=== PATIENT | female | born 1950 | race Caucasian/White ===

== ENCOUNTER 2021-02-11 10:02 | Outpatient (REF) | payer MEDICARE, SELFPAY ==
[2021-02-11 11:21] LABS: Hematocrit 38.9 % (37-47); Mean Corpuscular HGB Conc 33.4 g/dl (31.0-35.0); Mean Corpuscular Hemoglobin 29.5 pg (27.0-33.0); Mean Corpuscular Volume 88.4 fL (80-98); Mean Platelet Volume 10.1 fL (9.4-12.3); Platelet Count 298 X10*3/uL (160-400); Red Cell Distribution Width 13.2 % (11.0-16.0); White Blood Count 6.4 X10*3/uL (4.8-10.8)
[2021-02-11 11:57] LABS: Alanine Aminotransferase 20 U/L (0-31); Albumin Level 4.3 g/dL (3.5-5.0); Alkaline Phosphatase 119 U/L (39-117); Anion Gap 14 (12-20); Aspartate Amino Transferase 24 U/L (5-31); Bilirubin Total 0.6 mg/dL (0.0-1.0); Blood Urea Nitrogen 11 mg/dL (9-16); Calcium 9.4 mg/dL (8.4-10.2); Carbon Dioxide 22 mmol/L (22-29); Chloride 97 mmol/L (96-108); Cholesterol 185 mg/dL; Estimated Glomerular Filt Rate > 60; Glucose Fasting 97 mg/dL (60-99); HDL Cholesterol 81 mg/dL; LDL Cholesterol Calculated 96 mg/dl; Potassium 4.3 mmol/L (3.3-5.1); Sodium 129 mmol/L (135-145); Triglycerides 42 mg/dL
[2021-02-11 12:16] LABS: TSH reflex Free T4 0.98 uIU/mL (0.32-4.0)
== END 2021-02-11 10:03 | disposition home or self-care (01) ==
LOC: HO.HMGCLDS 10:02
PROVIDERS: PCP Internal Medicine; Visit Provider Internal Medicine
DX: Z00.00 Encounter for general adult medical examination without abnormal findings (principal)
CPT/HCPCS: 36415; 80053; 80061; 84443; 85027

== ENCOUNTER 2021-05-03 15:16 | Outpatient (REF) | payer MEDICARE, SELFPAY ==
[2021-05-03 17:14] LABS: Anion Gap 13 (12-20); Blood Urea Nitrogen 13 mg/dL (9-16); Calcium 9.5 mg/dL (8.4-10.2); Carbon Dioxide 26 mmol/L (22-29); Chloride 98 mmol/L (96-108); Estimated Glomerular Filt Rate > 60; Glucose Random 68 mg/dL (60-115); Sodium 133 mmol/L (135-145)
[2021-05-04 13:17] LABS: Alpha Fetoprotein 5.3 ng/mL
== END 2021-05-03 15:17 | disposition home or self-care (01) ==
LOC: HO.HMGCLDS 15:16
PROVIDERS: PCP Internal Medicine; Visit Provider Internal Medicine
DX: I10 Essential (primary) hypertension (principal); E87.1 Hypo-osmolality and hyponatremia
CPT/HCPCS: 36415; 80048; 82105

== ENCOUNTER 2022-08-06 12:01 | Emergency (ER) | payer MEDICARE, SELFPAY ==
--- NOTE | ~2022-08-06 | XR_ITS ---
EXAMINATION: XR CHEST CLINICAL INFORMATION: Chest pain with shortness of breath COMPARISON: None TECHNIQUE: 2 views of the chest were obtained. FINDINGS: Lungs are hyperinflated. No acute parenchymal disease, pneumothorax, or pleural effusion identified. Heart normal size. No evidence of pulmonary edema. There is some diminished vasculature peripherally with prominent hilar regions consistent with COPD. Vascular calcifications are present. Numerous calcifications are seen overlying the region of the liver and were noted on previous CT scan of February 28, 2019. XR/XR chest 2V IMPRESSION: No acute disease. COPD.
--- NOTE | 2022-08-06 12:03 | ECG_ITS ---
Test Reason : CHEST PAIN Blood Pressure : / mmHG Vent. Rate : 078 BPM Atrial Rate : 078 BPM P-R Int : 134 ms QRS Dur : 078 ms QT Int : 380 ms P-R-T Axes : 079 074 057 degrees QTc Int : 433 ms Normal sinus rhythm Right atrial enlargement Septal infarct , age undetermined ST depression inferior and herbie-lateral leads Abnormal ECG No previous ECGs available Referred By: Chiuqita Seals Electronically Signed By:LUZ GRIJALVA
--- NOTE | 2022-08-06 12:12 | ED_ITS ---
HPI - Chest Pain General Chief Complaint: Chest Pain Stated Complaint: CP Time Seen by Provider: 08/06/22 12:09 Source: patient Mode of arrival: ambulatory Limitations: no limitations History of Present Illness HPI narrative: Patient is a 71 year old female who presents to the emergency department for evaluation of chest pain. She states over the past 2 weeks she has been experiencing intermittent chest/abdominal discomfort reported as ?gas pains?. However over the past 2 days to the left lower anterior chest she has been having intermittent sharp pains with intermittent numbness to the left arm. She is unable to identify any exacerbating or alleviating factors. She has intermittent shortness of breath as well, however she does have COPD and states this is not uncommon for her. Grandchildren have been sick with a cold and she has been experiencing increased cough, sneezing, rhinorrhea as well. She denies associated fevers, chills, nausea, vomiting. Related Data Previous Rx's Medication Instructions Recorded atorvastatin 20 mg tablet 20 mg PO DAILY #90 tabs 06/29/21 losartan 25 mg tablet 25 mg PO DAILY #90 tabs 09/05/21 metoprolol tartrate 25 mg tablet 25 mg PO BID #180 tabs 10/07/21 amlodipine 10 mg tablet 10 mg PO DAILY #90 tabs 11/14/21 Allergies Allergy/AdvReac Type Severity Reaction Status Date / Time No Known Allergies Allergy Unverified 04/01/20 19:27 [No Known Allergies*] Review of Systems Review of Systems: Constitutional : No Weight loss, No Fever, No Chills ENT/Mouth :? No sore throat, No Rhinorrhea Eyes: No Eye Pain, No Swelling Cardiovascular : pos Chest Pain, pos SOB, no Dyspnea on Exertion, No Orthopnea, No Edema, No Palpitations Respiratory : Positive Cough, positive Sputum Gastrointestinal : No Nausea, No Vomiting, No Diarrhea, No abdominal Pain, No Hematochezia, No Melena Genitourinary : No Dysuria, No Urinary Frequency Musculoskeletal : No joint pain, No Myalgias, No Joint Swelling Skin : No Skin Lesions, No rash Neuro : No Weakness, No Numbness, No Dizziness, No Headache Psych : No Anxiety/Panic, No Depression Heme/Lymph: No Bruising, No Lymphadenopathy Endocrine : No Polyuria, No Polydipsia Yes all other systems are reviewed and are negative [facility] Past Medical History Attestation statement: The following information was validated with the patient. Source: old records reviewed Medical History Annual physical exam Colonoscopy refused COPD (chronic obstructive pulmonary disease) Hyperlipidemia Hyponatremia Liver cirrhosis, alcoholic Mammogram declined Nodule on liver Peripheral vascular disease Family History Family History Father Heart problem Mother Hypertension Diabetes Social History Social History Housing: House Patient Tobacco Use Status: Former Tobacco user Quit Date: couple years ago e-Cigarette/Vaping Use: Currently Using Advance Directives: Yes Advance Directives Information Provided: Yes Advance Directives on File: No Current occupational status: retired Physical Exam Vital Signs: Vital Signs: Last Vital Signs Pulse 84 08/06/22 17:34 Resp 16 08/06/22 17:34 BP 121/78 08/06/22 17:34 Pulse Ox 99 08/06/22 17:34 O2 Del Method 08/06/22 17:34 BMI result Body Mass Index 30.9 Appearance: Alert.?Oriented to person, place and time. No acute distress.?Normal affect. Eyes: Pupils equal, round and reactive to light.? ENT: Pharynx normal.?? Neck: Normal inspection.? Neck supple.??No JVD CVS: Heart sounds normal. Normal heart rate and rhythm.? Pulses normal.?? Respiratory: No respiratory distress.? Lung sounds clear to auscultation bilaterally?? Abdomen: Soft and non-tender. Normoactive bowel sounds. No pulsatile mass.?? Skin: Skin warm and dry.? Normal skin color.? Extremities: No lower extremity edema.? No calf ttp? Neuro: Moves all extremities spontaneously. Sensation intact bilaterally. CN II- XII intact. No focal neuro deficits. Ambulates with normal steady gait. Course Reevaluation(s) Reevaluation #1: CBC is unremarkable, no leukocytosis or anemia. D-dimer 187, not consistent with pulmonary embolism. CMP revealing mild hyponatremia 132 which appears consistent with baseline. Hypokalemia 2.9, patient to receive 500mL normal saline IV, potassium 10 mEq IV, potassium 40 mEq p.o, and will re-evaluate. Troponin 3.5, EKG revealing normal sinus rhythm, no ST elevation or ST depression, no prior EKGs available for review, at this time low suspicion for ACS given duration of symptoms. COVID-19 and influenza testing are negative. Chest x-ray revealing no acute cardiopulmonary process comes not appear consistent with pneumonia, pleural effusion. Time: 14:25 Reevaluation #2: At this time pain is most likely consistent with muscular strain due to cough, no change in sputum, fevers, chills, or leukocytosis to suggest COPD exacerbation. Potassium normalized. Advised outpatient follow-up with primary care provider within the next 2-3 days. Reviewed worrisome signs and symptoms that would warrant re-evaluation in the emergency department. All questions answered. Patient stable for discharge. Time: 17:41 Medications Administered Discontinued Medications Generic Name Dose Route Start Last Admin Trade Name Freq PRN Reason Stop Dose Admin Aspirin 324 mg 08/06/22 12:35 08/06/22 12:54 Aspirin 81 Mg Tab.Chew PO 08/06/22 12:36 324 mg ONCE ONE Administration Potassium Chloride 10 meq in 100 mls @ 100 mls/hr 08/06/22 14:23 08/06/22 16:39 Potassium Chloride/H20 IV 08/06/22 15:22 Infused ONCE ONE Infusion Sodium Chloride 500 mls @ 999 mls/hr 08/06/22 14:30 08/06/22 16:39 Ns IV 08/06/22 15:00 Infused .Q31M TEMITOPE Infusion Potassium Chloride 40 meq 08/06/22 14:23 08/06/22 15:25 Potassium Chloride Packet 20 Meq Packet PO 08/06/22 14:24 40 meq ONCE ONE Administration Medical Decision Making Medical Decision Making MDM Narrative: Patient is a 71-year-old female with a past medical history of COPD, hyperlipidemia, hyponatremia, alcoholic cirrhosis, liver nodule, PVD who presents emergency department for evaluation of chest and upper respiratory symptoms. Overall she is well-appearing at the time of examination, mildly anxious. She is afebrile without hypoxia or tachypnea. Mild tachycardia. Lung sounds are diminished bilaterally. Abdominal examination is benign. Will obtain CBC to evaluate for leukocytosis/ anemia, CMP and lipase to evaluate for abn ormal electrolytes /abnormal renal function/ abnormal hepatic/biliary function, D-dimer to exclude pulmonary embolism, BNP, EKG and troponin to evaluate for ischemia/ACS. Chest x-ray to evaluate for consolidation/ infiltrate/ mass/ pulmonary congestion. Patinet to receive ASA 324mg PO Differential Diagnosis Differential Diagnoses: The differential diagnosis associated with the presentation includes (ACS, pulmonary embolism, pneumonia, pleural effusion, chest wall pain, gastritis, viral upper respiratory infection, musculoskeletal pain) Lab Data MDM Lab Attestation statement: I reviewed the patient's lab results. 08/06/22 12:54 08/06/22 12:54 Labs: Lab Results 08/06/22 08/06/22 08/06/22 Range/Units 12:54 12:54 12:54 WBC 6.8 (4.8-10.8) X10*3/uL RBC 4.52 (4.20-5.50) X10*6/uL Hgb 13.3 (12.0-16.0) g/dl Hct 39.4 (37.0-47.0) % MCV 87.2 (80.0-98.0) fL MCH 29.4 (27.0-33.0) pg MCHC 33.8 (31.0-35.0) g/dl RDW 13.0 (11.0-16.0) % Plt Count 248 (160-400) X10*3/uL MPV Not Reportable Immature Gran % (Auto) 0.1 (0.0-0.4) % Neut % (Auto) 69.1 (45-73) % Lymph % (Auto) 24.6 (20-40) % Isabella % (Auto) 4.7 (2-11) % Eos % (Auto) 0.9 (0-4) % Baso % (Auto) 0.6 (0-2) % Lymph # (Auto) 1.7 (1.2-4.9) X10*3/uL Isabella # (Auto) 0.3 (0.1-1.2) X10*3/uL Eos # (Auto) 0.1 (0.0-0.4) X10*3/uL Baso # (Auto) 0.0 (0.0-0.2) X10*3/uL Abs Immat Gran (auto) 0.01 (0.00-0.03) X10*3/uL Absolute Neuts (auto) 4.7 (2.0-8.3) x10*3/uL Absolute Nucleated RBC 0.000 (0.0-0.012) X10*3/uL Nucleated RBC % (auto) 0.0 (0.0-0.2) /100WBC Smear Tech's Comments VERIFIED PT (10.0-13.1) SEC INR (0.9-1.1) D-Dimer High Sensitivty NG/ML Sodium (135-145) mmol/L Potassium (3.3-5.1) mmol/L Chloride (96-108) mmol/L Carbon Dioxide (22-29) mmol/L Anion Gap (12-20) BUN (9-16) mg/dL Creatinine (0.5-1.4) mg/dL Estim Creat Clear Calc Estimated GFR Random Glucose (60-115) mg/dL Calcium (8.4-10.2) mg/dL Total Bilirubin (0.0-1.0) mg/dL AST (5-31) U/L ALT (0-31) U/L Alkaline Phosphatase (39-117) U/L Troponin I High Sens (<3.5-17.0) ng/L B-Natriuretic Peptide (<100) pg/mL Total Protein (6.5-8.0) g/dL Albumin (3.5-5.0) g/dL Lipase (8-78) U/L Urine Color Urine Appearance Urine pH (5.0-9.0) Ur Specific [place] (1.005-1.025) Urine Protein (Neg-Trace) mg/dL Urine Glucose (UA) (Negative) mg/dL Urine Ketones (Negative) mg/dL Urine Blood (Negative) Urine Nitrite (Negative) Ur Leukocyte Esterase (Negative) Urine RBC (0-2) /HPF Urine WBC (0-5) /HPF Ur Squamous Epith Cells (0-2) /HPF Urine Bacteria (None Seen) Hyaline Casts (0-2) /LPF COVID-19 ([place]) Negative (Negative) COVID-19 Clin Com See Note Influenza Type A ([place]) Negative (Negative) Influenza Type B ([place]) Negative (Negative) Influenza A & B Note See Note 08/06/22 08/06/22 08/06/22 Range/Units 12:54 12:54 12:54 WBC (4.8-10.8) X10*3/uL RBC (4.20-5.50) X10*6/uL Hgb (12.0-16.0) g/dl Hct (37.0-47.0) % MCV (80.0-98.0) fL MCH (27.0-33.0) pg MCHC (31.0-35.0) g/dl RDW (11.0-16.0) % Plt Count (160-400) X10*3/uL MPV Immature Gran % (Auto) (0.0-0.4) % Neut % (Auto) (45-73) % Lymph % (Auto) (20-40) % Isabella % (Auto) (2-11) % Eos % (Auto) (0-4) % Baso % (Auto) (0-2) % Lymph # (Auto) (1.2-4.9) X10*3/uL Isabella # (Auto) (0.1-1.2) X10*3/uL Eos # (Auto) (0.0-0.4) X10*3/uL Baso # (Auto) (0.0-0.2) X10*3/uL Abs Immat Gran (auto) (0.00-0.03) X10*3/uL Absolute Neuts (auto) (2.0-8.3) x10*3/uL Absolute Nucleated RBC (0.0-0.012) X10*3/uL Nucleated RBC % (auto) (0.0-0.2) /100WBC Smear Tech's Comments PT 10.6 (10.0-13.1) SEC INR 0.9 (0.9-1.1) D-Dimer High Sensitivty 187 Cancelled NG/ML Sodium (135-145) mmol/L Potassium (3.3-5.1) mmol/L Chloride (96-108) mmol/L Carbon Dioxide (22-29) mmol/L Anion Gap (12-20) BUN (9-16) mg/dL Creatinine (0.5-1.4) mg/dL Estim Creat Clear Calc Estimated GFR Random Glucose (60-115) mg/dL Calcium (8.4-10.2) mg/dL Total Bilirubin (0.0-1.0) mg/dL AST (5-31) U/L ALT (0-31) U/L Alkaline Phosphatase (39-117) U/L Troponin I High Sens (<3.5-17.0) ng/L B-Natriuretic Peptide 129 H (<100) pg/mL Total Protein (6.5-8.0) g/dL Albumin (3.5-5.0) g/dL Lipase (8-78) U/L Urine Color Urine Appearance Urine pH (5.0-9.0) Ur Specific [place] (1.005-1.025) Urine Protein (Neg-Trace) mg/dL Urine Glucose (UA) (Negative) mg/dL Urine Ketones (Negative) mg/dL Urine Blood (Negative) Urine Nitrite (Negative) Ur Leukocyte Esterase (Negative) Urine RBC (0-2) /HPF Urine WBC (0-5) /HPF Ur Squamous Epith Cells (0-2) /HPF Urine Bacteria (None Seen) Hyaline Casts (0-2) /LPF COVID-19 ([place]) (Negative) COVID-19 Clin Com Influenza Type A ([place]) (Negative) Influenza Type B ([place]) (Negative) Influenza A & B Note 08/06/22 08/06/22 08/06/22 Range/Units 13:54 13:54 16:19 WBC (4.8-10.8) X10*3/uL RBC (4.20-5.50) X10*6/uL Hgb (12.0-16.0) g/dl Hct (37.0-47.0) % MCV (80.0-98.0) fL MCH (27.0-33.0) pg MCHC (31.0-35.0) g/dl RDW (11.0-16.0) % Plt Count (160-400) X10*3/uL MPV Immature Gran % (Auto) (0.0-0.4) % Neut % (Auto) (45-73) % Lymph % (Auto) (20-40) % Isabella % (Auto) (2-11) % Eos % (Auto) (0-4) % Baso % (Auto) (0-2) % Lymph # (Auto) (1.2-4.9) X10*3/uL Isabella # (Auto) (0.1-1.2) X10*3/uL Eos # (Auto) (0.0-0.4) X10*3/uL Baso # (Auto) (0.0-0.2) X10*3/uL Abs Immat Gran (auto) (0.00-0.03) X10*3/uL Absolute Neuts (auto) (2.0-8.3) x10*3/uL Absolute Nucleated RBC (0.0-0.012) X10*3/uL Nucleated RBC % (auto) (0.0-0.2) /100WBC Smear Tech's Comments PT (10.0-13.1) SEC INR (0.9-1.1) D-Dimer High Sensitivty NG/ML Sodium 132 L (135-145) mmol/L Potassium 2.9 L D (3.3-5.1) mmol/L Chloride 96 (96-108) mmol/L Carbon Dioxide 27 (22-29) mmol/L Anion Gap 12 (12-20) BUN 10 (9-16) mg/dL Creatinine 0.85 (0.5-1.4) mg/dL Estim Creat Clear Calc 59.7 Estimated GFR > 60 Random Glucose 99 (60-115) mg/dL Calcium 9.6 (8.4-10.2) mg/dL Total Bilirubin 0.8 (0.0-1.0) mg/dL AST 19 (5-31) U/L ALT 19 (0-31) U/L Alkaline Phosphatase 72 (39-117) U/L Troponin I High Sens 3.5 (<3.5-17.0) ng/L B-Natriuretic Peptide (<100) pg/mL Total Protein 6.8 (6.5-8.0) g/dL Albumin 4.3 (3.5-5.0) g/dL Lipase 30 (8-78) U/L Urine Color Yellow Urine Appearance Clear Urine pH 6.0 (5.0-9.0) Ur Specific [place] <= 1.005 (1.005-1.025) Urine Protein Negative (Neg-Trace) mg/dL Urine Glucose (UA) Negative (Negative) mg/dL Urine Ketones Negative (Negative) mg/dL Urine Blood Negative (Negative) Urine Nitrite Negative (Negative) Ur Leukocyte Esterase Trace H (Negative) Urine RBC 0-2 (0-2) /HPF Urine WBC 0-5 (0-5) /HPF Ur Squamous Epith Cells 0-2 (0-2) /HPF Urine Bacteria None Seen (None Seen) Hyaline Casts 0-2 (0-2) /LPF COVID-19 ([place]) (Negative) COVID-19 Clin Com Influenza Type A ([place]) (Negative) Influenza Type B ([place]) (Negative) Influenza A & B Note 08/06/22 08/06/22 Range/Units 16:49 16:49 WBC (4.8-10.8) X10*3/uL RBC (4.20-5.50) X10*6/uL Hgb (12.0-16.0) g/dl Hct (37.0-47.0) % MCV (80.0-98.0) fL MCH (27.0-33.0) pg MCHC (31.0-35.0) g/dl RDW (11.0-16.0) % Plt Count (160-400) X10*3/uL MPV Immature Gran % (Auto) (0.0-0.4) % Neut % (Auto) (45-73) % Lymph % (Auto) (20-40) % Isabella % (Auto) (2-11) % Eos % (Auto) (0-4) % Baso % (Auto) (0-2) % Lymph # (Auto) (1.2-4.9) X10*3/uL [place] # (Auto) (0.1-1.2) X10*3/uL Eos # (Auto) (0.0-0.4) X10*3/uL Baso # (Auto) (0.0-0.2) X10*3/uL Abs Immat Gran (auto) (0.00-0.03) X10*3/uL Absolute Neuts (auto) (2.0-8.3) x10*3/uL Absolute Nucleated RBC (0.0-0.012) X10*3/uL Nucleated RBC % (auto) (0.0-0.2) /100WBC Smear Tech's Comments PT (10.0-13.1) SEC INR (0.9-1.1) D-Dimer High Sensitivty NG/ML Sodium (135-145) mmol/L Potassium 4.6 D (3.3-5.1) mmol/L Chloride (96-108) mmol/L Carbon Dioxide (22-29) mmol/L Anion Gap (12-20) BUN (9-16) mg/dL Creatinine (0.5-1.4) mg/dL Estim Creat Clear Calc Estimated GFR Random Glucose (60-115) mg/dL Calcium (8.4-10.2) mg/dL Total Bilirubin (0.0-1.0) mg/dL AST (5-31) U/L ALT (0-31) U/L Alkaline Phosphatase (39-117) U/L Troponin I High Sens 5.3 D (<3.5-17.0) ng/L B-Natriuretic Peptide (<100) pg/mL Total Protein (6.5-8.0) g/dL Albumin (3.5-5.0) g/dL Lipase (8-78) U/L Urine Color Urine Appearance Urine pH (5.0-9.0) Ur Specific [place] (1.005-1.025) Urine Protein (Neg-Trace) mg/dL Urine Glucose (UA) (Negative) mg/dL Urine Ketones (Negative) mg/dL Urine Blood (Negative) Urine Nitrite (Negative) Ur Leukocyte Esterase (Negative) Urine RBC (0-2) /HPF Urine WBC (0-5) /HPF Ur Squamous Epith Cells (0-2) /HPF Urine Bacteria (None Seen) Hyaline Casts (0-2) /LPF COVID-19 ([place]) (Negative) COVID-19 Clin Com Influenza Type A ([place]) (Negative) Influenza Type B ([place]) (Negative) Influenza A & B Note Independent Interpretation I performed an independent interpretation of an: EKG and Plain X-Ray (I Have personally interpreted patient's chest x-ray and agree with radiologist impression.) Interpretation: EKG Rate: 78 Rhythm:? Normal sinus rhythm [place]:? Normal Normal P waves.? Normal KIRA.?? Normal QRS complex.?? ST T wave :??No ST elevation, no ST depression qTC: 433 prior studies:? No prior EKG available for review The study has been interpreted contemporaneously by me. Radiology Impression Discussion of test interpretation with radiology: I have reviewed the radiologist's reading. Radiologist Impression: XR/XR chest 2V IMPRESSION: No acute disease. ? COPD. Prescription Management I considered prescription management with: Antibiotic (Considered antibiotic for COPD exacerbation, however based on history and physical examination does not appear consistent at this time. Antibiotics deferred.) Discharge Plan Discharge Clinical Impression: Atypical chest pain, Acute hypokalemia Patient Disposition: Home, Self-Care Instructions: Chest Pain (ED), Noncardiac Chest Pain (ED) Additional Instructions: As discussed, your potassium level was low today, we gave you replacement through the IV as well as orally and this normalized. Your EKG today was reassuring, your blood work was overall normal. Your x-ray does not show evidence of pneumonia. Please contact your primary care provider to arrange for a follow-up visit within the next 3 days. Return back to emergency department with any new or worsening symptoms or concerns. Prescriptions: No Action atorvastatin 20 mg tablet 20 mg PO DAILY Qty: 90 3RF losartan 25 mg tablet 25 mg PO DAILY Qty: 90 3RF metoprolol tartrate 25 mg tablet 25 mg PO BID Qty: 180 3RF amlodipine 10 mg tablet 10 mg PO DAILY Qty: 90 3RF Referrals: Shirin Phan MD [Primary Care Provider] -
[2022-08-06 12:17] VITALS: BP 122/87; PULSE 100; RESP 18; O2SAT 97; BMI 30.9
[2022-08-06] MEDS: Aspirin 81 MG TAB.CHEW 324 MG PO (12:54)
[2022-08-06 13:03] LABS: Basophils Percent Auto 0.6 % (0-2); Eosinophils Absolute Auto 0.1 X10*3/uL (0.0-0.4); Eosinophils Percent Auto 0.9 % (0-4); Hematocrit 39.4 % (37.0-47.0); Hemoglobin 13.3 g/dl (12.0-16.0); Imm Gran Abs Auto 0.01 X10*3/uL (0.00-0.03); Imm Gran Pct Auto 0.1 % (0.0-0.4); Lymphocytes Absolute Auto 1.7 X10*3/uL (1.2-4.9); Lymphocytes Percent Auto 24.6 % (20-40); MANUAL DIFF FLAG SCAN; Mean Corpuscular HGB Conc 33.8 g/dl (31.0-35.0); Mean Corpuscular Hemoglobin 29.4 pg (27.0-33.0); Mean Corpuscular Volume 87.2 fL (80.0-98.0); Monocytes Absolute Auto 0.3 X10*3/uL (0.1-1.2); Monocytes Percent Auto 4.7 % (2-11); Neutrophils Absolute Auto 4.7 x10*3/uL (2.0-8.3); Neutrophils Percent Auto 69.1 % (45-73); PLT CLUMP 1; Red Blood Count 4.52 X10*6/uL (4.20-5.50); SCAN SMEAR FLAG 1
[2022-08-06 13:14] LABS: INTERNATIONAL NORM RATIO 0.9 (0.9-1.1); Prothrombin Time 10.6 SEC (10.0-13.1)
[2022-08-06 13:16] LABS: COVID-19 Test Negative (Negative); D Dimer High Sensitivity 187 NG/ML; IDNOW Serial# 16C4AD1C
[2022-08-06 13:17] LABS: IDNOW Serial# BCCEAD1C; Influenza A Negative (Negative); Influenza B2 Negative (Negative)
[2022-08-06 13:22] LABS: Platelet Count 248 X10*3/uL (160-400); White Blood Count 6.8 X10*3/uL (4.8-10.8)
[2022-08-06 13:23] LABS: SLIDE REVIEW VERIFIED
[2022-08-06 13:27] LABS: B Type Natriuretic Peptide 129 pg/mL (<100)
[2022-08-06 14:13] LABS: Alanine Aminotransferase 19 U/L (0-31); Albumin Level 4.3 g/dL (3.5-5.0); Alkaline Phosphatase 72 U/L (39-117); Anion Gap 12 (12-20); Aspartate Amino Transferase 19 U/L (5-31); Bilirubin Total 0.8 mg/dL (0.0-1.0); Blood Urea Nitrogen 10 mg/dL (9-16); Calcium 9.6 mg/dL (8.4-10.2); Carbon Dioxide 27 mmol/L (22-29); Chloride 96 mmol/L (96-108); Creatinine Clr Calc Pharmacy 59.7; Estimated Glomerular Filt Rate > 60; Glucose Random 99 mg/dL (60-115); Lipase 30 U/L (8-78); Potassium 2.9 mmol/L (3.3-5.1); Sodium 132 mmol/L (135-145); Total Protein 6.8 g/dL (6.5-8.0)
[2022-08-06 14:20] LABS: Troponin-I High Sensitivity 3.5 ng/L (<3.5-17.0)
[2022-08-06 14:27] VITALS: BP 123/62; PULSE 73; RESP 16; O2SAT 96
[2022-08-06] MEDS: 0.9 % Sodium Chloride 500 ML 999 ML IV (15:21)
[2022-08-06] MEDS: Potassium Chloride/H20 10 MEQ/100 ML PIGGYBACK 100 MEQ IV (15:25)
[2022-08-06] MEDS: Potassium Chloride Packet 20 MEQ PACKET 40 MEQ PO (15:25)
[2022-08-06 15:30] VITALS: BP 142/103; PULSE 89; RESP 16; O2SAT 97
[2022-08-06 16:28] LABS: Appearance Urine Clear; Color Urine Yellow; Glucose Urine UA Negative (Negative); Leukocyte Esterase Urine Trace (Negative); Nitrite Urine Negative (Negative); Specific Gravity - Urine <= 1.005 (1.005-1.025); UMIC TRIGGER UACC YES; Urine Blood Negative (Negative); Urine Ketones Negative (Negative); Urine Protein Negative (Neg-Trace)
[2022-08-06 16:33] LABS: Bacteria Urine None Seen (None Seen); Hyaline Casts Urine 0-2 /LPF (0-2); RBC Urine 0-2 /HPF (0-2); Squamous Epithelial Cell Urine 0-2 /HPF (0-2); WBC Urine 0-5 /HPF (0-5)
[2022-08-06 17:03] LABS: Potassium 4.6 mmol/L (3.3-5.1)
[2022-08-06 17:15] LABS: Troponin-I High Sensitivity 5.3 ng/L (<3.5-17.0)
[2022-08-06 17:34] VITALS: BP 121/78; PULSE 84; RESP 16; O2SAT 99
== END 2022-08-06 17:58 | disposition home or self-care (01) ==
PROVIDERS: Nurse Practitioner Family; Emergency Provider Emergency Medicine; PCP Internal Medicine
DX: R07.89 Other chest pain (principal); E87.6 Hypokalemia; R06.02 Shortness of breath; Z20.822 Contact with and (suspected) exposure to COVID-19; Z20.828 Contact with and (suspected) exposure to other viral communicable diseases; Z79.899 Other long term (current) drug therapy; Z87.891 Personal history of nicotine dependence
CPT/HCPCS: 36415; 71046; 80053; 81001; 83690; 83880; 84132; 84484; 85025; 85379; 85610; 87502; 87635; 93005; 99284

== ENCOUNTER 2022-09-23 12:19 | Inpatient (IN) | payer MEDICARE, SELFPAY ==
[2022-09-23] VITALS (7 sets, daily range): BP systolic 96–131; BP diastolic 56–72; PULSE 77–109; RESP 16–20; TEMP 36.3–36.8; O2SAT 94–97; BMI 16.7
--- NOTE | ~2022-09-23 | XR_ITS ---
EXAMINATION: XR CHEST CLINICAL INFORMATION: Shortness of breath COMPARISON: 08/06/2022 TECHNIQUE: 2 views of the chest were obtained. FINDINGS: Again seen are hyperinflated lungs compatible with COPD. Otherwise, no significant abnormality is noted involving the heart, lungs, mediastinum, bony thorax or soft tissues. Again seen are innumerable calcific densities throughout the liver as noted on the prior CT XR/XR chest 2V IMPRESSION: COPD. No acute intrathoracic disease.
--- NOTE | 2022-09-23 12:26 | ED.GENADULT ---
HPI - General Adult General Chief complaint: Upper Respiratory Symptoms <FILOMENA Sesay - Last Filed: 09/23/22 12:27> Stated complaint: Diff breathing <FILOMENA Sesay - Last Filed: 09/23/22 12:27> Time Seen by Provider: 09/23/22 13:36 <FILOMENA Sesay - Last Filed: 09/23/22 12:27> Source: patient <FILOMENA Huang - Last Filed: 09/23/22 19:01> Mode of arrival: ambulatory <FILOMENA Huang - Last Filed: 09/23/22 19:01> History of Present Illness HPI narrative: 71-year-old female with a past medical history of COPD, HLD, hyponatremia, liver cirrhosis, PVD, presenting to the ED complaining of persistent cough, wheezing, dyspnea, chest discomfort x few weeks. Admits was recently seen at urgent care prescribed Ventolin, Doxycycline, and Prednisone without much relief, and tested positive for human metapneumovirus. Admits dyspnea worse on exertion and lying flat. Denies recent travel, sick contacts, pedal edema, abdominal pain, nausea/vomiting <FILOMENA Huang - Last Filed: 09/23/22 19:01> Onset (ago): week(s) <FILOMENA Huang - Last Filed: 09/23/22 19:01> Related Data Home medications: Home Medications Medication Instructions Recorded Confirmed albuterol sulfate 90 mcg/actuation 1 puff inhalation Q6H PRN wheezing 09/23/22 09/23/22 aerosol inhaler aspirin 81 mg tablet,delayed 81 mg PO DAILY 09/23/22 09/23/22 release doxycycline hyclate 100 mg tablet 1 tab PO BID 09/23/22 09/23/22 prednisone 20 mg tablet 1 tab PO BID 09/23/22 09/23/22 Previous Rx's Medication Instructions Recorded losartan 25 mg tablet 25 mg PO DAILY #90 tabs 09/08/22 amlodipine 10 mg tablet 10 mg PO DAILY #90 tabs 09/15/22 metoprolol tartrate 25 mg tablet 25 mg PO BID #180 tabs 09/15/22 <FILOMENA Sesay Last Filed: 09/23/22 12:27> Allergies/adverse reactions: Allergies Allergy/AdvReac Type Severity Reaction Status Date / Time No Known Allergies Allergy Unverified 04/01/20 19:27 [No Known Allergies*] <FILOMENA Sesay - Last Filed: 09/23/22 12:27> Review of Systems Review of Systems: Constitutional: No Fever, No Chills, + Fatigue, + Malaise ENT/Mouth:No Ear Pain, + Nasal Congestion, No sore throat, + Rhinorrhea, No Swallowing Difficulty Eyes: No Eye Pain, No Swelling, No Redness, No Vision Changes Cardiovascular: + Chest Pain, + SOB, + Dyspnea on Exertion, + Orthopnea, No Edema, No Palpitations Respiratory: + Cough, No Sputum, + Wheezing, No Smoke Exposure, + Dyspnea Gastrointestinal: No Nausea, No Vomiting, No Diarrhea, No Constipation, No Abdominal pain Genitourinary: No Dysuria, No Urinary Frequency, No Hematuria, No Flank Pain Musculoskeletal: No joint pain, No Myalgias, No Joint Swelling Skin: No Skin Lesions, No rash Neuro: +Gen Weakness, No Numbness, No Loss of Consciousness, No Dizziness, No Headache <FILOMENA Huang - Last Filed: 09/23/22 19:01> Yes all other systems are reviewed and are negative <FILOMENA Huang - Last Filed: 09/23/22 19:01> Constitutional: Constitutional: Reports as per HPI <FILOMENA Huang - Last Filed: 09/23/22 19:01> [facility] Past Medical History Attestation statement: The following information was validated with the patient. <FILOMENA Huang - Last Filed: 09/23/22 19:01> Medical History: Medical History Annual physical exam Colonoscopy refused COPD (chronic obstructive pulmonary disease) Hyperlipidemia Hyponatremia Liver cirrhosis, alcoholic Mammogram declined Nodule on liver Peripheral vascular disease <FILOMENA Sesay - Last Filed: 09/23/22 12:27> Family History Family History: Family History Father Heart problem Mother Hypertension Diabetes <FILOMENA Sesay - Last Filed: 09/23/22 12:27> Social History Social History: Social History Housing: House Patient Tobacco Use Status: Former Tobacco user Quit Date: couple years ago e-Cigarette/Vaping Use: Currently Using Advance Directives: Yes Advance Directives Information Provided: No Advance Directives on File: No Current occupational status: retired <FILOMENA Sesay - Last Filed: 09/23/22 12:27> Physical Exam ED Vital Signs: Vital Signs - 24 hr 09/23/22 12:23 09/23/22 14:23 09/23/22 16:36 Temperature 97.3 F Pulse Rate 77 88 109 H Respiratory Rate 16 18 18 Blood Pressure 131/72 Pulse Oximetry 97 Oxygen Delivery Method Room Air 09/23/22 17:10 Temperature Pulse Rate Respiratory Rate Blood Pressure Pulse Oximetry 96 Oxygen Delivery Method BMI result Body Mass Index 16.7 <FILOMENA Sesay - Last Filed: 09/23/22 12:27> Vital Signs - 24 hr 09/23/22 12:23 09/23/22 14:23 09/23/22 16:36 Temperature 97.3 F Pulse Rate 77 88 109 H Respiratory Rate 16 18 18 Blood Pressure 131/72 Pulse Oximetry 97 Oxygen Delivery Method Room Air 09/23/22 17:10 Temperature Pulse Rate Respiratory Rate Blood Pressure Pulse Oximetry 96 Oxygen Delivery Method BMI result Body Mass Index 16.7 <FILOMENA Huang - Last Filed: 09/23/22 19:01> Const General: cooperative and no acute distress <FILOMENA Huang - Last Filed: 09/23/22 19:01> Orientation/consciousness: patient oriented x3 <FILOMENA Huang - Last Filed: 09/23/22 19:01> Limitations: no limitations <FILOMENA Huang Last Filed: 09/23/22 19:01> HENMT Head: Yes normal to inspection and Yes atraumatic <FILOMENA Huang - Last Filed: 09/23/22 19:01> Ears: hearing grossly normal bilaterally <FILOMENA Huang Last Filed: 09/23/22 19:01> General nose exam: Normal external nose present <FILOMENA Huang Last Filed: 09/23/22 19:01> Face and sinus: Yes normal facial exam <FILOMENA Huang - Last Filed: 09/23/22 19:01> Throat: Yes posterior oropharynx normal, Yes tonsils normal and Yes uvula midline <FILOMENA Huang - Last Filed: 09/23/22 19:01> Eyes General: appearance normal, both eyes and all related structures <Mary Olivarez PA - Last Filed: 09/23/22 19:01> EOM: EOMs intact bilaterally <Mary Olivarez PA - Last Filed: 09/23/22 19:01> Neck Neck: Yes normal visual inspection and Yes no meningeal signs <Mary Olivarez PA - Last Filed: 09/23/22 19:01> Resp Effort & Inspection: normal respiratory effort and no respiratory distress <Mary Olivarez PA - Last Filed: 09/23/22 19:01> Auscultation: rhonchi lower bilaterally <Mary Olivarez [place] - Last Filed: 09/23/22 19:01> Cardio Rate: regular rate <Mary Olivarez PA - Last Filed: 09/23/22 19:01> Heart sounds: S1 normal heart sound present and S2 normal heart sound present <Mary Olivarez PA - Last Filed: 09/23/22 19:01> GI Inspection: Yes normal to inspection <Mary Olivarez PA - Last Filed: 09/23/22 19:01> Palpation (GI): Soft to palpation, nontender, no guarding and not rigid <Mary Olivarez [place] - Last Filed: 09/23/22 19:01> Skin Rashes: no rashes <Mary Olivarez PA - Last Filed: 09/23/22 19:01> Wounds: no wounds <Mary Olivarez PA - Last Filed: 09/23/22 19:01> Neuro General: patient oriented x3, tone normal and no meningeal signs <Mary Olivarez PA - Last Filed: 09/23/22 19:01> Gait exam (Neuro): Normal gait present <Mary Olivarez PA - Last Filed: 09/23/22 19:01> Extrem General: Yes normal to inspection, Yes no pedal edema and Yes no calf tenderness <FILOMENA Huang - Last Filed: 09/23/22 19:01> Course Course Course Narrative: RME performed by Josy Ernst PA-C. Patient is a 71 year old female presenting to the emergency department with a cough and shortness of breath. Labs, CXR, and swab ordered. Patient placed back in the waiting room pending room availability and results. <FILOMENA Sesay - Last Filed: 09/23/22 12:27> RME performed by Josy Ernst PA-C. Patient is a 71 year old female presenting to the emergency department with a cough and shortness of breath. Labs, CXR, and swab ordered. Patient placed back in the waiting room pending room availability and results. XR chest 2V IMPRESSION: COPD. No acute intrathoracic disease. -1500--BUN mildly elevated to 22 > likely from dehydration will give IVF. Troponin negative. BNP acute on chronically elevated. -no leukocytosis -COVID-19/influenza/RSV negative. Patient desaturated from 96% to 88% on RA during ambulation with increase in heart rate to 128 >> plan to admit for further management <FILOMENA Huang - Last Filed: 09/23/22 19:01> Medications Administered Generic Name Dose Route Start Last Admin Trade Name Freq PRN Reason Stop Dose Admin Magnesium Sulfate 2 gm in 50 mls @ 25 mls/hr 09/23/22 18:07 09/23/22 18:27 Magnesium Sulfate/H2o IV 09/23/22 20:06 25 mls/hr ONCE ONE Administration Discontinued Medications Generic Name Dose Route Start Last Admin Trade Name Freq PRN Reason Stop Dose Admin Albuterol Sulfate 5 mg/ 0 mg 09/23/22 13:58 09/23/22 14:21 Ipratropium Mcdavid 0.5 mg INHALE 09/23/22 13:59 1 each ONCE ONE Administration Albuterol Sulfate 2.5 mg/ 0 mg 09/23/22 15:55 09/23/22 16:34 Ipratropium Mcdavid 0.5 mg INHALE 09/23/22 15:56 1 each ONCE ONE Administration Sodium Chloride 500 mls @ 999 mls/hr 09/23/22 15:15 09/23/22 16:30 Ns IV 09/23/22 15:45 Infused .Q31M TEMITOPE Infusion Methylprednisolone Sodium Succinate 125 mg 09/23/22 14:12 09/23/22 14:25 Methylprednisolone Sod Succ 125 Mg/2 Ml Vial IVPUSH 09/23/22 14:13 125 mg ONCE ONE Administration <FILOMENA Sesay - Last Filed: 09/23/22 12:27> Medications Administered Generic Name Dose Route Start Last Admin Trade Name Freq PRN Reason Stop Dose Admin Magnesium Sulfate 2 gm in 50 mls @ 25 mls/hr 09/23/22 18:07 09/23/22 18:27 Magnesium Sulfate/H2o IV 09/23/22 20:06 25 mls/hr ONCE ONE Administration Discontinued Medications Generic Name Dose Route Start Last Admin Trade Name Freq PRN Reason Stop Dose Admin Albuterol Sulfate 5 mg/ 0 mg 09/23/22 13:58 09/23/22 14:21 Ipratropium Mcdavid 0.5 mg INHALE 09/23/22 13:59 1 each ONCE ONE Administration Albuterol Sulfate 2.5 mg/ 0 mg 09/23/22 15:55 09/23/22 16:34 Ipratropium Mcdavid 0.5 mg INHALE 09/23/22 15:56 1 each ONCE ONE Administration Sodium Chloride 500 mls @ 999 mls/hr 09/23/22 15:15 09/23/22 16:30 Ns IV 09/23/22 15:45 Infused .Q31M TEMITOPE Infusion Methylprednisolone Sodium Succinate 125 mg 09/23/22 14:12 09/23/22 14:25 Methylprednisolone Sod Succ 125 Mg/2 Ml Vial IVPUSH 09/23/22 14:13 125 mg ONCE ONE Administration <FILOMENA Huang - Last Filed: 09/23/22 19:01> Medical Decision Making Medical Decision Making MDM Narrative: 71-year-old female with a past medical history of COPD, HLD, hyponatremia, liver cirrhosis, PVD, presenting to the ED complaining of persistent cough, wheezing, dyspnea, chest discomfort x few weeks. Admits was recently seen at urgent care prescribed Ventolin, Doxycycline, and Prednisone without much relief, and tested positive for human metapneumovirus. On exam vital signs stable, bibasilar rhonchi noted, satting 97% on room air, no pedal edema/calf tenderness. Concern for COPD exacerbation vs viral syndrome vs pneumonia vs CHF. Lower suspicion for ACS/PE Plan: EKG, labs, CXR, COVID 19/influenza/RSV testing, DuoNebs, IV Solu-Medrol, re-evaluate Please refer to course for remaining clinical decision making, interpretation of labs/imaging results, and discussions with consultants and/or family members. <FILOMENA Huang - Last Filed: 09/23/22 19:01> Differential Diagnosis Differential Diagnoses: The differential diagnosis associated with the presentation includes <FILOMENA Huang - Last Filed: 09/23/22 19:01> as above <FILOMENA Huang - Last Filed: 09/23/22 19:01> Admission/Observation Consideration of admission/observation: Escalation of care including admission/observation considered <FILOMENA Huang - Last Filed: 09/23/22 19:01> Lab Data MDM Lab Attestation statement: I reviewed the patient's lab results. <FILOMENA Huang - Last Filed: 09/23/22 19:01> Result Diagrams: 09/23/22 14:09 <FILOMENA Sesay - Last Filed: 09/23/22 12:27> Labs: Lab Results 09/23/22 09/23/22 09/23/22 Range/Units 14:09 14:09 14:09 WBC 9.3 (4.8-10.8) X10*3/uL RBC 4.46 (4.20-5.50) X10*6/uL Hgb 13.4 (12.0-16.0) g/dl Hct 39.1 (37.0-47.0) % MCV 87.7 (80.0-98.0) fL MCH 30.0 (27.0-33.0) pg MCHC 34.3 (31.0-35.0) g/dl RDW 13.5 (11.0-16.0) % Plt Count 332 D (160-400) X10*3/uL MPV 9.3 L (9.4-12.3) fL Immature Gran % (Auto) 0.4 (0.0-0.4) % Neut % (Auto) 82.5 H (45-73) % Lymph % (Auto) 13.9 L (20-40) % [place] % (Auto) 3.0 (2-11) % Eos % (Auto) 0.1 (0-4) % Baso % (Auto) 0.1 (0-2) % Lymph # (Auto) 1.3 (1.2-4.9) X10*3/uL [place] # (Auto) 0.3 (0.1-1.2) X10*3/uL Eos # (Auto) 0.0 (0.0-0.4) X10*3/uL Baso # (Auto) 0.0 (0.0-0.2) X10*3/uL Abs Immat Gran (auto) 0.04 H (0.00-0.03) X10*3/uL Absolute Neuts (auto) 7.7 (2.0-8.3) x10*3/uL Absolute Nucleated RBC 0.000 (0.0-0.012) X10*3/uL Nucleated RBC % (auto) 0.0 (0.0-0.2) /100WBC PT (10.0-13.1) SEC INR (0.9-1.1) Sodium 134 L (135-145) mmol/L Potassium 4.1 (3.3-5.1) mmol/L Chloride 98 (96-108) mmol/L Carbon Dioxide 22 (22-29) mmol/L Anion Gap 18 (12-20) BUN 22 H (9-16) mg/dL Creatinine 1.13 (0.5-1.4) mg/dL Estim Creat Clear Calc 31.3 Estimated GFR 47 Random Glucose 165 H (60-115) mg/dL Calcium 10.1 (8.4-10.2) mg/dL Magnesium 1.8 (1.6-2.6) mg/dL Total Bilirubin 0.7 (0.0-1.0) mg/dL AST 28 (5-31) U/L ALT 42 H (0-31) U/L Alkaline Phosphatase 105 (39-117) U/L Troponin I High Sens 4.9 (<3.5-17.0) ng/L B-Natriuretic Peptide (<100) pg/mL Total Protein 7.8 (6.5-8.0) g/dL Albumin 4.6 (3.5-5.0) g/dL COVID-19 ([place]) (Negative) COVID-19 Clin Com Influenza Type A ([facility]IA) (Negative) Influenza Type B (ST[facility]IA) (Negative) Influenza A & B Note 09/23/22 09/23/22 09/23/22 Range/Units 14:09 14:09 15:12 WBC (4.8-10.8) X10*3/uL RBC (4.20-5.50) X10*6/uL Hgb (12.0-16.0) g/dl Hct (37.0-47.0) % MCV (80.0-98.0) fL MCH (27.0-33.0) pg MCHC (31.0-35.0) g/dl RDW (11.0-16.0) % Plt Count (160-400) X10*3/uL MPV (9.4-12.3) fL Immature Gran % (Auto) (0.0-0.4) % Neut % (Auto) (45-73) % Lymph % (Auto) (20-40) % [place] % (Auto) (2-11) % Eos % (Auto) (0-4) % Baso % (Auto) (0-2) % Lymph # (Auto) (1.2-4.9) X10*3/uL [place] # (Auto) (0.1-1.2) X10*3/uL Eos # (Auto) (0.0-0.4) X10*3/uL Baso # (Auto) (0.0-0.2) X10*3/uL Abs Immat Gran (auto) (0.00-0.03) X10*3/uL Absolute Neuts (auto) (2.0-8.3) x10*3/uL Absolute Nucleated RBC (0.0-0.012) X10*3/uL Nucleated RBC % (auto) (0.0-0.2) /100WBC PT 10.6 (10.0-13.1) SEC INR 0.9 (0.9-1.1) Sodium (135-145) mmol/L Potassium (3.3-5.1) mmol/L Chloride (96-108) mmol/L Carbon Dioxide (22-29) mmol/L Anion Gap (12-20) BUN (9-16) mg/dL Creatinine (0.5-1.4) mg/dL Estim Creat Clear Calc Estimated GFR Random Glucose (60-115) mg/dL Calcium (8.4-10.2) mg/dL Magnesium (1.6-2.6) mg/dL Total Bilirubin (0.0-1.0) mg/dL AST (5-31) U/L ALT (0-31) U/L Alkaline Phosphatase (39-117) U/L Troponin I High Sens (<3.5-17.0) ng/L B-Natriuretic Peptide 146 H (<100) pg/mL Total Protein (6.5-8.0) g/dL Albumin (3.5-5.0) g/dL COVID-19 ([place]) (Negative) COVID-19 Clin Com Influenza Type A ([facility]ACIA) Negative (Negative) Influenza Type B ([facility]IA) Negative (Negative) Influenza A & B Note See Note 09/23/22 Range/Units 15:12 WBC (4.8-10.8) X10*3/uL RBC (4.20-5.50) X10*6/uL Hgb (12.0-16.0) g/dl Hct (37.0-47.0) % MCV (80.0-98.0) fL MCH (27.0-33.0) pg MCHC (31.0-35.0) g/dl RDW (11.0-16.0) % Plt Count (160-400) X10*3/uL MPV (9.4-12.3) fL Immature Gran % (Auto) (0.0-0.4) % Neut % (Auto) (45-73) % Lymph % (Auto) (20-40) % [place] % (Auto) (2-11) % Eos % (Auto) (0-4) % Baso % (Auto) (0-2) % Lymph # (Auto) (1.2-4.9) X10*3/uL [place] # (Auto) (0.1-1.2) X10*3/uL Eos # (Auto) (0.0-0.4) X10*3/uL Baso # (Auto) (0.0-0.2) X10*3/uL Abs Immat Gran (auto) (0.00-0.03) X10*3/uL Absolute Neuts (auto) (2.0-8.3) x10*3/uL Absolute Nucleated RBC (0.0-0.012) X10*3/uL Nucleated RBC % (auto) (0.0-0.2) /100WBC PT (10.0-13.1) SEC INR (0.9-1.1) Sodium (135-145) mmol/L Potassium (3.3-5.1) mmol/L Chloride (96-108) mmol/L Carbon Dioxide (22-29) mmol/L Anion Gap (12-20) BUN (9-16) mg/dL Creatinine (0.5-1.4) mg/dL Estim Creat Clear Calc Estimated GFR Random Glucose (60-115) mg/dL Calcium (8.4-10.2) mg/dL Magnesium (1.6-2.6) mg/dL Total Bilirubin (0.0-1.0) mg/dL AST (5-31) U/L ALT (0-31) U/L Alkaline Phosphatase (39-117) U/L Troponin I High Sens (<3.5-17.0) ng/L B-Natriuretic Peptide (<100) pg/mL Total Protein (6.5-8.0) g/dL Albumin (3.5-5.0) g/dL COVID-19 ([place]) Negative (Negative) COVID-19 Clin Com See Note Influenza Type A ([facility]IA) (Negative) Influenza Type B ([facility]IA) (Negative) Influenza A & B Note <FILOMENA Sesay - Last Filed: 09/23/22 12:27> Lab Results 09/23/22 09/23/22 09/23/22 Range/Units 14:09 14:09 14:09 WBC 9.3 (4.8-10.8) X10*3/uL RBC 4.46 (4.20-5.50) X10*6/uL Hgb 13.4 (12.0-16.0) g/dl Hct 39.1 (37.0-47.0) % MCV 87.7 (80.0-98.0) fL MCH 30.0 (27.0-33.0) pg MCHC 34.3 (31.0-35.0) g/dl RDW 13.5 (11.0-16.0) % Plt Count 332 D (160-400) X10*3/uL MPV 9.3 L (9.4-12.3) fL Immature Gran % (Auto) 0.4 (0.0-0.4) % Neut % (Auto) 82.5 H (45-73) % Lymph % (Auto) 13.9 L (20-40) % [place] % (Auto) 3.0 (2-11) % Eos % (Auto) 0.1 (0-4) % Baso % (Auto) 0.1 (0-2) % Lymph # (Auto) 1.3 (1.2-4.9) X10*3/uL [place] # (Auto) 0.3 (0.1-1.2) X10*3/uL Eos # (Auto) 0.0 (0.0-0.4) X10*3/uL Baso # (Auto) 0.0 (0.0-0.2) X10*3/uL Abs Immat Gran (auto) 0.04 H (0.00-0.03) X10*3/uL Absolute Neuts (auto) 7.7 (2.0-8.3) x10*3/uL Absolute Nucleated RBC 0.000 (0.0-0.012) X10*3/uL Nucleated RBC % (auto) 0.0 (0.0-0.2) /100WBC PT (10.0-13.1) SEC INR (0.9-1.1) Sodium 134 L (135-145) mmol/L Potassium 4.1 (3.3-5.1) mmol/L Chloride 98 (96-108) mmol/L Carbon Dioxide 22 (22-29) mmol/L Anion Gap 18 (12-20) BUN 22 H (9-16) mg/dL Creatinine 1.13 (0.5-1.4) mg/dL Estim Creat Clear Calc 31.3 Estimated GFR 47 Random Glucose 165 H (60-115) mg/dL Calcium 10.1 (8.4-10.2) mg/dL Magnesium 1.8 (1.6-2.6) mg/dL Total Bilirubin 0.7 (0.0-1.0) mg/dL AST 28 (5-31) U/L ALT 42 H (0-31) U/L Alkaline Phosphatase 105 (39-117) U/L Troponin I High Sens 4.9 (<3.5-17.0) ng/L B-Natriuretic Peptide (<100) pg/mL Total Protein 7.8 (6.5-8.0) g/dL Albumin 4.6 (3.5-5.0) g/dL COVID-19 ([place]) (Negative) COVID-19 Clin Com Influenza Type A ([place]) (Negative) Influenza Type B ([facility]IA) (Negative) Influenza A & B Note 09/23/22 09/23/22 09/23/22 Range/Units 14:09 14:09 15:12 WBC (4.8-10.8) X10*3/uL RBC (4.20-5.50) X10*6/uL Hgb (12.0-16.0) g/dl Hct (37.0-47.0) % MCV (80.0-98.0) fL MCH (27.0-33.0) pg MCHC (31.0-35.0) g/dl RDW (11.0-16.0) % Plt Count (160-400) X10*3/uL MPV (9.4-12.3) fL Immature Gran % (Auto) (0.0-0.4) % Neut % (Auto) (45-73) % Lymph % (Auto) (20-40) % [place] % (Auto) (2-11) % Eos % (Auto) (0-4) % Baso % (Auto) (0-2) % Lymph # (Auto) (1.2-4.9) X10*3/uL [place] # (Auto) (0.1-1.2) X10*3/uL Eos # (Auto) (0.0-0.4) X10*3/uL Baso # (Auto) (0.0-0.2) X10*3/uL Abs Immat Gran (auto) (0.00-0.03) X10*3/uL Absolute Neuts (auto) (2.0-8.3) x10*3/uL Absolute Nucleated RBC (0.0-0.012) X10*3/uL Nucleated RBC % (auto) (0.0-0.2) /100WBC PT 10.6 (10.0-13.1) SEC INR 0.9 (0.9-1.1) Sodium (135-145) mmol/L Potassium (3.3-5.1) mmol/L Chloride (96-108) mmol/L Carbon Dioxide (22-29) mmol/L Anion Gap (12-20) BUN (9-16) mg/dL Creatinine (0.5-1.4) mg/dL Estim Creat Clear Calc Estimated GFR Random Glucose (60-115) mg/dL Calcium (8.4-10.2) mg/dL Magnesium (1.6-2.6) mg/dL Total Bilirubin (0.0-1.0) mg/dL AST (5-31) U/L ALT (0-31) U/L Alkaline Phosphatase (39-117) U/L Troponin I High Sens (<3.5-17.0) ng/L B-Natriuretic Peptide 146 H (<100) pg/mL Total Protein (6.5-8.0) g/dL Albumin (3.5-5.0) g/dL COVID-19 ([place]) (Negative) COVID-19 Clin Com Influenza Type A ([place]) Negative (Negative) Influenza Type B ([facility]) Negative (Negative) Influenza A & B Note See Note 09/23/22 Range/Units 15:12 WBC (4.8-10.8) X10*3/uL RBC (4.20-5.50) X10*6/uL Hgb (12.0-16.0) g/dl Hct (37.0-47.0) % MCV (80.0-98.0) fL MCH (27.0-33.0) pg MCHC (31.0-35.0) g/dl RDW (11.0-16.0) % Plt Count (160-400) X10*3/uL MPV (9.4-12.3) fL Immature Gran % (Auto) (0.0-0.4) % Neut % (Auto) (45-73) % Lymph % (Auto) (20-40) % [place] % (Auto) (2-11) % Eos % (Auto) (0-4) % Baso % (Auto) (0-2) % Lymph # (Auto) (1.2-4.9) X10*3/uL [place] # (Auto) (0.1-1.2) X10*3/uL Eos # (Auto) (0.0-0.4) X10*3/uL Baso # (Auto) (0.0-0.2) X10*3/uL Abs Immat Gran (auto) (0.00-0.03) X10*3/uL Absolute Neuts (auto) (2.0-8.3) x10*3/uL Absolute Nucleated RBC (0.0-0.012) X10*3/uL Nucleated RBC % (auto) (0.0-0.2) /100WBC PT (10.0-13.1) SEC INR (0.9-1.1) Sodium (135-145) mmol/L Potassium (3.3-5.1) mmol/L Chloride (96-108) mmol/L Carbon Dioxide (22-29) mmol/L Anion Gap (12-20) BUN (9-16) mg/dL Creatinine (0.5-1.4) mg/dL Estim Creat Clear Calc Estimated GFR Random Glucose (60-115) mg/dL Calcium (8.4-10.2) mg/dL Magnesium (1.6-2.6) mg/dL Total Bilirubin (0.0-1.0) mg/dL AST (5-31) U/L ALT (0-31) U/L Alkaline Phosphatase (39-117) U/L Troponin I High Sens (<3.5-17.0) ng/L B-Natriuretic Peptide (<100) pg/mL Total Protein (6.5-8.0) g/dL Albumin (3.5-5.0) g/dL COVID-19 ([place]) Negative (Negative) COVID-19 Clin Com See Note Influenza Type A ([place]) (Negative) Influenza Type B ([place]) (Negative) Influenza A & B Note <FILOMENA Huang - Last Filed: 09/23/22 19:01> Independent Interpretation I performed an independent interpretation of an: EKG (My interpretation EKG is normal sinus rhythm with sinus arrhythmia at a rate of 68. Artifact present. No STEMI.) <FILOMENA Huang - Last Filed: 09/23/22 19:01> Radiology Impression Discussion of test interpretation with radiology: I have reviewed the radiologist's reading. <FILOMENA Huang - Last Filed: 09/23/22 19:01> Independent Historian Clinical information obtained from an independent historian. History obtained from or confirmed by: Other <FILOMENA Huang - Last Filed: 09/23/22 19:01> External Record Review External record reviewed: Outpatient record, Prior outpatient labs, Prior outpatient radiology and Outside ED record <FILOMENA Huang - Last Filed: 09/23/22 19:01> Chronic Conditions Patient?s care impacted by: Other <FILOMENA Huang - Last Filed: 09/23/22 19:01> Critical Care Time Critical Care Time Critical Care Time: Yes <FILOMENA Huang - Last Filed: 09/23/22 19:01> Total Critical Care Time: 40 <FILOMENA Huang - Last Filed: 09/23/22 19:01> Attestation: I have personally provided critical care time exclusive of time spent on separately billable procedures. Time includes review of lab data, radiology results, discussion with consultants, and monitoring for potential decompensation. Intervention performed as documented. <FILOMENA Huang - Last Filed: 09/23/22 19:01> Discharge Plan Discharge Clinical Impression: COPD with acute exacerbation, Hypoxia <FILOMENA Sesay - Last Filed: 09/23/22 12:27> Patient Disposition: Admitted As Inpatient <FILOMENA Sesay - Last Filed: 09/23/22 12:27>
--- NOTE | 2022-09-23 12:27 | ECG_ITS ---
Test Reason : CHEST PRESSURE Blood Pressure : / mmHG Vent. Rate : 066 BPM Atrial Rate : 066 BPM P-R Int : 136 ms QRS Dur : 068 ms QT Int : 300 ms P-R-T Axes : 080 072 024 degrees QTc Int : 314 ms Artifact in tracing Sinus rhythm Sinus Arrhythmia Right atrial enlargement Septal infarct (cited on or before 06-AUG-2022) Nonspecific ST and T wave abnormality Abnormal ECG When compared with ECG of 06-AUG-2022 12:10, No significant changes seen Referred By: Josy Ernst Electronically Signed By:ULZ GRIJALVA
[2022-09-23 14:22] LABS: INTERNATIONAL NORM RATIO 0.9 (0.9-1.1); Prothrombin Time 10.6 SEC (10.0-13.1)
[2022-09-23] MEDS: methylPREDNISolone Sod Succ 125 MG/2 ML VIAL IVPUSH (14:25)
[2022-09-23 14:31] LABS: Alanine Aminotransferase 42 U/L (0-31); Albumin Level 4.6 g/dL (3.5-5.0); Alkaline Phosphatase 105 U/L (39-117); Anion Gap 18 (12-20); Aspartate Amino Transferase 28 U/L (5-31); Bilirubin Total 0.7 mg/dL (0.0-1.0); Blood Urea Nitrogen 22 mg/dL (9-16); Calcium 10.1 mg/dL (8.4-10.2); Carbon Dioxide 22 mmol/L (22-29); Chloride 98 mmol/L (96-108); Creatinine Clr Calc Pharmacy 31.3; Estimated Glomerular Filt Rate 47; Glucose Random 165 mg/dL (60-115); Magnesium 1.8 mg/dL (1.6-2.6); Potassium 4.1 mmol/L (3.3-5.1); Sodium 134 mmol/L (135-145); Total Protein 7.8 g/dL (6.5-8.0)
[2022-09-23 14:38] LABS: Troponin-I High Sensitivity 4.9 ng/L (<3.5-17.0)
[2022-09-23 14:45] LABS: B Type Natriuretic Peptide 146 pg/mL (<100)
[2022-09-23 15:10] LABS: MANUAL DIFF FLAG NO
[2022-09-23 15:14] LABS: Basophils Percent Auto 0.1 % (0-2); Eosinophils Percent Auto 0.1 % (0-4); Hematocrit 39.1 % (37.0-47.0); Hemoglobin 13.4 g/dl (12.0-16.0); Imm Gran Abs Auto 0.04 X10*3/uL (0.00-0.03); Imm Gran Pct Auto 0.4 % (0.0-0.4); Lymphocytes Absolute Auto 1.3 X10*3/uL (1.2-4.9); Lymphocytes Percent Auto 13.9 % (20-40); Mean Corpuscular HGB Conc 34.3 g/dl (31.0-35.0); Mean Corpuscular Volume 87.7 fL (80.0-98.0); Mean Platelet Volume 9.3 fL (9.4-12.3); Monocytes Absolute Auto 0.3 X10*3/uL (0.1-1.2); Neutrophils Absolute Auto 7.7 x10*3/uL (2.0-8.3); Neutrophils Percent Auto 82.5 % (45-73); Platelet Count 332 X10*3/uL (160-400); Red Blood Count 4.46 X10*6/uL (4.20-5.50); Red Cell Distribution Width 13.5 % (11.0-16.0); White Blood Count 9.3 X10*3/uL (4.8-10.8)
[2022-09-23] MEDS: 0.9 % Sodium Chloride 500 ML 999 ML IV (15:35)
[2022-09-23 15:46] LABS: COVID-19 Test Negative (Negative); IDNOW Serial# BCCEAD1C
[2022-09-23 15:47] LABS: IDNOW Serial# 9DB6401D; Influenza A Negative (Negative); Influenza B2 Negative (Negative)
--- NOTE | 2022-09-23 17:16 | PC.NURSE ---
hr 116 o2sat 96%ra at start of ambulation pt tolerating well, walking to back entrance of ed from emc hr 128 o2sat decreased to 88% ra, pt stopped half way back to emc to adjust finger probe o2 back to 92% RA pt then returned to room hr 114 O2 sat continued 92% and resolved back to hr 90 with O2 sat 94% pt now performing 2nd UDN tx provided by respiratory therapist
--- NOTE | 2022-09-23 18:02 | PHA.MEDREC ---
Pharmacy Consult ? Medication Reconciliation Pharmacy has completed the medication reconciliation. Patient stopped taking Atorvastatin 20mg because of issues getting at pharmacy. However, patient claims their PCP wanted them on it as a preventative for ASCVD.
[2022-09-23] MEDS: Magnesium Sulfate/H2O 2 GM/50 ML PIGGYBACK IV (18:27)
--- NOTE | 2022-09-23 19:20 | P.HPHOSP_ITS ---
History of Present Illness Date of Service: 09/23/22 Chief Complaint: SOB 71-year-old female with a past medical history of hypertension, hyperlipidemia, alcoholic liver cirrhosis, peripheral vascular disease, COPD-not on home oxygen; presented to the hospital with a chief complaint of shortness of breath. Patient mentioned that she has been having shortness of breath over the past few weeks; she was recently seen in the outpatient clinic and was prescribed prednisone, doxycycline; also reported that she was positive for human metapneumovirus recently; but even with the outpatient medications she continued to have shortness of breath associated with occasional chest discomfort. Also had cough with whitish sputum production. Denies any fevers. Denies any recent travel or sick contacts. Denies any chest pain at the time of my interview. Patient denies any GI symptoms. Review of all other systems is negative except mentioned above ER course: Per ER team, patient on presentation noted to be saturating 88% on ambulation; noted to have diffuse wheezing with rhonchi; concerning for COPD exacerbation- given nebulizations and steroids. Viral panel negative for COVID, RSV, influenza. Respiratory panel has been sent out; admitted to the hospital for further management FOR[facility]LY [facility], [facility] Medical History Annual physical exam Colonoscopy refused COPD (chronic obstructive pulmonary disease) Hyperlipidemia Hyponatremia Liver cirrhosis, alcoholic Mammogram declined Nodule on liver Peripheral vascular disease Family History Father Heart problem Mother Hypertension Diabetes Social History Household Members: Children Housing: House Do you presently have visiting nurse or other home services: No Patient Tobacco Use Status: Current everyday Tobacco user Tobacco use type: Smokeless Tobacco Smoked in Last 30 Days: Yes e-Cigarette/Vaping Use: Currently Using Patient Interested in Nicotine Replacement: No Patient Given Instructions on How to Stop Smoking: No (refused) Second Hand Smoke Exposure: No Use of substances other than those prescribed or required for medical reasons: Yes Substance Use Type: Marijuana Substance Use Frequency: Daily Last Used Substance: Just Prior to Admission Currently Displaying Signs/Symptoms of Drug Intoxication Withdrawal: No Any prior treatment program specific to substance use: No Have you been hit, kicked, punched, or otherwise hurt by someone within the past year? If so, by whom?: No Do you feel safe in your current relationship?: No Is there a partner from a previous relationship who is making you feel unsafe now?: No Are you made to feel afraid or neglected: No Advance Directives: Yes Advance Directives Information Provided: No Advance Directives on File: No Advance Directives Date on File: 09/23/22 Do you have thoughts of harming others: None Do you have a plan to hurt others: No Plan Recently lost weight without trying: Unsure Eating poorly because of decreased appetite: Yes Patient : No service: No Current occupational status: employed Meds Allergies Allergy/AdvReac Type Severity Reaction Status Date / Time No Known Allergies Allergy Unverified 04/01/20 19:27 [No Known Allergies*] Active Medications: Current Medications Acetaminophen (Acetaminophen 325 Mg Tablet) 650 mg PO Q6H PRN PRN Reason: Pain, Mild (Pain Scale 1-3) Albuterol Sulfate (Albuterol Sulfate (0.083%) 2.5 Mg/3 Ml Vial.Neb) 2.5 mg INHALE RQ4H WHILE AWAKE PRN PRN Reason: Shortness of Breath/Wheezing Albuterol Sulfate 2.5 mg/ (Ipratropium Rogers 0.5 mg) 0 mg INHALE RQ4H WHILE AWAKE [place] Enoxaparin Sodium (Enoxaparin Sodium 40 Mg/0.4 Ml Syringe) 40 mg SUBCUT Q24H [facility] Magnesium Sulfate (Magnesium Sulfate/H2o) 2 gm in 50 mls @ 25 mls/hr IV ONCE ONE Stop: 09/23/22 20:06 Last Admin: 09/23/22 18:27 Dose: 25 mls/hr Doxycycline Hyclate 100 mg/ (Sodium Chloride) 250 mls @ 166.67 mls/hr IV Q12H [place] Melatonin (Melatonin 3 Mg Tablet) 6 mg PO BEDTIME PRN PRN Reason: Insomnia Methylprednisolone Sodium Succinate (Methylprednisolone Sod Succ 40 Mg/Ml Vial) 40 mg IVPUSH Q6H [place] Senna (Sennosides 8.6 Mg Tablet) 17.2 mg PO BEDTIME PRN PRN Reason: Constipation Sodium Chloride (0.9 % Sodium Chloride Flush 3 Ml Syringe) 3 ml IVFLUSH QSHIFT [place] Home Medications Medication Instructions Recorded Confirmed Last Taken Type albuterol sulfate 90 mcg/actuation 1 puff inhalation Q6H PRN wheezing 09/23/22 09/23/22 09/23/22 09:00 History aerosol inhaler aspirin 81 mg tablet,delayed 81 mg PO DAILY 09/23/22 09/23/22 09/09/22 History release doxycycline hyclate 100 mg tablet 1 tab PO BID 09/23/22 09/23/22 09/23/22 09:00 History prednisone 20 mg tablet 1 tab PO BID 09/23/22 09/23/22 09/23/22 09:00 History Physical Exam Vital Signs and Narrative: Vital Signs: Last Vital Signs Temp 97.3 F 09/23/22 12:23 Pulse 109 H 09/23/22 16:36 Resp 18 09/23/22 16:36 BP 131/72 09/23/22 12:23 Pulse Ox 96 09/23/22 17:10 O2 Del Method 09/23/22 12:23 BMI result Body Mass Index 16.7 Gen: Appears be in no acute distress. On supplemental oxygen. Speaks in full sentences. HEENT: NCAT, Moist mucosa. Pulmonary: Bilateral wheezing present CVS: Normal S1-S2 Abdomen: BS+, Soft, Nontender Extremities: Warm well perfused Neuro: Alert and awake. Grossly nonfocal Results Labs 09/23/22 14:09 09/23/22 14:09 Labs: Laboratory Results - last 24 hr 09/23/22 09/23/22 09/23/22 14:09 14:09 14:09 MCV 87.7 MCH 30.0 MCHC 34.3 RDW 13.5 Plt Count 332 D MPV 9.3 L Immature Gran % (Auto) 0.4 Neut % (Auto) 82.5 H Lymph % (Auto) 13.9 L Falls % (Auto) 3.0 Eos % (Auto) 0.1 Baso % (Auto) 0.1 Lymph # (Auto) 1.3 Falls # (Auto) 0.3 Eos # (Auto) 0.0 Baso # (Auto) 0.0 Abs Immat Gran (auto) 0.04 H Absolute Neuts (auto) 7.7 Absolute Nucleated RBC 0.000 Nucleated RBC % (auto) 0.0 PT INR Anion Gap 18 Estim Creat Clear Calc 31.3 Estimated GFR 47 Random Glucose 165 H Calcium 10.1 Magnesium 1.8 Total Bilirubin 0.7 AST 28 ALT 42 H Alkaline Phosphatase 105 Troponin I High Sens 4.9 B-Natriuretic Peptide Total Protein 7.8 Albumin 4.6 COVID-19 ([place]) COVID-19 Clin Com Influenza Type A ([place]) Influenza Type B ([place]) Influenza A & B Note 09/23/22 09/23/22 09/23/22 14:09 14:09 15:12 MCV MCH MCHC RDW Plt Count MPV Immature Gran % (Auto) Neut % (Auto) Lymph % (Auto) Falls % (Auto) Eos % (Auto) Baso % (Auto) Lymph # (Auto) Falls # (Auto) Eos # (Auto) Baso # (Auto) Abs Immat Gran (auto) Absolute Neuts (auto) Absolute Nucleated RBC Nucleated RBC % (auto) PT 10.6 INR 0.9 Anion Gap Estim Creat Clear Calc Estimated GFR Random Glucose Calcium Magnesium Total Bilirubin AST ALT Alkaline Phosphatase Troponin I High Sens B-Natriuretic Peptide 146 H Total Protein Albumin COVID-19 ([place]) COVID-19 Clin Com Influenza Type A ([place]) Negative Influenza Type B ([place]) Negative Influenza A & B Note See Note 09/23/22 15:12 MCV MCH MCHC RDW Plt Count MPV Immature Gran % (Auto) Neut % (Auto) Lymph % (Auto) Falls % (Auto) Eos % (Auto) Baso % (Auto) Lymph # (Auto) Falls # (Auto) Eos # (Auto) Baso # (Auto) Abs Immat Gran (auto) Absolute Neuts (auto) Absolute Nucleated RBC Nucleated RBC % (auto) PT INR Anion Gap Estim Creat Clear Calc Estimated GFR Random Glucose Calcium Magnesium Total Bilirubin AST ALT Alkaline Phosphatase Troponin I High Sens B-Natriuretic Peptide Total Protein Albumin COVID-19 ([place]) Negative COVID-19 Clin Com See Note Influenza Type A ([place]) Influenza Type B ([place]) Influenza A & B Note Imaging Radiologist's Impressions: Impressions Chest X-Ray 09/23/22 12:48 IMPRESSION: COPD. No acute intrathoracic disease. Assessment and Plan (1) Hypoxia: Status: Acute Plan 71-year-old female with a past medical history of hypertension, hyperlipidemia, alcoholic liver cirrhosis, peripheral vascular disease, COPD-not on home oxygen; presented to the hospital with a chief complaint of shortness of breath. Noted to be in acute COPD exacerbation. Admitted for further management. Acute hypoxic respiratory failure: In the setting of COPD exacerbation. Patient currently not in respiratory distress. Speaks in full sentences. On supplemental oxygen. Goal oxygen saturation of 93% Continue supplemental oxygen p.r.n. Trending pulse oximetry Acute COPD exacerbation: Patient have been having symptoms over the past couple weeks. Was diagnosed with human metapneumovirus as outpatient. Chest x-ray showed no acute cardiopulmonary process Currently COVID-19, RSV, influenza negative Respiratory viral panel has been sent Continue Solu-Medrol IV q.i.d. Nebulizations standing and p.r.n. Will continue doxycycline Hypertension/hyperlipidemia: Continue home aspirin panel statin, metoprolol, amlodipine. History of alcoholic liver cirrhosis: Currently stable. Denies any recent alcohol use. DVT prophylaxis: Lovenox Code status: Full code Time Spent With Patient Time: Total time managing care of this patient today ____ minutes. Quality Stroke Does the patient have a stroke diagnosis?: No VTE Prior VTE?: No VTE Risk Level:: Medical - moderate - high VTE Device Contraindication: Treatment Not Indicated VTE Drug Contraindication: N/A - Med Ordered
--- NOTE | 2022-09-23 19:28 | PC.NURSE ---
report given to PIERCE Arellano [facility]
[2022-09-23] MEDS: 0.9 % Sodium Chloride Flush 3 ML SYRINGE IVFLUSH (21:45)
[2022-09-23] MEDS: methylPREDNISolone Sod Succ 40 MG/ML VIAL IVPUSH (21:45)
[2022-09-23] MEDS: Enoxaparin Sodium 40 MG/0.4 ML SYRINGE SUBCUT (21:46)
[2022-09-23] MEDS: Doxycycline Hyclate 100 MG in 0.9 % Sodium Chloride 250 ML 166.67 MG IV (21:52)
[2022-09-24] VITALS (7 sets, daily range): BP systolic 105–112; BP diastolic 54–70; PULSE 80–101; RESP 16–20; TEMP 36.4–37.4; O2SAT 95–97
[2022-09-24] MEDS: methylPREDNISolone Sod Succ 40 MG/ML VIAL IVPUSH ×4 (03:55→20:50)
[2022-09-24 07:42] LABS: Alanine Aminotransferase 30 U/L (0-31); Albumin Level 3.6 g/dL (3.5-5.0); Alkaline Phosphatase 78 U/L (39-117); Aspartate Amino Transferase 20 U/L (5-31); Bilirubin Total 0.3 mg/dL (0.0-1.0); Blood Urea Nitrogen 26 mg/dL (9-16); Creatinine Clr Calc Pharmacy 35.4; Estimated Glomerular Filt Rate 55; Glucose Random 137 mg/dL (60-115); Total Protein 5.8 g/dL (6.5-8.0)
[2022-09-24 08:04] LABS: Anion Gap 14 (12-20); Calcium 8.9 mg/dL (8.4-10.2); Carbon Dioxide 21 mmol/L (22-29); Chloride 104 mmol/L (96-108); Potassium 3.1 mmol/L (3.3-5.1); Sodium 136 mmol/L (135-145)
--- NOTE | 2022-09-24 08:48 | MHC.CM.PN ---
IMM DELIVERED PT LIVES WITH IN A [facility] WITH ADULT CHILDREN. NO SERVICES OR DME . EMPLOYED P/T FROM HOME. +HCP (COPY AT [facility]) +COVID VAX X3 PCP DR. PEARCE AT [facility] [place] DP: HOME, NO SERVICES ANTICIPATED. FAMILY WILL TRANSPORT. CM WILL CONTINUE TO FOLLOW.
[2022-09-24 09:35] LABS: Adenovirus PCR Not Detected (Not Detect.); Bordetella parapertussis PCR Not Detected (Not Detect.); Bordetella pertussis PCR Not Detected (Not Detect.); Chlamydia pneumoniae PCR Not Detected (Not Detect.); Coronavirus 229E PCR Not Detected (Not Detect.); Coronavirus HKU1 PCR Not Detected (Not Detect.); Coronavirus NL63 PCR Not Detected (Not Detect.); Coronavirus OC43 PCR Not Detected (Not Detect.); Human metapneumovirus PCR Detected (Not Detect.); Influenza A PCR Not Detected (Not Detect.); Influenza B PCR Not Detected (Not Detect.); Mycoplasma pneumoniae PCR Not Detected (Not Detect.); Parainfluenza 1 PCR Not Detected (Not Detect.); Parainfluenza 2 PCR Not Detected (Not Detect.); Parainfluenza 3 PCR Not Detected (Not Detect.); Parainfluenza 4 PCR Not Detected (Not Detect.); RSV PCR Not Detected (Not Detect.); Rhino/Enterovirus PCR Not Detected (Not Detect.); SARS-CoV-2 PCR Not Detected (Not Detect.)
[2022-09-24] MEDS: Aspirin Enteric Coated 81 MG TABLET.DR PO (10:13)
[2022-09-24] MEDS: amLODIPine Besylate 10 MG TABLET PO (10:13)
[2022-09-24] MEDS: Doxycycline Hyclate 100 MG in 0.9 % Sodium Chloride 250 ML 166.67 MG IV (10:14)
[2022-09-24] MEDS: 0.9 % Sodium Chloride Flush 3 ML SYRINGE IVFLUSH ×2 (10:15→16:04)
[2022-09-24] MEDS: Metoprolol Tartrate 25 MG TABLET PO ×2 (10:15→20:46)
[2022-09-24] MEDS: Losartan Potassium 25 MG TABLET PO (10:16)
[2022-09-24] MEDS: Potassium Chloride Packet 20 MEQ PACKET 40 MEQ PO (11:28)
--- NOTE | 2022-09-24 11:59 | HO.PM.IMPN ---
Subjective Subjective Date of Service: 09/25/22 Interval History: copd execerebation,soar throat. Review of Systems still sob with execersion ,does not feel improvin Physical Exam Vital Signs: Vital Signs: Last Vital Signs Temp 97.7 F 09/24/22 07:19 Pulse 91 09/24/22 11:38 Resp 18 09/24/22 11:38 BP 112/65 09/24/22 07:19 Pulse Ox 97 09/24/22 07:19 O2 Del Method 09/24/22 07:19 BMI result Body Mass Index 16.7 Appearance: Alert.? Oriented X3.? sob. cvs: rrr, [id number] , no murmur res: air entry diminshed , has b/l wheezing abd: no rebound or guarding ,nt, bs present. ext pulses present , no cyanosis . neuro: axo3 , nonfocal. Objective Data Active Medications Acetaminophen (Acetaminophen 325 Mg Tablet) 650 mg PO Q6H PRN PRN Reason: Pain, Mild (Pain Scale 1-3) Albuterol Sulfate (Albuterol Sulfate (0.083%) 2.5 Mg/3 Ml Vial.Neb) 2.5 mg INHALE RQ4H WHILE AWAKE PRN PRN Reason: Shortness of Breath/Wheezing Amlodipine Besylate (Amlodipine Besylate 10 Mg Tablet) 10 mg PO DAILY [facility]; Protocol Last Admin: 09/24/22 10:13 Dose: 10 mg Documented By: JOLLY Aspirin (Aspirin Enteric Coated 81 Mg Tablet.) 81 mg PO DAILY [facility] Last Admin: 09/24/22 10:13 Dose: 81 mg Documented By: JOLLY Albuterol Sulfate 2.5 mg/ (Ipratropium Musella 0.5 mg) 0 mg INHALE RQ4H WHILE AWAKE [facility] Last Admin: 09/24/22 11:37 Dose: 1 each Documented By: AMEYA Enoxaparin Sodium (Enoxaparin Sodium 40 Mg/0.4 Ml Syringe) 40 mg SUBCUT Q24H [facility] Last Admin: 09/23/22 21:46 Dose: 40 mg Documented By: SHAWN Hydroxyzine HCl (Hydroxyzine Hcl 25 Mg Tablet) 25 mg PO Q6H PRN PRN Reason: anxiety/restlessness Doxycycline Hyclate 100 mg/ (Sodium Chloride) 250 mls @ 166.67 mls/hr IV Q12H [facility] Last Admin: 09/24/22 10:14 Dose: 166.67 mls/hr Documented By: JOLLY Losartan Potassium (Losartan Potassium 25 Mg Tablet) 25 mg PO DAILY [facility]; Protocol Last Admin: 09/24/22 10:16 Dose: 25 mg Documented By: JOLLY Magnesium Oxide (Magnesium Oxide 400 Mg Tablet) 400 mg PO BIDPC [facility] Melatonin (Melatonin 3 Mg Tablet) 6 mg PO BEDTIME PRN PRN Reason: Insomnia Methylprednisolone Sodium Succinate (Methylprednisolone Sod Succ 40 Mg/Ml Vial) 40 mg IVPUSH Q6H [facility] Last Admin: 09/24/22 10:14 Dose: 40 mg Documented By: JOLLY Metoprolol Tartrate (Metoprolol Tartrate 25 Mg Tablet) 25 mg PO BID [facility]; Protocol Last Admin: 09/24/22 10:15 Dose: 25 mg Documented By: JOLLY Senna (Sennosides 8.6 Mg Tablet) 17.2 mg PO BEDTIME PRN PRN Reason: Constipation Sodium Chloride (0.9 % Sodium Chloride Flush 3 Ml Syringe) 3 ml IVFLUSH QSHIFT [facility] Last Admin: 09/24/22 10:15 Dose: 3 ml Documented By: JOLLY Labs 09/23/22 14:09 09/24/22 06:49 Labs: Laboratory Results - last 24 hr 09/23/22 09/23/22 09/23/22 14:09 14:09 14:09 MCV 87.7 MCH 30.0 MCHC 34.3 RDW 13.5 Plt Count 332 D MPV 9.3 L Immature Gran % (Auto) 0.4 Neut % (Auto) 82.5 H Lymph % (Auto) 13.9 L Bledsoe % (Auto) 3.0 Eos % (Auto) 0.1 Baso % (Auto) 0.1 Lymph # (Auto) 1.3 Bledsoe # (Auto) 0.3 Eos # (Auto) 0.0 Baso # (Auto) 0.0 Abs Immat Gran (auto) 0.04 H Absolute Neuts (auto) 7.7 Absolute Nucleated RBC 0.000 Nucleated RBC % (auto) 0.0 PT INR Anion Gap 18 Estim Creat Clear Calc 31.3 Estimated GFR 47 Random Glucose 165 H Calcium 10.1 Magnesium 1.8 Total Bilirubin 0.7 AST 28 ALT 42 H Alkaline Phosphatase 105 Troponin I High Sens 4.9 B-Natriuretic Peptide Total Protein 7.8 Albumin 4.6 Respiratory Panel Corona Adenovirus (Rapid PCR) B.pert (TEM-PCR) B.parapertussis DNA PCR C. pneumoniae DNA (PCR) Coronavirus OC43 (PCR) Coronavirus HKU1 (PCR) Coronavirus 229E (PCR) COVID-19 ([place]) COVID-19 Clin Com Coronavirus NL63 (PCR) Human Metapneumovir PCR Influenza Type A ([place]) Influenza A (RT-PCR) Influenza Type B ([place]) Influenza B (RT-PCR) Influenza A & B Note M. pneumoniae (PCR) Parainfluenza 1 (PCR) Parainfluenza 2 (PCR) Parainfluenza 3 (PCR) Parainfluenza 4 (PCR) RSV (PCR) Entero/Rhino (PCR) SARS-CoV-2 RNA (RT-PCR) 09/23/22 09/23/22 09/23/22 14:09 14:09 15:12 MCV MCH MCHC RDW Plt Count MPV Immature Gran % (Auto) Neut % (Auto) Lymph % (Auto) Bledsoe % (Auto) Eos % (Auto) Baso % (Auto) Lymph # (Auto) Bledsoe # (Auto) Eos # (Auto) Baso # (Auto) Abs Immat Gran (auto) Absolute Neuts (auto) Absolute Nucleated RBC Nucleated RBC % (auto) PT 10.6 INR 0.9 Anion Gap Estim Creat Clear Calc Estimated GFR Random Glucose Calcium Magnesium Total Bilirubin AST ALT Alkaline Phosphatase Troponin I High Sens B-Natriuretic Peptide 146 H Total Protein Albumin Respiratory Panel Corona Adenovirus (Rapid PCR) B.pert (TEM-PCR) B.parapertussis DNA PCR C. pneumoniae DNA (PCR) Coronavirus OC43 (PCR) Coronavirus HKU1 (PCR) Coronavirus 229E (PCR) COVID-19 ([place]) COVID-19 Clin Com Coronavirus NL63 (PCR) Human Metapneumovir PCR Influenza Type A ([place]) Negative Influenza A (RT-PCR) Influenza Type B ([place]) Negative Influenza B (RT-PCR) Influenza A & B Note See Note M. pneumoniae (PCR) Parainfluenza 1 (PCR) Parainfluenza 2 (PCR) Parainfluenza 3 (PCR) Parainfluenza 4 (PCR) RSV (PCR) Entero/Rhino (PCR) SARS-CoV-2 RNA (RT-PCR) 09/23/22 09/23/22 09/24/22 15:12 20:10 06:49 MCV MCH MCHC RDW Plt Count MPV Immature Gran % (Auto) Neut % (Auto) Lymph % (Auto) Bledsoe % (Auto) Eos % (Auto) Baso % (Auto) Lymph # (Auto) Bledsoe # (Auto) Eos # (Auto) Baso # (Auto) Abs Immat Gran (auto) Absolute Neuts (auto) Absolute Nucleated RBC Nucleated RBC % (auto) PT INR Anion Gap 14 Estim Creat Clear Calc 35.4 Estimated GFR 55 Random Glucose 137 H Calcium 8.9 D Magnesium Total Bilirubin 0.3 AST 20 ALT 30 Alkaline Phosphatase 78 Troponin I High Sens B-Natriuretic Peptide Total Protein 5.8 L Albumin 3.6 Respiratory Panel Corona See note Adenovirus (Rapid PCR) Not Detected B.pert (TEM-PCR) Not Detected B.parapertussis DNA PCR Not Detected C. pneumoniae DNA (PCR) Not Detected Coronavirus OC43 (PCR) Not Detected Coronavirus HKU1 (PCR) Not Detected Coronavirus 229E (PCR) Not Detected COVID-19 ([place]) Negative COVID-19 Clin Com See Note Coronavirus NL63 (PCR) Not Detected Human Metapneumovir PCR Detected A Influenza Type A ([place]) Influenza A (RT-PCR) Not Detected Influenza Type B ([place]) Influenza B (RT-PCR) Not Detected Influenza A & B Note M. pneumoniae (PCR) Not Detected Parainfluenza 1 (PCR) Not Detected Parainfluenza 2 (PCR) Not Detected Parainfluenza 3 (PCR) Not Detected Parainfluenza 4 (PCR) Not Detected RSV (PCR) Not Detected Entero/Rhino (PCR) Not Detected SARS-CoV-2 RNA (RT-PCR) Not Detected Assessment and Plan (1) COPD with acute exacerbation: Status: Acute Plan 71-year-old female with a past medical history of hypertension, hyperlipidemia, alcoholic liver cirrhosis, peripheral vascular disease, COPD-not on home oxygen; presented to the hospital with a chief complaint of shortness of breath. Noted to be in acute COPD exacerbation.? Admitted for further management.? Acute hypoxic respiratory failure sec to ??Acute COPD exacerbation and viral uri: Chest x-ray showed no acute cardiopulmonary process Currently COVID-19, RSV, influenza negative. Respiratory viral panel -human metapneumovirus (? seems like she was diagnosed outpatient). in er sats noted to be saturating 88% on ambulation?? continue nebs,steriods ,continue doxycycline,added loratidine and lozenges , On supplemental oxygen. Hypertension/hyperlipidemia: Continue home aspirin panel statin, metoprolol, amlodipine.? History of alcoholic liver cirrhosis:? Currently stable.? Denies any recent alcohol use.? DVT prophylaxis:? Lovenox Code status:? Full code inpatient need: copd execerbation/uri-needs nebs ,steroids ,moniter respiratory status ( not optimal yet). Time Spent With Patient Time: Total time managing care of this patient today ____ minutes. Quality Stroke Does the patient have a stroke diagnosis?: No VTE Prior VTE?: No VTE Risk Level:: Medical - moderate - high VTE Device Contraindication: Treatment Not Indicated VTE Drug Contraindication: N/A - Med Ordered
[2022-09-24] MEDS: Magnesium Oxide 400 MG TABLET PO (16:03)
[2022-09-24] MEDS: Docusate Sodium 100 MG CAPSULE PO (16:03)
[2022-09-24] MEDS: Doxycycline Hyclate 100 MG in 0.9 % Sodium Chloride 250 ML 166.6 MG IV (20:49)
[2022-09-24] MEDS: Enoxaparin Sodium 40 MG/0.4 ML SYRINGE SUBCUT (20:50)
[2022-09-25 00:49] VITALS: BP 101/55; PULSE 71; RESP 16; TEMP 36.4; O2SAT 96
[2022-09-25] MEDS: methylPREDNISolone Sod Succ 40 MG/ML VIAL IVPUSH (02:16)
[2022-09-25 04:00] VITALS: BP 102/59; PULSE 79; RESP 16; TEMP 36.6; O2SAT 97
[2022-09-25 07:09] VITALS: BP 120/57; PULSE 84; RESP 20; TEMP 36.5; O2SAT 95
[2022-09-25] MEDS: Metoprolol Tartrate 25 MG TABLET PO (08:46)
[2022-09-25] MEDS: Losartan Potassium 25 MG TABLET PO (08:46)
[2022-09-25] MEDS: Magnesium Oxide 400 MG TABLET PO (08:46)
[2022-09-25] MEDS: 0.9 % Sodium Chloride Flush 3 ML SYRINGE IVFLUSH (08:46)
[2022-09-25] MEDS: Aspirin Enteric Coated 81 MG TABLET.DR PO (08:46)
[2022-09-25] MEDS: amLODIPine Besylate 10 MG TABLET PO (08:46)
--- NOTE | 2022-09-25 10:17 | MHC.CM.PN ---
Patient has been medically cleared for dc to home today, self care. Last IMM addressed yesterday.
--- NOTE | 2022-09-25 10:21 | P.DS_ITS ---
DS: Providers Provider Date of Service: 09/25/22 Date of admission: 09/23/22 19:16 Date of discharge: 09/25/22 Primary care physician: Shirin Phan MD Attending physician on discharge: Giuliana Campbell DS: Diagnosis Discharge Diagnosis (1) COPD with acute exacerbation: Status: Acute (2) Infection due to human metapneumovirus (hMPV): Status: Acute (3) Hypoxia: Status: Acute DS: Summary Hospital Course Hospital Course: 71-year-old female with a past medical history of hypertension, hyperlipidemia, alcoholic liver cirrhosis, peripheral vascular disease, COPD-not on home oxygen; presented to the hospital with a chief complaint of shortness of breath.? Patient mentioned that she has been having shortness of breath over the past few weeks; she was recently seen in the outpatient clinic and was prescribed prednisone, doxycycline; also reported that she was positive for human metapneumovirus recently; but even with the outpatient medications she continued to have shortness of breath associated with occasional chest discomfort.? Also had cough with whitish sputum production.? Denies any fevers.? Denies any recent travel or sick contacts.? Denies any chest pain at the time of my interview.? Patient denies any GI symptoms.? Review of all other systems is negative except mentioned above ER course: Per ER team, patient on presentation noted to be saturating 88% on ambulation; noted to have diffuse wheezing with rhonchi; concerning for COPD exacerbation- given nebulizations and steroids.? Viral panel negative for COVID, RSV, influenza.? Respiratory panel has been sent out; admitted to the hospital for further management. Hospital course: Patient was admitted because of acute hypoxemic respiratory failure sec COPD exacerbation possible secondary to viral URI: Treated with IV steroids, nebs, antibiotics-seems to be improved significantly going home with p.o. steroids and antibiotic. patient was also told to follow up standard precautions for uri/cold. plan: complete course of steriods /antibiotics. follow up outpatient with pcp. Time Spent with Patient Time attestation: Total time managing care of this patient today ____ minutes. Discharge coordination time: Greater than 30 minutes Quality: Safe Use of Opioids Does Pt have an Active Cancer Diagnosis on the Problem List?: No Quality: Stroke Does the patient have a stroke diagnosis?: No Physical Exam Vital Signs: Vital Signs: Last Vital Signs Temp 97.7 F 09/25/22 07:09 Pulse 84 09/25/22 07:09 Resp 20 09/25/22 07:09 BP 120/57 L 09/25/22 07:09 Pulse Ox 95 09/25/22 07:09 O2 Del Method 09/25/22 07:09 BMI result Body Mass Index 16.7 Appearance: Alert.? Oriented X3.? sob. cvs: rrr, [id number] , no murmur res: air entry fair , no rales or wheezing. abd: no rebound or guarding ,nt, bs present. ext pulses present , no cyanosis . neuro: axo3 , nonfocal. DS: Data Data Completed and Pending Labs on day of discharge: Laboratory Results - last 24 hr 09/25/22 08:04 Potassium 4.0 D Preliminary micro results at discharge 09/24/22 11:42 Throat Culture - Preliminary Throat No Group A Beta-hemolytic Streptococci isolated to date. Imaging Chest x-ray: Radiologist's impression: ITS Impressions Chest X-Ray 09/23/22 12:48 IMPRESSION: COPD. No acute intrathoracic disease. Discharge Plan Discharge Anticipated Discharge Date/Time: 09/25/22 09:50 Patient Disposition: Home, Self-Care Discharge Diagnosis: copd execerebation with human metapneumovirus infection Referrals: Shirin Phan MD [Primary Care Provider] - 1 Week Discharge Medications: New doxycycline hyclate 100 mg capsule 100 mg PO DAILY Qty: 12 0RF prednisone 20 mg tablet 40 mg PO DAILY Qty: 8 0RF Continued losartan 25 mg tablet 25 mg PO DAILY Qty: 90 3RF amlodipine 10 mg tablet 10 mg PO DAILY Qty: 90 0RF metoprolol tartrate 25 mg tablet 25 mg PO BID Qty: 180 1RF prednisone 20 mg tablet 1 tab PO BID albuterol sulfate 90 mcg/actuation HFA aerosol inhaler 1 puff inhalation Q6H PRN (Reason: wheezing) doxycycline hyclate 100 mg tablet 1 tab PO BID aspirin 81 mg Tablet,Delayed Release (Dr/Ec) 81 mg PO DAILY Discharge Orders: Discharge Order (Routine); Ordered 09/25/22 Ordered By: Giuliana Campbell Diet: Advance to usual diet Activity on Discharge: As tolerated Stand Alone Forms: Patient Portal Discharge page Care Plan Goals: Patient was admitted because of COPD exacerbation possible secondary to viral URI: Treated with IV steroids, nebs, antibiotics-seems to be improved significantly going home with p.o. steroids and antibiotic. patient was also told to follow up standard precautions for uri/cold. Health Concerns: as above. Plan of Treatment: as above. Assessment: as above. Patient Instructions: COPD (Chronic Obstructive Pulmonary Disease) (DC), Viral Syndrome (DC)
[2022-09-25 10:53] VITALS: PULSE 97; RESP 18; O2SAT 96
--- NOTE | 2022-09-25 11:11 | MHC.CM.PN ---
[facility] [facility] [place] Patient to home today at 11:15 AM; RN is aware.
== END 2022-09-25 11:35 | disposition home or self-care (01) | DRG 192 ==
LOC: HO.ED 18:09 → HO.IMC 19:22
PROVIDERS: Physician Assistant; Physician Assistant Medical; Admitting Provider Hospitalist; Emergency Provider Emergency Medicine; PCP Internal Medicine; Visit Provider Internal Medicine
DX: J44.1 Chronic obstructive pulmonary disease with (acute) exacerbation (principal); K70.30 Alcoholic cirrhosis of liver without ascites; I10 Essential (primary) hypertension; I73.9 Peripheral vascular disease, unspecified; B97.81 Human metapneumovirus as the cause of diseases classified elsewhere; E78.5 Hyperlipidemia, unspecified; F17.290 Nicotine dependence, other tobacco product, uncomplicated; Z20.822 Contact with and (suspected) exposure to COVID-19; Z71.6 Tobacco abuse counseling; Z79.51 Long term (current) use of inhaled steroids; Z79.52 Long term (current) use of systemic steroids; Z79.82 Long term (current) use of aspirin; Z79.899 Other long term (current) drug therapy
CPT/HCPCS: 36415; 71046; 80053; 83735; 83880; 84132; 84484; 85025; 85610; 87070; 87502; 87633; 87635; 93005; 94640; 96361; 96365; 96375; 99285; J1650; J2920; J2930; J3475

== ENCOUNTER 2022-10-19 13:20 | Outpatient (REF) | payer MEDICARE, SELFPAY ==
[2022-10-19 16:38] LABS: MANUAL DIFF FLAG NO
[2022-10-19 16:40] LABS: Basophils Percent Auto 0.7 % (0-2); Eosinophils Absolute Auto 0.1 X10*3/uL (0.0-0.4); Eosinophils Percent Auto 2.3 % (0-4); Hematocrit 37.7 % (37.0-47.0); Hemoglobin 12.6 g/dl (12.0-16.0); Imm Gran Abs Auto 0.01 X10*3/uL (0.00-0.03); Imm Gran Pct Auto 0.2 % (0.0-0.4); Lymphocytes Absolute Auto 1.5 X10*3/uL (1.2-4.9); Lymphocytes Percent Auto 26.4 % (20-40); Mean Corpuscular HGB Conc 33.4 g/dl (31.0-35.0); Mean Corpuscular Hemoglobin 29.7 pg (27.0-33.0); Mean Corpuscular Volume 88.9 fL (80.0-98.0); Mean Platelet Volume 9.6 fL (9.4-12.3); Monocytes Absolute Auto 0.4 X10*3/uL (0.1-1.2); Monocytes Percent Auto 6.8 % (2-11); Neutrophils Absolute Auto 3.7 x10*3/uL (2.0-8.3); Neutrophils Percent Auto 63.6 % (45-73); Platelet Count 412 X10*3/uL (160-400); Red Blood Count 4.24 X10*6/uL (4.20-5.50); Red Cell Distribution Width 14.6 % (11.0-16.0); White Blood Count 5.8 X10*3/uL (4.8-10.8)
[2022-10-19 16:47] LABS: Estimated Average Glucose 120 mg/dL; Hemoglobin A1c % 5.8 %
[2022-10-19 17:00] LABS: Alanine Aminotransferase 22 U/L (0-31); Albumin Level 4.1 g/dL (3.5-5.0); Alkaline Phosphatase 116 U/L (39-117); Anion Gap 15 (12-20); Aspartate Amino Transferase 23 U/L (5-31); Bilirubin Total 0.6 mg/dL (0.0-1.0); Blood Urea Nitrogen 8 mg/dL (9-16); Calcium 9.5 mg/dL (8.4-10.2); Carbon Dioxide 26 mmol/L (22-29); Chloride 99 mmol/L (96-108); Estimated Glomerular Filt Rate > 60; Glucose Random 109 mg/dL (60-115); Magnesium 1.8 mg/dL (1.6-2.6); Potassium 3.9 mmol/L (3.3-5.1); Sodium 136 mmol/L (135-145); Total Protein 6.6 g/dL (6.5-8.0)
[2022-10-23 13:48] LABS: Alpha Fetoprotein 7.1 ng/mL
== END 2022-10-19 13:21 | disposition home or self-care (01) ==
LOC: HO.HMGCLDS 13:20
PROVIDERS: PCP Internal Medicine; Visit Provider Internal Medicine
DX: Z00.00 Encounter for general adult medical examination without abnormal findings (principal); J44.1 Chronic obstructive pulmonary disease with (acute) exacerbation; K70.30 Alcoholic cirrhosis of liver without ascites; R73.9 Hyperglycemia, unspecified; I10 Essential (primary) hypertension
CPT/HCPCS: 36415; 80053; 82105; 83036; 83735; 85025

== ENCOUNTER 2022-11-17 09:25 | Outpatient (REF) | payer MEDICARE, SELFPAY ==
--- NOTE | ~2022-11-17 | US_ITS ---
EXAMINATION: US ABDOMEN LIMITED WITH LIVER ELASTOGRAPHY CLINICAL INFORMATION: Abnormal alpha-fetoprotein COMPARISON: Previous abdominal ultrasound and CT February 2019 TECHNIQUE: Real-time imaging of the abdominal viscera. Noninvasive ultrasound liver fibrosis assessment is performed using Lauren ElastPQ point quantification shear wave elastography (2D-SWE) with a C5-2 MHz transducer. Multiple elastography samples are obtained. FINDINGS: PANCREAS: Normal. The visualized pancreatic head and body are normal in appearance. The remainder of the pancreas is obscured from visualization by the overlying bowel gas. LIVER: The liver is cirrhotic. The liver is markedly heterogeneous in echotexture. There are innumerable versus bright foci in the liver which when compared with previous CT scan likely corresponds to calcifications. No focal liver lesion is difficult to exclude. Follow-up by imaging of the liver with IV contrast is strongly recommended. No biliary duct dilatation. The right lobe measures 12 cm in length. The left lobe measures 11 cm in length. Portal flow is normal/hepatopedal Shear wave liver elastography median stiffness is 2.5 m/s (reference: normal median stiffness is 1.3 m/s or less). IQR/median stiffness to assess sampling precision is 0.11 (reference: good quality data set is IQR/median stiffness of 0.15 or less). GALLBLADDER: Normal. The gallbladder is physiologically distended without evidence of stones, sludge, polyps, wall thickening or pericholecystic fluid. COMMON BILE DUCT: The common bile duct is dilated measuring 1 cm. There is a 6 x 5 x 5 mm echogenic density in the common bile duct questionable for a stone. RIGHT KIDNEY: Normal. No hydronephrosis. No renal calculi or focal parenchymal lesions. The kidney measures 8 cm in maximum dimension. FREE FLUID: None. US/US abdomen duran w elastography IMPRESSION: 1. Impression: Cirrhotic-appearing liver with very heterogeneous echotexture. A focal liver lesion cannot be excluded. Innumerable echogenic foci seen in both lobes of the liver which when compared with CT scan correspond to calcifications. New dilatation of the common bile duct and question 5 x 6 mm common bile duct stone. Follow-up liver MRI with contrast and MRCP of these findings recommended. 2. Liver elastography: Adequate liver sampling. Increased liver stiffness suggestive of clinically significant portal hypertension REFERENCE: Society of Radiologists in Ultrasound Liver Stiffness Thresholds (2019): LIVER STIFFNESS THRESHOLDS: *Liver Stiffness equal or less than 1.3 m/s: High probability of being normal. *Liver Stiffness less than 1.7 m/s: In the absence of other known clinical signs, rules out compensated advanced chronic liver disease. *Liver Stiffness 1.7-2.1 m/s: Suggestive of compensated advanced chronic liver disease but need further test for confirmation. *Liver Stiffness over 2.1 m/s: Rules in compensated advanced chronic liver disease. *Liver Stiffness over 2.4 m/s: Suggestive of clinically significant portal hypertension. QUALITY OF DATA SET: *IQR/Median value equal or less than 0.15 implies a quality data set. *IQR/Median value over 0.15 implies a poor quality data set. SIGNIFICANT CHANGE FROM PRIOR EXAM: Significant change if liver stiffness measurement is 10% or greater from prior exam. OTHER CONSIDERATIONS: The stage of liver fibrosis may be overestimated in the setting of acute hepatitis, liver inflammation, elevated liver function tests, hepatic vascular congestion, obstructive cholestasis, non-fasting state, and infiltrative diseases such as amyloidosis and lymphoma. In some patients with NAFLD, the liver stiffness thresholds for compensated advanced chronic liver disease may be lower. In causes other than viral hepatitis and NAFLD, liver stiffness thresholds are not well established.
== END 2022-11-17 09:26 | disposition home or self-care (01) ==
LOC: HO.US 09:25
PROVIDERS: PCP Internal Medicine; Visit Provider Internal Medicine
DX: R77.2 Abnormality of alphafetoprotein (principal)
CPT/HCPCS: 76705; 76981

== ENCOUNTER 2023-01-11 08:43 | Outpatient (REF) | payer MEDICARE, SELFPAY ==
--- NOTE | ~2023-01-11 | MR_ITS ---
EXAMINATION: MR ABDOMEN WITHOUT AND WITH CONTRAST CLINICAL INFORMATION: Hepatic cirrhosis. Prior abnormal imaging. Epigastric pain x2 weeks. COMPARISON: Limited abdominal ultrasound 11/17/2022 CT abdomen 02/28/2019 TECHNIQUE: MRI of the abdomen before and after the IV administration of 4.5 mL of Gadavist was obtained using routine sequences. MRCP was also performed. FINDINGS: LUNG BASES: Elevated left hemidiaphragm. No pleural or pericardial effusion. LIVER: Morphology consistent with cirrhosis. Numerous parenchymal calcifications. No suspicious hepatic lesion. Specifically no focus of early arterial enhancement that demonstrates washout characteristics. GALLBLADDER, AND BILIARY TREE: The gallbladder is unremarkable. There is 1.3 cm focal signal dropout within the mid common duct. This can be seen on image 2 of series 8 of the MRCP images. The common duct at the reynaldo hepatis measures up to 8 mm. Mild central intrahepatic biliary ductal dilatation. PANCREAS: No ductal dilatation. SPLEEN: Not enlarged. ADRENAL GLANDS: No adrenal masses. KIDNEYS: The kidneys are symmetric in size and enhancement. Bilateral renal cysts. No hydronephrosis or perinephric fluid collection. BOWEL AND PERITONEUM: Imaged loops of small and large bowel are not obstructed. Scattered diverticula of the colon. Small free fluid in pelvis. LYMPH NODES: No bulky abdominal lymphadenopathy. VASCULAR: Normal caliber abdominal aorta. MR/MR abdomen wo/w con IMPRESSION: 1.3 cm focal signal dropout within the mid common duct seen on multiple sequences. This corresponds to the sonographic images. Correlation should be made with ERCP. Hepatic cirrhosis. No suspicious hepatic lesion. Continued imaging surveillance is advised.
--- NOTE | ~2023-01-11 | MR_ITS ---
EXAMINATION: MR ABDOMEN WITHOUT AND WITH CONTRAST CLINICAL INFORMATION: Hepatic cirrhosis. Prior abnormal imaging. Epigastric pain x2 weeks. COMPARISON: Limited abdominal ultrasound 11/17/2022 CT abdomen 02/28/2019 TECHNIQUE: MRI of the abdomen before and after the IV administration of 4.5 mL of Gadavist was obtained using routine sequences. MRCP was also performed. FINDINGS: LUNG BASES: Elevated left hemidiaphragm. No pleural or pericardial effusion. LIVER: Morphology consistent with cirrhosis. Numerous parenchymal calcifications. No suspicious hepatic lesion. Specifically no focus of early arterial enhancement that demonstrates washout characteristics. GALLBLADDER, AND BILIARY TREE: The gallbladder is unremarkable. There is 1.3 cm focal signal dropout within the mid common duct. This can be seen on image 2 of series 8 of the MRCP images. The common duct at the reynaldo hepatis measures up to 8 mm. Mild central intrahepatic biliary ductal dilatation. PANCREAS: No ductal dilatation. SPLEEN: Not enlarged. ADRENAL GLANDS: No adrenal masses. KIDNEYS: The kidneys are symmetric in size and enhancement. Bilateral renal cysts. No hydronephrosis or perinephric fluid collection. BOWEL AND PERITONEUM: Imaged loops of small and large bowel are not obstructed. Scattered diverticula of the colon. Small free fluid in pelvis. LYMPH NODES: No bulky abdominal lymphadenopathy. VASCULAR: Normal caliber abdominal aorta. MR/MR MRCP IMPRESSION: 1.3 cm focal signal dropout within the mid common duct seen on multiple sequences. This corresponds to the sonographic images. Correlation should be made with ERCP. Hepatic cirrhosis. No suspicious hepatic lesion. Continued imaging surveillance is advised.
== END 2023-01-11 08:44 | disposition home or self-care (01) ==
LOC: HO.MRI 08:43
PROVIDERS: PCP Internal Medicine; Visit Provider Internal Medicine
DX: K74.60 Unspecified cirrhosis of liver (principal); R77.2 Abnormality of alphafetoprotein; K83.8 Other specified diseases of biliary tract
CPT/HCPCS: 74181; 74183; A9585

== ENCOUNTER 2023-01-26 12:51 | Outpatient (AMB) | payer MEDICARE, SELFPAY ==
[2023-01-26 13:00] VITALS: BP 108/66; PULSE 80; O2SAT 97; BMI 17.1
--- NOTE | 2023-01-26 13:00 | A.OFFPC_ITS ---
Vital Signs 01/26/23 13:00 Height 5 ft 4.5 in Weight 101 lb BMI 17.1 BP 108/66 Blood Pressure Location Rt brachial Position Sitting Pulse 80 Pulse Source Pulse Oximeter Pulse Oximetry (%) 97 Oxygen Delivery Method Room Air Intake Visit Reasons: Annual Exam/COPD Intake Note: Pt is here today for PE. Allergies No Known Allergies [No Known Allergies*] Allergy (Verified 01/26/23 13:09) Medication List - Last Reconciled 01/26/23 by Shirin Phan MD albuterol sulfate 90 mcg/actuation 1 puff inhalation Q6H PRN amlodipine 10 mg PO DAILY aspirin 81 mg PO DAILY fluticasone furoate-vilanterol 100-25 mcg/dose (Breo Ellipta) 1 inh inhalation DAILY losartan 25 mg PO DAILY metoprolol tartrate 25 mg PO BID Tobacco use date assessed: 01/26/23 Dental Screening Dental Screen Date: 01/26/23 Did you have a dental visit in the last 12 months?: No Did you have a dental problem in the last 6 months where you did not have access to dental care?: Yes Was dental information given to patient?: Yes HPI Annual Exam/COPD HPI Details Pt presents to discussed liver MRCP CONSISTENT WITH 1.3 CM FOCAL SIGNAL DROPOUT IN THE MID COMMON DUCT and liver cirrhosis. Patient denies any symptoms of abdominal pain, poor appetite, nausea, vomiting. She is not interested in further workup including ERCP and referral to GI unless she becomes symptomatic. Hypertension is controlled on current medications. [facility] Medical History Annual physical exam Colonoscopy refused COPD (chronic obstructive pulmonary disease) Hyperlipidemia Hyponatremia Liver cirrhosis, alcoholic Mammogram declined Nodule on liver Peripheral vascular disease Family History Father Heart problem Substance use disorder Mother Hypertension Diabetes Substance use disorder Sister Substance use disorder Social History Household Members: Children Housing: House Do you presently have visiting nurse or other home services: No Patient Tobacco Use Status: Former Tobacco user Quit Date: couple years ago Tobacco use type: Smokeless Tobacco e-Cigarette/Vaping Use: Currently Using Second Hand Smoke Exposure: No Substance Use Type: Marijuana Advance Directives Date on File: 09/23/22 service: No Current occupational status: employed Cognitive needs: No Hearing needs: No Vision needs: No Questionnaire PHQ-9 Over the last 2 weeks, how often have you been bothered by any of the following problems? 1. Little interest or pleasure in doing things: not at all 2. Feeling down, depressed, or hopeless: not at all 3. Trouble falling or staying asleep, or sleeping too much: not at all 4. Feeling tired or having little energy: not at all 5. Poor appetite or overeating: not at all 6. Feeling bad about yourself - or that you are a failure or have let yourself or your family down: not at all 7. Trouble concentrating on things, such as reading the newspaper or watching television: not at all 8. Moving or speaking so slowly that other people could have noticed. Or the opposite - being so fidgety or restless that you have been moving around a lot more than usual: not at all 9. Thoughts that you would be better off or of hurting yourself in some way: not at all Total score: 0 Depression Screening Interpretation: Negative Source: Developed by Drs. Jm Clemente, Yanni Terrell, Ángel Larios and colleagues, with an educational serenity from [employer]. Thrive Questionnaire Date Thrive assessed: 01/26/23 I am a: Patient What is your living situation today?: I have a steady place to live Within the past 12 months, did the food you bought not last and you didn't have the money to get more?: Never true Within the past 12 months, did you worry whether your food would run out before you got money to buy more?: Never true Do you have trouble paying for medicines?: No Do you have trouble getting transportation to medical appointments?: No Do you have trouble paying your heating and electricity bill?: No Do you have trouble taking care of your child, family member or friend?: No Do you have trouble with day-to-day activities such as bathing, preparing meals, shopping, managing finances, etc.?: No Are you currently unemployed and looking for a job?: No Are you interested in more education?: No Please select the resources that you would like help with: None Currently or been in a relationship where the following occur: no concerns reported IBRAHIMA-7 AMB Questionnaire IBRAHIMA-7 Date IBRAHIMA - 7 assessed: 01/26/23 Feeling nervous, anxious, or on edge: 0 = Not at all Not being able to stop or control worryin = Not at all Worrying too much about different things: 0 = Not at all Trouble relaxin = Not at all Being so restless that it is hard to sit still: 0 = Not at all Becoming easily annoyed or irritable: 0 = Not at all Feeling afraid as if something awful might happen: 0 = Not at all Total IBRAHIMA-7 score (0-4 normal; 5-9 mild; 10-14 moderate; 15-21 severe): 0 Source: Developed by Drs. Jm Clemente, Yanni Terrell, Ángel Larios and colleagues, with an educational serenity from [employer]. Review of Systems Const All systems reviewed & are unremarkable except as noted in HPI and below Reports no additional complaints Eyes Reports no additional complaints ENT Reports no additional complaints Card Reports no additional complaints Resp Reports no additional complaints GI Reports no additional complaints Reports no additional complaints Physical exam (Primary Care) Vital Signs: Last Vital Signs Pulse 80 01/26/23 13:00 BP 108/66 01/26/23 13:00 Pulse Ox 97 01/26/23 13:00 Oxygen Delivery Method Room Air 01/26/23 13:00 BMI result Body Mass Index 17.1 Tobacco/Smoking Status: Tobacco use Status Tobacco use date assessed 01/26/23 01/26/23 13:13 Patient Tobacco Use Status Former Tobacco user 01/26/23 13:13 Tobacco use type Smokeless Tobacco 01/26/23 13:00 e-Cigarette/Vaping Use Currently Using 01/26/23 13:00 PHQ-9: PHQ-9 Score PHQ-9: Total score 0 01/26/23 13:17 Depression Screening Interpretation: Negative Thrive Assessment: Date of Thrive Assessment Date Thrive assessed 01/26/23 01/26/23 13:17 Currently or been in a relationship where the following occur: no concerns reported Const General: no acute distress HENMT Mouth: Normal oral and palatal mucosa present Eyes General: appearance normal, both eyes and all related structures Resp Effort & Inspection: normal respiratory effort Auscultation: clear to auscultation bilaterally Cardio Rhythm: regular rhythm Heart sounds: S1 normal heart sound present and S2 normal heart sound present GI Inspection: Yes normal to inspection Palpation (GI): Soft to palpation Percussion: Yes normal to percussion Auscultation: normal bowel sounds Assessment and Plan Assessment & Plan (1) Elevated alpha fetoprotein: Code(s): R77.2 - Abnormality of alphafetoprotein Plan: Patient prefers to have serial alpha fetoprotein and LFTs monitoring every 3 months (2) Liver cirrhosis: Comment: Patient declined referral to academic support assistant Code(s): K74.60 - Unspecified cirrhosis of liver Plan: Continue LFT monitoring (3) Common bile duct dilatation: Comment: MCRP consistent with 1.3 cm focal signal dropout in mid common duct, liver cirrhosis 01/05 Code(s): K83.8 - Other specified diseases of biliary tract Plan: Patient declined referral to GI and will have periodic LFTs and alpha fetoprotein monitoring. Follow-up in 6 months Orders: Orders Alpha Fetoprotein Today K74.60 - Unspecified cirrhosis of liver, K83.8 - Other specified diseases of biliary tract, R77.2 - Abnormality of alphafetoprotein Gamma Glutamyl Transpeptidase Today K74.60 - Unspecified cirrhosis of liver, K83.8 - Other specified diseases of biliary tract, R77.2 - Abnormality of alphafetoprotein Liver Panel Today K74.60 - Unspecified cirrhosis of liver, K83.8 - Other specified diseases of biliary tract, R77.2 - Abnormality of alphafetoprotein Complete Blood Count Auto Diff Today K74.60 - Unspecified cirrhosis of liver, K83.8 - Other specified diseases of biliary tract, R77.2 - Abnormality of alphafetoprotein DEVON Reflex Titer and Pattern Today K74.60 - Unspecified cirrhosis of liver, K83.8 - Other specified diseases of biliary tract Liver Kidney Microsomal Ab Today K74.60 - Unspecified cirrhosis of liver, K83.8 - Other specified diseases of biliary tract Hepatitis B,C Profile Today K74.60 - Unspecified cirrhosis of liver, K83.8 - Other specified diseases of biliary tract Alpha Fetoprotein 3 Months K74.60 - Unspecified cirrhosis of liver Liver Panel 3 Months K74.60 - Unspecified cirrhosis of liver Alpha Fetoprotein 6 Months K74.60 - Unspecified cirrhosis of liver, K83.8 - Other specified diseases of biliary tract, R73.9 - Hyperglycemia, unspecified, R77.2 - Abnormality of alphafetoprotein Comprehensive Tererro. Panel Fast 6 Months K74.60 - Unspecified cirrhosis of liver, K83.8 - Other specified diseases of biliary tract, R73.9 - Hyperglycemia, unspecified, R77.2 - Abnormality of alphafetoprotein Complete Blood Count Auto Diff 6 Months K74.60 - Unspecified cirrhosis of liver, K83.8 - Other specified diseases of biliary tract, R73.9 - Hyperglycemia, unspecified, R77.2 - Abnormality of alphafetoprotein Coding Level of Care Code Est Pt Level 4 (53203) Diagnoses Elevated alpha fetoprotein R77.2 Liver cirrhosis K74.60 Common bile duct dilatation K83.8
== END 2023-01-26 14:05 | disposition home or self-care (01) ==
PROVIDERS: Visit Provider Internal Medicine
DX: R77.2 Abnormality of alphafetoprotein (principal); K74.60 Unspecified cirrhosis of liver; K83.8 Other specified diseases of biliary tract
CPT/HCPCS: 99214

== ENCOUNTER 2023-01-26 14:08 | Outpatient (REF) | payer MEDICARE, SELFPAY ==
[2023-01-26 16:08] LABS: MANUAL DIFF FLAG NO
[2023-01-26 16:16] LABS: Basophils Absolute Auto 0.1 X10*3/uL (0.0-0.2); Basophils Percent Auto 0.7 % (0-2); Eosinophils Absolute Auto 0.1 X10*3/uL (0.0-0.4); Eosinophils Percent Auto 1.8 % (0-4); Hematocrit 39.4 % (37.0-47.0); Hemoglobin 13.1 g/dl (12.0-16.0); Imm Gran Abs Auto 0.02 X10*3/uL (0.00-0.03); Imm Gran Pct Auto 0.3 % (0.0-0.4); Lymphocytes Absolute Auto 2.1 X10*3/uL (1.2-4.9); Lymphocytes Percent Auto 28.6 % (20-40); Mean Corpuscular HGB Conc 33.2 g/dl (31.0-35.0); Mean Corpuscular Volume 87.2 fL (80.0-98.0); Mean Platelet Volume 9.9 fL (9.4-12.3); Monocytes Absolute Auto 0.6 X10*3/uL (0.1-1.2); Monocytes Percent Auto 7.6 % (2-11); Neutrophils Absolute Auto 4.4 x10*3/uL (2.0-8.3); Platelet Count 320 X10*3/uL (160-400); Red Blood Count 4.52 X10*6/uL (4.20-5.50); Red Cell Distribution Width 13.1 % (11.0-16.0); White Blood Count 7.3 X10*3/uL (4.8-10.8)
[2023-01-26 17:01] LABS: Alanine Aminotransferase 20 U/L (0-31); Albumin Level 4.6 g/dL (3.5-5.0); Alkaline Phosphatase 93 U/L (39-117); Aspartate Amino Transferase 27 U/L (5-31); Bilirubin Direct 0.2 mg/dL (0.0-0.5); Bilirubin Total 0.5 mg/dL (0.0-1.0); Gamma Glutamyl Transpeptidase 137 U/L (7-33); Total Protein 7.3 g/dL (6.5-8.0)
[2023-01-29 05:07] LABS: HBc Num1 0.09 S/CO (0.00-0.79); Hepatitis B Core Antibody Nonreactive (Nonreactive); Hepatitis B Surface Antigen Negative (Negative); ~HepC Num1 0.06 S/CO (0.00-0.79); ~Hepatitis C Antibody Nonreactive (Nonreactive)
[2023-01-29 05:50] LABS: ~Hepatitis B Surface Antibody NONREACTIVE (Nonreactive)
[2023-01-29 13:28] LABS: Alpha Fetoprotein 5.1 ng/mL
[2023-01-30 15:43] LABS: Anti Nuclear Antibody Screen NEGATIVE (NEGATIVE)
[2023-01-31 22:49] LABS: Liver Kidney Microsomal Ab <=20.0 U (<=20.0)
== END 2023-01-26 14:09 | disposition home or self-care (01) ==
LOC: HO.HMGCLDS 14:08
PROVIDERS: PCP Internal Medicine; Visit Provider Internal Medicine
DX: K74.60 Unspecified cirrhosis of liver (principal); K83.8 Other specified diseases of biliary tract; R77.2 Abnormality of alphafetoprotein
CPT/HCPCS: 36415; 80076; 82105; 82977; 85025; 86038; 86376; 86704; 86706; 86803; 87340

== ENCOUNTER 2023-03-07 09:49 | Outpatient (AMB) | payer MEDICARE, SELFPAY ==
[2023-03-07 09:57] VITALS: BP 130/71; PULSE 62; BMI 17.5
--- NOTE | 2023-03-07 09:57 | A.OFFVIS_ITS ---
Intake Vital Signs 03/07/23 09:57 Height 5 ft 4.5 in Weight 103 lb 9.876 oz BMI 17.5 BP 130/71 Blood Pressure Location Lt brachial Position Sitting Pulse 62 Intake Visit Reasons: Cirrhosis of liver Intake Note: Patient presetns to in office visit today as a new patient for cirrhosis of liver. CC: She reports occasional LUQ abdominal pain, she states she takes 3 gummy of fiber daily and this helps to have BMs. She c/o a lot of gas all the time and lot of phlegm. She also reports occasional dysphagia. Never had a colonoscopy done before, per Pt she has always refused it. Herb Digger Required: No Allergies No Known Allergies [No Known Allergies*] Allergy (Verified 03/07/23 10:01) HPI HPI Comments History of Present Illness Details 72 y.o with PMH of etOH use disorder that led to cirrhosis without any CSPH so far, tobacco use disorder with COPD, HTN, who is here to establish care for cirrhosis as well as abnormal MRI. Pt reports finding out about cirrhosis around 5 years ago and quit drinking the day she found out. Was previously drinking 3-4 drinks of hard liquor x 10-15 years. Since then has been following up with PCP only. Over time noted improvement in her energy levels as well as easy bruising. More recently had an admission to the hospital earlier this year for human metapneumovirus and since then has been declining. Reports increased fatigue, nausea, low appetite and low energy. Of note, has also been noticing intermittent sensation of food getting stuck x 6 months -- woody with hard textured foods such as meats - has not needed any ER visits for this, chases it with fluids. Was seen by her PCP and had liver imaging which incidentally showed CBD shadow which was then followed up with MRI/MRCP: 1.3 cm elongated hypodensity in mid CBD without any significant dilation proximally. COUNT INCLUDES THE [facility] Medical History Annual physical exam Colonoscopy refused COPD (chronic obstructive pulmonary disease) Hyperlipidemia Hyponatremia Liver cirrhosis, alcoholic Mammogram declined Nodule on liver Peripheral vascular disease Surgical History History of tonsillectomy Family History (Updated 03/07/23 @ 10:04 by MARGARET Cam) Father Heart problem Substance use disorder Mother Hypertension Diabetes Substance use disorder Sister Substance use disorder Paternal Grandmother Colostomy in place Social History Household Members: Children Housing: House Do you presently have visiting nurse or other home services: No Patient Tobacco Use Status: Former Tobacco user Quit Date: couple years ago Tobacco use type: Smokeless Tobacco e-Cigarette/Vaping Use: Currently Using Second Hand Smoke Exposure: No Substance Use Type: Marijuana Advance Directives Date on File: 09/23/22 service: No Current occupational status: employed Cognitive needs: No Hearing needs: No Vision needs: No Review of Systems Const All systems reviewed & are unremarkable except as noted in HPI and below Physical Exam Vital Signs: Last Vital Signs Pulse 62 03/07/23 09:57 BP 130/71 03/07/23 09:57 BMI result Body Mass Index 17.5 Gen Appear: NAD, undernourished HEENT: No scleral icterus, bitemporal wasting noted Chest: CTA CVS: Regular S1/S2 no murmurs Abd: soft, nontender, nondistended, no shifting dullness to percussion, bowel sounds active Ext: No peripheral edema bilaterally Neuro: A/Ox3, no asterixis Assessment & Plan Assessment & Plan (1) Liver cirrhosis: Code(s): K74.60 - Unspecified cirrhosis of liver (2) Bile duct abnormality: Code(s): K83.9 - Disease of biliary tract, unspecified (3) Dysphagia: Code(s): R13.10 - Dysphagia, unspecified Plan - Compensated etOH related cirrhosis MELD-Na 10 Last etOH use >5y ago Reviewed that based on assessment today, no evidence of clinical decompensation. MELD is low. Platelet count and spleen count reassuring and likely does not have varices. Will need HCC screening q6m. - CBD lesion - Dysphagia More pressing issue is CBD abnormality that appears to be more consistent with polyp/growth than a stone based on personal review of films. No evidence of obstruction based on CBD diameter and LFTs. In any case will need further evaluation with ERCP and possibly direct visualisation with cholangioscopy. Since she does report intermittent dysphagia x 6 months, a barium swallow will be obtained. Will also book the procedure with a gastroscope before a sideviewing scope is introduced; for luminal evaluation +/- dilation as needed. Indication, benefits and possible adverse events including the risk of pancreatitis were thoroughly discussed with the pt. She was also informed that the procedure will be booked with my colleague. Will benefit from anesthesia pre-op consult for hx of COPD. Follow up after procedures. Orders: Orders FL barium swallow Today R13.10 - Dysphagia, unspecified Coding Level of Care Code New Pt Level 5 (72598) Diagnoses Liver cirrhosis K74.60 Bile duct abnormality K83.9 Dysphagia R13.10
== END 2023-03-07 12:57 | disposition home or self-care (01) ==
PROVIDERS: PCP Internal Medicine; Visit Provider Internal Medicine
DX: K74.60 Unspecified cirrhosis of liver (principal); K83.9 Disease of biliary tract, unspecified; R13.10 Dysphagia, unspecified
CPT/HCPCS: 99203

== ENCOUNTER → 2023-03-07 09:49 | Outpatient (BNVA) | payer MEDICARE, SELFPAY | PROVIDERS: PCP Internal Medicine; Visit Provider Internal Medicine | DX: K74.60 Unspecified cirrhosis of liver (principal); K83.9 Disease of biliary tract, unspecified; R13.10 Dysphagia, unspecified | CPT/HCPCS: 99202 ==

== ENCOUNTER 2023-04-30 12:36 | Outpatient (AMB) | payer MEDICARE, SELFPAY ==
--- NOTE | 2023-04-30 12:43 | A.OFFVIS_ITS ---
Intake Vital Signs 04/30/23 12:47 Height 5 ft 4.5 in Weight 104 lb 13.15 oz BMI 17.7 BP 144/68 H Blood Pressure Location Lt brachial Position Sitting Pulse 74 Intake Visit Reasons: pt req appointment Intake Note: Katerine presents in the office as a follow up. CC: She states that she takes Fiber daily and she needs it every day. She states that if she does not take her Fiber TID she will have constipation. Sometimes she has pains in the stomach. 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 03/07/23: Pt reports finding out about cirrhosis around 5 years ago and quit drinking the day she found out. Was previously drinking 3-4 drinks of hard liquor x 10-15 years. Since then has been following up with PCP only. Over time noted improvement in her energy levels as well as easy bruising. More recently had an admission to the hospital earlier this year for human metapneumovirus and since then has been declining. Reports increased fatigue, nausea, low appetite and low energy. Of note, has also been noticing intermittent sensation of food getting stuck x 6 months -- woody with hard textured foods such as meats - has not needed any ER visits for this, chases it with fluids. Was seen by her PCP and had liver imaging which incidentally showed CBD shadow which was then followed up with MRI/MRCP: 1.3 cm elongated hypodensity in mid CBD without any significant dilation proximally. 04/30/23: Has procedures booked for 05/03 but pt had called last week to request to cancel these. This visit was therefore booked to address any concerns or apprehension as based on my clinical assessment she should undergo diagnostic EGD/ERCP on an urgent basis. Here with her daughter Mey. Main apprehension is around just having any procedures done at all - tells me she even worries about getting IV lines put in. Reviewed indication for EGD (dysphagia, variceal screening) as well as ERCP +/- spy (abnormal MRI with 1.3 cm cbd lesion) again with both the pt as well as the daughter. I did review that while I do recommend further evaluation as outlined above, the eventual decision to pursue this rests with her. [facility] Medical History (Updated 04/30/23 @ 14:34 by Fely Quinteros MD) Mammogram declined Hyperlipidemia Liver cirrhosis, alcoholic Hyponatremia Peripheral vascular disease Nodule on liver Colonoscopy refused COPD (chronic obstructive pulmonary disease) Annual physical exam Surgical History History of tonsillectomy Family History (Updated 03/07/23 @ 10:04 by MARGARET Cam) Father Heart problem Substance use disorder Mother Hypertension Diabetes Substance use disorder Sister Substance use disorder Paternal Grandmother Colostomy in place Social History Household Members: Children Housing: House Do you presently have visiting nurse or other home services: No Patient Tobacco Use Status: Former Tobacco user Quit Date: couple years ago Tobacco use type: Smokeless Tobacco e-Cigarette/Vaping Use: Currently Using Second Hand Smoke Exposure: No Substance Use Type: Marijuana Advance Directives Date on File: 09/23/22 service: No Current occupational status: employed Cognitive needs: No Hearing needs: No Vision needs: No Review of Systems Const All systems reviewed & are unremarkable except as noted in HPI and below Physical Exam Vital Signs: Last Vital Signs Pulse 74 04/30/23 12:47 BP 144/68 H 04/30/23 12:47 BMI result Body Mass Index 17.7 Gen Appear: NAD, undernourished HEENT: No scleral icterus, bitemporal wasting noted Chest: CTA CVS: Regular S1/S2 no murmurs Abd: soft, nontender, nondistended, no shifting dullness to percussion, bowel sounds active Ext: No peripheral edema bilaterally Neuro: A/Ox3, no asterixis Assessment & Plan Assessment & Plan (1) Liver cirrhosis: Code(s): K74.60 - Unspecified cirrhosis of liver (2) Bile duct abnormality: Code(s): K83.9 - Disease of biliary tract, unspecified (3) Dysphagia: Code(s): R13.10 - Dysphagia, unspecified (4) COPD (chronic obstructive pulmonary disease): Code(s): J44.9 - Chronic obstructive pulmonary disease, unspecified Plan - Compensated etOH related cirrhosis MELD-Na 10 Last etOH use >5y ago Reviewed that based on assessment today, no evidence of clinical decompensation. MELD is low. Platelet count and spleen count reassuring and likely does not have varices however recommend EGD as below. Will need HCC screening q6m. Next US Abd due 06/2023 (6 months from MRI). - CBD lesion - Dysphagia More pressing issue is CBD abnormality that appears to be more consistent with polyp/growth than a stone based on personal review of films. No evidence of obstruction based on CBD diameter and LFTs. In any case will need further evaluation with ERCP and possibly direct visualisation with cholangioscopy. An EGD is also being booked alongside as pt also reports intermittent dysphagia x 6 months. Barium swallow also booked for later this month. Indication, benefits and possible adverse events including the risk of pancreat itis were thoroughly discussed with the pt and her daughter. She was also informed that the procedure will be booked with my colleague. She was again the opportunity for any questions or concerns and will have our RN call her again tmrw to review instructions. Has COPD and worries about airway, was reassured that will be evaluated by anesthesia pre-op to determine best course of action including GEA if needed. Follow up after procedures. Coding Level of Care Code Est Pt Level 4 (88259) Diagnoses Liver cirrhosis K74.60 Bile duct abnormality K83.9 Dysphagia R13.10 COPD (chronic obstructive pulmonary disease) J44.9
[2023-04-30 12:47] VITALS: BP 144/68; PULSE 74; BMI 17.7
== END 2023-04-30 14:05 | disposition home or self-care (01) ==
PROVIDERS: PCP Internal Medicine; Visit Provider Internal Medicine
DX: K74.60 Unspecified cirrhosis of liver (principal); K83.9 Disease of biliary tract, unspecified; R13.10 Dysphagia, unspecified; J44.9 Chronic obstructive pulmonary disease, unspecified
CPT/HCPCS: 99214

== ENCOUNTER → 2023-04-30 12:36 | Outpatient (BNVA) | payer MEDICARE, SELFPAY | PROVIDERS: PCP Internal Medicine; Visit Provider Internal Medicine | DX: K74.60 Unspecified cirrhosis of liver (principal); K83.9 Disease of biliary tract, unspecified; R13.10 Dysphagia, unspecified; J44.9 Chronic obstructive pulmonary disease, unspecified | CPT/HCPCS: 99212 ==

== ENCOUNTER 2023-05-03 12:28 | Day surgery (SDC) | payer MEDICARE, SELFPAY ==
[2023-05-01 15:17] VITALS: BMI 17.7
--- NOTE | 2023-05-02 09:23 | HO.ANESPROP2 ---
Documented by User: Alissa Dockery NP 05/02/23 09:55 HPI - Anesthesia Eval Consult details Narrative: 72yo F for ERCP with + or - cholangiogram, Upper Endoscopy with Balloon Dilitation,+ or - cholangiogram ETOH cirrhosis - no ascites noted on imaging, no para's on record PMFSH Active Problems Active Problems: All Active Problems (Updated 05/01/23 @ 15:24 by Viviana Delcid, PIERCE) Bile duct abnormality (Acute) Dysphagia (Acute) Common bile duct dilatation (Acute) Liver cirrhosis (Acute) Elevated alpha fetoprotein (Acute) Hyperglycemia (Acute) Infection due to human metapneumovirus (hMPV) (Acute) Hypoxia (Acute) COPD with acute exacerbation (Acute) Essential hypertension (Acute) COPD (chronic obstructive pulmonary disease) (Acute) Colonoscopy refused (Acute) Mammogram declined (Acute) Hyperlipidemia (Acute) Liver cirrhosis, alcoholic (Acute) Hyponatremia (Acute) Annual physical exam (Acute) Past Medical History Medical History Raspy voice Mammogram declined Hyperlipidemia Liver cirrhosis, alcoholic Hyponatremia Peripheral vascular disease Nodule on liver Colonoscopy refused COPD (chronic obstructive pulmonary disease) Annual physical exam Family History Family History Father Heart problem Substance use disorder Mother Hypertension Diabetes Substance use disorder Sister Substance use disorder Paternal Grandmother Colostomy in place Surgical History Surgical History History of esophagogastroduodenoscopy (EGD) Hx of tooth extraction History of tonsillectomy Social History Household Members: Family Housing: House Are you a primary pediatric acute care unit nurse to a significant other at home: Yes Do you presently have visiting nurse or other home services: No Alcohol intake: former Patient Tobacco Use Status: Former Tobacco user Quit Date: 2016 Tobacco use type: Cigarette e-Cigarette/Vaping Use: Former Use Second Hand Smoke Exposure: No Substance Use Type: Marijuana Advance Directives Date on File: 05/04/23 service: No Current occupational status: employed Cognitive needs: No Hearing needs: No Vision needs: No Meds Allergies Allergy/AdvReac Type Severity Reaction Status Date / Time No Known Allergies Allergy Verified 05/18/23 13:18 [No Known Allergies*] Home Medications Medication Instructions Recorded Confirmed Last Taken Type albuterol sulfate 90 mcg/actuation 1 puff inhalation Q6H PRN wheezing 09/23/22 05/18/23 05/02/23 History aerosol inhaler Exam Exam Date and Time: May 02, 202323 Height,Weight and Vital Signs: Height 5 ft 4.5 in Weight 47.627 kg Narrative Narrative: EKG 09/2022 Vent. Rate : 066 BPM Atrial Rate : 066 BPM P-R Int : 136 ms QRS Dur : 068 ms QT Int : 300 ms P-R-T Axes : 080 072 024 degrees QTc Int : 314 ms Artifact in tracing Sinus rhythm Sinus Arrhythmia Right atrial enlargement Septal infarct (cited on or before 06-AUG-2022) Nonspecific ST and T wave abnormality Abnormal ECG When compared with ECG of 06-AUG-2022 12:10, No significant changes seen MR MRCP 12/2022 IMPRESSION: 1.3 cm focal signal dropout within the mid common duct seen on multiple sequences. This corresponds to the sonographic images. Correlation should be made with ERCP. Hepatic cirrhosis. No suspicious hepatic lesion. Continued imaging surveillance is advised. Assessment and Plan Assessment Anesthesia Assessment: Chart Reviewed Documented by User: Douglas Crews MD 06/07/23 18:45 HPI - Anesthesia Eval Consult details Narrative: 72yo F for ERCP with + or - cholangiogram, Upper Endoscopy with Balloon Dilitation,+ or - cholangiogram ETOH cirrhosis - no ascites noted on imaging, no para's on record Had a long discussion with the patient as well as the daughter and son . Patient understands that she is at an increased risk of perioprtaive complications given her multiple comorbidities including COPD with excerabetions in the past . Patient and her family ,understand the risks and would like to proceed with the procedure . [facility] Past Medical History Medical History Raspy voice Mammogram declined Hyperlipidemia Liver cirrhosis, alcoholic Hyponatremia Peripheral vascular disease Nodule on liver Colonoscopy refused COPD (chronic obstructive pulmonary disease) Annual physical exam Family History Family History Father Heart problem Substance use disorder Mother Hypertension Diabetes Substance use disorder Sister Substance use disorder Paternal Grandmother Colostomy in place Family history of problems with anesthesia: No Surgical History Surgical History History of esophagogastroduodenoscopy (EGD) Hx of tooth extraction History of tonsillectomy History of Problems with Anesthesia: No Social History Household Members: Family Housing: House Are you a primary pediatric acute care unit nurse to a significant other at home: Yes Do you presently have visiting nurse or other home services: No Alcohol intake: former Patient Tobacco Use Status: Former Tobacco user Quit Date: 2016 Tobacco use type: Cigarette e-Cigarette/Vaping Use: Former Use Second Hand Smoke Exposure: No Substance Use Type: Marijuana Advance Directives Date on File: 05/04/23 service: No Current occupational status: employed Cognitive needs: No Hearing needs: No Vision needs: No Meds Allergies Allergy/AdvReac Type Severity Reaction Status Date / Time No Known Allergies Allergy Verified 05/18/23 13:18 [No Known Allergies*] Home Medications Medication Instructions Recorded Confirmed Last Taken Type albuterol sulfate 90 mcg/actuation 1 puff inhalation Q6H PRN wheezing 09/23/22 05/18/23 05/02/23 History aerosol inhaler Exam Airway Mallampati Class: III Loose/Missing/Broken Teeth: Yes (poor dentition ) Assessment and Plan Assessment Anesthesia Assessment: Anesthesia Plan Discussed Final Anesthetic Review Family History of Problems with Anesthesia: No History of Problems with Anesthesia: No NPO: Yes ASA Class: III Final Preanesthetic Review: Meds/Allgs Chart Reviewed, Consent Obtained/Reviewed and Anes Risks/Benef Reviewed Patient Risk: Intermediate Procedure Risk: Intermediate Anesthetic Plan Anesthetic Plan: GA and Agree w/ Assess. and Plan Disposition: Standard PACU
[2023-05-03] VITALS (9 sets, daily range): BP systolic 108–132; BP diastolic 54–73; PULSE 59–74; RESP 14–18; TEMP 36.1–36.4; O2SAT 99–100
--- NOTE | ~2023-05-03 | FL_ITS ---
EXAMINATION: XR FLUOROSCOPY WITH IMAGES CLINICAL INFORMATION: ERCP COMPARISON: None available. TECHNIQUE: Fluoroscopy Supervised By: Dr. Hector Groves. Fluoroscopy Time: 173.7 seconds. Cumulative Dose: 28.18 mGy. DAP: Not available on this machine. Images: 7. FINDINGS: Images demonstrate wire and contrast injection of the main pancreatic duct. The main pancreatic duct is dilated. There is nonfilling of the very distal main pancreatic duct questionable for stricture. There are calcifications in the liver. There is dilated air-filled bowel. FL/FL guidance in OR IMPRESSION: Fluoroscopy guidance for ERCP.
--- NOTE | 2023-05-03 13:16 | MHC.SHP ---
Pre-Procedural Eval Section A Date of Service: 05/03/23 Section B Chief Complaint: Encounter for screening for upper gastrointestinal Relevant Family History (Specify if Yes): No Relevant Social History: Other (specify) (THC) Present Medications: see Short Stay Collaborative assessment Medical History: Significant History (Raspy voice Mammogram declined Hyperlipidemia Liver cirrhosis, alcoholic Hyponatremia Peripheral vascular disease Nodule on liver Colonoscopy refused COPD (chronic obstructive pulmonary disease)) History of Previous Operations: Relevant previous surgery/procedure and date(s) (Hx of tooth extraction History of tonsillectomy) Allergies: Allergies Allergy/AdvReac Type Severity Reaction Status Date / Time No Known Allergies Allergy Verified 05/01/23 15:23 [No Known Allergies*] Review of Systems Sugical H&P ROS: Negative: Constitution, Cardiovascular, Respiratory, Neurological, Psychiatric, Hem-Onc, Allergic/Immunologic, Gastrointestinal, Genitourinary, Musculoskeletal, Integumentary, Endocrine and Eyes/Ears/Nose/Throat Exam Surgical H&P Exam: Normal: HEENT, Normal: Heart, Normal: Lungs, Normal: Extremities, Normal: Abdomen, Normal: Skin and Normal: Neurological Plan Diagnosis/Plan: Unchanged I have reviewed the history and physical and performed a pertinent physical examination on my patient. No changes have occurred unless specified. Time Spent With Patient Time: Total time managing care of this patient today ____ minutes.
[2023-05-03 13:21] LABS: Hematocrit 37.6 % (37.0-47.0); Hemoglobin 12.5 g/dl (12.0-16.0); Mean Corpuscular HGB Conc 33.2 g/dl (31.0-35.0); Mean Corpuscular Hemoglobin 29.4 pg (27.0-33.0); Mean Corpuscular Volume 88.5 fL (80.0-98.0); Mean Platelet Volume 9.2 fL (9.4-12.3); Platelet Count 268 X10*3/uL (160-400); Red Blood Count 4.25 X10*6/uL (4.20-5.50); Red Cell Distribution Width 13.3 % (11.0-16.0); White Blood Count 6.9 X10*3/uL (4.8-10.8)
[2023-05-03 13:28] LABS: INTERNATIONAL NORM RATIO 0.9 (0.9-1.1); Prothrombin Time 10.9 SEC (11.1-13.3)
[2023-05-03 13:33] LABS: Alanine Aminotransferase 16 U/L (0-31); Albumin Level 4.3 g/dL (3.5-5.0); Alkaline Phosphatase 91 U/L (39-117); Anion Gap 13 (12-20); Aspartate Amino Transferase 20 U/L (5-31); Bilirubin Total 0.6 mg/dL (0.0-1.0); Blood Urea Nitrogen 13 mg/dL (9-16); Calcium 10.1 mg/dL (8.4-10.2); Carbon Dioxide 26 mmol/L (22-29); Chloride 100 mmol/L (96-108); Creatinine Clr Calc Pharmacy 44.8; Estimated Glomerular Filt Rate > 60; Glucose Fasting 102 mg/dL (60-99); Sodium 135 mmol/L (135-145); Total Protein 7.2 g/dL (6.5-8.0)
[2023-05-03] MEDS: Lactated Ringers 1,000 ML 100 ML IVCONT (14:08)
--- NOTE | 2023-05-03 18:44 | P.OP_ITS ---
Operative Note Operative Note Date of Service: 05/03/23 Narrative: Description: Endoscopic retrograde cholangiopancreatography (ERCP) and EGD with balloon dilation PROCEDURES: EGD with balloon dilation and biopsy Endoscopic retrograde cholangiopancreatography with brush cytology and biopsy, sphincterotomy, balloon dilation Spyglass INDICATION FOR THE PROCEDURE: Patient with a history of cirrhosis and abnormal MRI imaging MEDICATIONS: General anesthesia, rectal indomethacin 100 mg, cefotetan 1 g IV The risks of the procedure were made aware to the patient and consisted of medication reaction, bleeding, perforation, aspiration, and post ERCP pancreatitis. DESCRIPTION OF PROCEDURE: After informed consent and appropriate sedation, the upper endoscope was inserted. There was mild esophagitis noted with small hiatal hernia about 2 cm. the stomach mucosa looked abnormal with multiple nodular lesions in the upper body, biopsies were taken. The duodenum looked normal. Balloon dilation was done to 19 mm at LES and 18 mm at UES, no tears seen The duodenoscope was then inserted into the oropharynx, down the esophagus, and into the stomach. The scope was then advanced through the pylorus to the ampulla. The tome was angled and the CBD was immediately accessed. A cholangiog mary did not reveal any obvious filling defects or masses and the bile duct drained quickly with normal appearing diameter, but the bile duct did appear tortuous at the mid junction. A sphincterotomy was done followed by hurricaine balloon dilation to 10 mm. Brushings were then taken. an extraction balloon was used and no debris was retrieved. Spyglass was then used and at mid junction a slight fibrous narrowing was noted which looked benign. spybite could not be passed thru the scope so a regular biopsy forceps to take samples from the area noted. There was some minor oozing which had ceased by the end of the procedure. The stomach was then decompressed and the endoscope was withdrawn. FINDINGS: 1. normal diameter CBD, slightly tortuous appearance, possibly from a fibrous band or scar mid junction. 2. nodular gastric mucosa 3. esophagitis 4. hiatal hernia RECOMMENDATIONS: 1. NPO except ice chips for next 4-6 hrs then clears as tolerated, can advance diet tomorrow if feels well 2. await biopsy results 3. If any worsening abdominal pain, nausea, fever needs to come to ED [facility]
[2023-05-03] MEDS: ondansetron HCL 4 MG/2 ML VIAL IVPUSH (19:20)
[2023-05-03] MEDS: Metoclopramide HCl 10 MG/2 ML VIAL IVPUSH (19:21)
[2023-05-03] MEDS: Haloperidol Lactate 5 MG/ML VIAL 1 MG IVPUSH (19:48)
== END 2023-05-03 20:37 | disposition home or self-care (01) ==
PROVIDERS: Nurse Practitioner; PCP Internal Medicine; Visit Provider Internal Medicine Gastroenterology
PROC: (CPT 43260; principal; 2023-05-03 14:40)
PROC: (CPT 43239; 2023-05-03 14:40)
DX: K20.90 Esophagitis, unspecified without bleeding (principal); K44.9 Diaphragmatic hernia without obstruction or gangrene; K31.9 Disease of stomach and duodenum, unspecified; K83.9 Disease of biliary tract, unspecified; K74.60 Unspecified cirrhosis of liver; J44.9 Chronic obstructive pulmonary disease, unspecified; I10 Essential (primary) hypertension; E78.5 Hyperlipidemia, unspecified; Z87.891 Personal history of nicotine dependence; Z79.899 Other long term (current) drug therapy
CPT/HCPCS: 43239; 43249; 43261; 43277; 43273; 36415; 80053; 85027; 85610; 88112; 88305; 88342; C1726; C1769; C1887; J0690; J1100; J1610; J2250; J2405; J2765; J3010; Q9967

== ENCOUNTER → 2023-05-03 12:28 | Outpatient (BNV) | payer MEDICARE, SELFPAY | PROVIDERS: PCP Internal Medicine; Visit Provider Internal Medicine Gastroenterology | DX: K74.69 Other cirrhosis of liver (principal); K20.90 Esophagitis, unspecified without bleeding; K29.70 Gastritis, unspecified, without bleeding | CPT/HCPCS: 43249; 43273; 43277 ==

== ENCOUNTER 2023-05-04 01:51 | Inpatient (IN) | payer MEDICARE, SELFPAY ==
[2023-05-04] VITALS (9 sets, daily range): BP systolic 100–198; BP diastolic 43–96; PULSE 69–83; RESP 13–18; TEMP 36.3–36.7; O2SAT 94–100; BMI 19.9
--- NOTE | ~2023-05-04 | CT_ITS ---
EXAMINATION: CT ABDOMEN AND PELVIS WITHOUT CONTRAST CLINICAL INFORMATION: Left abdominal wall swelling COMPARISON: CT of the abdomen and pelvis 05/04/2023 TECHNIQUE: Multidetector volumetric imaging was performed from the superior aspect of the liver through the pubic symphysis. Sagittal and coronal reformatted images were obtained on the technologist's workstation. This CT examination was performed using dose optimization techniques as appropriate, variously including the following: *Automated exposure control *Adjustment of mA and/or kV according to patient size (this includes techniques or standardized protocols for targeted exams where dose is matched to indication/reason for exam; i.e. extremities or head) *Use of iterative reconstruction technique DLP: 273 mGy-cm FINDINGS: LUNG BASES: Bilateral pleural effusions and lower lobe compressive atelectasis, left greater than right. LIVER, GALLBLADDER, AND BILIARY TREE: Extensive calcifications in the liver similar to previous exams. Mild cirrhotic changes of the liver. The gallbladder is unremarkable with no evidence of radiopaque gallstones, gallbladder wall thickening, or obvious pericholecystic inflammatory changes. PANCREAS: Difficult to evaluate without IV contrast Air in the pancreas no longer seen. Peripancreatic fluid may be slightly decreased from 05/04/2023 exam. Increasing small to moderate generalized ascites. SPLEEN: Unremarkable. ADRENAL GLANDS: Unremarkable. KIDNEYS AND URETERS: The kidneys are normal in size, shape, and attenuation. No hydronephrosis. Small punctate calcifications in the left kidney questionable for tiny stones. BLADDER: Unremarkable. GASTROINTESTINAL TRACT: Severe diverticulosis of the colon. No evidence of diverticulitis. Small and large bowel are otherwise unremarkable. Appendix is unremarkable. ABDOMINAL WALL: No hernia. Diffuse subcutaneous edema/anasarca. No focal fluid collection. LYMPH NODES: Normal. VASCULAR: Severe atherosclerotic disease. No aneurysm. PELVIC VISCERA: Unremarkable. OSSEOUS STRUCTURES: Degenerative changes of the spine. Slight loss of height of the superior endplates of the L1 and L3 old vertebral body questionable for mild old compression fractures. CT/CT abdomen pelvis wo IV con IMPRESSION: Diffuse anasarca. No focal fluid collection. Cirrhosis. Small to moderate amount of generalized ascites increased from 05/04/2023 exam. Pancreas difficult to evaluate without IV contrast. Air in the main pancreatic duct is no longer seen. Diverticulosis. Cirrhosis and stable innumerable liver small calcifications. Severe atherosclerotic disease. New bilateral pleural effusions and lower lobe compressive atelectasis. Fleischner guidelines were followed.
--- NOTE | ~2023-05-04 | XR_ITS ---
EXAMINATION: XR ABDOMEN KUB CLINICAL INDICATION: Constipated COMPARISON: 02/28/2019 TECHNIQUE: AP view of the abdomen. FINDINGS: Bowel gas pattern is nonobstructive. There is mild scattered stool in the colon. Limited assessment for free air with supine positioning. Redemonstrated extensive hepatic calcifications. Vascular calcifications are also noted. Included lung bases appear well-aerated. No acute osseous findings are seen. XR/XR KUB IMPRESSION: Mild scattered stool in the colon. Nonobstructive bowel gas pattern.
--- NOTE | ~2023-05-04 | CT_ITS ---
EXAMINATION: CT ABDOMEN AND PELVIS WITH CONTRAST CLINICAL INFORMATION: Elevated lipase status post MRCP COMPARISON: Multiple priors, including 02/28/2019 TECHNIQUE: Multidetector volumetric images were obtained from the superior aspect of the liver through the pubic symphysis following administration 85 mL of Omnipaque 350 intravenous contrast. Sagittal and coronal reformatted images were obtained on the technologist's workstation. Oral contrast: No This CT examination was performed using dose optimization techniques as appropriate, variously including the following: *Automated exposure control *Adjustment of mA and/or kV according to patient size (this includes techniques or standardized protocols for targeted exams where dose is matched to indication/reason for exam; i.e. extremities or head) *Use of iterative reconstruction technique DLP: 279 mGy-cm FINDINGS: LUNG BASES: The visualized lung bases are unremarkable. LIVER, GALLBLADDER, AND BILIARY TREE: Redemonstrated extensive calcifications throughout the liver, without significant change from 02/28/2019. Numerous scattered hypoattenuating lesions throughout the liver too small to characterize, which may represent cysts or biliary hamartomas. Gallbladder is grossly unremarkable. Foci of gas are also noted in the region of the common bile duct, though not definitively within the duct. PANCREAS: Moderate peripancreatic fluid and stranding, suspicious for sequelae of pancreatitis. Multiple foci of gas are present in the region of the pancreas, at least some of which appear along the main pancreatic duct, while other foci may lie within sidebranches. Moderate parenchymal atrophy. SPLEEN: Unremarkable. ADRENAL GLANDS: Unremarkable. KIDNEYS AND URETERS: Bilateral nephrograms are symmetric. No hydronephrosis or obstructing calculus identified. Multiple bilateral hypoattenuating renal foci favor cysts; no follow-up recommended. BLADDER: Unremarkable. GASTROINTESTINAL TRACT: Colonic diverticulosis is noted. No evidence of bowel obstruction or significant wall thickening. The appendix is unremarkable. ABDOMINAL WALL: No significant hernia is appreciated. LYMPH NODES: Normal. VASCULAR: There is atherosclerotic calcification along the aorta and iliac arteries. PELVIC VISCERA: Unremarkable. OSSEOUS STRUCTURES: Unremarkable. CT/CT abdomen pelvis w IV con IMPRESSION: 1. Moderate peripancreatic fluid and stranding, suspicious for sequelae of pancreatitis. 2. Multiple foci of gas are present in the region of the pancreas, suspected to reflect sequelae of ERCP. Some foci of gas appear to lie along the main pancreatic duct, while other foci may lie within sidebranches, though the possibility of trace free air cannot be excluded, as the margins of the pancreatic parenchyma are not well-defined. Foci of gas are also noted in the region of the common bile duct, though not all of this gas is convincingly within the duct, again raising concern for possible small amount of free air. This critical result was discussed with Dr. Foster on 05/04/2023 6:19 AM, and it was ascertained that the content and urgency of the report was understood at the time of direct communication.
--- NOTE | ~2023-05-04 | XR_ITS ---
EXAMINATION: XR CHEST CLINICAL INFORMATION: Shortness of breath and hypoxia COMPARISON: Previous chest x-ray September 2022 TECHNIQUE: 2 views of the chest were obtained. FINDINGS: The cardiac silhouette does not appear enlarged. There is pulmonary venous redistribution. The lungs are otherwise clear. There are bilateral small pleural effusions, left greater than right. Findings are questionable for CHF. Mild degenerative changes of the spine. XR/XR chest 2V IMPRESSION: Probable mild CHF.
--- NOTE | 2023-05-04 01:59 | ED_ITS ---
HPI - General Adult General Chief complaint: Abdominal Pain Stated complaint: Infected surgical site Time Seen by Provider: 05/04/23 01:59 Source: patient Mode of arrival: ambulatory History of Present Illness HPI narrative: Patient is status post ERCP 05/03/23 which showed normal diameter CBD and esophagitis and hiatal hernia with history of cirrhosis patient after the procedure patient been having lower abdominal pain feel like moving her bowels patient with history of constipation no vomiting no urinary complaint Related Data Home Medications Medication Instructions Recorded Confirmed albuterol sulfate 90 mcg/actuation 1 puff inhalation Q6H PRN wheezing 09/23/22 05/03/23 aerosol inhaler Previous Rx's Medication Instructions Recorded amlodipine 10 mg tablet 10 mg PO DAILY #90 tabs 10/19/22 fluticasone furoate 100 1 inh inhalation DAILY copd #3 ea 10/19/22 mcg-vilanterol 25 mcg/dose inhalation powder (Breo Ellipta) losartan 25 mg tablet 25 mg PO DAILY #90 tabs 10/19/22 metoprolol tartrate 25 mg tablet 25 mg PO BID #180 tabs 10/19/22 Allergies Allergy/AdvReac Type Severity Reaction Status Date / Time No Known Allergies Allergy Verified 05/04/23 02:01 [No Known Allergies*] Review of Systems 2 Review of Systems: Yes all other systems are reviewed and are negative PMFSH Past Medical History Medical History Raspy voice Mammogram declined Hyperlipidemia Liver cirrhosis, alcoholic Hyponatremia Peripheral vascular disease Nodule on liver Colonoscopy refused COPD (chronic obstructive pulmonary disease) Annual physical exam Surgical History Hx of tooth extraction History of tonsillectomy Family History Family History Father Heart problem Substance use disorder Mother Hypertension Diabetes Substance use disorder Sister Substance use disorder Paternal Grandmother Colostomy in place Social History Social History Household Members: Children Housing: House Are you a primary personal care attendant to a significant other at home: No Do you presently have visiting nurse or other home services: No Patient Tobacco Use Status: Former Tobacco user Quit Date: 2016 Tobacco use type: Cigarette Smoked in Last 30 Days: No e-Cigarette/Vaping Use: Currently Using Use of substances other than those prescribed or required for medical reasons: Yes Substance Use Type: Marijuana Advance Directives: Yes Advance Directives on File: Yes Advance Directives Date on File: 05/03/23 service: No Current occupational status: employed Cognitive needs: No Hearing needs: No Vision needs: No Physical Exam ED Vital Signs: Vital Signs - 24 hr 05/04/23 01:55 05/04/23 05:56 Temperature 98.0 F Pulse Rate 76 80 Respiratory Rate 16 16 Blood Pressure 105/76 127/52 L Pulse Oximetry 100 98 Oxygen Delivery Method Room Air Room Air BMI result Body Mass Index 19.9 Appearance: Alert. Oriented X3. No acute distress. Eyes: No pallor/icterus ENT: Pharynx normal. Oral Mucosa moist Neck: Normal inspection. Neck supple. CVS: Normal heart rate and rhythm. Pulses normal. Respiratory: No respiratory distress. Equal air entry bilateral, no wheezing/rales/rhonchi Abdomen: Soft mild tender in epigastric area and suprapubic area no rebound tenderness or guarding. Bowel sounds are present, no mass palpable, no CVA tenderness Skin: Skin warm and dry. Normal skin color. Normal skin turgor. Extremities: No lower extremity edema. No calf tenderness Neuro: Oriented X 3. Medications Administered Discontinued Medications Generic Name Dose Route Start Last Admin Trade Name Freq PRN Reason Stop Dose Admin Dicyclomine HCl 20 mg 05/04/23 02:39 05/04/23 03:13 Dicyclomine Hcl 10 Mg Capsule PO 05/04/23 02:40 20 mg ONCE ONE Administration Sodium Chloride 1,000 mls @ 999 mls/hr 05/04/23 03:00 05/04/23 03:12 Ns IV 05/04/23 04:00 999 mls/hr .Q1H1M ONE Administration Iohexol 85 ml 05/04/23 05:43 05/04/23 05:44 Iohexol 350 Mg/Ml 100 Ml Infus..Btl IV 05/04/23 05:44 85 ml ONCE ONE Administration Medical Decision Making Medical Decision Making [facility] Narrative: Patient status post ERCP with abdominal pain CT scan showed pancreatitis air in the pancreas likely secondary to procedure ERCP lipase is slightly elevated to 364 will admit patient for pancreatitis Differential Diagnosis Differential Diagnoses: The differential diagnosis associated with the presentation includes Constipation/pancreatitis/UTI/small bowel obstruction Consult Healthcare Provider Management of the patient was discussed with: Hospitalist Lab Data MDM Lab Attestation statement: I reviewed the patient's lab results. 05/04/23 03:05 05/04/23 03:05 Labs: Lab Results 05/04/23 Range/Units 03:05 WBC 14.3 H (4.8-10.8) X10*3/uL RBC 4.18 L (4.20-5.50) X10*6/uL Hgb 12.4 (12.0-16.0) g/dl Hct 36.6 L (37.0-47.0) % MCV 87.6 (80.0-98.0) fL MCH 29.7 (27.0-33.0) pg MCHC 33.9 (31.0-35.0) g/dl RDW 12.9 (11.0-16.0) % Plt Count 253 (160-400) X10*3/uL MPV 9.2 L (9.4-12.3) fL Immature Gran % (Auto) 0.3 (0.0-0.4) % Neut % (Auto) 93.4 H (45-73) % Lymph % (Auto) 2.7 L (20-40) % [place] % (Auto) 3.4 (2-11) % Eos % (Auto) 0.1 (0-4) % Baso % (Auto) 0.1 (0-2) % Lymph # (Auto) 0.4 L (1.2-4.9) X10*3/uL [place] # (Auto) 0.5 (0.1-1.2) X10*3/uL Eos # (Auto) 0.0 (0.0-0.4) X10*3/uL Baso # (Auto) 0.0 (0.0-0.2) X10*3/uL Abs Immat Gran (auto) 0.04 H (0.00-0.03) X10*3/uL Absolute Neuts (auto) 13.3 H (2.0-8.3) x10*3/uL Absolute Nucleated RBC 0.000 (0.0-0.012) X10*3/uL Nucleated RBC % (auto) 0.0 (0.0-0.2) /100WBC Sodium 134 L (135-145) mmol/L Potassium 3.5 (3.3-5.1) mmol/L Chloride 97 (96-108) mmol/L Carbon Dioxide 21 L (22-29) mmol/L Anion Gap 20 (12-20) BUN 13 (9-16) mg/dL Creatinine 0.88 (0.5-1.4) mg/dL Estim Creat Clear Calc 40.9 Estimated GFR > 60 Random Glucose 222 H (60-115) mg/dL Calcium 9.7 (8.4-10.2) mg/dL Total Bilirubin 0.9 (0.0-1.0) mg/dL AST 22 (5-31) U/L ALT 17 (0-31) U/L Alkaline Phosphatase 85 (39-117) U/L Total Protein 7.0 (6.5-8.0) g/dL Albumin 4.2 (3.5-5.0) g/dL Lipase 364 H (8-78) U/L Radiology Impression Discussion of test interpretation with radiology: I have reviewed the radiologist's reading. Radiologist Impression: [place] [id number] CT Scan Report Signed Patient: Katerine Russell MR#: [id number] : 1950 Acct:[id number] Age/Sex: 72 / F ADM Date: 05/04/23 Loc: .ED Attending Dr: Ordering Physician: Massimo Yeager MD Date of Service: 05/04/23 Procedure(s): CT abdomen pelvis w IV con Accession Number(s): [id number] cc: Shirin Phan MD; Massimo Yeager MD~ EXAMINATION: CT ABDOMEN AND PELVIS WITH CONTRAST CLINICAL INFORMATION: Elevated lipase status post MRCP COMPARISON: Multiple priors, including 02/28/2019 TECHNIQUE: Multidetector volumetric images were obtained from the superior aspect of the liver through the pubic symphysis following administration 85 mL of Omnipaque 350 intravenous contrast. Sagittal and coronal reformatted images were obtained on the technologist's workstation. Oral contrast: No This CT examination was performed using dose optimization techniques as appropriate, variously including the following: *Automated exposure control *Adjustment of mA and/or kV according to patient size (this includes techniques or standardized protocols for targeted exams where dose is matched to indication/reason for exam; i.e. extremities or head) *Use of iterative reconstruction technique DLP: 279 mGy-cm FINDINGS: LUNG BASES: The visualized lung bases are unremarkable. LIVER, GALLBLADDER, AND BILIARY TREE: Redemonstrated extensive calcifications throughout the liver, without significant change from 02/28/2019. Numerous scattered hypoattenuating lesions throughout the liver too small to characterize, which may represent cysts or biliary hamartomas. Gallbladder is grossly unremarkable. Foci of gas are also noted in the region of the common bile duct, though not definitively within the duct. PANCREAS: Moderate peripancreatic fluid and stranding, suspicious for sequelae of pancreatitis. Multiple foci of gas are present in the region of the pancreas, at least some of which appear along the main pancreatic duct, while other foci may lie within sidebranches. Moderate parenchymal atrophy. SPLEEN: Unremarkable. ADRENAL GLANDS: Unremarkable. KIDNEYS AND URETERS: Bilateral nephrograms are symmetric. No hydronephrosis or obstructing calculus identified. Multiple bilateral hypoattenuating renal foci favor cysts; no follow-up recommended. BLADDER: Unremarkable. GASTROINTESTINAL TRACT: Colonic diverticulosis is noted. No evidence of bowel obstruction or significant wall thickening. The appendix is unremarkable. ABDOMINAL WALL: No significant hernia is appreciated. LYMPH NODES: Normal. VASCULAR: There is atherosclerotic calcification along the aorta and iliac arteries. PELVIC VISCERA: Unremarkable. OSSEOUS STRUCTURES: Unremarkable. CT/CT abdomen pelvis w IV con IMPRESSION: 1. Moderate peripancreatic fluid and stranding, suspicious for sequelae of pancreatitis. 2. Multiple foci of gas are present in the region of the pancreas, suspected to reflect sequelae of ERCP. Some foci of gas appear to lie along the main pancreatic duct, while other foci may lie within sidebranches, though the possibility of trace free air cannot be excluded, as the margins of the pancreatic parenchyma are not well-defined. Foci of gas are also noted in the region of the common bile duct, though not all of this gas is convincingly within the duct, again raising concern for possible small amount of free air. This critical result was discussed with Dr. Foster on 05/04/2023 6:19 AM, and it was ascertained that the content and urgency of the report was understood at the time of direct communication. Discharge Plan Discharge Clinical Impression: Acute pancreatitis after endoscopic retrograde cholangiopancreatography (ERCP) Patient Disposition: Admitted As Inpatient
[2023-05-04] MEDS: 0.9 % Sodium Chloride 1,000 ML 999 ML IV (03:12)
[2023-05-04 03:13] LABS: MANUAL DIFF FLAG NO
[2023-05-04] MEDS: Dicyclomine HCl 10 MG CAPSULE 20 MG PO (03:13)
--- NOTE | 2023-05-04 03:16 | PC.NURSE ---
d/t technical issues unable to scan meds; verified wristband match to computer and order per sep. pt tolerated po well.
[2023-05-04 03:18] LABS: Basophils Percent Auto 0.1 % (0-2); Eosinophils Percent Auto 0.1 % (0-4); Hematocrit 36.6 % (37.0-47.0); Hemoglobin 12.4 g/dl (12.0-16.0); Imm Gran Abs Auto 0.04 X10*3/uL (0.00-0.03); Imm Gran Pct Auto 0.3 % (0.0-0.4); Lymphocytes Absolute Auto 0.4 X10*3/uL (1.2-4.9); Lymphocytes Percent Auto 2.7 % (20-40); Mean Corpuscular HGB Conc 33.9 g/dl (31.0-35.0); Mean Corpuscular Hemoglobin 29.7 pg (27.0-33.0); Mean Corpuscular Volume 87.6 fL (80.0-98.0); Mean Platelet Volume 9.2 fL (9.4-12.3); Monocytes Absolute Auto 0.5 X10*3/uL (0.1-1.2); Monocytes Percent Auto 3.4 % (2-11); Neutrophils Absolute Auto 13.3 x10*3/uL (2.0-8.3); Neutrophils Percent Auto 93.4 % (45-73); Platelet Count 253 X10*3/uL (160-400); Red Blood Count 4.18 X10*6/uL (4.20-5.50); Red Cell Distribution Width 12.9 % (11.0-16.0); SCAN SMEAR FLAG 1; White Blood Count 14.3 X10*3/uL (4.8-10.8)
[2023-05-04 03:35] LABS: Alanine Aminotransferase 17 U/L (0-31); Albumin Level 4.2 g/dL (3.5-5.0); Alkaline Phosphatase 85 U/L (39-117); Anion Gap 20 (12-20); Aspartate Amino Transferase 22 U/L (5-31); Bilirubin Total 0.9 mg/dL (0.0-1.0); Blood Urea Nitrogen 13 mg/dL (9-16); Calcium 9.7 mg/dL (8.4-10.2); Carbon Dioxide 21 mmol/L (22-29); Chloride 97 mmol/L (96-108); Creatinine Clr Calc Pharmacy 40.9; Estimated Glomerular Filt Rate > 60; Glucose Random 222 mg/dL (60-115); Potassium 3.5 mmol/L (3.3-5.1); Sodium 134 mmol/L (135-145)
[2023-05-04 03:46] LABS: Lipase 364 U/L (8-78)
[2023-05-04] MEDS: iohexoL 350 MG/ML 100 ML INFUS..BTL 85 ML IV (05:44)
[2023-05-04 07:35] LABS: Lactic Acid 1.2 mmol/L (0.5-2.0)
[2023-05-04] MEDS: ondansetron HCL 4 MG/2 ML VIAL IVPUSH (07:42)
[2023-05-04] MEDS: Piperacillin Sodium/Tazobactam 3.375 GM in 0.9 % Sodium Chloride 50 ML IV ×3 (07:42→19:36)
[2023-05-04] MEDS: Morphine Sulfate 4 MG/ML CARTRIDGE IVPUSH (07:42)
--- NOTE | 2023-05-04 07:57 | PHA.MEDREC ---
Pharmacy Consult ? Medication Reconciliation Pharmacy has completed the medication reconciliation.Spoke with patient in the ED and she knew all of her home medications. No issues.
--- NOTE | 2023-05-04 08:19 | P.CONGS_ITS ---
History of Present Illness Consult details Consult date: 05/04/23 <REBEKA Garcia Last Filed: 05/04/23 08:37> Reason for consult: other (abnormal CT) <REBEKA Garcia Last Filed: 05/04/23 08:37> Requesting physician: Doris Liz <REBEKA Garcia Last Filed: 05/04/23 08:37> Narrative: 72 year old female who is 1 day s/p EGD with balloon dilation and biopsy, ERCP with brush cytology and biopsy, sphincterotomy, balloon dilation for cirrhosis and abnormal MRI imaging showing elongated hypodensity in mid CBD. The procedure itself was uneventful. She went home following and developed severe right lower quadrant abdominal pain associated with nausea. Due to the severity of pain, she came to the ED where CT scan was performed which showed moderate peripancreatic fluid and stranding with multiple foci of gas in the region of the pancreas. Labs were significant for WBC count of 14.3 and lipase of 364. This morning, she feels improved with morphine. She denies any upper abdominal pain and states it is all in the right lower quadrant. She feels bloated. < REBEKA Garcia Last Filed: 05/04/23 08:37> Review of Systems 2 Constitutional: Constitutional: Denies chills and Denies fever(s) < REBEKA Garcia Last Filed: 05/04/23 08:37> ENT: Denies dizziness <REBEKA Garcia Last Filed: 05/04/23 08:37> Cardiovascular: Cardiovascular: Denies chest pain and Denies dyspnea < REBEKA Garcia Last Filed: 05/04/23 08:37> Respiratory: Respiratory: Denies dyspnea <REBEKA Garcia Last Filed: 05/04/23 08:37> Gastrointestinal: Gastrointestinal: Reports as per HPI <REBEKA Garcia Last Filed: 05/04/23 08:37> Integumentary/Breasts: Skin/Breast: Denies rash and Denies jaundice < REBEKA Garcia Last Filed: 05/04/23 08:37> Neurologic: Denies dizziness <REBEKA Garcia Last Filed: 05/04/23 08:37> [facility] Past Medical History Medical History: Medical History Raspy voice Mammogram declined Hyperlipidemia Liver cirrhosis, alcoholic Hyponatremia Peripheral vascular disease Nodule on liver Colonoscopy refused COPD (chronic obstructive pulmonary disease) Annual physical exam <REBEKA Garcia Last Filed: 05/04/23 08:37> Family History Family History: Family History Father Heart problem Substance use disorder Mother Hypertension Diabetes Substance use disorder Sister Substance use disorder Paternal Grandmother Colostomy in place <REBEKA Garcia Last Filed: 05/04/23 08:37> Surgical History Surgical History: Surgical History Hx of tooth extraction History of tonsillectomy <REBEKA Garcia Last Filed: 05/04/23 08:37> Social History Social History: Social History Household Members: Children Housing: House Are you a primary assistant child care teacher to a significant other at home: No Do you presently have visiting nurse or other home services: No Patient Tobacco Use Status: Former Tobacco user Quit Date: 2016 Tobacco use type: Cigarette Smoked in Last 30 Days: No e-Cigarette/Vaping Use: Currently Using Use of substances other than those prescribed or required for medical reasons: Yes Substance Use Type: Marijuana Advance Directives: Yes Advance Directives on File: Yes Advance Directives Date on File: 05/04/23 Nutrition Risks: No Nutritional Risk service: No Current occupational status: employed Cognitive needs: No Hearing needs: No Vision needs: No <REBEKA Garcia Last Filed: 05/04/23 08:37> Meds Allergies/Adverse reactions: Allergies Allergy/AdvReac Type Severity Reaction Status Date / Time No Known Allergies Allergy Verified 05/04/23 02:01 [No Known Allergies*] <REBEKA Garcia Last Filed: 05/04/23 08:37> Active Medications: Current Medications Acetaminophen (Acetaminophen 325 Mg Tablet) 650 mg PO Q6H PRN PRN Reason: Pain, Mild (Pain Scale 1-3) Docusate Sodium (Docusate Sodium 100 Mg Capsule) 100 mg PO DAILY [place] Enoxaparin Sodium (Enoxaparin Sodium 40 Mg/0.4 Ml Syringe) 40 mg SUBCUT Q24H [place] Lactated Ringer's (Lr) 1,000 mls @ 100 mls/hr IVCONT .Q10H [place] Piperacillin Sod/Tazobactam (Sod 3.375 gm/ Sodium Chloride) 50 mls @ 100 mls/hr IV Q6H [place] Morphine Sulfate (Morphine Sulfate 4 Mg/Ml Cartridge) 2 mg IVPUSH Q4H PRN; Protocol PRN Reason: Pain, Severe (Pain Scale 7-10) Ondansetron HCl (Ondansetron Hcl 4 Mg/2 Ml Vial) 4 mg IVPUSH Q8H PRN PRN Reason: Nausea and Vomiting Sodium Chloride (0.9 % Sodium Chloride Flush 3 Ml Syringe) 3 ml IVFLUSH QSHIFT [place]ITOPE <REBEKA Garcia Last Filed: 05/04/23 08:37> Home medications: Home Medications Medication Instructions Recorded Confirmed Last Taken Type albuterol sulfate 90 mcg/actuation 1 puff inhalation Q6H PRN wheezing 09/23/22 05/04/23 05/02/23 History aerosol inhaler inulin 2 gram chewable tablet 21 g PO DAILY 05/04/23 05/04/23 Unknown History (Fiber Gummies) <Arti Anaya PA-C - Last Filed: 05/04/23 08:37> Physical Exam 2 Vital Signs: Vital Signs: Last Vital Signs Temp 97.5 F 05/04/23 07:09 Pulse 81 05/04/23 07:53 Resp 17 05/04/23 07:53 BP 132/67 05/04/23 07:53 Pulse Ox 95 05/04/23 07:53 O2 Del Method Room Air 05/04/23 07:53 BMI result Body Mass Index 19.9 <REBEKA Garcia Last Filed: 05/04/23 08:37> Const: General: comfortable, no acute distress and alert <Arti VegasFILOMENA oropezaStephen Stephen Last Filed: 05/04/23 08:37> Orientation/consciousness: patient oriented x3 <Arti VegasFILOMENA oropezaAlfa Mitchell Last Filed: 05/04/23 08:37> Resp: Effort & Inspection: normal respiratory effort <Arti VegasFILOMENA oropezaStephen Stephen Last Filed: 05/04/23 08:37> GI: Inspection: Yes normal to inspection and No distended <Arti Garciadeau BEL Stephen Last Filed: 05/04/23 08:37> Palpation (GI): Soft to palpation, Tenderness to palpation present (GI) in the RLQ (mild ); with no rebound tenderness, no guarding and not rigid <Arti VegasFILOMENA oropezaStephen Stephen Last Filed: 05/04/23 08:37> Percussion: Yes normal to percussion <Arti VegasFILOMENA oropezaStephen Stephen Last Filed: 05/04/23 08:37> Skin: General skin exam: no rashes or lesions noted <Arti Vegassandip BEL Stephen Last Filed: 05/04/23 08:37> Neuro: General: patient oriented x3 and moves all extremities <Arti VegasFILOMENA oropezaStephen Stephen Last Filed: 05/04/23 08:37> Extrem: General: Yes no clubbing, cyanosis or edema <FILOMENA GarciaStephen Stephen Last Filed: 05/04/23 08:37> Results Labs Result diagrams: 05/04/23 03:05 05/04/23 03:05 <Arti FILOMENA AnayaStephen Stephen Last Filed: 05/04/23 08:37> Labs: Abnormal lab results 05/04/23 Range/Units 03:05 WBC 14.3 H (4.8-10.8) X10*3/uL RBC 4.18 L (4.20-5.50) X10*6/uL Hct 36.6 L (37.0-47.0) % MPV 9.2 L (9.4-12.3) fL Neut % (Auto) 93.4 H (45-73) % Lymph % (Auto) 2.7 L (20-40) % Lymph # (Auto) 0.4 L (1.2-4.9) X10*3/uL Abs Immat Gran (auto) 0.04 H (0.00-0.03) X10*3/uL Absolute Neuts (auto) 13.3 H (2.0-8.3) x10*3/uL Sodium 134 L (135-145) mmol/L Carbon Dioxide 21 L (22-29) mmol/L Random Glucose 222 H (60-115) mg/dL Lipase 364 H (8-78) U/L Short CBC 05/04/23 Range/Units 03:05 WBC 14.3 H (4.8-10.8) X10*3/uL Hgb 12.4 (12.0-16.0) g/dl Hct 36.6 L (37.0-47.0) % Plt Count 253 (160-400) X10*3/uL BMP 05/04/23 03:05 Sodium 134 L Potassium 3.5 Chloride 97 Carbon Dioxide 21 L BUN 13 Creatinine 0.88 Calcium 9.7 Liver Function 05/04/23 Range/Units 03:05 Total Bilirubin 0.9 (0.0-1.0) mg/dL AST 22 (5-31) U/L ALT 17 (0-31) U/L Alkaline Phosphatase 85 (39-117) U/L Albumin 4.2 (3.5-5.0) g/dL All other labs normal. <Arti Anaya PA-C - Last Filed: 05/04/23 08:37> Imaging Abdominal x-ray: report reviewed and image reviewed <Arti Anaya PA-C - Last Filed: 05/04/23 08:37> Abdomen CT scan report/results: report reviewed and image reviewed <REBEKA Garcia Last Filed: 05/04/23 08:37> Assessment and Plan (1) Acute pancreatitis after endoscopic retrograde cholangiopancreatography (ERCP): Status: Acute <REBEKA Garcia Last Filed: 05/04/23 08:37> history reviewed she underwent ERCP yesterday for question of CBD lesion on MRCP had postop pain CT suggestive ofpost ERCP pancreatitis, possible microperf she feels better this AM abd soft and benign bowel rest IV abx seen and examined independently I will follow along <Emiliano Kellogg MD - Last Filed: 05/04/23 11:39> 72 year old female s/p ERCP with peripancreatic fluid and stranding with multiple foci of gas in the region of the pancreas, likely post ERCP sequelae. Her abdomen is very benign and she is actually without upper abdominal pain or tenderness. Recommend treating post ERCP pancreatitis with supportive measures of bowel rest, IVF and serial abdominal exams for now. Will continue to follow. <Arti Anaya PA-C - Last Filed: 05/04/23 08:37> Time Spent With Patient Time: Total time managing care of this patient today ____ minutes. <Arti Anaya PA-C - Last Filed: 05/04/23 08:37> Procedures Date of Service Date of Service: 05/04/23 <Arti Anaya PA-C - Last Filed: 05/04/23 08:37> 05/04/23 <Emiliano Kellogg MD - Last Filed: 05/04/23 11:39>
--- NOTE | 2023-05-04 08:28 | PM.IMHP ---
History of Present Illness Date of Service: 05/04/23 Attending physician on admission: Zuhair Rucker Chief Complaint: abdominal pain this is a 72-year-old female with history of liver cirrhosis who presents to the emergency department with abdominal pain. Patient underwent EGD and ERCP yesterday (05/03). she underwent EGD with balloon dilation and biopsy as well as ERCP with sphincterotomy and balloon dilation due to history of cirrhosis with MRI showing hypodensity in the mid CBD. She was noted to have normal diameter CBD with a slightly tortuous appearance possibly from a fibrous band or scar mid junction. The procedure was unremarkable and she was discharged home. Later in the evening she began having abdominal pain and nausea. Her pain is located in the epigastric region and right lower quadrant. In the ED her work up was significant for elevated lipase of 364. CT scan of the abdomen Confirmed moderate peripancreatic fluid and stranding suspicious for sequelae pancreatitis as well as multiple foci of gas present in the region of the pancreas suspected to reflect sequelae of ERCP. She was treated with IV zosyn and IVF and the decision was made to admit her for further management of post procedure pancreatitis. Review of Systems Review of Systems: Yes all other systems are reviewed and are negative Constitutional: Constitutional: Denies chills and Denies fever(s) ENT: Denies dizziness Cardiovascular: Cardiovascular: Denies chest pain, Denies palpitations and Denies dyspnea Respiratory: Respiratory: Denies cough and Denies dyspnea Gastrointestinal: Gastrointestinal: Reports abdominal pain, Reports nausea and Denies vomiting Neurologic: Denies dizziness Endocrine: Endocrine: Denies palpitations [facility] Medical History Raspy voice Mammogram declined Hyperlipidemia Liver cirrhosis, alcoholic Hyponatremia Peripheral vascular disease Nodule on liver Colonoscopy refused COPD (chronic obstructive pulmonary disease) Annual physical exam Family History Father Heart problem Substance use disorder Mother Hypertension Diabetes Substance use disorder Sister Substance use disorder Paternal Grandmother Colostomy in place Surgical History Hx of tooth extraction History of tonsillectomy Social History Household Members: Children Housing: House Are you a primary nursing care attendant to a significant other at home: No Do you presently have visiting nurse or other home services: No Patient Tobacco Use Status: Former Tobacco user Quit Date: 2016 Tobacco use type: Cigarette Smoked in Last 30 Days: No e-Cigarette/Vaping Use: Currently Using Use of substances other than those prescribed or required for medical reasons: Yes Substance Use Type: Marijuana Advance Directives: Yes Advance Directives on File: Yes Advance Directives Date on File: 05/04/23 Nutrition Risks: No Nutritional Risk service: No Current occupational status: employed Cognitive needs: No Hearing needs: No Vision needs: No Meds Allergies Allergy/AdvReac Type Severity Reaction Status Date / Time No Known Allergies Allergy Verified 05/04/23 02:01 [No Known Allergies*] Active Medications: Current Medications Acetaminophen (Acetaminophen 325 Mg Tablet) 650 mg PO Q6H PRN PRN Reason: Pain, Mild (Pain Scale 1-3) Docusate Sodium (Docusate Sodium 100 Mg Capsule) 100 mg PO DAILY [facility] Enoxaparin Sodium (Enoxaparin Sodium 40 Mg/0.4 Ml Syringe) 40 mg SUBCUT Q24H [facility] Lactated Ringer's (Lr) 1,000 mls @ 100 mls/hr IVCONT .Q10H [facility] Piperacillin Sod/Tazobactam (Sod 3.375 gm/ Sodium Chloride) 50 mls @ 100 mls/hr IV Q6H [facility] Morphine Sulfate (Morphine Sulfate 4 Mg/Ml Cartridge) 2 mg IVPUSH Q4H PRN; Protocol PRN Reason: Pain, Severe (Pain Scale 7-10) Ondansetron HCl (Ondansetron Hcl 4 Mg/2 Ml Vial) 4 mg IVPUSH Q8H PRN PRN Reason: Nausea and Vomiting Sodium Chloride (0.9 % Sodium Chloride Flush 3 Ml Syringe) 3 ml IVFLUSH QSHIFT [facility] Home Medications Medication Instructions Recorded Confirmed Last Taken Type albuterol sulfate 90 mcg/actuation 1 puff inhalation Q6H PRN wheezing 09/23/22 05/04/23 05/02/23 History aerosol inhaler inulin 2 gram chewable tablet 21 g PO DAILY 05/04/23 05/04/23 Unknown History (Fiber Gummies) Physical Exam Vital Signs and Narrative: Vital Signs: Last Vital Signs Temp 97.5 F 05/04/23 07:09 Pulse 81 05/04/23 07:53 Resp 17 05/04/23 07:53 BP 132/67 05/04/23 07:53 Pulse Ox 95 05/04/23 07:53 O2 Del Method Room Air 05/04/23 07:53 BMI result Body Mass Index 19.9 Const: General: cooperative, comfortable, alert and awake Nutritional Appearance: thin Orientation/consciousness: patient oriented x3 Resp: Effort & Inspection: normal respiratory effort, able to speak in complete sentences, no respiratory distress and no use of accessory muscles Cardio: Rate: regular rate Heart sounds: S1 normal heart sound present and S2 normal heart sound present GI: Other: tenderness epigastrum and RLQ Inspection: No distended Palpation (GI): Soft to palpation Neuro: General: patient oriented x3, moves all extremities and CN's II-XI intact bilaterally Extrem: General: Yes no pedal edema Results Labs 05/04/23 03:05 05/04/23 03:05 Labs: Laboratory Results - last 24 hr 05/04/23 05/04/23 03:05 07:21 MCV 87.6 MCH 29.7 MCHC 33.9 RDW 12.9 Plt Count 253 MPV 9.2 L Immature Gran % (Auto) 0.3 Neut % (Auto) 93.4 H Lymph % (Auto) 2.7 L [place] % (Auto) 3.4 Eos % (Auto) 0.1 Baso % (Auto) 0.1 Lymph # (Auto) 0.4 L [place] # (Auto) 0.5 Eos # (Auto) 0.0 Baso # (Auto) 0.0 Abs Immat Gran (auto) 0.04 H Absolute Neuts (auto) 13.3 H Absolute Nucleated RBC 0.000 Nucleated RBC % (auto) 0.0 Anion Gap 20 Estim Creat Clear Calc 40.9 Estimated GFR > 60 Random Glucose 222 H Lactic Acid 1.2 Calcium 9.7 Total Bilirubin 0.9 AST 22 ALT 17 Alkaline Phosphatase 85 Total Protein 7.0 Albumin 4.2 Lipase 364 H Imaging Radiologist's Impressions: Impressions KUB X-Ray 05/04/23 02:55 IMPRESSION: Mild scattered stool in the colon. Nonobstructive bowel gas pattern. Abdomen/Pelvis CT 05/04/23 05:40 IMPRESSION: 1. Moderate peripancreatic fluid and stranding, suspicious for sequelae of pancreatitis. 2. Multiple foci of gas are present in the region of the pancreas, suspected to reflect sequelae of ERCP. Some foci of gas appear to lie along the main pancreatic duct, while other foci may lie within sidebranches, though the possibility of trace free air cannot be excluded, as the margins of the pancreatic parenchyma are not well-defined. Foci of gas are also noted in the region of the common bile duct, though not all of this gas is convincingly within the duct, again raising concern for possible small amount of free air. This critical result was discussed with Dr. Foster on 05/04/2023 6:19 AM, and it was ascertained that the content and urgency of the report was understood at the time of direct communication. Assessment and Plan (1) Acute pancreatitis after endoscopic retrograde cholangiopancreatography (ERCP): Status: Acute Plan This is a 72-year-old female with history of alcoholic liver cirrhosis, hypertension who underwent EGD and ERCP 05/03 who presents to the ED with abdominal pain found to have acute pancreatitis Acute pancreatitis related to ERCP/instrumentation 05/03 gas in the region of the pancreas most likely from recent procedure surgery consult - rec appreciated, plan for serial abdominal exams bowel rest, strict NPO, IVF, pain management trend LFTs, lipase consider repeat CT in 48 hours if no improvement in pain IV zosyn HTN bp soft hold BP meds follow bp closely COPD no acute exacerbation continue home inhalers etoh liver cirrhosis outpatient GI follow up DVT ppx - lovenox code status - full code attending - Dr. Rucker Patient will likely require two midnight stay in the hospital for management of acute pancreatitis and specialist consultation Time Spent With Patient Time: Total time managing care of this patient today ____ minutes. Quality Stroke Does the patient have a stroke diagnosis?: No VTE Prior VTE?: No VTE Risk Level:: Medical - moderate - high VTE Device Contraindication: N/A - Device Ordered VTE Drug Contraindication: N/A - Med Ordered
--- NOTE | 2023-05-04 09:07 | MHC.CM.PN ---
PT REPORTS SHE LIVES WITH HER ADULT SON AND HIS 3 CHILDREN, RANGING IN AGES FROM 9-17 SHE REPORTS SHE IS INDEPENDENT WITH CARE AND MOBILITY SHE DENIES USE OF DME OR SERVICES PT COMPLETED A NEW HCP TODAY NAMING HER CHILDREN, DAMIAN AND SHERMAN, HER AGENTS PCP: HALINA PEARCE IMM DELIVERED DCP: HOME NO SERVICES VIA FAMILY TRANSPORT
[2023-05-04] MEDS: 0.9 % Sodium Chloride Flush 3 ML SYRINGE IVFLUSH (09:23)
[2023-05-04] MEDS: Enoxaparin Sodium 40 MG/0.4 ML SYRINGE SUBCUT (09:35)
[2023-05-04] MEDS: Docusate Sodium 100 MG CAPSULE PO (09:35)
[2023-05-04] MEDS: Lactated Ringers 1,000 ML 100 ML IVCONT ×2 (09:36→19:42)
--- NOTE | 2023-05-04 09:42 | PC.NURSE ---
pt medicated per provider order. pt states pain decreased to 3/10 post medication administration. resting comfortably w/ the lights dimmed in no apparent distress. respirations even and unlabored. call larson placed within reach.
--- NOTE | 2023-05-04 10:04 | PC.NURSE ---
vss and up to date. pt's son bedside for support. pt and family concerned about eating at this time - reminded pt that she is NPO at this time d/t surgical consult. resting comfortably in no apparent distress. respirations even and unlabored. call larson placed within reach.
--- NOTE | 2023-05-04 11:05 | PC.NURSE ---
pt currently speaking w/ surgical provider at this time.
--- NOTE | 2023-05-04 12:20 | PC.NURSE ---
pt's son bedside requesting to speak w/ admitting provider. provider aware at this time.
[2023-05-04] MEDS: Morphine Sulfate 4 MG/ML CARTRIDGE 2 MG IVPUSH ×2 (13:22→18:38)
--- NOTE | 2023-05-04 13:23 | P.CNGI_ITS ---
History of Present Illness Data of Consult Service Date: 05/04/23 Requesting physician: Doris Liz Primary Care Provider: Shirin Phan MD HPI Reason for consult: post op ERCP complication 72-year-old female with history of liver cirrhosis (compensated), and COPD, HTN who I am seeing for eval of abdominal pain. Patient underwent EGD and ERCP yesterday (05/03). she underwent EGD with balloon dilation and biopsy as well as ERCP with sphincterotomy and balloon dilation due to history of cirrhosis and dysphagia with MRI showing hypodensity in the mid CBD. She was noted to have normal diameter CBD with a slightly tortuous appearance possibly from a fibrous band or scar mid junction. The procedure was unremarkable and she was discharged home. During the procedure the PD was not entered or injected with dye. After the procedure she had some discomfort, and when got home went to sleep but woke up this morning with severe pain in the upper abdo and RLQ abdo. mild nausea, no vomiting, appetite poor, pain is better with staying still and worse with movement Labs: raised wcc, nml lft, raised lipase Imaging: moderate peripancreatic fluid and stranding suspicious for sequelae pancreatitis as well as multiple foci of gas present in the region of the pancreas suspected to reflect sequelae of ERCP. Review of Systems 2 Review of Systems: Constitutional : No Weight loss, + Fever, No Chills ENT/Mouth : No sore throat, No Rhinorrhea Eyes: No Swelling, No Redness Cardiovascular : No Chest Pain, No SOB, No Edema Respiratory : No Cough, No Sputum, No Wheezing Gastrointestinal : see HPI Genitourinary : NO Dysuria, No Urinary Frequency, No Hematuria, No Urgency Musculoskeletal : No joint pain, No Myalgias, No Joint Swelling Skin : No Skin Lesions, No rash Neuro : No Weakness, No Numbness, No Dizziness, No Headache Psych : No Anxiety/Panic, No Depression Heme/Lymph: No Bruising, No Lymphadenopathy Endocrine : No Polyuria, No Polydipsia All other systems reviewed and are negative. [facility], [facility] Past Medical History Medical History Raspy voice Mammogram declined Hyperlipidemia Liver cirrhosis, alcoholic Hyponatremia Peripheral vascular disease Nodule on liver Colonoscopy refused COPD (chronic obstructive pulmonary disease) Annual physical exam Family History Family History Father Heart problem Substance use disorder Mother Hypertension Diabetes Substance use disorder Sister Substance use disorder Paternal Grandmother Colostomy in place Surgical History Surgical History Hx of tooth extraction History of tonsillectomy Social History Social History Household Members: Children Housing: House Are you a primary care process manager to a significant other at home: No Do you presently have visiting nurse or other home services: No Patient Tobacco Use Status: Former Tobacco user Quit Date: 2016 Tobacco use type: Cigarette Smoked in Last 30 Days: No e-Cigarette/Vaping Use: Currently Using Use of substances other than those prescribed or required for medical reasons: Yes Substance Use Type: Marijuana Advance Directives: Yes Advance Directives on File: Yes Advance Directives Date on File: 05/04/23 Nutrition Risks: No Nutritional Risk service: No Current occupational status: employed Cognitive needs: No Hearing needs: No Vision needs: No Meds Allergies Allergy/AdvReac Type Severity Reaction Status Date / Time No Known Allergies Allergy Verified 05/04/23 02:01 [No Known Allergies*] Active Medications: Current Medications Acetaminophen (Acetaminophen 325 Mg Tablet) 650 mg PO Q6H PRN PRN Reason: Pain, Mild (Pain Scale 1-3) Albuterol Sulfate (Albuterol Sulfate 90 Mcg 8 Gm Inhaler) 1 puff INHALE Q6H PRN PRN Reason: wheezing Docusate Sodium (Docusate Sodium 100 Mg Capsule) 100 mg PO DAILY [facility] Last Admin: 05/04/23 09:35 Dose: 100 mg Enoxaparin Sodium (Enoxaparin Sodium 40 Mg/0.4 Ml Syringe) 40 mg SUBCUT Q24H [facility] Last Admin: 05/04/23 09:35 Dose: 40 mg Fluticasone/Vilanterol (Fluticasone/Vilanterol 100/25 Blst.W.Dev) 1 puff INHALE RDAILY [facility] Lactated Ringer's (Lr) 1,000 mls @ 100 mls/hr IVCONT .Q10H [facility] Last Admin: 05/04/23 09:36 Dose: 100 mls/hr Piperacillin Sod/Tazobactam (Sod 3.375 gm/ Sodium Chloride) 50 mls @ 100 mls/hr IV Q6H [facility] Metoprolol Tartrate (Metoprolol Tartrate 25 Mg Tablet) 25 mg PO BID [facility]; Protocol Morphine Sulfate (Morphine Sulfate 4 Mg/Ml Cartridge) 2 mg IVPUSH Q4H PRN; Protocol PRN Reason: Pain, Severe (Pain Scale 7-10) Last Admin: 05/04/23 13:22 Dose: 2 mg Ondansetron HCl (Ondansetron Hcl 4 Mg/2 Ml Vial) 4 mg IVPUSH Q8H PRN PRN Reason: Nausea and Vomiting Sodium Chloride (0.9 % Sodium Chloride Flush 3 Ml Syringe) 3 ml IVFLUSH QSHIFT [facility] Last Admin: 05/04/23 09:23 Dose: 3 ml Home Medications Medication Instructions Recorded Confirmed Last Taken Type albuterol sulfate 90 mcg/actuation 1 puff inhalation Q6H PRN wheezing 09/23/22 05/04/23 05/02/23 History aerosol inhaler inulin 2 gram chewable tablet 21 g PO DAILY 05/04/23 05/04/23 Unknown History (Fiber Gummies) Physical Exam 2 Vital Signs: Vital Signs: Last Vital Signs Temp 98.1 F 05/04/23 07:59 Pulse 78 05/04/23 13:10 Resp 16 05/04/23 13:10 BP 127/43 L 05/04/23 13:10 Pulse Ox 94 05/04/23 13:10 O2 Del Method Room Air 05/04/23 13:10 BMI result Body Mass Index 19.9 EXAM: GENERAL: The patient is thin, talking easily, and not too uncomfortable looking VITAL SIGNS:see workflow HEENT: Nonicteric sclerae, PERRLA, EOMI. Oropharynx clear. Moist mucous membranes. Conjunctivae appear well perfused. No thyroid mass. CHEST: Chest wall is nontender. HEART: Regular rate and rhythm without murmurs. LUNGS: Clear to auscultation bilaterally. ABDOMEN: Soft, positive bowel sounds, nontender, no organomegaly.no flank tenderness SKIN: No rash, no excessive bruising, petechiae, or purpura. NEUROLOGIC: Cranial nerves II-XII intact without motor/sensory deficit. psych- nml Results Labs 05/04/23 03:05 05/04/23 03:05 Labs: Short CBC 05/04/23 Range/Units 03:05 WBC 14.3 H (4.8-10.8) X10*3/uL Hgb 12.4 (12.0-16.0) g/dl Hct 36.6 L (37.0-47.0) % Plt Count 253 (160-400) X10*3/uL BMP 05/04/23 03:05 Sodium 134 L Potassium 3.5 Chloride 97 Carbon Dioxide 21 L BUN 13 Creatinine 0.88 Calcium 9.7 Liver Function 05/04/23 Range/Units 03:05 Total Bilirubin 0.9 (0.0-1.0) mg/dL AST 22 (5-31) U/L ALT 17 (0-31) U/L Alkaline Phosphatase 85 (39-117) U/L Albumin 4.2 (3.5-5.0) g/dL Imaging CT scan - abdomen: My impression: catrachito pancreas straning and foci of air noted, atherosclerosis, calcifications of liver Assessment and Plan (1) Acute pancreatitis after endoscopic retrograde cholangiopancreatography (ERCP): Status: Acute Plan 1/ suspected post ERCP pancreatitis even though PD was not entered, other concern would be micro perf of biliary duct (grade III or IV perforation) PLAN: 1/ Appreciate surgical consult 2/ would keep strict NPO and monitor clinically, if worsening clinically or abdomen more distended pain etc then rept CT 3/keep on Abx and IV fluids, analgesia for the moment Time Spent With Patient Time: Total time managing care of this patient today ____ minutes. Procedures Date of Service Date of Service: 05/04/23
--- NOTE | 2023-05-04 16:58 | PM.EVENT ---
Event Note Date of Service: 05/04/23 Event Note: seen on afternoon rounds feels well mild abdl pain, mostly lower did ask for pain meds looks well abd soft, exam very benign stable VS continue current care Time Spent With Patient Time: Total time managing care of this patient today ____ minutes.
[2023-05-05] MEDS: Piperacillin Sodium/Tazobactam 3.375 GM in 0.9 % Sodium Chloride 50 ML IV ×4 (01:43→23:15)
[2023-05-05] MEDS: ondansetron HCL 4 MG/2 ML VIAL IVPUSH (01:53)
[2023-05-05 03:23] VITALS: BP 103/55; PULSE 81; RESP 16; TEMP 36.3; O2SAT 92
[2023-05-05 05:52] LABS: PLT CLUMP 1
[2023-05-05 05:54] LABS: Hematocrit 40.6 % (37.0-47.0); Hemoglobin 13.5 g/dl (12.0-16.0); Mean Corpuscular HGB Conc 33.3 g/dl (31.0-35.0); Mean Corpuscular Hemoglobin 29.5 pg (27.0-33.0); Mean Corpuscular Volume 88.8 fL (80.0-98.0); Mean Platelet Volume 10.9 fL (9.4-12.3); Red Blood Count 4.57 X10*6/uL (4.20-5.50); Red Cell Distribution Width 13.3 % (11.0-16.0)
[2023-05-05 05:55] LABS: White Blood Count 14.3 X10*3/uL (4.8-10.8)
[2023-05-05] MEDS: Lactated Ringers 1,000 ML 100 ML IVCONT ×2 (06:05→15:10)
[2023-05-05 06:06] LABS: Alanine Aminotransferase 14 U/L (0-31); Albumin Level 3.3 g/dL (3.5-5.0); Alkaline Phosphatase 61 U/L (39-117); Anion Gap 17 (12-20); Aspartate Amino Transferase 20 U/L (5-31); Bilirubin Direct 0.6 mg/dL (0.0-0.5); Bilirubin Total 1.5 mg/dL (0.0-1.0); Blood Urea Nitrogen 18 mg/dL (9-16); Calcium 8.3 mg/dL (8.4-10.2); Carbon Dioxide 21 mmol/L (22-29); Chloride 100 mmol/L (96-108); Creatinine Clr Calc Pharmacy 31.8; Estimated Glomerular Filt Rate 47; Glucose Random 101 mg/dL (60-115); Potassium 3.5 mmol/L (3.3-5.1); Sodium 134 mmol/L (135-145); Total Protein 5.7 g/dL (6.5-8.0)
[2023-05-05] MEDS: Morphine Sulfate 4 MG/ML CARTRIDGE 2 MG IVPUSH ×2 (06:11→11:39)
[2023-05-05 06:27] LABS: Lipase 780 U/L (8-78)
[2023-05-05 07:27] VITALS: BP 101/53; PULSE 74; RESP 16; TEMP 36.9; O2SAT 94
--- NOTE | 2023-05-05 10:04 | PM.PNGS ---
Subjective Subjective Date of Service: 05/05/23 Interval history: States that she feels well but still has periodic abdominal pain, mostly lower abdomen Still asks for morphine No events reported Physical Exam Vital Signs: Vital Signs: Last Vital Signs Temp 98.4 F 05/05/23 07:27 Pulse 74 05/05/23 07:27 Resp 16 05/05/23 07:27 BP 101/53 L 05/05/23 07:27 Pulse Ox 94 05/05/23 07:27 O2 Del Method Room Air 05/05/23 07:27 BMI result Body Mass Index 19.9 Const: General: comfortable and no acute distress Resp: Effort & Inspection: normal respiratory effort Cardio: Rate: regular rate GI: Palpation (GI): Soft to palpation, not firm and nontender Objective Data Active Medications Acetaminophen (Acetaminophen 325 Mg Tablet) 650 mg PO Q6H PRN PRN Reason: Pain, Mild (Pain Scale 1-3) Albuterol Sulfate (Albuterol Sulfate 90 Mcg 8 Gm Inhaler) 1 puff INHALE Q6H PRN PRN Reason: wheezing Bisacodyl (Bisacodyl 10 Mg Supp.Rect) [address] DAILY PRN PRN Reason: Constipation Docusate Sodium (Docusate Sodium 100 Mg Capsule) 100 mg PO DAILY [facility] Last Admin: 05/04/23 09:35 Dose: 100 mg Documented By: SRINIVASA Enoxaparin Sodium (Enoxaparin Sodium 40 Mg/0.4 Ml Syringe) 40 mg SUBCUT Q24H [facility] Last Admin: 05/04/23 09:35 Dose: 40 mg Documented By: SRINIVASA Fluticasone/Vilanterol (Fluticasone/Vilanterol 100/25 Blst.W.Dev) 1 puff INHALE RDAILY [facility] Last Admin: 05/05/23 08:43 Dose: Not Given Documented By: HELEN Non-Admin Reason: Med Not Available Lactated Ringer's (Lr) 1,000 mls @ 150 mls/hr IVCONT .Q6H40M [facility] Last Admin: 05/05/23 06:05 Dose: 100 mls/hr Documented By: CASTILWestley Piperacillin Sod/Tazobactam (Sod 3.375 gm/ Sodium Chloride) 50 mls @ 100 mls/hr IV Q6H [facility] Last Infusion: 05/05/23 02:16 Dose: Infused Documented By: TREV Metoprolol Tartrate (Metoprolol Tartrate 25 Mg Tablet) 25 mg PO BID [facility]; Protocol Last Admin: 05/05/23 08:52 Dose: Not Given Documented By: MACIE Non-Admin Reason: Decreased Blood Pressure Morphine Sulfate (Morphine Sulfate 4 Mg/Ml Cartridge) 2 mg IVPUSH Q4H PRN; Protocol PRN Reason: Pain, Severe (Pain Scale 7-10) Last Admin: 05/05/23 06:11 Dose: 2 mg Documented By: TREV Ondansetron HCl (Ondansetron Hcl 4 Mg/2 Ml Vial) 4 mg IVPUSH Q8H PRN PRN Reason: Nausea and Vomiting Last Admin: 05/05/23 01:53 Dose: 4 mg Documented By: TREV Sodium Chloride (0.9 % Sodium Chloride Flush 3 Ml Syringe) 3 ml IVFLUSH QSHIFT [facility] Last Admin: 05/05/23 09:47 Dose: Not Given Documented By: MACIE Non-Admin Reason: IV Running Labs 05/05/23 05:28 05/05/23 05:28 Labs: Laboratory Results - last 24 hr 05/05/23 05:28 MCV 88.8 MCH 29.5 MCHC 33.3 RDW 13.3 Plt Count TNP MPV 10.9 Absolute Nucleated RBC 0.000 Nucleated RBC % (auto) 0.0 Anion Gap 17 Estim Creat Clear Calc 31.8 Estimated GFR 47 Random Glucose 101 Calcium 8.3 L D Total Bilirubin 1.5 H Direct Bilirubin 0.6 H AST 20 ALT 14 Alkaline Phosphatase 61 Total Protein 5.7 L Albumin 3.3 L Lipase 780 H Microbiology Microbiology Results: Microbiology 05/04/23 07:31 Blood Culture - Preliminary Blood - Venous No growth after 24 hours. 05/04/23 07:21 Blood Culture - Preliminary Blood - Venous No growth after 24 hours. Procedures Date of Service Date of Service: 05/05/23 Progress Note: A&P Assessment and plan (1) Acute pancreatitis after endoscopic retrograde cholangiopancreatography (ERCP): Status: Acute Assessment and Plan: Lipase still elevated although trending down Okay to try clear liquids Looks well otherwise Abdomen very soft and benign Stable vital signs Time Spent With Patient Time: Total time managing care of this patient today ____ minutes. Quality Stroke Does the patient have a stroke diagnosis?: No VTE Prior VTE?: No VTE Risk Level:: Medical - moderate - high VTE Device Contraindication: N/A - Device Ordered VTE Drug Contraindication: N/A - Med Ordered
[2023-05-05] MEDS: Docusate Sodium 100 MG CAPSULE PO (10:59)
[2023-05-05 11:50] VITALS: BP 129/61; PULSE 96; RESP 18; TEMP 36.8; O2SAT 95
--- NOTE | 2023-05-05 14:17 | HO.PM.IMPN ---
Subjective Subjective Date of Service: 05/05/23 Interval History: seen and examined this morning follow up for pancreatitis still with abdominal pain, seems worse with movement some nausea, no vomiting Review of Systems Review of Systems: Yes all other systems are reviewed and are negative Constitutional Constitutional: Denies chills and Denies fever(s) Cardiovascular Cardiovascular: Denies chest pain, Denies palpitations and Denies dyspnea Respiratory Respiratory: Denies cough and Denies dyspnea Gastrointestinal Gastrointestinal: Reports abdominal pain and Reports nausea Endocrine Endocrine: Denies palpitations Physical Exam Vital Signs: Vital Signs: Last Vital Signs Temp 98.2 F 05/05/23 11:50 Pulse 96 05/05/23 11:50 Resp 18 05/05/23 11:50 BP 129/61 05/05/23 11:50 Pulse Ox 95 05/05/23 11:50 O2 Del Method Room Air 05/05/23 11:50 BMI result Body Mass Index 19.9 Const: General: cooperative, comfortable, alert and awake Nutritional Appearance: thin Orientation/consciousness: patient oriented x3 Resp: Effort & Inspection: normal respiratory effort, able to speak in complete sentences, no respiratory distress and no use of accessory muscles Cardio: Rate: regular rate Heart sounds: S1 normal heart sound present and S2 normal heart sound present GI: Other: abdomen soft, no guarding, no rebound; some tenderness lower abdomen Neuro: General: patient oriented x3, moves all extremities and CN's II-XI intact bilaterally Extrem: General: Yes no pedal edema Objective Data Active Medications Acetaminophen (Acetaminophen 325 Mg Tablet) 650 mg PO Q6H PRN PRN Reason: Pain, Mild (Pain Scale 1-3) Albuterol Sulfate (Albuterol Sulfate 90 Mcg 8 Gm Inhaler) 1 puff INHALE Q6H PRN PRN Reason: wheezing Bisacodyl (Bisacodyl 10 Mg Supp.Rect) 10 mg [place] DAILY PRN PRN Reason: Constipation Docusate Sodium (Docusate Sodium 100 Mg Capsule) 100 mg PO DAILY [facility] Last Admin: 05/05/23 10:59 Dose: 100 mg Documented By: RAMAKRISHNA Enoxaparin Sodium (Enoxaparin Sodium 40 Mg/0.4 Ml Syringe) 40 mg SUBCUT Q24H [facility] Last Admin: 05/05/23 11:16 Dose: Not Given Documented By: MACIE Non-Admin Reason: Patient Refused Fluticasone/Vilanterol (Fluticasone/Vilanterol 100/25 Blst.W.Dev) 1 puff INHALE RDAILY [facility] Last Admin: 05/05/23 08:43 Dose: Not Given Documented By: HELEN Non-Admin Reason: Med Not Available Lactated Ringer's (Lr) 1,000 mls @ 150 mls/hr IVCONT .Q6H40M [facility] Last Admin: 05/05/23 06:05 Dose: 100 mls/hr Documented By: TREV Piperacillin Sod/Tazobactam (Sod 3.375 gm/ Sodium Chloride) 50 mls @ 100 mls/hr IV Q6H [facility] Metoprolol Tartrate (Metoprolol Tartrate 25 Mg Tablet) 25 mg PO BID [facility]; Protocol Last Admin: 05/05/23 08:52 Dose: Not Given Documented By: MACIE Non-Admin Reason: Decreased Blood Pressure Morphine Sulfate (Morphine Sulfate 4 Mg/Ml Cartridge) 2 mg IVPUSH Q4H PRN; Protocol PRN Reason: Pain, Severe (Pain Scale 7-10) Last Admin: 05/05/23 11:39 Dose: 2 mg Documented By: MACIE Ondansetron HCl (Ondansetron Hcl 4 Mg/2 Ml Vial) 4 mg IVPUSH Q8H PRN PRN Reason: Nausea and Vomiting Last Admin: 05/05/23 01:53 Dose: 4 mg Documented By: TREV Sodium Chloride (0.9 % Sodium Chloride Flush 3 Ml Syringe) 3 ml IVFLUSH QSHIFT [facility] Last Admin: 05/05/23 09:47 Dose: Not Given Documented By: MACIE Non-Admin Reason: IV Running Labs 05/05/23 05:28 05/05/23 05:28 Labs: Laboratory Results - last 24 hr 05/05/23 05:28 MCV 88.8 MCH 29.5 MCHC 33.3 RDW 13.3 Plt Count TNP MPV 10.9 Absolute Nucleated RBC 0.000 Nucleated RBC % (auto) 0.0 Anion Gap 17 Estim Creat Clear Calc 31.8 Estimated GFR 47 Random Glucose 101 Calcium 8.3 L D Total Bilirubin 1.5 H Direct Bilirubin 0.6 H AST 20 ALT 14 Alkaline Phosphatase 61 Total Protein 5.7 L Albumin 3.3 L Lipase 780 H Microbiology Microbiology Results: Microbiology 05/04/23 07:31 Blood Culture - Preliminary Blood - Venous No growth after 24 hours. 05/04/23 07:21 Blood Culture - Preliminary Blood - Venous No growth after 24 hours. Assessment and Plan (1) Acute pancreatitis after endoscopic retrograde cholangiopancreatography (ERCP): Status: Acute Plan This is a 72-year-old female with history of alcoholic liver cirrhosis, hypertension who underwent EGD and ERCP 05/03 who presents to the ED with abdominal pain found to have acute pancreatitis Acute pancreatitis related to ERCP/instrumentation 05/03 gas in the region of the pancreas most likely from recent procedure surgery consult - rec appreciated, plan for serial abdominal exams - ok to trial clear liquids IVF, pain management lipase trending up to 780 - continue to trend consider repeat CT in 48 hours if no improvement in pain IV zosyn HTN bp soft hold BP meds follow bp closely COPD no acute exacerbation continue home inhalers etoh liver cirrhosis outpatient GI follow up DVT ppx - lovenox code status - full code attending - Dr. Caro Patient requires ongoing inpatient hospitalization for management of acute pancreatitis and specialist consultation Time Spent With Patient Time: Total time managing care of this patient today ____ minutes. Quality Stroke Does the patient have a stroke diagnosis?: No VTE Prior VTE?: No VTE Risk Level:: Medical - moderate - high VTE Device Contraindication: N/A - Device Ordered VTE Drug Contraindication: N/A - Med Ordered
[2023-05-05 14:57] VITALS: BP 107/56; PULSE 115; RESP 18; TEMP 36.6; O2SAT 93
[2023-05-05 19:06] VITALS: BP 110/62; PULSE 95; RESP 18; TEMP 36.1; O2SAT 93
[2023-05-05] MEDS: Lactated Ringers 1,000 ML 150 ML IVCONT (23:16)
[2023-05-06] VITALS (7 sets, daily range): BP systolic 97–134; BP diastolic 54–64; PULSE 73–98; RESP 16–18; TEMP 36.2–36.6; O2SAT 92–94
[2023-05-06] MEDS: Morphine Sulfate 4 MG/ML CARTRIDGE 2 MG IVPUSH ×4 (04:51→22:18)
[2023-05-06] MEDS: Piperacillin Sodium/Tazobactam 3.375 GM in 0.9 % Sodium Chloride 50 ML IV ×4 (04:52→22:23)
[2023-05-06] MEDS: ondansetron HCL 4 MG/2 ML VIAL IVPUSH ×2 (04:52→17:21)
[2023-05-06 05:58] LABS: Alanine Aminotransferase 14 U/L (0-31); Albumin Level 2.9 g/dL (3.5-5.0); Alkaline Phosphatase 47 U/L (39-117); Anion Gap 14 (12-20); Aspartate Amino Transferase 20 U/L (5-31); Bilirubin Direct 0.6 mg/dL (0.0-0.5); Bilirubin Total 1.2 mg/dL (0.0-1.0); Blood Urea Nitrogen 25 mg/dL (9-16); Calcium 7.9 mg/dL (8.4-10.2); Carbon Dioxide 22 mmol/L (22-29); Chloride 105 mmol/L (96-108); Creatinine Clr Calc Pharmacy 29.9; Estimated Glomerular Filt Rate 44; Glucose Random 130 mg/dL (60-115); Lipase 259 U/L (8-78); Potassium 2.9 mmol/L (3.3-5.1); Sodium 138 mmol/L (135-145)
[2023-05-06] MEDS: Lactated Ringers 1,000 ML 150 ML IVCONT (06:38)
[2023-05-06] MEDS: Fluticasone/Vilanterol 100/25 BLST.W.DEV 1 PUFF INHALE (08:21)
--- NOTE | 2023-05-06 08:32 | HO.PM.IMPN ---
Subjective Subjective Date of Service: 05/06/23 Interval History: f/u on acute pancreatitis, did well most of yesterday, but had pain later with liquid diet and follow by diarrhea, this morning pain is 3/10 Physical Exam Vital Signs: Vital Signs: Last Vital Signs Temp 97.6 F 05/06/23 07:51 Pulse 73 05/06/23 08:22 Resp 16 05/06/23 08:22 BP 97/54 L 05/06/23 07:51 Pulse Ox 94 05/06/23 07:51 O2 Del Method Room Air 05/06/23 07:51 BMI result Body Mass Index 19.9 Const: Other: General: AO X 3, no acute distress Resp: CTA bilateral CVS: S1,S2,RRR GI: +BS, NT, no distention Skin: No rash Neuro: motor grossly intact Psych: appropriate affect Objective Data Active Medications Acetaminophen (Acetaminophen 325 Mg Tablet) 650 mg PO Q6H PRN PRN Reason: Pain, Mild (Pain Scale 1-3) Albuterol Sulfate (Albuterol Sulfate 90 Mcg 8 Gm Inhaler) 1 puff INHALE Q6H PRN PRN Reason: wheezing Bisacodyl (Bisacodyl 10 Mg Supp.Rect) 10 mg [place] DAILY PRN PRN Reason: Constipation Docusate Sodium (Docusate Sodium 100 Mg Capsule) 100 mg PO DAILY [facility] Last Admin: 05/05/23 10:59 Dose: 100 mg Documented By: PIERCEJ Enoxaparin Sodium (Enoxaparin Sodium 40 Mg/0.4 Ml Syringe) 40 mg SUBCUT Q24H [facility] [place] Last Admin: 05/06/23 08:09 Dose: Not Given Documented By: COTEMA Non-Admin Reason: Patient Refused Fluticasone/Vilanterol (Fluticasone/Vilanterol 100/25 Blst.W.Dev) 1 puff INHALE RDAILY [facility] [place] Last Admin: 05/06/23 08:21 Dose: 1 puff Documented By: BLASCTammy Piperacillin Sod/Tazobactam (Sod 3.375 gm/ Sodium Chloride) 50 mls @ 100 mls/hr IV Q6H [facility] [place] Last Infusion: 05/06/23 05:29 Dose: Infused Documented By: CASTILM Metoprolol Tartrate (Metoprolol Tartrate 25 Mg Tablet) 25 mg PO BID [facility] [place]; Protocol Last Admin: 05/06/23 08:10 Dose: Not Given Documented By: COTEMA Non-Admin Reason: Decreased Blood Pressure Morphine Sulfate (Morphine Sulfate 4 Mg/Ml Cartridge) 2 mg IVPUSH Q4H PRN; Protocol PRN Reason: Pain, Severe (Pain Scale 7-10) Last Admin: 05/06/23 04:51 Dose: 2 mg Documented By: JEFFRYILWestley Ondansetron HCl (Ondansetron Hcl 4 Mg/2 Ml Vial) 4 mg IVPUSH Q8H PRN PRN Reason: Nausea and Vomiting Last Admin: 05/06/23 04:52 Dose: 4 mg Documented By: TREV Sodium Chloride (0.9 % Sodium Chloride Flush 3 Ml Syringe) 3 ml IVFLUSH QSHIFT [facility] [place] Last Admin: 05/06/23 08:09 Dose: Not Given Documented By: COTEMA Non-Admin Reason: IV Running Labs 05/05/23 05:28 05/06/23 05:16 Labs: Laboratory Results - last 24 hr 05/06/23 05:16 Hold Purple Top SEE NOTE Anion Gap 14 Estim Creat Clear Calc 29.9 Estimated GFR 44 Random Glucose 130 H Calcium 7.9 L Total Bilirubin 1.2 H Direct Bilirubin 0.6 H AST 20 ALT 14 Alkaline Phosphatase 47 Total Protein 5.0 L Albumin 2.9 L Lipase 259 H Microbiology Microbiology Results: Microbiology 05/04/23 07:31 Blood Culture - Preliminary Blood - Venous No growth after 24 hours. 05/04/23 07:21 Blood Culture - Preliminary Blood - Venous No growth after 24 hours. Assessment and Plan (1) Acute pancreatitis after endoscopic retrograde cholangiopancreatography (ERCP): Status: Acute Plan 72/F w history of alcoholic liver cirrhosis, hypertension who underwent EGD and ERCP 05/03 on outpatient basis for an abnormal finding MRI back in 2022, and admited the next day for post ERCP pancreatitis Acute post ERCP pancreatitis, lipase trendind down 364-->780--> 259 today, pain better. -Clear liquid diet and advance as filemon gas in the region of the pancreas, likely related to ERCP, surgery following , no indication for procedure surgery consult - rec appreciated, plan for serial abdominal exams - ok to trial clear liquids. Repeat CT if clinical course worsen. HTN--BP on lower side, hold BP meds, IVF Hyponatremia,mild and resolved Hypokalemia--2.9, oral K, check mag, repeat tomorrow COPD, no exacerbation etoh liver cirrhosis outpatient GI follow up DVT ppx - lovenox code status - full code Patient requires ongoing inpatient hospitalization for management of acute pancreatitis and specialist consultation Time Spent With Patient Time: Total time managing care of this patient today ____ minutes. Quality Stroke Does the patient have a stroke diagnosis?: No VTE Prior VTE?: No VTE Risk Level:: Medical - moderate - high VTE Device Contraindication: N/A - Device Ordered VTE Drug Contraindication: N/A - Med Ordered
[2023-05-06 09:06] LABS: Magnesium 1.5 mg/dL (1.6-2.6)
[2023-05-06 09:17] LABS: Lipase 237 U/L (8-78)
--- NOTE | 2023-05-06 09:54 | PM.PNGS ---
Subjective Subjective Date of Service: 05/06/23 Interval history: States she still has abdominal pain although better describes this as mostly on the suprapubic area and the upper abdomen as well tolerating clear liquids well Physical Exam Vital Signs: Vital Signs: Last Vital Signs Temp 97.6 F 05/06/23 07:51 Pulse 73 05/06/23 08:22 Resp 16 05/06/23 08:22 BP 97/54 L 05/06/23 07:51 Pulse Ox 94 05/06/23 07:51 O2 Del Method Room Air 05/06/23 07:51 BMI result Body Mass Index 19.9 Const: General: comfortable and no acute distress Resp: Effort & Inspection: normal respiratory effort Cardio: Rate: regular rate GI: Palpation (GI): Soft to palpation, not firm, Tenderness to palpation present (GI) ( mild tenderness upper abdomen and suprapubic areas) and no guarding Objective Data Active Medications Acetaminophen (Acetaminophen 325 Mg Tablet) 650 mg PO Q6H PRN PRN Reason: Pain, Mild (Pain Scale 1-3) Albuterol Sulfate (Albuterol Sulfate 90 Mcg 8 Gm Inhaler) 1 puff INHALE Q6H PRN PRN Reason: wheezing Bisacodyl (Bisacodyl 10 Mg Supp.Rect) 10 mg [place] DAILY PRN PRN Reason: Constipation Docusate Sodium (Docusate Sodium 100 Mg Capsule) 100 mg PO DAILY [facility] Last Admin: 05/05/23 10:59 Dose: 100 mg Documented By: GOLDEN-SCOTJ Enoxaparin Sodium (Enoxaparin Sodium 40 Mg/0.4 Ml Syringe) 40 mg SUBCUT Q24H [facility] Last Admin: 05/06/23 08:09 Dose: Not Given Documented By: COTEMA Non-Admin Reason: Patient Refused Fluticasone/Vilanterol (Fluticasone/Vilanterol 100/25 Blst.W.Dev) 1 puff INHALE RDAILY [facility] Last Admin: 05/06/23 08:21 Dose: 1 puff Documented By: BLASCTammy Piperacillin Sod/Tazobactam (Sod 3.375 gm/ Sodium Chloride) 50 mls @ 100 mls/hr IV Q6H [facility] Last Infusion: 05/06/23 05:29 Dose: Infused Documented By: CASTILM Metoprolol Tartrate (Metoprolol Tartrate 25 Mg Tablet) 25 mg PO BID [facility]; Protocol Last Admin: 05/06/23 08:10 Dose: Not Given Documented By: KATHYA Non-Admin Reason: Decreased Blood Pressure Morphine Sulfate (Morphine Sulfate 4 Mg/Ml Cartridge) 2 mg IVPUSH Q4H PRN; Protocol PRN Reason: Pain, Severe (Pain Scale 7-10) Last Admin: 05/06/23 04:51 Dose: 2 mg Documented By: TREV Ondansetron HCl (Ondansetron Hcl 4 Mg/2 Ml Vial) 4 mg IVPUSH Q8H PRN PRN Reason: Nausea and Vomiting Last Admin: 05/06/23 04:52 Dose: 4 mg Documented By: TREV Potassium Chloride (Potassium Chloride Packet 20 Meq Packet) 40 meq PO BID [facility] Stop: 05/06/23 21:01 Sodium Chloride (0.9 % Sodium Chloride Flush 3 Ml Syringe) 3 ml IVFLUSH QSHIFT [facility] Last Admin: 05/06/23 08:09 Dose: Not Given Documented By: KATHYA Non-Admin Reason: IV Running Labs 05/05/23 05:28 05/06/23 05:16 Labs: Laboratory Results - last 24 hr 05/06/23 05/06/23 05:16 08:58 Hold Purple Top SEE NOTE Anion Gap 14 Estim Creat Clear Calc 29.9 Estimated GFR 44 Random Glucose 130 H Calcium 7.9 L Magnesium 1.5 L Total Bilirubin 1.2 H Direct Bilirubin 0.6 H AST 20 ALT 14 Alkaline Phosphatase 47 Total Protein 5.0 L Albumin 2.9 L Lipase 259 H 237 H Microbiology Microbiology Results: Microbiology 05/04/23 07:31 Blood Culture - Preliminary Blood - Venous No growth after 48 hours. 05/04/23 07:21 Blood Culture - Preliminary Blood - Venous No growth after 48 hours. Procedures Date of Service Date of Service: 05/06/23 Progress Note: A&P Assessment and plan (1) Acute pancreatitis after endoscopic retrograde cholangiopancreatography (ERCP): Status: Acute Assessment and Plan: still with pain but improving lipase much lower LFTs better abdomen remained soft and benign good vital signs patient looks well okay to try to advance diet slowly Time Spent With Patient Time: Total time managing care of this patient today ____ minutes. Quality Stroke Does the patient have a stroke diagnosis?: No VTE Prior VTE?: No VTE Risk Level:: Medical - moderate - high VTE Device Contraindication: N/A - Device Ordered VTE Drug Contraindication: N/A - Med Ordered
[2023-05-06] MEDS: Potassium Chloride Packet 20 MEQ PACKET 40 MEQ PO ×2 (10:32→20:26)
[2023-05-06] MEDS: Lactated Ringers 1,000 ML 125 ML IVCONT ×2 (13:46→22:55)
[2023-05-06] MEDS: Enoxaparin Sodium 40 MG/0.4 ML SYRINGE SUBCUT (17:21)
[2023-05-07 02:32] VITALS: BP 131/60; PULSE 80; RESP 18; TEMP 37.1; O2SAT 96
[2023-05-07] MEDS: Morphine Sulfate 4 MG/ML CARTRIDGE 2 MG IVPUSH ×4 (02:36→20:40)
[2023-05-07] MEDS: Piperacillin Sodium/Tazobactam 3.375 GM in 0.9 % Sodium Chloride 50 ML IV (05:20)
[2023-05-07] MEDS: ondansetron HCL 4 MG/2 ML VIAL IVPUSH (05:44)
[2023-05-07] MEDS: Lactated Ringers 1,000 ML 125 ML IVCONT ×3 (05:48→21:28)
[2023-05-07 06:57] LABS: Alanine Aminotransferase 16 U/L (0-31); Albumin Level 2.7 g/dL (3.5-5.0); Alkaline Phosphatase 52 U/L (39-117); Anion Gap 14 (12-20); Aspartate Amino Transferase 20 U/L (5-31); Bilirubin Direct 0.4 mg/dL (0.0-0.5); Blood Urea Nitrogen 15 mg/dL (9-16); Calcium 8.1 mg/dL (8.4-10.2); Carbon Dioxide 21 mmol/L (22-29); Chloride 106 mmol/L (96-108); Creatinine Clr Calc Pharmacy 39.1; Estimated Glomerular Filt Rate 60; Glucose Random 118 mg/dL (60-115); Potassium 3.6 mmol/L (3.3-5.1); Sodium 137 mmol/L (135-145)
[2023-05-07] MEDS: Fluticasone/Vilanterol 100/25 BLST.W.DEV 1 PUFF INHALE (07:40)
[2023-05-07 07:41] VITALS: PULSE 84; RESP 18; O2SAT 90
[2023-05-07 07:44] VITALS: BP 119/59; PULSE 88; RESP 18; TEMP 37.2; O2SAT 91
[2023-05-07 07:50] LABS: Lipase 92 U/L (8-78)
[2023-05-07] MEDS: Metoprolol Tartrate 25 MG TABLET PO ×2 (08:32→20:39)
[2023-05-07] MEDS: Docusate Sodium 100 MG CAPSULE PO (08:34)
--- NOTE | 2023-05-07 08:48 | PM.PNGS ---
Subjective Subjective Date of Service: 05/08/23 Interval history: says she still has episodes of pain although better asks for Morphine states she uses weed at home and wants to use this in hospital no events reported Physical Exam Vital Signs: Vital Signs: Last Vital Signs Temp 98.9 F 05/07/23 07:44 Pulse 88 05/07/23 07:44 Resp 18 05/07/23 07:44 BP 119/59 L 05/07/23 07:44 Pulse Ox 91 L 05/07/23 07:44 O2 Del Method Room Air 05/07/23 07:44 BMI result Body Mass Index 19.9 Const: Other: looks well General: comfortable and no acute distress Resp: Effort & Inspection: normal respiratory effort Cardio: Rate: regular rate GI: Palpation (GI): Soft to palpation, not firm, nontender and no guarding Objective Data Active Medications Acetaminophen (Acetaminophen 325 Mg Tablet) 650 mg PO Q6H PRN PRN Reason: Pain, Mild (Pain Scale 1-3) Albuterol Sulfate (Albuterol Sulfate 90 Mcg 8 Gm Inhaler) 1 puff INHALE Q6H PRN PRN Reason: wheezing Bisacodyl (Bisacodyl 10 Mg Supp.Rect) 10 mg [place] DAILY PRN PRN Reason: Constipation Docusate Sodium (Docusate Sodium 100 Mg Capsule) 100 mg PO DAILY [facility] Last Admin: 05/07/23 08:34 Dose: 100 mg Documented By: BENOIT Enoxaparin Sodium (Enoxaparin Sodium 40 Mg/0.4 Ml Syringe) 40 mg SUBCUT Q24H [facility] Last Admin: 05/07/23 08:31 Dose: Not Given Documented By: BENOIT Non-Admin Reason: Patient Refused Fluticasone/Vilanterol (Fluticasone/Vilanterol 100/25 Blst.W.Dev) 1 puff INHALE RDAILY [facility] Last Admin: 05/07/23 07:40 Dose: 1 puff Documented By: HELEN Piperacillin Sod/Tazobactam (Sod 3.375 gm/ Sodium Chloride) 50 mls @ 100 mls/hr IV Q6H [facility] Last Infusion: 05/07/23 05:50 Dose: Infused Documented By: STEFANIE Lactated Ringer's (Lr) 1,000 mls @ 125 mls/hr IVCONT .Q8H [facility] Last Admin: 05/07/23 05:48 Dose: 125 mls/hr Documented By: STEFANIE Metoprolol Tartrate (Metoprolol Tartrate 25 Mg Tablet) 25 mg PO BID [facility]; Protocol Last Admin: 05/07/23 08:32 Dose: 25 mg Documented By: BENOIT Morphine Sulfate (Morphine Sulfate 4 Mg/Ml Cartridge) 2 mg IVPUSH Q4H PRN; Protocol PRN Reason: Pain, Severe (Pain Scale 7-10) Last Admin: 05/07/23 07:34 Dose: 2 mg Documented By: BENOIT Ondansetron HCl (Ondansetron Hcl 4 Mg/2 Ml Vial) 4 mg IVPUSH Q8H PRN PRN Reason: Nausea and Vomiting Last Admin: 05/07/23 05:44 Dose: 4 mg Documented By: STEFANIE Sodium Chloride (0.9 % Sodium Chloride Flush 3 Ml Syringe) 3 ml IVFLUSH QSHIFT [facility] Last Admin: 05/07/23 08:35 Dose: Not Given Documented By: BENOIT Non-Admin Reason: IV Running Labs 05/05/23 05:28 05/07/23 05:32 Labs: Laboratory Results - last 24 hr 05/06/23 05/06/23 05/07/23 05:16 08:58 05:32 Hold Purple Top Anion Gap 14 Estim Creat Clear Calc 39.1 Estimated GFR 60 Random Glucose 118 H Calcium 8.1 L Magnesium 1.5 L Total Bilirubin 1.0 Direct Bilirubin 0.4 AST 20 ALT 16 Alkaline Phosphatase 52 Total Protein 5.0 L Albumin 2.7 L Lipase 237 H 92 H 05/07/23 06:15 Hold Purple Top SEE NOTE Anion Gap Estim Creat Clear Calc Estimated GFR Random Glucose Calcium Magnesium Total Bilirubin Direct Bilirubin AST ALT Alkaline Phosphatase Total Protein Albumin Lipase Microbiology Microbiology Results: Microbiology 05/04/23 07:31 Blood Culture - Preliminary Blood - Venous No growth after 48 hours. 05/04/23 07:21 Blood Culture - Preliminary Blood - Venous No growth after 48 hours. Procedures Date of Service Date of Service: 05/08/23 Progress Note: A&P Assessment and plan (1) Acute pancreatitis after endoscopic retrograde cholangiopancreatography (ERCP): Status: Acute Assessment and Plan: looks well abd soft and benign lipase normal now still asks for Morphine - says she usually takes weed at home and was asking to be able to use this ok to slowly advance diet as tolerated Time Spent With Patient Time: Total time managing care of this patient today ____ minutes. Quality Stroke Does the patient have a stroke diagnosis?: No VTE Prior VTE?: No VTE Risk Level:: Medical - moderate - high VTE Device Contraindication: N/A - Device Ordered VTE Drug Contraindication: N/A - Med Ordered
[2023-05-07] MEDS: Simethicone 80 MG TAB.CHEW PO ×2 (10:32→21:33)
--- NOTE | 2023-05-07 11:29 | HO.PM.IMPN ---
Subjective Subjective Date of Service: 05/07/23 Interval History: f/u on acute pancreatitis, still c/o signficant pain, lipase level continues to trend down Physical Exam Vital Signs: Vital Signs: Last Vital Signs Temp 98.9 F 05/07/23 07:44 Pulse 88 05/07/23 07:44 Resp 18 05/07/23 07:44 BP 119/59 L 05/07/23 07:44 Pulse Ox 91 L 05/07/23 07:44 O2 Del Method Room Air 05/07/23 07:44 BMI result Body Mass Index 19.9 Const: Other: General: AO X 3, no acute distress Resp: CTA bilateral CVS: S1,S2,RRR GI: +BS, nd, minimal abd tenderness Skin: No rash Neuro: motor grossly intact Psych: appropriate affect Objective Data Active Medications Acetaminophen (Acetaminophen 325 Mg Tablet) 650 mg PO Q6H PRN PRN Reason: Pain, Mild (Pain Scale 1-3) Albuterol Sulfate (Albuterol Sulfate 90 Mcg 8 Gm Inhaler) 1 puff INHALE Q6H PRN PRN Reason: wheezing Bisacodyl (Bisacodyl 10 Mg Supp.Rect) 10 mg [place] DAILY PRN PRN Reason: Constipation Docusate Sodium (Docusate Sodium 100 Mg Capsule) 100 mg PO DAILY [facility] Last Admin: 05/07/23 08:34 Dose: 100 mg Documented By: BENOIT Enoxaparin Sodium (Enoxaparin Sodium 40 Mg/0.4 Ml Syringe) 40 mg SUBCUT Q24H [facility] Last Admin: 05/07/23 08:31 Dose: Not Given Documented By: BENOIT Non-Admin Reason: Patient Refused Fluticasone/Vilanterol (Fluticasone/Vilanterol 100/25 Blst.W.Dev) 1 puff INHALE RDAILY [facility] Last Admin: 05/07/23 07:40 Dose: 1 puff Documented By: HELEN Lactated Ringer's (Lr) 1,000 mls @ 125 mls/hr IVCONT .Q8H [facility] Last Admin: 05/07/23 05:48 Dose: 125 mls/hr Documented By: STEFANIE Metoprolol Tartrate (Metoprolol Tartrate 25 Mg Tablet) 25 mg PO BID [facility]; Protocol Last Admin: 05/07/23 08:32 Dose: 25 mg Documented By: BENOIT Morphine Sulfate (Morphine Sulfate 4 Mg/Ml Cartridge) 2 mg IVPUSH Q4H PRN; Protocol PRN Reason: Pain, Severe (Pain Scale 7-10) Last Admin: 05/07/23 07:34 Dose: 2 mg Documented By: BENOIT Ondansetron HCl (Ondansetron Hcl 4 Mg/2 Ml Vial) 4 mg IVPUSH Q8H PRN PRN Reason: Nausea and Vomiting Last Admin: 05/07/23 05:44 Dose: 4 mg Documented By: STEFANIE Simethicone (Simethicone 80 Mg Tab.Chew) 80 mg PO QIDWMHS PRN PRN Reason: Gas Last Admin: 05/07/23 10:32 Dose: 80 mg Documented By: BENOIT Sodium Chloride (0.9 % Sodium Chloride Flush 3 Ml Syringe) 3 ml IVFLUSH QSHIFT [facility] Last Admin: 05/07/23 08:35 Dose: Not Given Documented By: BENOIT Non-Admin Reason: IV Running Labs 05/05/23 05:28 05/07/23 05:32 Labs: Laboratory Results - last 24 hr 05/07/23 05/07/23 05:32 06:15 Hold Purple Top SEE NOTE Anion Gap 14 Estim Creat Clear Calc 39.1 Estimated GFR 60 Random Glucose 118 H Calcium 8.1 L Total Bilirubin 1.0 Direct Bilirubin 0.4 AST 20 ALT 16 Alkaline Phosphatase 52 Total Protein 5.0 L Albumin 2.7 L Lipase 92 H Microbiology Microbiology Results: Microbiology 05/04/23 07:31 Blood Culture - Preliminary Blood - Venous No growth after 48 hours. 05/04/23 07:21 Blood Culture - Preliminary Blood - Venous No growth after 48 hours. Assessment and Plan (1) Acute pancreatitis after endoscopic retrograde cholangiopancreatography (ERCP): Status: Acute Plan 72/F w history of alcoholic liver cirrhosis, hypertension who underwent EGD and ERCP 05/03 on outpatient basis for an abnormal finding MRI back in 2022, and admited the next day for post ERCP pancreatitis Acute post ERCP pancreatitis, lipase trendind down 364-->780--> 259-->92 today, pain better. -Clear liquid diet and advance to low fat gas in the region of the pancreas, likely related to ERCP, surgery following , no indication for procedure surgery consult - rec appreciated, plan for serial abdominal exams - ok to trial clear liquids. Repeat CT if clinical course worsen. HTN--BP on lower side, hold BP meds, IVF Hyponatremia,mild and resolved Hypokalemia--2.9, replaced and resolved COPD, no exacerbation etoh liver cirrhosis outpatient GI follow up DVT ppx - lovenox code status - full code Patient requires ongoing inpatient hospitalization for management of acute pancreatitis and specialist consultation Time Spent With Patient Time: Total time managing care of this patient today ____ minutes. Quality Stroke Does the patient have a stroke diagnosis?: No VTE Prior VTE?: No VTE Risk Level:: Medical - moderate - high VTE Device Contraindication: N/A - Device Ordered VTE Drug Contraindication: N/A - Med Ordered
--- NOTE | 2023-05-07 12:55 | P.PNGI_ITS ---
Subjective Subjective Date of Service: 05/07/23 Interval History: Managing to ambulate passing gas and stool has nausea but no vomiting feels her abdo is distended lipase has been coming down, LFt look good Critical Care Time (minutes): 0 Physical Exam 2 Vital Signs: Vital Signs: Last Vital Signs Temp 98.9 F 05/07/23 07:44 Pulse 88 05/07/23 07:44 Resp 18 05/07/23 07:44 BP 119/59 L 05/07/23 07:44 Pulse Ox 91 L 05/07/23 07:44 O2 Del Method Room Air 05/07/23 07:44 BMI result Body Mass Index 19.9 EXAM: GENERAL: The patient is thin, relaxed VITAL SIGNS:see workflow HEENT: Nonicteric sclerae, PERRLA, EOMI. Oropharynx clear. Moist mucous membranes. Conjunctivae appear well perfused. No thyroid mass. CHEST: Chest wall is nontender. HEART: Regular rate and rhythm without murmurs. LUNGS: Clear to auscultation bilaterally. ABDOMEN: Soft, positive bowel sounds, tender epigastrium, no organomegaly.no flank tenderness. slightly distended SKIN: No rash, no excessive bruising, petechiae, or purpura. NEUROLOGIC: Cranial nerves II-XII intact without motor/sensory deficit. Objective Data Labs 05/05/23 05:28 05/07/23 05:32 Labs: Laboratory Results - last 24 hr 05/07/23 05/07/23 05:32 06:15 Hold Purple Top SEE NOTE Sodium 137 Potassium 3.6 D Chloride 106 Carbon Dioxide 21 L Anion Gap 14 BUN 15 Creatinine 0.92 Estim Creat Clear Calc 39.1 Estimated GFR 60 Random Glucose 118 H Calcium 8.1 L Total Bilirubin 1.0 Direct Bilirubin 0.4 AST 20 ALT 16 Alkaline Phosphatase 52 Total Protein 5.0 L Albumin 2.7 L Lipase 92 H Microbiology Microbiology Results: Microbiology 05/04/23 07:31 Blood - Venous Blood Culture - Preliminary No growth after 48 hours. 05/04/23 07:21 Blood - Venous Blood Culture - Preliminary No growth after 48 hours. Procedures Date of Service Date of Service: 05/07/23 Progress Note: A&P Assessment and plan (1) Acute pancreatitis after endoscopic retrograde cholangiopancreatography (ERCP): Status: Acute (2) Bile duct abnormality: Status: Acute Plan 1/ Post ERCP pancreatitis, initial concern for a microperf but abdomen soft, passing gas and managing clears -still c/o abdominal pain PLAN: 1/ Repeat CT given ongoing pain 2/ Can advance diet after CT if no acute findings 3/ ok to use tramadol as PO med for pain control which she prefers woody as she has cirrhosis Time Spent With Patient Time: Total time managing care of this patient today ____ minutes. Quality Stroke Does the patient have a stroke diagnosis?: No VTE Prior VTE?: No VTE Risk Level:: Medical - moderate - high VTE Device Contraindication: N/A - Device Ordered VTE Drug Contraindication: N/A - Med Ordered
--- NOTE | 2023-05-07 13:08 | MHC.CM.PN ---
Per MD rounds no discharge today. DP Home self care. Patient's family will provided transportation.
[2023-05-07] MEDS: Acetaminophen 325 MG TABLET 650 MG PO (14:06)
[2023-05-07 15:11] VITALS: BP 126/60; PULSE 88; RESP 22; TEMP 37; O2SAT 91
[2023-05-07 19:21] VITALS: BP 130/56; PULSE 70; RESP 18; TEMP 36.6; O2SAT 98
[2023-05-07 20:40] VITALS: RESP 19
[2023-05-08] VITALS (12 sets, daily range): BP systolic 102–184; BP diastolic 55–81; PULSE 81–100; RESP 18–22; TEMP 28.8–37.2; O2SAT 83–98
[2023-05-08] MEDS: Morphine Sulfate 4 MG/ML CARTRIDGE 2 MG IVPUSH ×5 (00:59→20:29)
[2023-05-08] MEDS: Lactated Ringers 1,000 ML 125 ML IVCONT (05:09)
[2023-05-08] MEDS: Fluticasone/Vilanterol 100/25 BLST.W.DEV 1 PUFF INHALE (07:54)
--- NOTE | 2023-05-08 08:42 | PC.RT ---
pt very figidity and agitated. Pt. Sats were 83% on room air. Oxygen applied at 3 liters Sats were still 87% then increased to 4 Liters. Sats now at 92%. pt has a hx ow copd but is not a c02 retainer. Dr. Welch aware and stopped fluids and will obtain a CXR.
[2023-05-08 08:55] LABS: Alanine Aminotransferase 17 U/L (0-31); Albumin Level 2.7 g/dL (3.5-5.0); Alkaline Phosphatase 71 U/L (39-117); Aspartate Amino Transferase 20 U/L (5-31); Bilirubin Direct 0.3 mg/dL (0.0-0.5); Bilirubin Total 0.6 mg/dL (0.0-1.0); Lipase 65 U/L (8-78); Total Protein 4.8 g/dL (6.5-8.0)
[2023-05-08] MEDS: Docusate Sodium 100 MG CAPSULE PO (10:29)
[2023-05-08] MEDS: Metoprolol Tartrate 25 MG TABLET PO ×2 (10:29→20:29)
--- NOTE | 2023-05-08 11:05 | HO.PM.IMPN ---
Subjective Subjective Date of Service: 05/08/23 Interval History: She is extremely anxious, and abdomen still hurt and thinks she has gas Physical Exam Vital Signs: Vital Signs: Last Vital Signs Temp 98 F 05/08/23 08:11 Pulse 92 05/08/23 10:52 Resp 22 H 05/08/23 10:52 BP 121/58 L 05/08/23 08:11 Pulse Ox 94 05/08/23 10:52 O2 Del Method Nasal Cannula 05/08/23 10:52 O2 Flow Rate 3 05/08/23 10:52 BMI result Body Mass Index 19.9 Const: Other: General: AO X 3, no acute distress Resp: CTA bilateral CVS: S1,S2,RRR GI: +BS, NT, no distention Skin: No rash Neuro: motor grossly intact Psych: appropriate affect Objective Data Active Medications Acetaminophen (Acetaminophen 325 Mg Tablet) 650 mg PO Q6H PRN PRN Reason: Pain, Mild (Pain Scale 1-3) Last Admin: 05/07/23 14:06 Dose: 650 mg Documented By: BENOIT Albuterol Sulfate (Albuterol Sulfate 90 Mcg 8 Gm Inhaler) 1 puff INHALE Q6H PRN PRN Reason: wheezing Bisacodyl (Bisacodyl 10 Mg Supp.Rect) 10 mg GA DAILY PRN PRN Reason: Constipation Docusate Sodium (Docusate Sodium 100 Mg Capsule) 100 mg PO DAILY [facility] Last Admin: 05/08/23 10:29 Dose: 100 mg Documented By: MOUNIKA Enoxaparin Sodium (Enoxaparin Sodium 40 Mg/0.4 Ml Syringe) 40 mg SUBCUT Q24H [facility] Last Admin: 05/08/23 07:56 Dose: Not Given Documented By: MOUNIKA Non-Admin Reason: Patient Refused Fluticasone/Vilanterol (Fluticasone/Vilanterol 100/25 Blst.W.Dev) 1 puff INHALE RDAILY [facility] Last Admin: 05/08/23 07:54 Dose: 1 puff Documented By: YOLANDA Metoprolol Tartrate (Metoprolol Tartrate 25 Mg Tablet) 25 mg PO BID [facility]; Protocol Last Admin: 05/08/23 10:29 Dose: 25 mg Documented By: MOUNIKA Morphine Sulfate (Morphine Sulfate 4 Mg/Ml Cartridge) 2 mg IVPUSH Q4H PRN; Protocol PRN Reason: Pain, Severe (Pain Scale 7-10) Last Admin: 05/08/23 10:45 Dose: 2 mg Documented By: MOUNIKA Ondansetron HCl (Ondansetron Hcl 4 Mg/2 Ml Vial) 4 mg IVPUSH Q8H PRN PRN Reason: Nausea and Vomiting Last Admin: 05/07/23 05:44 Dose: 4 mg Documented By: STEFANIE Simethicone (Simethicone 80 Mg Tab.Chew) 80 mg PO QIDWMHS PRN PRN Reason: Gas Last Admin: 05/07/23 21:33 Dose: 80 mg Documented By: OLMAN Sodium Chloride (0.9 % Sodium Chloride Flush 3 Ml Syringe) 3 ml IVFLUSH QSHIFT [facility] Last Admin: 05/08/23 07:56 Dose: Not Given Documented By: MOUNIKA Non-Admin Reason: IV Running Labs 05/05/23 05:28 05/07/23 05:32 Labs: Laboratory Results - last 24 hr 05/08/23 08:12 Hold Purple Top SEE NOTE Total Bilirubin 0.6 Direct Bilirubin 0.3 AST 20 ALT 17 Alkaline Phosphatase 71 Total Protein 4.8 L Albumin 2.7 L Lipase 65 Assessment and Plan (1) Acute pancreatitis after endoscopic retrograde cholangiopancreatography (ERCP): Status: Acute Plan 72/F w history of alcoholic liver cirrhosis, hypertension who underwent EGD and ERCP 05/03 on outpatient basis for an abnormal finding MRI back in 2022, and admited the next day for post ERCP pancreatitis Acute post ERCP pancreatitis, lipase trendind down 364-->780--> 259-->92--> 65 today continue low fat diet gas in the region of the pancreas, likely related to ERCP, surgery following , no indication for procedure surgery consult - rec appreciated, plan for serial abdominal exams - ok to trial clear liquids. Repeat CT if clinical course worsen. HTN--BP on lower side, hold BP meds, IVF Hyponatremia,mild and resolved Hypokalemia--2.9, replaced and resolved COPD, no exacerbation, with O2 droping into 80s but recovers with oxygen, she is assymptomatic, i think she has underlying chronic hypoxia from copd and may need home O2, xray requested and will be reviewed when done etoh liver cirrhosis outpatient GI follow up DVT ppx - lovenox code status - full code Patient requires ongoing inpatient hospitalization for management of acute pancreatitis and specialist consultation Time Spent With Patient Time: Total time managing care of this patient today ____ minutes. Quality Stroke Does the patient have a stroke diagnosis?: No VTE Prior VTE?: No VTE Risk Level:: Medical - moderate - high VTE Device Contraindication: N/A - Device Ordered VTE Drug Contraindication: N/A - Med Ordered
[2023-05-08 12:00] LABS: Anion Gap 15 (12-20)
[2023-05-08 12:03] LABS: Blood Urea Nitrogen 11 mg/dL (9-16); Calcium 8.1 mg/dL (8.4-10.2); Carbon Dioxide 21 mmol/L (22-29); Chloride 105 mmol/L (96-108); Creatinine Clr Calc Pharmacy 44.4; Estimated Glomerular Filt Rate > 60; Glucose Random 100 mg/dL (60-115); Potassium 3.6 mmol/L (3.3-5.1); Sodium 137 mmol/L (135-145)
[2023-05-08] MEDS: LORazepam 0.5 MG TABLET PO ×2 (14:47→23:33)
[2023-05-08] MEDS: Albuterol Sulfate 90 MCG 8 GM INHALER 1 PUFF INHALE (14:47)
[2023-05-08] MEDS: ondansetron HCL 4 MG/2 ML VIAL IVPUSH (17:40)
[2023-05-08] MEDS: Simethicone 80 MG TAB.CHEW PO (20:29)
[2023-05-08] MEDS: 0.9 % Sodium Chloride Flush 3 ML SYRINGE IVFLUSH (23:39)
[2023-05-09 02:06] VITALS: BP 124/60; PULSE 88; RESP 18; TEMP 36.1; O2SAT 92
[2023-05-09] MEDS: Morphine Sulfate 4 MG/ML CARTRIDGE 2 MG IVPUSH ×2 (02:38→06:27)
[2023-05-09 06:55] VITALS: BP 108/55; PULSE 82; RESP 16; TEMP 36.1; O2SAT 95
[2023-05-09] MEDS: 0.9 % Sodium Chloride Flush 3 ML SYRINGE IVFLUSH ×3 (07:02→20:50)
[2023-05-09] MEDS: LORazepam 0.5 MG TABLET PO (07:02)
--- NOTE | 2023-05-09 07:33 | P.CDIM_ITS ---
PROVIDER RESPONSE TEXT: To clarify, the appropriate diagnosis supported by the clinical indicators: Underweight QUERY TEXT: PHYSICIAN'S DOCUMENTATION REQUEST Date of Query: 05/08/2023 07:24 AM EDT Patient Name: Katerine Russell Admit Date: 05/04/2023 Dear Emile Welch, A review of the medical record indicates additional documentation may be needed. Please review below and update the documentation accordingly. Clinical Indicators: Height: ( ) 5' Weight: ( ) 46.3 kg BMI: ( ) 19.9 Other Clinical Notes Supporting Significance of the BMI: Per Nutritional Risk Assessment 05/07/23: on therapeutic diet If possible, please provide an associated diagnosis related to the abnormal BMI, such as: Underweight Weight loss Cachexia Anorexia BMI is not significant Other (explain)Clinically unable to determine (explain)Thank you, Leonila Rebollar RN Use of terms such as suspected, likely, concern for, or probable (associated with a specific diagnosi s that is being evaluated, monitored, or treated as if it exists) are acceptable and can be coded in the inpatient se tting, when documented at the time of discharge. Please use your independent medical judgment in providing your response. THIS QUERY IS PART OF THE PERMANENT MEDICAL RECORD
[2023-05-09] MEDS: Fluticasone/Vilanterol 100/25 BLST.W.DEV 1 PUFF INHALE (08:09)
[2023-05-09 08:12] VITALS: PULSE 78; RESP 18; O2SAT 95
--- NOTE | 2023-05-09 08:38 | P.PNIM_ITS ---
Subjective Subjective Date of Service: 05/10/23 Interval History: Abdominal pain is better, sob is also better Physical Exam 2 Vital Signs: Vital Signs: Last Vital Signs Temp 97 F 05/09/23 06:55 Pulse 78 05/09/23 08:12 Resp 18 05/09/23 08:12 BP 108/55 L 05/09/23 06:55 Pulse Ox 95 05/09/23 06:55 O2 Del Method Nasal Cannula 05/09/23 06:55 O2 Flow Rate 2 05/09/23 06:55 BMI result Body Mass Index 19.9 Const: Other: General: AO X 3, no acute distress Resp: CTA bilateral CVS: S1,S2,RRR GI: +BS, NT, no distention Skin: No rash Neuro: motor grossly intact Psych: appropriate affect Objective Data Active Medications Acetaminophen (Acetaminophen 325 Mg Tablet) 650 mg PO Q6H PRN PRN Reason: Pain, Mild (Pain Scale 1-3) Last Admin: 05/07/23 14:06 Dose: 650 mg Documented By: BENOIT Albuterol Sulfate (Albuterol Sulfate 90 Mcg 8 Gm Inhaler) 1 puff INHALE Q6H PRN PRN Reason: wheezing Last Admin: 05/08/23 14:47 Dose: 1 puff Documented By: MOUNIKA Bisacodyl (Bisacodyl 10 Mg Supp.Rect) 10 mg [place] DAILY PRN PRN Reason: Constipation Docusate Sodium (Docusate Sodium 100 Mg Capsule) 100 mg PO DAILY [facility] Last Admin: 05/08/23 10:29 Dose: 100 mg Documented By: MOUNIKA Enoxaparin Sodium (Enoxaparin Sodium 40 Mg/0.4 Ml Syringe) 40 mg SUBCUT Q24H [facility] Last Admin: 05/09/23 07:02 Dose: Not Given Documented By: OBED Non-Admin Reason: Patient Refused Fluticasone/Vilanterol (Fluticasone/Vilanterol 100/25 Blst.W.Dev) 1 puff INHALE RDAILY [facility] Last Admin: 05/09/23 08:09 Dose: 1 puff Documented By: YOLANDA Lorazepam (Lorazepam 0.5 Mg Tablet) 0.5 mg PO Q8H PRN PRN Reason: aniety Last Admin: 05/09/23 07:02 Dose: 0.5 mg Documented By: OBED Metoprolol Tartrate (Metoprolol Tartrate 25 Mg Tablet) 25 mg PO BID [facility]; Protocol Last Admin: 05/08/23 20:29 Dose: 25 mg Documented By: OLMAN Ondansetron HCl (Ondansetron Hcl 4 Mg/2 Ml Vial) 4 mg IVPUSH Q8H PRN PRN Reason: Nausea and Vomiting Last Admin: 05/08/23 17:40 Dose: 4 mg Documented By: OBED Simethicone (Simethicone 80 Mg Tab.Chew) 80 mg PO QIDWMHS PRN PRN Reason: Gas Last Admin: 05/08/23 20:29 Dose: 80 mg Documented By: OLMAN Sodium Chloride (0.9 % Sodium Chloride Flush 3 Ml Syringe) 3 ml IVFLUSH QSHIFT [facility] Last Admin: 05/09/23 07:02 Dose: 3 ml Documented By: OBED Labs 05/05/23 05:28 05/08/23 08:12 Labs: Laboratory Results - last 24 hr 05/08/23 08:12 Anion Gap 15 Estim Creat Clear Calc 44.4 Estimated GFR > 60 Random Glucose 100 Calcium 8.1 L Total Bilirubin 0.6 Direct Bilirubin 0.3 AST 20 ALT 17 Alkaline Phosphatase 71 Total Protein 4.8 L Albumin 2.7 L Lipase 65 Assessment and Plan (1) Acute pancreatitis after endoscopic retrograde cholangiopancreatography (ERCP): Status: Acute Plan 72/F w history of alcoholic liver cirrhosis, hypertension who underwent EGD and ERCP 05/03 on outpatient basis for an abnormal finding MRI back in 2022, and admited the next day for post ERCP pancreatitis Acute post ERCP pancreatitis, lipase trendind down 364-->780--> 259-->92--> 65 as 05/08, pain is better. Continue present diet gas in the region of the pancreas, likely related to ERCP, surgery following , no indication for procedure surgery consult - rec appreciated, plan for serial abdominal exams . Repeat CT if clinical course worsen. HTN--resume home meds Hyponatremia,mild and resolved Hypokalemia--2.9, replaced and resolved COPD, no exacerbation, bronchodilator PRN CXR 05/08 mild chf, ivf stopped, 1 dose of iv lasix reasss off O2, qualifies for home o2 etoh liver cirrhosis outpatient GI follow up DVT ppx - lovenox code status - full code Patient requires ongoing inpatient hospitalization for management of acute pancreatitis and specialist consultation possible dc today Time Spent With Patient Time: Total time managing care of this patient today ____ minutes. Quality Stroke Does the patient have a stroke diagnosis?: No VTE Prior VTE?: No VTE Risk Level:: Medical - moderate - high VTE Device Contraindication: N/A - Device Ordered VTE Drug Contraindication: N/A - Med Ordered
[2023-05-09] MEDS: Metoprolol Tartrate 25 MG TABLET PO ×2 (08:46→20:50)
[2023-05-09] MEDS: Docusate Sodium 100 MG CAPSULE PO (08:46)
[2023-05-09] MEDS: Furosemide 20 MG/2 ML VIAL IVPUSH (08:46)
--- NOTE | 2023-05-09 12:00 | PC.NURSE ---
Pt son came to this keno writer, asking that she no longer receives Narcotics or Ativan be she is Confused. Pt is A&Ox4, no confusion noted by this keno writer. notified of families wishes.
[2023-05-09 13:47] VITALS: PULSE 101; PULSE 91; PULSE 95; PULSE 96; O2SAT 85; O2SAT 86; O2SAT 87; O2SAT 90; O2SAT 92
--- NOTE | 2023-05-09 15:26 | PC.NURSE ---
Pt asking for pain meds, D/C MS. Offered APAP, she stated it is a liver killer. Encouraged pt to wait and decide if she wants APAP
[2023-05-09] MEDS: Acetaminophen 325 MG TABLET 650 MG PO ×2 (15:40→22:41)
[2023-05-09 16:00] VITALS: BP 127/60; PULSE 87; RESP 18; TEMP 36.2; O2SAT 93
[2023-05-09 20:00] VITALS: BP 119/57; PULSE 88; RESP 18; TEMP 36.8; O2SAT 93
[2023-05-10 03:23] VITALS: BP 122/54; PULSE 74; RESP 17; TEMP 36.6; O2SAT 93
[2023-05-10] MEDS: Simethicone 80 MG TAB.CHEW PO (03:39)
[2023-05-10] MEDS: Acetaminophen 325 MG TABLET 650 MG PO ×2 (05:36→11:48)
[2023-05-10 07:32] VITALS: BP 144/62; PULSE 70; RESP 18; TEMP 37.1; O2SAT 93
[2023-05-10] MEDS: Albuterol/Iprat 2.5/0.5MG 3 ML AMPUL.NEB INHALE (08:23)
[2023-05-10] MEDS: Fluticasone/Vilanterol 100/25 BLST.W.DEV 1 PUFF INHALE (08:47)
[2023-05-10] MEDS: Docusate Sodium 100 MG CAPSULE PO (09:08)
[2023-05-10] MEDS: Metoprolol Tartrate 25 MG TABLET PO ×2 (09:08→21:39)
[2023-05-10] MEDS: 0.9 % Sodium Chloride Flush 3 ML SYRINGE IVFLUSH ×3 (09:09→23:18)
[2023-05-10 16:00] VITALS: BP 134/87; PULSE 87; RESP 18; TEMP 36.5; O2SAT 93
[2023-05-10] MEDS: traMADoL HCL 50 MG TABLET 25 MG PO (17:59)
[2023-05-10 20:00] VITALS: BP 138/74; PULSE 67; RESP 18; TEMP 36.6; O2SAT 94
[2023-05-10] MEDS: LORazepam 0.5 MG TABLET PO (21:39)
[2023-05-11 04:00] VITALS: BP 149/71; PULSE 72; RESP 18; TEMP 36.2; O2SAT 93
[2023-05-11] MEDS: traMADoL HCL 50 MG TABLET 25 MG PO ×2 (04:11→10:22)
[2023-05-11 07:05] VITALS: BP 150/66; PULSE 78; RESP 18; TEMP 36.1; O2SAT 94
[2023-05-11] MEDS: Fluticasone/Vilanterol 100/25 BLST.W.DEV 1 PUFF INHALE (07:39)
[2023-05-11 07:50] VITALS: PULSE 84; RESP 18; O2SAT 95
[2023-05-11] MEDS: Docusate Sodium 100 MG CAPSULE PO (08:02)
[2023-05-11] MEDS: Metoprolol Tartrate 25 MG TABLET PO (08:02)
[2023-05-11] MEDS: 0.9 % Sodium Chloride Flush 3 ML SYRINGE IVFLUSH (08:02)
[2023-05-11] MEDS: LORazepam 0.5 MG TABLET PO ×2 (08:10→15:27)
--- NOTE | 2023-05-11 09:06 | P.DS_ITS ---
DS: Providers Provider Date of Service: 05/11/23 Date of admission: 05/04/23 07:59 Primary care physician: Shirin Phan MD Consults: 05/04/23 07:26 Consult to General Surgery Routine Consulting Provider: [facility] [facility] Reason for consultation: s/p ERCP air on CT ?microperf Has provider been notified: No 05/04/23 08:03 Consult to Gastroenterology Routine Consulting Provider: Hector Groves Reason for consultation: pancreatitis Has provider been notified: No DS: Diagnosis Discharge Diagnosis (1) Acute pancreatitis after endoscopic retrograde cholangiopancreatography (ERCP): Status: Acute DS: Summary Hospital Course Hospital Course: Admission HPI Chief Complaint: abdominal pain this is a 72-year-old female with history of liver cirrhosis who presents to the emergency department with abdominal pain. Patient underwent EGD and ERCP yesterday (05/03). she underwent EGD with balloon dilation and biopsy as well as ERCP with sphincterotomy and balloon dilation due to history of cirrhosis with MRI showing hypodensity in the mid CBD. She was noted to have normal diameter CBD with a slightly tortuous appearance possibly from a fibrous band or scar mid junction. The procedure was unremarkable and she was discharged home. Later in the evening she began having abdominal pain and nausea. Her pain is located in the epigastric region and right lower quadrant. In the ED her work up was significant for elevated lipase of 364. CT scan of the abdomen Confirmed moderate peripancreatic fluid and stranding suspicious for sequelae pancreatitis as well as multiple foci of gas present in the region of the pancreas suspected to reflect sequelae of ERCP. She was treated with IV zosyn and IVF and the decision was made to admit her for further management of post procedure pancreatitis. Hospital course: The patient came in with abdominal pain the day following an EGD procedure and was diagnosed with acute pancreatitis post-ERCP. This condit ion was treated conservatively with intravenous fluid hydration, pain relief medication, and a gradual progression in her diet. During her hospital stay, her lipase levels gradually returned to normal, and her pain subsided, allowing her diet to be advanced to a regular one. However, she did experience shortness of breath, and a chest X-ray revealed pulmonary vascular congestion without any signs of overt heart failure. She received a dose of Lasix for relief. She was found to have asymptomatic hypoxia, likely due to underlying COPD, but declined steroid treatment for it. She has been evaluated by a respiratory specialist and qualifies for home oxygen, which has been arranged. Additionally, the patient had some swelling in the left side of her body, likely related to her positioning during her stay. A CT scan confirmed no acute issues. She is being discharged today. Final diagnoses: Acute Pancreatitis COPD with chronic respiratory failure Anasarca Time Spent with Patient Time attestation: Total time managing care of this patient today ____ minutes. Discharge coordination time: Greater than 30 minutes Quality: Safe Use of Opioids Does Pt have an Active Cancer Diagnosis on the Problem List?: No Quality: Stroke Does the patient have a stroke diagnosis?: No Physical Exam Vital Signs: Vital Signs: Last Vital Signs Temp 97 F 05/11/23 07:05 Pulse 78 05/11/23 07:05 Resp 18 05/11/23 07:05 BP 150/66 H 05/11/23 07:05 Pulse Ox 94 05/11/23 07:05 O2 Del Method Nasal Cannula 05/11/23 07:05 O2 Flow Rate 2 05/11/23 07:05 BMI result Body Mass Index 19.9 Discharge Plan Discharge Anticipated Discharge Date/Time: 05/11/23 09:18 Patient Disposition: Home, Self-Care Discharge Diagnosis: Acute pancreatitis, chronic respiratory failure due to copd Referrals: Shirin Phan MD [Primary Care Provider] - 1 Week Discharge Medications: New tramadol 50 mg Tablet 25 mg PO Q6H PRN (Reason: Pain, Severe (Pain Scale 7-10)) Qty: 15 0RF furosemide 20 mg Tablet 20 mg PO DAILY Qty: 30 0RF Protocol: Hold for SBP< HOLD for SBP < : 90 Continued albuterol sulfate 90 mcg/actuation HFA aerosol inhaler 1 puff inhalation Q6H PRN (Reason: wheezing) Fiber Gummies 2 gram Tablet,Chewable 21 g PO DAILY Rx Instructions: Patient takes 3 of the 7 mg fiber gummies per day losartan 25 mg tablet 25 mg PO DAILY Qty: 90 3RF amlodipine 10 mg tablet 10 mg PO DAILY Qty: 90 3RF fluticasone furoate-vilanterol [Breo Ellipta] 100-25 mcg/dose blister with device 1 inh inhalation DAILY Qty: 3 3RF metoprolol tartrate 25 mg tablet 25 mg PO BID Qty: 180 3RF Discharge Orders: Discharge Order (Routine); Ordered 05/11/23 Ordered By: Emile Welch Diet: Advance to usual diet Activity on Discharge: As tolerated Stand Alone Forms: Patient Portal Discharge page Care Plan Goals: recovery from pancreatitis Health Concerns: pancreatitis, copd Plan of Treatment: continue your medications as before use oxygen as directed Assessment: as above Discharge Date/Time: 05/11/23 17:00
[2023-05-11] MEDS: Acetaminophen 325 MG TABLET 650 MG PO (10:23)
[2023-05-11] MEDS: Furosemide 20 MG TABLET PO (13:30)
--- NOTE | 2023-05-11 13:53 | MHC.CM.PN ---
IMM 05/11/23 Pt has been medically cleared for DC. Her family will pick her up. She lives with family, is independent, self care.
--- NOTE | 2023-05-11 16:55 | PC.NURSE ---
Spoke with pt's daughter Randall regarding Mother's health status and discharge plan. Pt discharged home with two home O2 TANKS. PT AND FAMILY AGREE WITH DISCHARGE PLAN
== END 2023-05-11 17:00 | disposition home or self-care (01) | DRG 393 ==
LOC: HO.ED 06:36 → HO.EDOVER 08:15 → HO.S3 13:19
PROVIDERS: Admitting Provider Physician Assistant Medical; Emergency Provider Internal Medicine; PCP Internal Medicine; Visit Provider Internal Medicine
DX: K91.89 Other postprocedural complications and disorders of digestive system (principal); K85.80 Other acute pancreatitis without necrosis or infection; E87.1 Hypo-osmolality and hyponatremia; J96.11 Chronic respiratory failure with hypoxia; K70.30 Alcoholic cirrhosis of liver without ascites; Y83.8 Other surgical procedures as the cause of abnormal reaction of the patient, or of later complication, without mention of misadventure at the time of the procedure; I10 Essential (primary) hypertension; J44.9 Chronic obstructive pulmonary disease, unspecified; E78.5 Hyperlipidemia, unspecified; E87.6 Hypokalemia; Z87.891 Personal history of nicotine dependence; Z79.51 Long term (current) use of inhaled steroids; Z79.899 Other long term (current) drug therapy
CPT/HCPCS: 36415; 71046; 74018; 74176; 74177; 80048; 80053; 80076; 83605; 83690; 83735; 85025; 85027; 87040; 94640; 99285; J1650; J1940; J2270; J2405; J2543; Q9967

== ENCOUNTER → 2023-05-04 07:59 | Outpatient (BNV) | payer MEDICARE, SELFPAY | PROVIDERS: Admitting Provider Physician Assistant Medical; Emergency Provider Internal Medicine; PCP Internal Medicine; Visit Provider Internal Medicine Gastroenterology | DX: K91.89 Other postprocedural complications and disorders of digestive system (principal); K85.90 Acute pancreatitis without necrosis or infection, unspecified; K83.9 Disease of biliary tract, unspecified | CPT/HCPCS: 99222; 99232 ==

== ENCOUNTER → 2023-05-04 07:59 | Outpatient (BNV) | payer MEDICARE, SELFPAY | PROVIDERS: Admitting Provider Physician Assistant Medical; Emergency Provider Internal Medicine; PCP Internal Medicine; Visit Provider Surgery | DX: K91.89 Other postprocedural complications and disorders of digestive system (principal); K85.90 Acute pancreatitis without necrosis or infection, unspecified | CPT/HCPCS: 99222; 99232; 99499 ==

== ENCOUNTER → 2023-05-04 07:59 | Outpatient (BNV) | payer MEDICARE, SELFPAY | PROVIDERS: Admitting Provider Physician Assistant Medical; Emergency Provider Internal Medicine; PCP Internal Medicine; Visit Provider Physician Assistant Medical | DX: K91.89 Other postprocedural complications and disorders of digestive system (principal); K85.90 Acute pancreatitis without necrosis or infection, unspecified | CPT/HCPCS: 99223; 99232; 99239 ==

== ENCOUNTER 2023-05-18 12:47 | Outpatient (REF) | payer MEDICARE, SELFPAY ==
--- NOTE | ~2023-05-18 | XR_ITS ---
EXAMINATION: XR CHEST CLINICAL INFORMATION: COPD COMPARISON: Previous chest x-ray most recent 05/08/2023 TECHNIQUE: 2 views of the chest were obtained. FINDINGS: The cardiac and mediastinal contours are stable. Well-inflated lungs. The lungs are clear. There are small bilateral pleural effusions decreased from April 2023 exam. No pneumothorax. No acute bone abnormality. XR/XR chest 2V IMPRESSION: Well-inflated lungs. Small bilateral pleural effusions decreased from April 2023 exam.
[2023-05-18 15:57] LABS: Alanine Aminotransferase 11 U/L (0-31); Albumin Level 3.1 g/dL (3.5-5.0); Alkaline Phosphatase 130 U/L (39-117); Anion Gap 17 (12-20); Aspartate Amino Transferase 27 U/L (5-31); Bilirubin Total 0.8 mg/dL (0.0-1.0); Blood Urea Nitrogen 6 mg/dL (9-16); Calcium 7.2 mg/dL (8.4-10.2); Carbon Dioxide 32 mmol/L (22-29); Chloride 76 mmol/L (96-108); Estimated Glomerular Filt Rate > 60; Glucose Random 111 mg/dL (60-115); Magnesium 1.2 mg/dL (1.6-2.6); Potassium 2.1 mmol/L (3.3-5.1); Sodium 123 mmol/L (135-145); Total Protein 6.4 g/dL (6.5-8.0)
== END 2023-05-18 12:48 | disposition home or self-care (01) ==
LOC: HO.LAB 12:47
PROVIDERS: PCP Internal Medicine; Visit Provider Internal Medicine
DX: R19.7 Diarrhea, unspecified (principal); K91.89 Other postprocedural complications and disorders of digestive system; K85.90 Acute pancreatitis without necrosis or infection, unspecified; K74.60 Unspecified cirrhosis of liver; R06.02 Shortness of breath; J44.9 Chronic obstructive pulmonary disease, unspecified
CPT/HCPCS: 36415; 71046; 80053; 83735; 99212

== ENCOUNTER 2023-05-18 12:47 | Outpatient (AMB) | payer MEDICARE, SELFPAY ==
--- NOTE | 2023-05-18 13:13 | MHC.OFFVIS ---
Intake Vital Signs 05/18/23 13:17 Height 5 ft 4.5 in Weight 110 lb 3.698 oz BMI 18.6 BP 120/73 Blood Pressure Location Lt brachial Position Sitting Pulse 80 Intake Visit Reasons: S/P EGD, ERCP and Colanganoscopy; Dr. Groves Intake Note: Katerine presents in the office as a follow up EGD and ERCP. CC: She states that she is in a lot of pain for 2 weeks and it has been awful. She states that she has had diarrhea. Shes been having gas as well. Allergies No Known Allergies [No Known Allergies*] Allergy (Verified 05/18/23 13:18) HPI HPI Comments History of Present Illness Details 72 y.o with PMH of etOH use disorder that led to cirrhosis without any CSPH so far, tobacco use disorder with COPD, HTN, who is here to establish care for cirrhosis as well as abnormal MRI. 03/07/23: Pt reports finding out about cirrhosis around 5 years ago and quit drinking the day she found out. Was previously drinking 3-4 drinks of hard liquor x 10-15 years. Since then has been following up with PCP only. Over time noted improvement in her energy levels as well as easy bruising. More recently had an admission to the hospital earlier this year for human metapneumovirus and since then has been declining. Reports increased fatigue, nausea, low appetite and low energy. Of note, has also been noticing intermittent sensation of food getting stuck x 6 months -- woody with hard textured foods such as meats - has not needed any ER visits for this, chases it with fluids. Was seen by her PCP and had liver imaging which incidentally showed CBD shadow which was then followed up with MRI/MRCP: 1.3 cm elongated hypodensity in mid CBD without any significant dilation proximally. 04/30/23: Has procedures booked for 05/03 but pt had called last week to request to cancel these. This visit was therefore booked to address any concerns or apprehension as based on my clinical assessment she should undergo diagnostic EGD/ERCP on an urgent basis. Here with her daughter Mey. Main apprehension is around just having any procedures done at all - tells me she even worries about getting IV lines put in. Reviewed indication for EGD (dysphagia, variceal screening) as well as ERCP +/- spy (abnormal MRI with 1.3 cm cbd lesion) again with both the pt as well as the daughter. I did review that while I do recommend further evaluation as outlined above, the eventual decision to pursue this rests with her. 05/03/23: 1. normal diameter CBD, slightly tortuous appearance, possibly from a fibrous band or scar mid junction. 2. nodular gastric mucosa 3. esophagitis 4. hiatal hernia (pt also under went balloon dilation of LES) Path: A. Stomach, biopsy: Oxyntic mucosa with mild chronic inactive inflammation; no Helicobacter organisms seen. B. Bile duct, biopsy: Superficial strips of small intestinal and biliary epithelium; blood clot; no atypia identified 05/18/23: To recap, post-ERCP course complicated by moderate to severe AIP with volume overload. Pt required a week long hospitalisation. Currently reports ongoing postprandial discomfort which limits her appetite. Also reports continued watery diarrhea atleast 3-4 times a day that started a day after ERCP and continues still. Reports frequency has improved since discharge form the hospital but still has watery stools. With this reports considerable weakness. Also getting short of breath on walking short distances. Was given furosemide 20mg in patient for volume overload and pulm congestion which she is continuing as is but worries about her electrolytes. [facility] Medical History (Updated 05/18/23 @ 14:12 by Fely Quinteros MD) Raspy voice Mammogram declined Hyperlipidemia Liver cirrhosis, alcoholic Hyponatremia Peripheral vascular disease Nodule on liver Colonoscopy refused COPD (chronic obstructive pulmonary disease) Annual physical exam Surgical History (Updated 05/18/23 @ 13:17 by NAOMI So) History of esophagogastroduodenoscopy (EGD) Hx of tooth extraction History of tonsillectomy Family History Father Heart problem Substance use disorder Mother Hypertension Diabetes Substance use disorder Sister Substance use disorder Paternal Grandmother Colostomy in place Social History Household Members: Children Housing: Homeless Are you a primary career based intervention coordinator to a significant other at home: No Do you presently have visiting nurse or other home services: No Patient Tobacco Use Status: Former Tobacco user Quit Date: 2016 Tobacco use type: Cigarette e-Cigarette/Vaping Use: Currently Using Substance Use Type: Marijuana Advance Directives Date on File: 05/04/23 service: No Current occupational status: employed Cognitive needs: No Hearing needs: No Vision needs: No Review of Systems Const All systems reviewed & are unremarkable except as noted in HPI and below Physical Exam Vital Signs: Last Vital Signs Pulse 80 05/18/23 13:17 BP 120/73 05/18/23 13:17 BMI result Body Mass Index 18.6 Gen Appear: NAD, undernourished HEENT: No scleral icterus, bitemporal wasting noted Abd: soft, nondistended, Ext: No peripheral edema bilaterally Neuro: A/Ox3, no asterixis Assessment & Plan Assessment & Plan (1) Diarrhea: Code(s): R19.7 - Diarrhea, unspecified (2) Acute pancreatitis after endoscopic retrograde cholangiopancreatography (ERCP): Code(s): K91.89 - Other postprocedural complications and disorders of digestive system; K85.90 - Acute pancreatitis without necrosis or infection, unspecified (3) Liver cirrhosis: Code(s): K74.60 - Unspecified cirrhosis of liver (4) Shortness of breath: Code(s): R06.02 - Shortness of breath Plan 1. Post-ERCP panc: Continues to have abd discomfort and diarrhea woody postprandially. Reviewed and educated to stick to low fat diet to avoid stimulating the pancreas. Reviewed that this could take up to 2-4 weeks from index episode to completely resolve. Given her concerns will check lytes. In the meantime, will also recommend protein shake to make up caloric deficit. If does not improve, low threshold to reimage to r/o peripancreatic fluid collection. Plan: - Check CMP - Check C diff - Low fat diet discussed - Fat free ensure shakes sent to pharmacy - If cont to have limited appetite +/- nausea +/- diarrhea even after 2-4 weeks, pt to call our office in which case will obtain a CT Abd/pel with contrast to r/o panc pseudocyst/WOPN 2. Shortness of breath ? worsening pulm congestion vs COPD exacerbation. SpO2 96% on room air. Reports very occ goes below 95% for which she does have O2 at home. Plan: - CXR ordered - If has fluid overload, will adjust diuretics - If otherwise clear, will refer to PCP for optimization of COPD therapy Follow up in 8 weeks, pt aware may be with a different provider. Orders: Orders Comprehensive Met. Panel Today R19.7 - Diarrhea, unspecified XR chest 2V Today J44.9 - Chronic obstructive pulmonary disease, unspecified Magnesium Today R19.7 - Diarrhea, unspecified CDiff Gene PCR Today R19.7 - Diarrhea, unspecified Medications: New food supplemt, lactose-reduced (Ensure Clear oral liquid) 1 ea PO BID 30 days 17,760 mL 0RF Discontinued tramadol Discontinued Reason: Patient no longer taking 25 mg (1/2 x 50 mg) PO Q6H PRN 15 tabs 0RF Pain, Severe (Pain Scale 7-10) Coding Level of Care Code Est Pt Level 4 (91861) Diagnoses Diarrhea R19.7 Acute pancreatitis after endoscopic retrograde cholangiopancreatography (ERCP) K91.89; K85.90 Liver cirrhosis K74.60 Shortness of breath R06.02
[2023-05-18 13:17] VITALS: BP 120/73; PULSE 80; BMI 18.6
== END 2023-05-18 15:01 | disposition home or self-care (01) ==
PROVIDERS: PCP Internal Medicine; Visit Provider Internal Medicine
DX: R19.7 Diarrhea, unspecified (principal); K91.89 Other postprocedural complications and disorders of digestive system; K85.90 Acute pancreatitis without necrosis or infection, unspecified; K74.60 Unspecified cirrhosis of liver; R06.02 Shortness of breath
CPT/HCPCS: 99214

== ENCOUNTER 2023-05-18 18:12 | Inpatient (IN) | payer MEDICARE, SELFPAY ==
--- NOTE | ~2023-05-18 | CT_ITS ---
EXAMINATION: CT ABDOMEN AND PELVIS WITHOUT CONTRAST CLINICAL INFORMATION: C. Difficile, rule out megacolon. COMPARISON: CT abdomen and pelvis 05/18/2023. TECHNIQUE: Multidetector volumetric imaging was performed from the superior aspect of the liver through the pubic symphysis. Sagittal and coronal reformatted images were obtained on the technologist's workstation. This CT examination was performed using dose optimization techniques as appropriate, variously including the following: *Automated exposure control *Adjustment of mA and/or kV according to patient size (this includes techniques or standardized protocols for targeted exams where dose is matched to indication/reason for exam; i.e. extremities or head) *Use of iterative reconstruction technique DLP: 258 mGy-cm FINDINGS: LUNG BASES: No suspicious lung nodules. LIVER, GALLBLADDER, AND BILIARY TREE: Extensive calcifications/stippled hyperdensity in the liver. This could represent lipiodol from an embolization procedure if the patient has undergone locoregional therapy for hepatocellular carcinoma. Clinical correlation is necessary. Other etiologies not excluded. The liver appears cirrhotic. There is pneumobilia which is new compared to most recent prior. Patient has a history of ERCP 05/03/2023. PANCREAS: Air in the pancreatic duct. No discrete evidence of acute pancreatitis. No change in peripancreatic fluid collections. SPLEEN: Unremarkable. ADRENAL GLANDS: Unremarkable. KIDNEYS AND URETERS: No hydroureteronephrosis. There are parenchymal calcifications without definite nephrolithiasis. No hydronephrosis. BLADDER: Unremarkable. GASTROINTESTINAL TRACT: The small bowel is normal in caliber. The large bowel is normal in caliber. No evidence of toxic megacolon. There is diverticulosis without evidence of diverticulitis. ABDOMINAL WALL: Subcutaneous air in the right upper quadrant may relate to medication injection. This is new compared to prior and needs to be correlated clinically. Multiple fluid collections again seen throughout the peritoneum and retroperitoneum favored to represent sequela of pancreatitis. LYMPH NODES: No adenopathy. VASCULAR: No aortic aneurysm. Heavy atherosclerotic calcification with likely severe bilateral iliofemoral disease. PELVIC VISCERA: Unremarkable. OSSEOUS STRUCTURES: Degenerative changes in the spine. CT/CT abdomen pelvis wo IV con IMPRESSION: No evidence of toxic megacolon. New subcutaneous air in the right upper quadrant may relate to medication injection site. This needs to be correlated clinically. There is no visible fluid collection at this location. Other findings as above show no significant change from prior study 05/18/2023. Fleischner guidelines were followed.
--- NOTE | ~2023-05-18 | CT_ITS ---
EXAMINATION: CT ABDOMEN AND PELVIS WITH CONTRAST CLINICAL INFORMATION: Abdominal pain, diarrhea COMPARISON: Prior studies including the 05/10/2023 CT scan TECHNIQUE: Multidetector volumetric imaging was performed from the superior aspect of the liver through the pubic symphysis following administration of 85 mL Omnipaque 300 intravenous contrast. Sagittal and coronal reformatted images were obtained on the technologist workstation.. This CT examination was performed using dose optimization techniques as appropriate, variously including the following: *Automated exposure control *Adjustment of mA and/or kV according to patient size (this includes techniques or standardized protocols for targeted exams where dose is matched to indication/reason for exam; i.e. extremities or head) *Use of iterative reconstruction technique DLP: 297 mGy-cm FINDINGS: LUNG BASES: The visualized lung bases are unremarkable. LIVER, GALLBLADDER, AND BILIARY TREE: Nodular cirrhotic appearing liver with coarsened calcifications more so in the atrophic right lobe the liver. Likely this represents distal embolization material but overall this is similar to the recent prior study. I do not appreciate any definitive acute underlying mass in this setting with the single phase of contrast. There are several scattered tiny low-attenuation probable hepatic cysts seen. No intrahepatic biliary ductal dilatation the common bile duct is prominent measuring up to 1.6 cm in diameter likely similar to the prior study The gallbladder is contracted but otherwise unremarkable with no evidence of radiopaque gallstones, gallbladder wall thickening, or obvious pericholecystic inflammatory changes. PANCREAS: Pancreatic duct shows within upper limits of normal. There is a small amount of peripancreatic fluid seen extending inferiorly overlying the anterior pararenal spaces bilaterally suggesting sequela of pancreatic pseudocyst formation. This extends to the posterior retroperitoneum all the way to the presacral space of the pelvis. On the prior study this fluid was less well demarcated. This somewhat loculated. Fluid also extends into the mesentery encasing the central mesenteric vessels. SPLEEN: Unremarkable. ADRENAL GLANDS: Unremarkable. KIDNEYS AND URETERS: The kidneys are normal in size, shape, and attenuation. Tiny subcentimeter cortical cysts bilaterally. No further evaluation this is needed No hydronephrosis, hydroureter, or calculi seen. No perinephric stranding. BLADDER: Unremarkable. GASTROINTESTINAL TRACT: Extensive colonic diverticulosis more so in the sigmoid colon. I do not appreciate any obvious colonic wall thickening or pericolonic inflammatory change to suggest diverticulitis. Visualized small bowel is grossly unremarkable ABDOMINAL WALL: No significant hernia is appreciated. LYMPHOVASCULAR STRUCTURES: Vascular calcification within the aorta PELVIC VISCERA: Unremarkable. OSSEOUS STRUCTURES: Unremarkable. CT/CT abdomen pelvis w IV con IMPRESSION: Nodular cirrhotic liver with coarsened calcifications more so in the atrophic right lobe of the liver. This is similar to the prior study. There is peripancreatic fluid seen extending inferiorly into the posterior retroperitoneum and presacral space. This also extends into the mesentery increased central mesenteric vessels. This fluid was less well demarcated on the prior study. Overall the appearance is more suggestive of pancreatic pseudocyst formation. Loculated ascites would be considered less likely especially with the retroperitoneal course of some of this fluid. There is likely free ascites seen as well.
--- NOTE | ~2023-05-18 | XR_ITS ---
EXAMINATION: XR ABDOMEN KUB CLINICAL INDICATION: C. difficile colitis COMPARISON: Previous CT of the abdomen and pelvis 05/26/2023 TECHNIQUE: AP view of the abdomen. FINDINGS: Nonspecific bowel gas pattern with air-filled minimally distended transverse colon. No evidence of obstruction, free air or bowel wall thickening. Severe atherosclerotic disease. Calcifications in the liver. Degenerative changes of the spine. XR/XR KUB IMPRESSION: Nonspecific bowel gas pattern with slightly distended air-filled loops of transverse colon.
--- NOTE | ~2023-05-18 | XR_ITS ---
EXAMINATION: XR ABDOMEN KUB CLINICAL INDICATION: C diff COMPARISON: CT abdomen from 05/18/2023 TECHNIQUE: AP view of the abdomen. FINDINGS: No definite dilated loops of bowel visualized. Air and stool noted within the colon greatest along its transverse and descending segments. Degenerative changes of the thoracolumbar spine. Soft tissues are unremarkable. Atherosclerotic calcifications are noted. Extensive calcifications in the right upper and mid abdomen previously localized to hepatic parenchyma. XR/XR KUB IMPRESSION: 1. No definite dilated loops of bowel visualized. 2. Air and stool noted within the colon greatest along its transverse and descending segments.
[2023-05-18 18:25] VITALS: BP 136/65; BP 142/80; PULSE 84; PULSE 89; RESP 14; TEMP 36.7; O2SAT 93; O2SAT 94; BMI 19.9
--- NOTE | 2023-05-18 18:26 | ECG_ITS ---
Test Reason : hypokalemia Blood Pressure : / mmHG Vent. Rate : 101 BPM Atrial Rate : 119 BPM P-R Int : 152 ms QRS Dur : 078 ms QT Int : 348 ms P-R-T Axes : 080 076 161 degrees QTc Int : 451 ms Sinus tachycardia with occasional Premature ventricular complexes ST & T wave abnormality, consider inferior ischemia Abnormal ECG When compared with ECG of 23-SEP-2022 14:16, Significant changes have occurred Referred By: Bessy Newton Electronically Signed By:DAVID BLANDON MD
--- NOTE | 2023-05-18 18:33 | PC.NURSE ---
pt refusing to change into a hospital brendan
--- NOTE | 2023-05-18 18:49 | ED_ITS ---
HPI - General Adult General Chief complaint: Recheck/Abnormal Lab/Rx Stated complaint: ABNORMAL LABS POST SURG ABD PAIN Time Seen by Provider: 05/18/23 18:14 History of Present Illness HPI narrative: 72 y/o F patient; PMH alcoholic liver cirrhosis, COPD, HTN, ERCP complicated by pancreatitis (05/03/2023); presents from home via recommendation from her GI physician with report of abnormal labs. The patient states she was admitted for pancreatitis following the ERCP. Since discharge to home she has had nausea without vomiting, diarrhea, and epigastric as well as left lower quadrant abdominal pain. She has also noted that her abdomen appears more bloated in appearance. Today she went to her GI physician who ordered laboratory studies. She was then called from home with the results and recommended to proceed to the ED for low potassium, magnesium, and sodium. She otherwise denies: fever or chills, SOB, chest pain, cough/congestion. GI: Dr. Quinteros Related Data Home Medications Medication Instructions Recorded Confirmed albuterol sulfate 90 mcg/actuation 1 puff inhalation Q6H PRN wheezing 09/23/22 05/04/23 aerosol inhaler inulin 2 gram chewable tablet 21 g PO DAILY 05/04/23 05/04/23 (Fiber Gummies) Previous Rx's Medication Instructions Recorded amlodipine 10 mg tablet 10 mg PO DAILY #90 tabs 10/19/22 fluticasone furoate 100 1 inh inhalation DAILY copd #3 ea 10/19/22 mcg-vilanterol 25 mcg/dose inhalation powder (Breo Ellipta) losartan 25 mg tablet 25 mg PO DAILY #90 tabs 10/19/22 metoprolol tartrate 25 mg tablet 25 mg PO BID #180 tabs 10/19/22 furosemide 20 mg tablet 20 mg PO DAILY #30 tabs 05/11/23 food supplemt, lactose-reduced 1 ea PO BID 30 days #17,760 mL 05/18/23 (Ensure Clear oral liquid) Allergies Allergy/AdvReac Type Severity Reaction Status Date / Time No Known Allergies Allergy Verified 05/18/23 13:18 [No Known Allergies*] Review of Systems 2 Review of Systems: Yes all other systems are reviewed and are negative PMFSH Past Medical History Attestation statement: The following information was validated with the patient. Source: old records reviewed Medical History Raspy voice Mammogram declined Hyperlipidemia Liver cirrhosis, alcoholic Hyponatremia Peripheral vascular disease Nodule on liver Colonoscopy refused COPD (chronic obstructive pulmonary disease) Annual physical exam Surgical History History of esophagogastroduodenoscopy (EGD) Hx of tooth extraction History of tonsillectomy Family History Family History Father Heart problem Substance use disorder Mother Hypertension Diabetes Substance use disorder Sister Substance use disorder Paternal Grandmother Colostomy in place Social History Social History Household Members: Children Housing: Homeless Are you a primary anesthesiologist and critical care to a significant other at home: No Do you presently have visiting nurse or other home services: No Alcohol intake: former Patient Tobacco Use Status: Former Tobacco user Quit Date: 2016 Tobacco use type: Cigarette Smoked in Last 30 Days: No e-Cigarette/Vaping Use: Currently Using Use of substances other than those prescribed or required for medical reasons: Yes Substance Use Type: Marijuana Substance Use Frequency: Chronic Longstanding Advance Directives: Yes Advance Directives on File: No Advance Directives Date on File: 05/04/23 service: No Current occupational status: employed Cognitive needs: No Hearing needs: No Vision needs: No Physical Exam ED Vital Signs: Vital Signs - 24 hr 05/18/23 18:25 Temperature 98.0 F Pulse Rate 84 Respiratory Rate 14 Blood Pressure 136/65 Pulse Oximetry 93 Oxygen Delivery Method Room Air BMI result Body Mass Index 19.9 Patient is afebrile and hemodynamically stable Const General: cooperative and comfortable Orientation/consciousness: oriented to person, oriented to place and oriented to time HENMT Head: Yes normal to inspection and Yes atraumatic Chest Chest palpation & inspection: normal inspection of the chest and normal palpation of entire chest wall Resp Effort & Inspection: normal respiratory effort, able to speak in complete sentences, no cough, not labored and no respiratory distress Auscultation: clear to auscultation bilaterally Cardio Rate: regular rate Rhythm: regular rhythm Peripheral pulses: Peripheral pulses 2+ throughout GI Other: Abdomen is distended, soft, tender in epigastric and LLQ. Palpation (GI): no guarding and not rigid Neuro General: oriented to person, oriented to place, oriented to time, Normal light touch and pain sensation, no focal motor deficits and CN's II-XI intact bilaterally Course Course Course Narrative: Patient is afebrile and hemodynamically stable. Reviewed records from GI office and laboratory studies from today. Ordered repeat labs. Ordered stool studies including c. diff which is pending. Will plan to replete sodium, potassium, magnesium. Will repeat CT Abdomen/Pelvis due to patient's significant distention and mild to moderate discomfort to epigastric and LLQ. Reevaluation(s) Reevaluation #1: CT Abdomen/Pelvis with evidence of nodular cirrhotic liver, pancreatic pseudocyst with likely free ascites. Repeat labs with: leukocytosis 34k. hypokalemia 1.8. hypomagnesemia 0.9. hyponatremia 124. Electrolytes repleted. Plan: Admit to hospitalist for multiple severe range electrolyte derangements and pancreatic pseudocyst. Medications Administered Generic Name Dose Route Start Last Admin Trade Name Freq PRN Reason Stop Dose Admin Potassium Chloride 10 meq in 100 mls @ 100 mls/hr 05/18/23 18:30 05/18/23 20:15 Potassium Chloride/H20 IV 05/18/23 23:29 100 mls/hr Q1H TEMITOPE Administration Discontinued Medications Generic Name Dose Route Start Last Admin Trade Name Freq PRN Reason Stop Dose Admin Magnesium Sulfate 2 gm in 50 mls @ 25 mls/hr 05/18/23 18:24 05/18/23 20:15 Magnesium Sulfate/H2o IV 05/18/23 20:23 25 mls/hr ONCE ONE Administration Iohexol 100 ml 05/18/23 19:52 05/18/23 19:52 Iohexol 350 Mg/Ml 100 Ml Infus..Btl IV 05/18/23 19:53 85 ml ONCE ONE Administration Medical Decision Making Lab Data 05/18/23 18:50 05/18/23 19:15 Labs: Lab Results 05/18/23 05/18/23 Range/Units 18:50 19:15 WBC 34.2 H* (4.8-10.8) X10*3/uL RBC 3.38 L D (4.20-5.50) X10*6/uL Hgb 10.1 L D (12.0-16.0) g/dl Hct 28.4 L D (37.0-47.0) % MCV 84.0 (80.0-98.0) fL MCH 29.9 (27.0-33.0) pg MCHC 35.6 H (31.0-35.0) g/dl RDW 12.6 (11.0-16.0) % Plt Count 476 H D (160-400) X10*3/uL MPV 9.1 L (9.4-12.3) fL Immature Gran % (Auto) Cancelled Neut % (Auto) Cancelled Lymph % (Auto) Cancelled [place] % (Auto) Cancelled Eos % (Auto) Cancelled Baso % (Auto) Cancelled Lymph # (Auto) Cancelled [place] # (Auto) Cancelled Eos # (Auto) Cancelled Baso # (Auto) Cancelled Abs Immat Gran (auto) Cancelled Absolute Neuts (auto) Cancelled Absolute Nucleated RBC 0.000 (0.0-0.012) X10*3/uL Nucleated RBC % (auto) 0.0 (0.0-0.2) /100WBC Neutrophils % (Manual) 90 H (45-73) % Band Neutrophils % 6 H (3-5) % Lymphocytes % (Manual) 2 L (20-40) % Monocytes % (Manual) 1 L (2-11) % Eosinophils % (Manual) 1 (0-4) % Abs Neuts (Manual) 32.8 H (2.0-8.3) X10*3/uL Lymphocytes # (Manual) 0.7 L (1.2-4.9) X10*3/uL Monocytes # (Manual) 0.3 (0.1-1.2) X10*3/uL Eosinophils # (Manual) 0.3 (0.0-0.4) X10*3/uL Platelet Estimate INCREASED (NORMAL) Plt Morphology Comment NORMAL RBC Morphology NORMAL Smear Tech's Comments MANUAL DIFF Sodium 124 L (135-145) mmol/L Potassium 1.8 L* (3.3-5.1) mmol/L Chloride 74 L (96-108) mmol/L Carbon Dioxide 36 H (22-29) mmol/L Anion Gap 16 (12-20) BUN 7 L (9-16) mg/dL Creatinine 0.83 (0.5-1.4) mg/dL Estim Creat Clear Calc 50.1 Estimated GFR > 60 Random Glucose 114 (60-115) mg/dL Osmolality 250 L (281-305) mosm/kg Calcium 6.7 L D (8.4-10.2) mg/dL Phosphorus 1.8 L (2.7-4.5) mg/dL Magnesium 0.9 L* (1.6-2.6) mg/dL Total Bilirubin 0.9 (0.0-1.0) mg/dL AST 26 (5-31) U/L ALT 12 (0-31) U/L Alkaline Phosphatase 110 (39-117) U/L Total Protein 5.5 L (6.5-8.0) g/dL Albumin 2.8 L (3.5-5.0) g/dL Discharge Plan Discharge Clinical Impression: Pancreatic pseudocyst, Acute hyponatremia, Hypomagnesemia, Hypokalemia Patient Disposition: Admitted As Inpatient Prescriptions: No Action albuterol sulfate 90 mcg/actuation HFA aerosol inhaler 1 puff inhalation Q6H PRN (Reason: wheezing) Fiber Gummies 2 gram Tablet,Chewable 21 g PO DAILY Rx Instructions: Patient takes 3 of the 7 mg fiber gummies per day furosemide 20 mg Tablet 20 mg PO DAILY Qty: 30 0RF Protocol: Hold for SBP< HOLD for SBP < : 90 losartan 25 mg tablet 25 mg PO DAILY Qty: 90 3RF amlodipine 10 mg tablet 10 mg PO DAILY Qty: 90 3RF fluticasone furoate-vilanterol [Breo Ellipta] 100-25 mcg/dose blister with device 1 inh inhalation DAILY Qty: 3 3RF metoprolol tartrate 25 mg tablet 25 mg PO BID Qty: 180 3RF Ensure Clear Liquid 1 ea PO BID 30 Days Qty: 04492 0RF
[2023-05-18 18:58] LABS: Hematocrit 28.4 % (37.0-47.0); Hemoglobin 10.1 g/dl (12.0-16.0); Mean Corpuscular HGB Conc 35.6 g/dl (31.0-35.0); Mean Corpuscular Hemoglobin 29.9 pg (27.0-33.0); Mean Platelet Volume 9.1 fL (9.4-12.3); Platelet Count 476 X10*3/uL (160-400); Red Blood Count 3.38 X10*6/uL (4.20-5.50); Red Cell Distribution Width 12.6 % (11.0-16.0)
[2023-05-18 19:09] LABS: White Blood Count 34.2 X10*3/uL (4.8-10.8)
[2023-05-18 19:11] LABS: Phosphorus 1.8 mg/dL (2.7-4.5)
[2023-05-18 19:20] LABS: Osmolality, Serum 250 mosm/kg (281-305)
[2023-05-18 19:43] LABS: SLIDE REVIEW MANUAL DIFF
[2023-05-18 19:47] LABS: Band Neutrophils Percent 6 % (3-5); Eosinophils Absolute Manual 0.3 X10*3/uL (0.0-0.4); Eosinophils Percent Manual 1 % (0-4); Lymphocytes Absolute Manual 0.7 X10*3/uL (1.2-4.9); Lymphocytes Percent Manual 2 % (20-40); Monocytes Absolute Manual 0.3 X10*3/uL (0.1-1.2); Monocytes Percent Manual 1 % (2-11); Neutrophils Absolute Manual 32.8 X10*3/uL (2.0-8.3); Neutrophils Percent Manual 90 % (45-73); RBC Morphology NORMAL
[2023-05-18 19:48] LABS: Platelet Estimate INCREASED (NORMAL); Platelet Morphology Comment NORMAL
[2023-05-18] MEDS: iohexoL 350 MG/ML 100 ML INFUS..BTL IV (19:52)
[2023-05-18] MEDS: Potassium Chloride/H20 10 MEQ/100 ML PIGGYBACK 100 MEQ IV ×4 (20:15→23:56)
[2023-05-18] MEDS: Magnesium Sulfate/H2O 2 GM/50 ML PIGGYBACK IV ×2 (20:15→23:56)
[2023-05-18 20:23] LABS: Alanine Aminotransferase 12 U/L (0-31); Albumin Level 2.8 g/dL (3.5-5.0); Alkaline Phosphatase 110 U/L (39-117); Anion Gap 16 (12-20); Aspartate Amino Transferase 26 U/L (5-31); Bilirubin Total 0.9 mg/dL (0.0-1.0); Blood Urea Nitrogen 7 mg/dL (9-16); Calcium 6.7 mg/dL (8.4-10.2); Carbon Dioxide 36 mmol/L (22-29); Chloride 74 mmol/L (96-108); Creatinine Clr Calc Pharmacy 50.1; Estimated Glomerular Filt Rate > 60; Glucose Random 114 mg/dL (60-115); Magnesium 0.9 mg/dL (1.6-2.6); Potassium 1.8 mmol/L (3.3-5.1); Sodium 124 mmol/L (135-145); Total Protein 5.5 g/dL (6.5-8.0)
[2023-05-18 20:55] LABS: Lipase 49 U/L (8-78)
[2023-05-18 21:03] VITALS: BP 104/45; PULSE 85; RESP 20; TEMP 36.8; O2SAT 93
[2023-05-18 21:49] LABS: CDiff Gene PCR POSITIVE (Negative)
--- NOTE | 2023-05-18 21:58 | PM.IMHP ---
History of Present Illness Date of Service: 05/18/23 Chief Complaint: Diarrhea A 72-year-old female with a history of alcohol use disorder complicated by cirrhosis, tobacco use disorder with COPD, and now O2 dependent since last hospitalization,?HTN.?In February, the patient had an abnormal abdominal MRI of the abdomen, and on 05/03/23, she underwent ERCP; unfortunately, the next day, she was admitted for post-ERCP pancreatitis and remained in the hospital for nearly a week and was discharged on 05/11/23. During the hospitalization, she developed anasarca, fluid overload, and exacerbation. She was noted to be hypoxic, likely stemming from COPD?with years of smoking and was discharged with home O2. She was recovering well until several days ago when she started having diarrhea and abdominal cramps. She was seen in the GI clinic today for follow-up, and routine labs were done; she was noted to have low potassium, and she was subsequently sent to the ED, where further workup has established a diagnosis of C dif. Additionally, she has low magnesium, low sodium,?and a high WBC of 34k, which is c/w C dif.??She is being treated with IVF, K, mag replacement, and Dificid is started for c dif Review of Systems Review of Systems: Gen: no fever Resp: no sob, no cough CV: no chest, no BELLA, no leg edema GI: No n/v, no abd pain, +diarrhea Neuro: No confusion PMFSH Medical History Raspy voice Mammogram declined Hyperlipidemia Liver cirrhosis, alcoholic Hyponatremia Peripheral vascular disease Nodule on liver Colonoscopy refused COPD (chronic obstructive pulmonary disease) Annual physical exam Family History Father Heart problem Substance use disorder Mother Hypertension Diabetes Substance use disorder Sister Substance use disorder Paternal Grandmother Colostomy in place Surgical History History of esophagogastroduodenoscopy (EGD) Hx of tooth extraction History of tonsillectomy Social History Household Members: Family Housing: House Are you a primary critical care nurse practitioner to a significant other at home: Yes Do you presently have visiting nurse or other home services: No Alcohol intake: former Patient Tobacco Use Status: Former Tobacco user Quit Date: 2016 Tobacco use type: Cigarette e-Cigarette/Vaping Use: Former Use Second Hand Smoke Exposure: No Substance Use Type: Marijuana Advance Directives Date on File: 05/04/23 service: No Current occupational status: employed Cognitive needs: No Hearing needs: No Vision needs: No Meds Allergies Allergy/AdvReac Type Severity Reaction Status Date / Time No Known Allergies Allergy Verified 05/18/23 13:18 [No Known Allergies*] Active Medications: Current Medications Fidaxomicin (Fidaxomicin 200 Mg Tablet) 200 mg PO Q12H TEMITOPE Potassium Chloride (Potassium Chloride/H20) 10 meq in 100 mls @ 100 mls/hr IV Q1H TEMITOPE Stop: 05/18/23 23:29 Last Admin: 05/18/23 21:34 Dose: 100 mls/hr Potassium Chloride (Potassium Chloride/H20) 10 meq in 100 mls @ 100 mls/hr IV Q1H TEMITOPE Stop: 05/18/23 23:59 Magnesium Sulfate (Magnesium Sulfate/H2o) 2 gm in 50 mls @ 25 mls/hr IV ONCE ONE Stop: 05/18/23 23:53 Home Medications Medication Instructions Recorded Confirmed Last Taken Type albuterol sulfate 90 mcg/actuation 1 puff inhalation Q6H PRN wheezing 09/23/22 05/18/23 05/02/23 History aerosol inhaler Physical Exam Vital Signs and Narrative: Vital Signs: Last Vital Signs Temp 98.3 F 05/18/23 21:03 Pulse 85 05/18/23 21:03 Resp 20 05/18/23 21:03 BP 104/45 L 05/18/23 21:03 Pulse Ox 93 05/18/23 21:03 O2 Del Method Room Air 05/18/23 21:03 BMI result Body Mass Index 19.9 Results Labs 05/24/23 06:53 05/24/23 06:53 Labs: Laboratory Results - last 24 hr 05/18/23 05/18/23 05/18/23 18:50 19:15 20:45 MCV 84.0 MCH 29.9 MCHC 35.6 H RDW 12.6 Plt Count 476 H D MPV 9.1 L Immature Gran % (Auto) Cancelled Neut % (Auto) Cancelled Lymph % (Auto) Cancelled [place] % (Auto) Cancelled Eos % (Auto) Cancelled Baso % (Auto) Cancelled Lymph # (Auto) Cancelled [place] # (Auto) Cancelled Eos # (Auto) Cancelled Baso # (Auto) Cancelled Abs Immat Gran (auto) Cancelled Absolute Neuts (auto) Cancelled Absolute Nucleated RBC 0.000 Nucleated RBC % (auto) 0.0 Neutrophils % (Manual) 90 H Band Neutrophils % 6 H Lymphocytes % (Manual) 2 L Monocytes % (Manual) 1 L Eosinophils % (Manual) 1 Abs Neuts (Manual) 32.8 H Lymphocytes # (Manual) 0.7 L Monocytes # (Manual) 0.3 Eosinophils # (Manual) 0.3 Platelet Estimate INCREASED Plt Morphology Comment NORMAL RBC Morphology NORMAL Smear Tech's Comments MANUAL DIFF Anion Gap 16 Estim Creat Clear Calc 50.1 Estimated GFR > 60 Random Glucose 114 Osmolality 250 L Calcium 6.7 L D Phosphorus 1.8 L Magnesium 0.9 L* Total Bilirubin 0.9 AST 26 ALT 12 Alkaline Phosphatase 110 Total Protein 5.5 L Albumin 2.8 L Lipase 49 C. difficile Tox B Gene POSITIVE A* Imaging Radiologist's Impressions: Impressions Abdomen/Pelvis CT 05/18/23 19:49 IMPRESSION: Nodular cirrhotic liver with coarsened calcifications more so in the atrophic right lobe of the liver. This is similar to the prior study. There is peripancreatic fluid seen extending inferiorly into the posterior retroperitoneum and presacral space. This also extends into the mesentery increased central mesenteric vessels. This fluid was less well demarcated on the prior study. Overall the appearance is more suggestive of pancreatic pseudocyst formation. Loculated ascites would be considered less likely especially with the retroperitoneal course of some of this fluid. There is likely free ascites seen as well. Assessment and Plan (1) Hypokalemia: Status: Acute (2) Hypomagnesemia: Status: Acute (3) Acute hyponatremia: Status: Acute (4) Pancreatic pseudocyst: Status: Acute (5) C. difficile diarrhea: Status: Acute Plan A 72-year-old female with a history of alcohol use disorder complicated by cirrhosis, tobacco use disorder with COPD and now O2 dependent since last hospitalization,?HTN recent hospitalization for Post ERCP pancreatitis, and now here with C dif diarrhea and hypokalemia, hypomagnesemia, hyponatremia.? C Diff diarrhea--Started Dificid 05/18, IVF to keep up with GI loss of fluid, ID consult if not improving Hypokalemia--d/t diarrhea. Replacing with IV and PO and correct Mag, repeat level Hypomagnesemia d/t gi and renal loss--IV replacement and repeat level Hyponatremia--hypovolemic hyponatremia and should improve with fluid. Renal consult O2 Dependent COPD, no acute exacerbation, continue O2 HTN--resume home meds. DVT prophylaxis: Lovenox Full code Admission for at least 2 midnights for management of Cdif diarrhea with severe hypokalemia, Hypomagnesemia--needing IV replacement and frequent monitoring Quality Stroke Does the patient have a stroke diagnosis?: No VTE Prior VTE?: No VTE Risk Level:: Medical - moderate - high VTE Device Contraindication: Treatment Not Indicated VTE Drug Contraindication: N/A - Med Ordered
[2023-05-18 21:59] LABS: Leukocytes Stool Qualitative NEGATIVE (NEGATIVE)
--- NOTE | 2023-05-18 22:01 | PHA.MEDREC ---
Pharmacy Consult ? Medication Reconciliation Pharmacy has completed the medication reconciliation. Patient confirmed medicaitons. Reports sometimes skipping night dose of metoprolol. Sasha Raymond ,PharmD
[2023-05-18 22:21] LABS: CDIFF Internal ctrl Dots and bkg OK (V); CDiff Toxin Negative (Negative)
[2023-05-18] MEDS: Potassium Chloride Packet 20 MEQ PACKET 40 MEQ PO (23:56)
[2023-05-18] MEDS: Enoxaparin Sodium 40 MG/0.4 ML SYRINGE SUBCUT (23:56)
[2023-05-19] VITALS (8 sets, daily range): BP systolic 101–126; BP diastolic 52–62; PULSE 71–93; RESP 16–21; TEMP 36.1–36.7; O2SAT 88–97; BMI 19.0
[2023-05-19 00:24] LABS: Anion Gap 15 (12-20); Carbon Dioxide 36 mmol/L (22-29); Chloride 74 mmol/L (96-108); Potassium 1.8 mmol/L (3.3-5.1); Sodium 123 mmol/L (135-145)
[2023-05-19] MEDS: Fidaxomicin 200 MG TABLET PO ×3 (00:46→20:54)
[2023-05-19] MEDS: Potassium Chloride/H20 10 MEQ/100 ML PIGGYBACK 100 MEQ IV (00:58)
--- NOTE | 2023-05-19 04:24 | PC.NURSE ---
Patient alert and oriented x4. Refuses bed alarm and all fall risk preventions. Educated on how to use call larson, call larson within reach and bed placed in lowest position.
[2023-05-19] MEDS: KCl 40 mEq in 0.9 % Sodium Chl 40 MEQ/1,000 ML IV.SOLN 125 MEQ IVCONT (04:49)
[2023-05-19 05:00] LABS: Hematocrit 29.3 % (37.0-47.0); Hemoglobin 10.3 g/dl (12.0-16.0); Mean Corpuscular HGB Conc 35.2 g/dl (31.0-35.0); Mean Corpuscular Hemoglobin 29.2 pg (27.0-33.0); Mean Platelet Volume 8.9 fL (9.4-12.3); Platelet Count 466 X10*3/uL (160-400); Red Blood Count 3.53 X10*6/uL (4.20-5.50); Red Cell Distribution Width 12.7 % (11.0-16.0)
[2023-05-19 05:28] LABS: Anion Gap 15 (12-20); Blood Urea Nitrogen 7 mg/dL (9-16); Calcium 6.9 mg/dL (8.4-10.2); Carbon Dioxide 35 mmol/L (22-29); Chloride 78 mmol/L (96-108); Creatinine Clr Calc Pharmacy 50.2; Estimated Glomerular Filt Rate > 60; Glucose Random 105 mg/dL (60-115); Potassium 2.2 mmol/L (3.3-5.1); Sodium 126 mmol/L (135-145)
[2023-05-19 05:41] LABS: White Blood Count 33.5 X10*3/uL (4.8-10.8)
[2023-05-19] MEDS: Losartan Potassium 25 MG TABLET PO (08:33)
[2023-05-19] MEDS: Metoprolol Tartrate 25 MG TABLET PO (08:33)
[2023-05-19] MEDS: Sodium,Potassium Phosphates POWD.PACK 1 PACKET PO ×4 (08:33→20:54)
[2023-05-19] MEDS: Potassium Chloride Packet 20 MEQ PACKET 40 MEQ PO ×3 (08:33→17:00)
[2023-05-19] MEDS: amLODIPine Besylate 10 MG TABLET PO (08:34)
[2023-05-19] MEDS: Acetaminophen 325 MG TABLET 650 MG PO ×2 (08:34→17:01)
[2023-05-19] MEDS: ondansetron HCL 4 MG/2 ML VIAL IVPUSH ×2 (08:34→17:00)
[2023-05-19] MEDS: 0.9 % Sodium Chloride Flush 3 ML SYRINGE IVFLUSH ×2 (08:36→17:01)
--- NOTE | 2023-05-19 09:51 | PM.EVENT ---
Event Note Date of Service: 05/19/23 Event Note: Chart reviewed 72 yr old woman with Alcohol abuse, Cirrhosis with C.diff diarrhea and multiple electrolyte abnormalities Suggest Hold Lasix/Losartan/Amlodipine Agree with current K replacement with KPhos plus IVF with K; Replace Mg parenterally IV hydration with isotonic saline Restrict hypotonic fluids; No indication for3% NaCl Monitor lytes in 8 hours Will check PTH(ordered) Full consult to follow Avaiable by Piotr Time Spent With Patient Time: Total time managing care of this patient today ____ minutes.
[2023-05-19 11:59] LABS: Potassium Urine Random 21.8 mmol/L; Sodium Urine Random < 20.0 mmol/L
[2023-05-19 12:02] LABS: Adenovirus F 40/41 Not Detected (Not Detect.); Astrovirus Not Detected (Not Detect.); Campylobacter Not Detected (Not Detect.); Cryptosporidium Not Detected (Not Detect.); Cyclospora cayetanensis Not Detected (Not Detect.); E. coli EAEC Not Detected (Not Detect.); E. coli EPEC Not Detected (Not Detect.); E. coli ETEC Not Detected (Not Detect.); E. coli STEC Not Detected (Not Detect.); Entamoeba histolytica Not Detected (Not Detect.); Giardia lamblia Not Detected (Not Detect.); Norovirus GI/GII Not Detected (Not Detect.); Plesiomonas shigelloides Not Detected (Not Detect.); Rotavirus A Not Detected (Not Detect.); Salmonella Not Detected (Not Detect.); Sapovirus Not Detected (Not Detect.); Shigella sp./EIEC Not Detected (Not Detect.); Vibrio Not Detected (Not Detect.); Vibrio Cholerae Not Detected (Not Detect.); Yersinia enterocolitica Not Detected (Not Detect.)
[2023-05-19 12:13] LABS: Anion Gap 13 (12-20); Blood Urea Nitrogen 7 mg/dL (9-16); Calcium 7.1 mg/dL (8.4-10.2); Carbon Dioxide 38 mmol/L (22-29); Chloride 82 mmol/L (96-108); Creatinine Clr Calc Pharmacy 46.6; Estimated Glomerular Filt Rate > 60; Glucose Random 105 mg/dL (60-115); Potassium 2.8 mmol/L (3.3-5.1); Sodium 130 mmol/L (135-145)
--- NOTE | 2023-05-19 12:38 | HO.PM.IMPN ---
Subjective Subjective Date of Service: 05/19/23 Interval History: cdiff colitis ,multiple electrolytic abnormalities Review of Systems less abd pain ,diarrahe also. Physical Exam Vital Signs: Vital Signs: Last Vital Signs Temp 97.1 F 05/19/23 11:44 Pulse 74 05/19/23 11:44 Resp 18 05/19/23 11:44 BP 104/58 L 05/19/23 11:44 Pulse Ox 91 L 05/19/23 11:44 O2 Del Method Room Air 05/19/23 11:44 O2 Flow Rate 2 05/19/23 07:26 BMI result Body Mass Index 19.0 Appearance: Alert.? Oriented X3.?. cvs: rrr, [id number] , no murmur res: clear to auscultation ,no rhonchii or wheezing abd: no rebound or guarding ,mild abd soarness , bs present. ext pulses present , no cyanosis. neuro: axo3 , nonfocal. Objective Data Active Medications Acetaminophen (Acetaminophen 325 Mg Tablet) 650 mg PO Q6H PRN PRN Reason: Pain, Mild (Pain Scale 1-3) Last Admin: 05/19/23 08:34 Dose: 650 mg Documented By: KENYA Albuterol Sulfate (Albuterol Sulfate 90 Mcg 8 Gm Inhaler) 1 puff INHALE Q6H PRN PRN Reason: wheezing Enoxaparin Sodium (Enoxaparin Sodium 40 Mg/0.4 Ml Syringe) 40 mg SUBCUT Q24H [facility] Last Admin: 05/18/23 23:56 Dose: 40 mg Documented By: BLU Fidaxomicin (Fidaxomicin 200 Mg Tablet) 200 mg PO Q12H [facility] Last Admin: 05/19/23 08:34 Dose: 200 mg Documented By: KENYA Fluticasone/Vilanterol (Fluticasone/Vilanterol 100/25 Blst.W.Dev) 1 puff INHALE RDAILY [facility] Last Admin: 05/19/23 08:01 Dose: Not Given Documented By: DANNIELLE Non-Admin Reason: Med Not Available Melatonin (Melatonin 3 Mg Tablet) 6 mg PO BEDTIME PRN PRN Reason: Insomnia Metoprolol Tartrate (Metoprolol Tartrate 25 Mg Tablet) 25 mg PO BID [facility]; Protocol Last Admin: 05/19/23 08:33 Dose: 25 mg Documented By: KENYA Morphine Sulfate (Morphine Sulfate 4 Mg/Ml Cartridge) 2 mg IVPUSH Q6H PRN; Protocol PRN Reason: Pain, Severe (Pain Scale 7-10) Ondansetron HCl (Ondansetron Hcl 4 Mg/2 Ml Vial) 4 mg IVPUSH Q8H PRN PRN Reason: Nausea and Vomiting Last Admin: 05/19/23 08:34 Dose: 4 mg Documented By: KENYA Potassium Chloride (Potassium Chloride Packet 20 Meq Packet) 40 meq PO Q6H [facility] Stop: 05/19/23 18:46 Last Admin: 05/19/23 12:16 Dose: 40 meq Documented By: KENYA Potassium Phos/Sodium Phos (Sodium,Potassium Phosphates Powd.Pack) 1 packet PO QID [facility] Last Admin: 05/19/23 12:16 Dose: 1 packet Documented By: KENYA Sodium Chloride (0.9 % Sodium Chloride Flush 3 Ml Syringe) 3 ml IVFLUSH QSHI Last Admin: 05/19/23 08:36 Dose: 3 ml Documented By: KENYA Labs 05/19/23 04:54 05/19/23 11:40 Labs: Laboratory Results - last 24 hr 05/18/23 05/18/23 05/18/23 18:50 19:15 20:45 MCV 84.0 MCH 29.9 MCHC 35.6 H RDW 12.6 Plt Count 476 H D MPV 9.1 L Immature Gran % (Auto) Cancelled Neut % (Auto) Cancelled Lymph % (Auto) Cancelled Crosby % (Auto) Cancelled Eos % (Auto) Cancelled Baso % (Auto) Cancelled Lymph # (Auto) Cancelled Crosby # (Auto) Cancelled Eos # (Auto) Cancelled Baso # (Auto) Cancelled Abs Immat Gran (auto) Cancelled Absolute Neuts (auto) Cancelled Absolute Nucleated RBC 0.000 Nucleated RBC % (auto) 0.0 Neutrophils % (Manual) 90 H Band Neutrophils % 6 H Lymphocytes % (Manual) 2 L Monocytes % (Manual) 1 L Eosinophils % (Manual) 1 Abs Neuts (Manual) 32.8 H Lymphocytes # (Manual) 0.7 L Monocytes # (Manual) 0.3 Eosinophils # (Manual) 0.3 Platelet Estimate INCREASED Plt Morphology Comment NORMAL RBC Morphology NORMAL Smear Tech's Comments MANUAL DIFF Anion Gap 16 Estim Creat Clear Calc 50.1 Estimated GFR > 60 Random Glucose 114 Osmolality 250 L Lactic Acid Calcium 6.7 L D Phosphorus 1.8 L Magnesium 0.9 L* Total Bilirubin 0.9 AST 26 ALT 12 Alkaline Phosphatase 110 Total Protein 5.5 L Albumin 2.8 L Lipase 49 Ur Random Sodium Ur Random Potassium Stool Leukocytes, Qual NEGATIVE C. difficile Tox B Gene POSITIVE A* C. difficile Toxin A&B Negative C. difficile Interpret SEE NOTE 05/18/23 05/19/23 05/19/23 23:30 04:54 11:30 MCV 83.0 MCH 29.2 MCHC 35.2 H RDW 12.7 Plt Count 466 H MPV 8.9 L Immature Gran % (Auto) Neut % (Auto) Lymph % (Auto) Crosby % (Auto) Eos % (Auto) Baso % (Auto) Lymph # (Auto) Crosby # (Auto) Eos # (Auto) Baso # (Auto) Abs Immat Gran (auto) Absolute Neuts (auto) Absolute Nucleated RBC 0.000 Nucleated RBC % (auto) 0.0 Neutrophils % (Manual) Band Neutrophils % Lymphocytes % (Manual) Monocytes % (Manual) Eosinophils % (Manual) Abs Neuts (Manual) Lymphocytes # (Manual) Monocytes # (Manual) Eosinophils # (Manual) Platelet Estimate Plt Morphology Comment RBC Morphology Smear Tech's Comments Anion Gap 15 15 Estim Creat Clear Calc 50.2 Estimated GFR > 60 Random Glucose 105 Osmolality Lactic Acid 1.0 Calcium 6.9 L Phosphorus Magnesium 2.0 Total Bilirubin AST ALT Alkaline Phosphatase Total Protein Albumin Lipase Ur Random Sodium < 20.0 Ur Random Potassium 21.8 Stool Leukocytes, Qual C. difficile Tox B Gene C. difficile Toxin A&B C. difficile Interpret 05/19/23 11:40 MCV MCH MCHC RDW Plt Count MPV Immature Gran % (Auto) Neut % (Auto) Lymph % (Auto) Crosby % (Auto) Eos % (Auto) Baso % (Auto) Lymph # (Auto) Crosby # (Auto) Eos # (Auto) Baso # (Auto) Abs Immat Gran (auto) Absolute Neuts (auto) Absolute Nucleated RBC Nucleated RBC % (auto) Neutrophils % (Manual) Band Neutrophils % Lymphocytes % (Manual) Monocytes % (Manual) Eosinophils % (Manual) Abs Neuts (Manual) Lymphocytes # (Manual) Monocytes # (Manual) Eosinophils # (Manual) Platelet Estimate Plt Morphology Comment RBC Morphology Smear Tech's Comments Anion Gap 13 Estim Creat Clear Calc 46.6 Estimated GFR > 60 Random Glucose 105 Osmolality Lactic Acid Calcium 7.1 L Phosphorus Magnesium Total Bilirubin AST ALT Alkaline Phosphatase Total Protein Albumin Lipase Ur Random Sodium Ur Random Potassium Stool Leukocytes, Qual C. difficile Tox B Gene C. difficile Toxin A&B C. difficile Interpret Assessment and Plan (1) C. difficile diarrhea: Status: Acute (2) Hypokalemia: Status: Acute (3) Hypomagnesemia: Status: Acute (4) Acute hyponatremia: Status: Acute Plan 72-year-old female with a history of alcohol use disorder complicated by cirrhosis, tobacco use disorder with COPD and now O2 dependent since last hospitalization,?HTN recent hospitalization for Post ERCP pancreatitis, and now here with C dif diarrhea and hypokalemia, hypomagnesemia, hyponatremia.? C Diff diarrhea- still has diarrhae wbc 34.2-33.5 says diarrhae somewhat improving Started Dificid 05/18 Hypokalemia/Hypomagnesemia/Hyponatremia/hypophos-d/t diarrhea. Replacing with IV and PO electrolytes Hyponatremia, hypokalemia is improving Serum osmolality low, urine osmolality and electrolytes added. Hypomagnesemia repleted and resolved. Also added Neutra-Phos for hypophosphatemia. hypovolemic hyponatremia improving with fluid. Nephro evaluation noted-monitor BMP q.8 hours -sodium slowly improving. O2 Dependent COPD, no acute exacerbation, continue O2 HTN--hold home meds in light of diarrahae , borderline blood pressure and multiple electrolyte abnormalities. DVT prophylaxis: Lovenox Full code Ongoing hospitalization need: management of Cdif diarrhea with severe hypokalemia, Hypomagnesemia--needing IV replacement and frequent monitoring Quality Stroke Does the patient have a stroke diagnosis?: No VTE Prior VTE?: No VTE Risk Level:: Medical - moderate - high VTE Device Contraindication: Treatment Not Indicated VTE Drug Contraindication: N/A - Med Ordered
[2023-05-19] MEDS: Albumin Human 25 % 100 ML IV (13:24)
[2023-05-19 14:51] LABS: Osmolality Urine 335 mosm/kg (373-1093)
--- NOTE | 2023-05-19 16:19 | MHC.CM.PN ---
IMM 05/19/23, EMR REVIEWED, PT RECENTLY ADMITTED W/PANCREATITIS AND NOW ADMITTED W/MULTIPLE ELECTROLYTE IMBALANCES AND CDIF, CM MET W/PT AND FAMILY AT BEDSIDE WHO REPORT GOT WORSE AND WORSE AFTER DC LAST MONTH, PT REPORTS SHE FEELS IF SHE HAD A VNA THE VISITING NURSE WOULD HAVE BEEN ABLE TO SEE THE SYMPTOMS AND PREVENTED HER FROM NEEDING TO RETURN. PT WOULD LIKE SN AND HOME PT AND REFERRAL SENT TO [facility] PER DISCUSSION. PT REPORTS SHE LIVES W/ADULT SON AND HER 3 GCHILDREN, SHE IS INDEP W/CARE AND MOBILITY AT BASELINE HOWEVER HAS A WALKER AND COMMODE AT HOME D/T CURRENT ISSUES, PT PRVATELY PAYS [place] TO STAY W/PT DURING THE DAY IN CASE SHE NEEDS HELP W/ANYTHING AND PT HAS BEEN SPEAKING TO ALI AT [facility] HOWEVER POSTPONED HER HOME ASSESSMENT DUE TO NOT BEING SURE IF SHE WANTS PEOPLE SHE DOESN'T KNOW IN HER HOME. HCP COMPLETED LAST ADMIT AND PCP IS HALINA PEARCE. [facility]NA D/C HOME W/NEW [facility]/FAMILY FOR TRANSPORT WHEN PT MEDICALLY CEARED.
[2023-05-19 17:53] LABS: Chloride Urine Random < 20.0 mmol/L
[2023-05-19 20:32] LABS: Anion Gap 11 (12-20); Blood Urea Nitrogen 7 mg/dL (9-16); Calcium 7.7 mg/dL (8.4-10.2); Carbon Dioxide 35 mmol/L (22-29); Chloride 88 mmol/L (96-108); Creatinine Clr Calc Pharmacy 44.5; Estimated Glomerular Filt Rate > 60; Glucose Random 142 mg/dL (60-115); Potassium 3.4 mmol/L (3.3-5.1); Sodium 131 mmol/L (135-145)
[2023-05-19] MEDS: Enoxaparin Sodium 40 MG/0.4 ML SYRINGE SUBCUT (22:11)
[2023-05-20] VITALS (7 sets, daily range): BP systolic 105–132; BP diastolic 50–89; PULSE 78–102; RESP 17–20; TEMP 36.6–37.1; O2SAT 91–97
[2023-05-20] MEDS: 0.9 % Sodium Chloride Flush 3 ML SYRINGE IVFLUSH ×2 (01:09→21:11)
[2023-05-20 06:57] LABS: Hematocrit 26.7 % (37.0-47.0); Hemoglobin 9.2 g/dl (12.0-16.0); Mean Corpuscular HGB Conc 34.5 g/dl (31.0-35.0); Mean Corpuscular Hemoglobin 29.6 pg (27.0-33.0); Mean Corpuscular Volume 85.9 fL (80.0-98.0); Mean Platelet Volume 9.2 fL (9.4-12.3); Platelet Count 483 X10*3/uL (160-400); Red Blood Count 3.11 X10*6/uL (4.20-5.50); Red Cell Distribution Width 13.2 % (11.0-16.0); White Blood Count 24.5 X10*3/uL (4.8-10.8)
[2023-05-20 07:24] LABS: Anion Gap 13 (12-20); Blood Urea Nitrogen 6 mg/dL (9-16); Calcium 7.8 mg/dL (8.4-10.2); Carbon Dioxide 32 mmol/L (22-29); Chloride 89 mmol/L (96-108); Creatinine Clr Calc Pharmacy 51.4; Estimated Glomerular Filt Rate > 60; Glucose Random 119 mg/dL (60-115); Sodium 131 mmol/L (135-145)
[2023-05-20] MEDS: Fluticasone/Vilanterol 100/25 BLST.W.DEV 1 PUFF INHALE (08:12)
[2023-05-20] MEDS: Sodium,Potassium Phosphates POWD.PACK 1 PACKET PO ×4 (09:06→21:04)
[2023-05-20] MEDS: Fidaxomicin 200 MG TABLET PO ×2 (09:06→21:04)
[2023-05-20] MEDS: Potassium Chloride Packet 20 MEQ PACKET 40 MEQ PO (10:16)
--- NOTE | 2023-05-20 10:22 | P.CNGI_ITS ---
History of Present Illness Data of Consult Service Date: 05/20/23 Requesting physician: Giuliana Campbell Primary Care Provider: Unknown Physician HPI Reason for consult: C diff colitis 72 YF with history of ESLD related to ETOH abuse, COPD - related to smoking (O2 dependent since last hospitalization),?HTN.? 05/03/23 pt had an ERCP (abnormal MRCP) which was complicated by post-ERCP pancreatitis and she was hospitalized for a week and was discharged on 05/11/23. Pt reports abd discomfort and watery diarrhea (worse after eating) atleast 3-4 times a day that started a day after the ERCP. Diarrhea is worse at night and patient has to get up several times to have a bowel movement. During her last hospitalization, she developed anasarca, fluid overload, and exacerbation. She was noted to be hypoxic, likely from COPD?with years of smoking and was discharged with home O2. She was seen in the GI clinic on 05/18/23 and routine labs were done; Labs showed hypokalemia, hypo magnesemia and pt was advised to go to the ED, where stool studies showed positve C dif. toxin B gene Additionally, she has low magnesium, low sodium,?and a high WBC of 34k, which is c/w C dif.?? Pt was admitted and treated with IVF, K, mag replacement, and started on Dificid for c Pt reports slow improvement in her diarrhea and is continuing to have nocturnal diarrhea. She also notes weakness and shortness of breath on walking short distances. PAST GI HISTORY BY REVIEW OF MEDICAL RECORDS: Pt has been followed by Dr Quinteros since 02/2023: Pt reports finding out about cirrhosis around 5 years ago and quit drinking the day she found out. Was previously drinking 3-4 drinks of hard liquor x 10-15 years. Since then has been following up with PCP only. Over time noted improvement in her energy levels as well as easy bruising. More recently had an admission to the hospital earlier this year for human metapneumovirus and since then has been declining. Reports increased fatigue, nausea, low appetite and low energy. 05/18/[address] SCAN SHOWED: Nodular cirrhotic liver with coarsened calcifications more so in the atrophic right lobe of the liver. This is similar to the prior study. There is peripancreatic fluid seen extending inferiorly into the posterior retroperitoneum and presacral space. This also extends into the mesentery increased central mesenteric vessels. This fluid was less well demarcated on the prior study. Overall the appearance is more suggestive of pancreatic pseudocyst formation. Loculated ascites would be considered less likely especially with the retroperitoneal course of some of this fluid. There is likely free ascites seen as wel Review of Systems 2 Review of Systems: Gen: no fever Resp: sob, no cough CV: no chest, no BELLA, no leg edema GI: No n/v, abd pain, +diarrhea Neuro: No confusion PMFSH Past Medical History Medical History Atrial fibrillation with rapid ventricular response Peripancreatic fluid collection Post-ERCP acute pancreatitis Pancreatic pseudocyst Liver cirrhosis Raspy voice Mammogram declined Hyperlipidemia Liver cirrhosis, alcoholic Hyponatremia Peripheral vascular disease Nodule on liver Colonoscopy refused COPD (chronic obstructive pulmonary disease) Annual physical exam Family History Family History Father Heart problem Substance use disorder Mother Hypertension Diabetes Substance use disorder Sister Substance use disorder Paternal Grandmother Colostomy in place Surgical History Surgical History History of esophagogastroduodenoscopy (EGD) Hx of tooth extraction History of tonsillectomy Social History Social History Household Members: Family Housing: House Are you a primary personal care attendant to a significant other at home: Yes Do you presently have visiting nurse or other home services: No Alcohol intake: former Comment: PT DECLINES BEDALARM. COMMODE BY BEDSIDE. Patient Tobacco Use Status: Former Tobacco user Tobacco use type: Cigarette e-Cigarette/Vaping Use: Former Use Second Hand Smoke Exposure: No Substance Use Type: Marijuana Advance Directives Date on File: 05/04/23 service: No Current occupational status: retired Cognitive needs: No Hearing needs: No Vision needs: No Meds Allergies Allergy/AdvReac Type Severity Reaction Status Date / Time No Known Allergies Allergy Verified 08/30/23 11:00 [No Known Allergies*] Active Medications: Current Medications Acetaminophen (Acetaminophen 325 Mg Tablet) 650 mg PO Q6H PRN PRN Reason: Pain, Mild (Pain Scale 1-3) Last Admin: 05/19/23 17:01 Dose: 650 mg Albuterol Sulfate (Albuterol Sulfate 90 Mcg 8 Gm Inhaler) 1 puff INHALE Q6H PRN PRN Reason: wheezing Enoxaparin Sodium (Enoxaparin Sodium 40 Mg/0.4 Ml Syringe) 40 mg SUBCUT Q24H [facility] Last Admin: 05/19/23 22:11 Dose: 40 mg Fidaxomicin (Fidaxomicin 200 Mg Tablet) 200 mg PO Q12H [facility] Last Admin: 05/20/23 09:06 Dose: 200 mg Fluticasone/Vilanterol (Fluticasone/Vilanterol 100/25 Blst.W.Dev) 1 puff INHALE RDAILY [facility] Last Admin: 05/20/23 08:12 Dose: 1 puff Melatonin (Melatonin 3 Mg Tablet) 6 mg PO BEDTIME PRN PRN Reason: Insomnia Metoprolol Tartrate (Metoprolol Tartrate 25 Mg Tablet) 25 mg PO BID [facility]; Protocol Last Admin: 05/19/23 08:33 Dose: 25 mg Morphine Sulfate (Morphine Sulfate 4 Mg/Ml Cartridge) 2 mg IVPUSH Q6H PRN; Protocol PRN Reason: Pain, Severe (Pain Scale 7-10) Ondansetron HCl (Ondansetron Hcl 4 Mg/2 Ml Vial) 4 mg IVPUSH Q8H PRN PRN Reason: Nausea and Vomiting Last Admin: 05/19/23 17:00 Dose: 4 mg Potassium Phos/Sodium Phos (Sodium,Potassium Phosphates Powd.Pack) 1 packet PO QID [facility] Last Admin: 05/20/23 09:06 Dose: 1 packet Sodium Chloride (0.9 % Sodium Chloride Flush 3 Ml Syringe) 3 ml IVFLUSH QSHIFT [facility] Last Admin: 05/20/23 07:08 Dose: Not Given Home Medications ?Medication ?Instructions ?Recorded ?Confirmed ?Last Taken ?Type albuterol sulfate 90 mcg/actuation 1 puff inhalation Q6H PRN wheezing 09/23/22 08/30/23 05/02/23 History aerosol inhaler Physical Exam 2 Vital Signs: Vital Signs: Last Vital Signs Temp 97.8 F 05/20/23 07:18 Pulse 91 05/20/23 08:16 Resp 18 05/20/23 08:16 BP 126/55 L 05/20/23 07:18 Pulse Ox 95 05/20/23 07:18 O2 Del Method Nasal Cannula 05/20/23 07:18 O2 Flow Rate 2 05/20/23 07:18 BMI result Body Mass Index 19.0 Appearance: Alert.? Oriented X3.?. cvs: rrr, [id number] , no murmur res: clear to auscultation ,no rhonchii or wheezing abd: no rebound or guarding , abd soarness improving, bs present. ext pulses present , no cyanosis. neuro: axo3 , nonfocal. Const: General: no acute distress, anxious and ill appearing Nutritional Appearance: underweight Orientation/consciousness: patient oriented x3 HEENT: Head: Yes normal to inspection Ears: hearing grossly normal bilaterally Eyes: Sclerae: sclerae normal Pupils: Equal, round and reactive pupils present Neck: Neck: Yes normal visual inspection Chest: Chest palpation & inspection: normal inspection of the chest Resp: Effort & Inspection: normal respiratory effort Auscultation: clear to auscultation bilaterally Cardio: Palpation: normal PMI Rate: regular rate Rhythm: regular rhythm Heart sounds: S1 normal heart sound present, S2 normal heart sound present and no murmurs GI: Palpation (GI): Soft to palpation, Tenderness to palpation present (GI) (Mild diffuse tenderness) and No hepatosplenomegaly present Auscultation: n ormal bowel sounds Rectal Exam - Female: deferred Skin: General skin exam: no rashes or lesions noted Neuro: General: patient oriented x3, gait normal and moves all extremities Cranial nerves: Yes Equal, round and reactive pupils present Psych: Appearance: grossly normal Mental Status: mental status grossly normal Results Labs 06/01/23 09:42 06/01/23 12:45 Labs: Short CBC 05/20/23 Range/Units 06:40 WBC 24.5 H (4.8-10.8) X10*3/uL Hgb 9.2 L (12.0-16.0) g/dl Hct 26.7 L (37.0-47.0) % Plt Count 483 H (160-400) X10*3/uL BMP 05/19/23 05/19/23 05/20/23 11:40 20:08 06:40 Sodium 130 L 131 L 131 L Potassium 2.8 L D 3.4 D 3.0 L Chloride 82 L 88 L 89 L Carbon Dioxide 38 H 35 H 32 H BUN 7 L 7 L 6 L Creatinine 0.85 0.89 0.77 Calcium 7.1 L 7.7 L D 7.8 L Assessment and Plan (1) C. difficile diarrhea: Status: Acute (2) Pancreatic pseudocyst: Status: Inactive (3) Diarrhea: Status: Acute (4) Liver cirrhosis, alcoholic: Status: Inactive Plan 72 YF with history of ESLD (MELD score is 6) related to ETOH abuse, COPD - related to smoking (O2 dependent since last hospitalization),?HTN.? 05/03/23 pt had an ERCP (abnormal MRCP) which was complicated by post-ERCP pancreatitis and she was hospitalized for a week and was discharged on 05/11/23. Pt reports watery diarrhea (worse after eating) that started a day after the ERCP. Diarrhea is worse at night and patient has to get up several times to have a bowel movement. Labs showed hypokalemia, hypo-magnesemia and stool studies showed positve C dif. toxin B gene (cw C Diff colonization) - given leucocytosis and persistent diarrhrea its reasonable to treat. Lactic acid was normal. Pt reports slow improvement in her diarrhea and is continuing to have nocturnal diarrhea. She also notes weakness and shortness of breath on walking short distances. Abd CT scan showed liver cirrhosis, peripancreatic fluid extending into posterior E to peritoneum and presacral space and the mesentery - suggestive of early pseudocyst formation. There was some free ascites as well RECOMMENDATIONS 1. Agree with continuing IV pain medications, antiemetics and Fidaxomicin for C Diff 2. Avoid imodium since it may increase risk of toxic megacolon. Procedures Date of Service Date of Service: 01/19/24
--- NOTE | 2023-05-20 10:54 | PC.NURSE ---
Addendum entered by Yair Banks RN 05/20/23 13:45: pt and pt's daughter were concerned of pt's nutritional status stating the pt's BMI has gone down significantly. was informed. Pt stated she barely eats at home and her fluid intake has improved during this hospital stay. MD stated she will speak to the pt today Original Note: contact precautions maintained, pt stated she hasnt been kassidy to sleep d/t loose stools all night. informed and assessed pt at bedside
--- NOTE | 2023-05-20 12:52 | P.PNIM_ITS ---
Subjective Subjective Date of Service: 05/20/23 Interval History: cdiff colitis ,multiple electrolytic abnormalities Review of Systems abd pain improving ,diarrhae improving but still have significant diarrahe tolerating diet no fever or chills Physical Exam 2 Vital Signs: Vital Signs: Last Vital Signs Temp 97.8 F 05/20/23 11:02 Pulse 88 05/20/23 11:02 Resp 20 05/20/23 11:02 BP 105/50 L 05/20/23 11:02 Pulse Ox 92 05/20/23 11:02 O2 Del Method Nasal Cannula 05/20/23 11:02 O2 Flow Rate 2 05/20/23 11:02 BMI result Body Mass Index 19.0 Appearance: Alert.? Oriented X3.?. cvs: rrr, [id number] , no murmur res: clear to auscultation ,no rhonchii or wheezing abd: no rebound or guarding , abd soarness improving, bs present. ext pulses present , no cyanosis. neuro: axo3 , nonfocal. Objective Data Active Medications Acetaminophen (Acetaminophen 325 Mg Tablet) 650 mg PO Q6H PRN PRN Reason: Pain, Mild (Pain Scale 1-3) Last Admin: 05/19/23 17:01 Dose: 650 mg Documented By: DAVID Albuterol Sulfate (Albuterol Sulfate 90 Mcg 8 Gm Inhaler) 1 puff INHALE Q6H PRN PRN Reason: wheezing Enoxaparin Sodium (Enoxaparin Sodium 40 Mg/0.4 Ml Syringe) 40 mg SUBCUT Q24H [facility] Last Admin: 05/19/23 22:11 Dose: 40 mg Documented By: MED Fidaxomicin (Fidaxomicin 200 Mg Tablet) 200 mg PO Q12H [facility] Last Admin: 05/20/23 09:06 Dose: 200 mg Documented By: SOFFAEli Fluticasone/Vilanterol (Fluticasone/Vilanterol 100/25 Blst.W.Dev) 1 puff INHALE RDAILY [facility] Last Admin: 05/20/23 08:12 Dose: 1 puff Documented By: IVAN Melatonin (Melatonin 3 Mg Tablet) 6 mg PO BEDTIME PRN PRN Reason: Insomnia Metoprolol Tartrate (Metoprolol Tartrate 25 Mg Tablet) 25 mg PO BID [facility]; Protocol Last Admin: 05/19/23 08:33 Dose: 25 mg Documented By: KENYA Morphine Sulfate (Morphine Sulfate 4 Mg/Ml Cartridge) 2 mg IVPUSH Q6H PRN; Protocol PRN Reason: Pain, Severe (Pain Scale 7-10) Ondansetron HCl (Ondansetron Hcl 4 Mg/2 Ml Vial) 4 mg IVPUSH Q8H PRN PRN Reason: Nausea and Vomiting Last Admin: 05/19/23 17:00 Dose: 4 mg Documented By: GT-JESSE Potassium Phos/Sodium Phos (Sodium,Potassium Phosphates Powd.Pack) 1 packet PO QID [facility] Last Admin: 05/20/23 09:06 Dose: 1 packet Documented By: JAIME Sodium Chloride (0.9 % Sodium Chloride Flush 3 Ml Syringe) 3 ml IVFLUSH QSHIFT [facility] Last Admin: 05/20/23 11:09 Dose: Not Given Documented By: JAIME Non-Admin Reason: See Note Labs 05/20/23 06:40 05/20/23 06:40 Labs: Laboratory Results - last 24 hr 05/19/23 05/19/23 05/20/23 11:30 20:08 06:40 MCV 85.9 MCH 29.6 MCHC 34.5 RDW 13.2 Plt Count 483 H MPV 9.2 L Absolute Nucleated RBC 0.000 Nucleated RBC % (auto) 0.0 Anion Gap 11 L 13 Estim Creat Clear Calc 44.5 51.4 Estimated GFR > 60 > 60 Random Glucose 142 H 119 H Calcium 7.7 L D 7.8 L Urine Osmolality 335 L Ur Random Chloride < 20.0 Assessment and Plan (1) C. difficile diarrhea: Status: Acute (2) Hypokalemia: Status: Acute Plan 72-year-old female with a history of alcohol use disorder complicated by cirrhosis, tobacco use disorder with COPD and now O2 dependent since last hospitalization,?HTN recent hospitalization for Post ERCP pancreatitis, and now here with C dif diarrhea and hypokalemia, hypomagnesemia, hyponatremia.? C Diff diarrhea- still has diarrhae wbc 34.2-33.5 says diarrhae somewhat improving but still has significant diarrhae Started Dificid 05/18 added Gi eval. Hypokalemia/Hypomagnesemia/Hyponatremia/hypophos-d/t diarrhea. Replacing with IV and PO electrolytes Hyponatremia, hypokalemia is improving Serum osmolality low, urine osmolality and electrolytes added. Hypomagnesemia repleted and resolved. Also added Neutra-Phos for hypophosphatemia. hypovolemic hyponatremia improving with fluid. Nephro evaluation noted-monitor BMP q.8 hours -sodium slowly improving. O2 Dependent COPD, no acute exacerbation, continue O2 HTN--hold home meds in light of diarrahae , borderline blood pressure and multiple electrolyte abnormalities. DVT prophylaxis: Lovenox Full code Ongoing hospitalization need: management of Cdif diarrhea with severe hypokalemia, Hypomagnesemia--needing IV replacement and frequent monitoring Quality Stroke Does the patient have a stroke diagnosis?: No VTE Prior VTE?: No VTE Risk Level:: Medical - moderate - high VTE Device Contraindication: Treatment Not Indicated VTE Drug Contraindication: N/A - Med Ordered
[2023-05-20] MEDS: Enoxaparin Sodium 40 MG/0.4 ML SYRINGE SUBCUT (22:46)
[2023-05-21] VITALS (7 sets, daily range): BP systolic 104–146; BP diastolic 58–67; PULSE 71–104; RESP 18–20; TEMP 36.6–37.2; O2SAT 91–97; BMI 19.0
[2023-05-21] MEDS: Fluticasone/Vilanterol 100/25 BLST.W.DEV 1 PUFF INHALE (07:30)
[2023-05-21] MEDS: 0.9 % Sodium Chloride Flush 3 ML SYRINGE IVFLUSH ×3 (07:42→21:01)
[2023-05-21] MEDS: Sodium,Potassium Phosphates POWD.PACK 1 PACKET PO ×4 (08:39→21:00)
[2023-05-21] MEDS: Fidaxomicin 200 MG TABLET PO ×2 (08:39→21:00)
[2023-05-21 09:20] LABS: Anion Gap 14 (12-20); Blood Urea Nitrogen 7 mg/dL (9-16); Calcium 8.2 mg/dL (8.4-10.2); Carbon Dioxide 32 mmol/L (22-29); Chloride 90 mmol/L (96-108); Creatinine Clr Calc Pharmacy 51.4; Estimated Glomerular Filt Rate > 60; Glucose Random 115 mg/dL (60-115); Sodium 133 mmol/L (135-145)
[2023-05-21 09:28] LABS: Magnesium 1.2 mg/dL (1.6-2.6)
[2023-05-21] MEDS: Magnesium Sulfate/H2O 2 GM/50 ML PIGGYBACK IV (09:41)
[2023-05-21] MEDS: Potassium Chloride Packet 20 MEQ PACKET 40 MEQ PO (09:42)
[2023-05-21] MEDS: Psyllium seed 3.7 GM PACKET PO (09:42)
--- NOTE | 2023-05-21 12:50 | P.CDIM_ITS ---
PROVIDER RESPONSE TEXT: To clarify, the appropriate diagnosis supported by the clinical indicators: Chronic respiratory failure, O2 dependent QUERY TEXT: PHYSICIAN'S DOCUMENTATION REQUEST Date of Query: 05/21/2023 08:00 AM EST Patient Name: Katerine Russell Admit Date: 05/19/2023 Dear Giuliana Campbell, A review of the medical record indicates additional documentation may be needed. Please review below and update the documentation accordingly. Respiratory failure was documented on (insert date). Clinical Indicators: O2 dependent COPD continue O2 If possible, please further clarify the type and acuity of respiratory failure: Chronic respiratory failure, O2 dependent Other please specify Other (explain)Clinically unable to determine (explain)Thank you, Jessica Vela, CCS, CDIS Use of terms such as suspected, likely, concern for, or probable (associated with a specific diagnosi s that is being evaluated, monitored, or treated as if it exists) are acceptable and can be coded in the inpatient se tting, when documented at the time of discharge. Please use your independent medical judgment in providing your response. THIS QUERY IS PART OF THE PERMANENT MEDICAL RECORD
--- NOTE | 2023-05-21 13:24 | MHC.CLN ---
RE: CONSULT PT WITH POOR PO INTAKE X 7 DAYS R/T N/V/D D/T C-DIFF INFXN PT IS 92% IBW RANGE INDICATES ADEQUATE WT FOR HT WITH BMI 19 WNL PT'S PREVIOUS WT HX 45.4KG (10/19/22) PT WITH 10% SIGNIFICANT WT GAIN X 6 MONTHS ALTHOUGH, PT WITH ACUTE POOR PO INTAKE WT IS UP OVERALL. PO INTAKE 75% X 3 MEALS DIET RX: REGULAR LACTOSE FREE-APPROPRIATE RECOMMEND CHANGE IN SUPPLEMENT FROM ENSURE TID TO ENSURE CLEAR TID TO PROVIDE 720KCALS, 24G PROTEIN MONITOR PO INTAKE, LYTES AND SUPPLEMENT ACCEPTANCE PT MAY BE AT RISK FOR RE-FEEDING -MONITOR NA, K+, MG, AND PHOS CLOSELY SEE ALSO FULL CLINICAL NUTRITION ASSESSMENT
--- NOTE | 2023-05-21 14:49 | P.PNIM_ITS ---
Subjective Subjective Date of Service: 05/21/23 Interval History: cdiff ,hypokelmia Review of Systems abd pain improving feels slightly bloated passing bm's -diarrhae slowly improving tolertaing diet Physical Exam 2 Vital Signs: Vital Signs: Last Vital Signs Temp 98.7 F 05/21/23 11:33 Pulse 104 H 05/21/23 11:33 Resp 20 05/21/23 11:33 BP 131/66 05/21/23 11:33 Pulse Ox 93 05/21/23 11:33 O2 Del Method Room Air 05/21/23 11:33 O2 Flow Rate 2 05/20/23 11:02 BMI result Body Mass Index 19.0 Appearance: Alert.? Oriented X3.?. cvs: rrr, [id number] , no murmur res: clear to auscultation ,no rhonchii or wheezing abd: no rebound or guarding , abd soarness improving, bs present. ext pulses present , no cyanosis. neuro: axo3 , nonfocal. Objective Data Active Medications Acetaminophen (Acetaminophen 325 Mg Tablet) 650 mg PO Q6H PRN PRN Reason: Pain, Mild (Pain Scale 1-3) Last Admin: 05/19/23 17:01 Dose: 650 mg Documented By: DAVID Albuterol Sulfate (Albuterol Sulfate 90 Mcg 8 Gm Inhaler) 1 puff INHALE Q6H PRN PRN Reason: wheezing Enoxaparin Sodium (Enoxaparin Sodium 40 Mg/0.4 Ml Syringe) 40 mg SUBCUT Q24H [facility] Last Admin: 05/20/23 22:46 Dose: 40 mg Documented By: ODRISM Fidaxomicin (Fidaxomicin 200 Mg Tablet) 200 mg PO Q12H [facility] Last Admin: 05/21/23 08:39 Dose: 200 mg Documented By: GRAZIC Fluticasone/Vilanterol (Fluticasone/Vilanterol 100/25 Blst.W.Dev) 1 puff INHALE RDAILY [facility] Last Admin: 05/21/23 07:30 Dose: 1 puff Documented By: AMEYA Melatonin (Melatonin 3 Mg Tablet) 6 mg PO BEDTIME PRN PRN Reason: Insomnia Metoprolol Tartrate (Metoprolol Tartrate 25 Mg Tablet) 25 mg PO BID [facility]; Protocol Last Admin: 05/19/23 08:33 Dose: 25 mg Documented By: KENYA Morphine Sulfate (Morphine Sulfate 4 Mg/Ml Cartridge) 2 mg IVPUSH Q6H PRN; Protocol PRN Reason: Pain, Severe (Pain Scale 7-10) Ondansetron HCl (Ondansetron Hcl 4 Mg/2 Ml Vial) 4 mg IVPUSH Q8H PRN PRN Reason: Nausea and Vomiting Last Admin: 05/19/23 17:00 Dose: 4 mg Documented By: GT-JESSE Potassium Phos/Sodium Phos (Sodium,Potassium Phosphates Powd.Pack) 1 packet PO QID [facility] Last Admin: 05/21/23 13:31 Dose: 1 packet Documented By: BENOIT Psyllium Hydrophilic Mucilloid (Psyllium Seed 3.7 Gm Packet) 3.7 gm PO DAILY [facility] Last Admin: 05/21/23 09:42 Dose: 3.7 gm Documented By: BENOIT Sodium Chloride (0.9 % Sodium Chloride Flush 3 Ml Syringe) 3 ml IVFLUSH QSHIFT [facility] Last Admin: 05/21/23 07:42 Dose: 3 ml Documented By: BENOIT Labs 05/20/23 06:40 05/21/23 08:40 Labs: Laboratory Results - last 24 hr 05/21/23 08:40 Anion Gap 14 Estim Creat Clear Calc 51.4 Estimated GFR > 60 Random Glucose 115 Calcium 8.2 L Magnesium 1.2 L* Assessment and Plan (1) C. difficile diarrhea: Status: Acute (2) Hypokalemia: Status: Acute Plan 72-year-old female with a history of alcohol use disorder complicated by cirrhosis, tobacco use disorder with COPD and now O2 dependent since last hospitalization,?HTN recent hospitalization for Post ERCP pancreatitis, and now here with C dif diarrhea and hypokalemia, hypomagnesemia, hyponatremia.? C Diff diarrhea- still has diarrhae wbc 34.2-33.5 says diarrhae somewhat improving but still has significant diarrhae Started Dificid 05/18 added Gi eval. Hypokalemia/Hypomagnesemia/Hyponatremia/hypophos-d/t diarrhea. Replacing with IV and PO electrolytes Hyponatremia, hypokalemia is improving Serum osmolality low, urine osmolality and electrolytes added. Hypomagnesemia repleted and resolved. Also added Neutra-Phos for hypophosphatemia. hypovolemic hyponatremia improving with fluid. Nephro evaluation noted-monitor BMP q.8 hours -sodium slowly improving. O2 Dependent COPD, no acute exacerbation, continue O2 HTN--hold home meds in light of diarrahae , borderline blood pressure and multiple electrolyte abnormalities. DVT prophylaxis: Lovenox Full code Ongoing hospitalization need: management of Cdif diarrhea with severe hypokalemia, Hypomagnesemia--needing IV replacement and frequent monitoring Quality Stroke Does the patient have a stroke diagnosis?: No VTE Prior VTE?: No VTE Risk Level:: Medical - moderate - high VTE Device Contraindication: Treatment Not Indicated VTE Drug Contraindication: N/A - Med Ordered
--- NOTE | 2023-05-21 14:59 | MHC.CM.PN ---
EMR reviewed and per MD rounds, pt is not medically cleared for D/C due to C.diff infection and continued diarrhea with hypokalemia and hypomagnesium. CM will continue to follow.
[2023-05-21] MEDS: Simethicone 80 MG TAB.CHEW PO (17:20)
--- NOTE | 2023-05-21 19:47 | PM.CNNEP ---
History of Present Illness Reason for Consult Consult date: 05/21/23 Reason for consult: Hyponatremia Chief Complaint Chief complaint: Hypokalemia, Hypomagnesemia, Hyponatremia, Cdiff History of Present Illness Narrative: 72-year-old female with a history of alcohol use disorder complicated by cirrhosis, tobacco use disorder with COPD, and now O2 dependent since last hospitalization.?In February, the patient had an abnormal abdominal MRI of the abdomen, and on 05/03/23, she underwent ERCP; unfortunately, the next day, she was admitted for post-ERCP pancreatitis and remained in the hospital for nearly a week and was discharged on 05/11/23. During the hospitalization, she developed anasarca, fluid overload, and exacerbation. She was noted to be hypoxic, likely stemming from COPD?with years of smoking and was discharged with home O2. She was recovering well until several days ago when she started having diarrhea and abdominal cramps. She was seen in the GI clinic for follow-up, and routine labs were done; she was noted to have low potassium, Na, and she was subsequently sent to the ED, where further workup has established a diagnosis of C diff. She was admitted for further management. Nephrology has been consulted to assist in her clinical care during her current hospital stay Review of Systems Review of Systems Yes all other systems are reviewed and are negative PMFSH Past Medical History Medical History Raspy voice Mammogram declined Hyperlipidemia Liver cirrhosis, alcoholic Hyponatremia Peripheral vascular disease Nodule on liver Colonoscopy refused COPD (chronic obstructive pulmonary disease) Annual physical exam Family History Family History Father Heart problem Substance use disorder Mother Hypertension Diabetes Substance use disorder Sister Substance use disorder Paternal Grandmother Colostomy in place Surgical History Surgical History History of esophagogastroduodenoscopy (EGD) Hx of tooth extraction History of tonsillectomy Social History Social History (Updated 05/19/23 @ 03:22 by Stormy Root RN) Household Members: Family Housing: House Are you a primary patient care specialist to a significant other at home: Yes Do you presently have visiting nurse or other home services: No Alcohol intake: former Patient Tobacco Use Status: Former Tobacco user Quit Date: 2016 Tobacco use type: Cigarette e-Cigarette/Vaping Use: Former Use Second Hand Smoke Exposure: No Substance Use Type: Marijuana Advance Directives Date on File: 05/04/23 service: No Current occupational status: employed Cognitive needs: No Hearing needs: No Vision needs: No Meds Allergies Allergy/AdvReac Type Severity Reaction Status Date / Time No Known Allergies Allergy Verified 05/18/23 13:18 [No Known Allergies*] Active Medications: Current Medications Acetaminophen (Acetaminophen 325 Mg Tablet) 650 mg PO Q6H PRN PRN Reason: Pain, Mild (Pain Scale 1-3) Last Admin: 05/19/23 17:01 Dose: 650 mg Albuterol Sulfate (Albuterol Sulfate 90 Mcg 8 Gm Inhaler) 1 puff INHALE Q6H PRN PRN Reason: wheezing Enoxaparin Sodium (Enoxaparin Sodium 40 Mg/0.4 Ml Syringe) 40 mg SUBCUT Q24H [facility] Last Admin: 05/20/23 22:46 Dose: 40 mg Fidaxomicin (Fidaxomicin 200 Mg Tablet) 200 mg PO Q12H [facility] Last Admin: 05/21/23 08:39 Dose: 200 mg Fluticasone/Vilanterol (Fluticasone/Vilanterol 100/25 Blst.W.Dev) 1 puff INHALE RDAILY [facility] Last Admin: 05/21/23 07:30 Dose: 1 puff Melatonin (Melatonin 3 Mg Tablet) 6 mg PO BEDTIME PRN PRN Reason: Insomnia Metoprolol Tartrate (Metoprolol Tartrate 25 Mg Tablet) 25 mg PO BID [facility]; Protocol Last Admin: 05/19/23 08:33 Dose: 25 mg Morphine Sulfate (Morphine Sulfate 4 Mg/Ml Cartridge) 2 mg IVPUSH Q6H PRN; Protocol PRN Reason: Pain, Severe (Pain Scale 7-10) Ondansetron HCl (Ondansetron Hcl 4 Mg/2 Ml Vial) 4 mg IVPUSH Q8H PRN PRN Reason: Nausea and Vomiting Last Admin: 05/19/23 17:00 Dose: 4 mg Potassium Phos/Sodium Phos (Sodium,Potassium Phosphates Powd.Pack) 1 packet PO QID [facility] Last Admin: 05/21/23 17:20 Dose: 1 packet Psyllium Hydrophilic Mucilloid (Psyllium Seed 3.7 Gm Packet) 3.7 gm PO DAILY [facility] Last Admin: 05/21/23 09:42 Dose: 3.7 gm Sodium Chloride (0.9 % Sodium Chloride Flush 3 Ml Syringe) 3 ml IVFLUSH QSHIFT [facility] Last Admin: 05/21/23 15:38 Dose: 3 ml Home Medications Medication Instructions Recorded Confirmed Last Taken Type albuterol sulfate 90 mcg/actuation 1 puff inhalation Q6H PRN wheezing 09/23/22 05/18/23 05/02/23 History aerosol inhaler Physical Exam Vital Signs: Last Vital Signs Temp 98.9 F 05/21/23 19: Pulse 97 05/21/23 19:23 Resp 20 05/21/23 19:23 BP 104/58 L 05/21/23 19:23 Pulse Ox 91 L 05/21/23 19:23 O2 Del Method Room Air 05/21/23 19: O2 Flow Rate 2 05/20/23 11:02 BMI result Body Mass Index 19.0 Const General: no acute distress Orientation/consciousness: patient oriented x3 Eyes EOM: EOMs intact bilaterally Neck Neck: Yes supple Resp Auscultation: diminished lung sounds Cardio Jugular venous distension: no JVD Rate: regular rate GI Palpation (GI): Soft to palpation Skin General skin exam: no rashes or lesions noted Neuro General: patient oriented x3 and moves all extremities Results Lab Results 05/20/23 06:40 05/21/23 08:40 Lab results: Chemistry 05/18/23 05/19/23 05/19/23 23:30 04:54 11:40 Sodium 123 L 126 L 130 L Potassium 1.8 L* 2.2 L* D 2.8 L D Carbon Dioxide 36 H 35 H 38 H BUN 7 L 7 L Creatinine 0.79 0.85 Calcium 6.9 L 7.1 L 05/19/23 05/20/23 05/21/23 20:08 06:40 08:40 Sodium 131 L 131 L 133 L Potassium 3.4 D 3.0 L 3.0 L Carbon Dioxide 35 H 32 H 32 H BUN 7 L 6 L 7 L Creatinine 0.89 0.77 0.77 Calcium 7.7 L D 7.8 L 8.2 L Hematology 05/19/23 05/20/23 04:54 06:40 WBC 33.5 H* 24.5 H Hgb 10.3 L 9.2 L Plt Count 466 H 483 H Urine Studies 05/19/23 11:30 Urine Osmolality 335 L Assessment and Plan (1) Acute hyponatremia: Status: Acute Plan Had Urine sodium < 20 Had multiple electrolyte abnormalities including low sodium Na got corrected with IV fluids; Need to keep K over 4 Lytes replaced; Renal function stable C/W current supportive care for now Procedures Date of Service Date of Service: 05/21/23
[2023-05-21] MEDS: Enoxaparin Sodium 40 MG/0.4 ML SYRINGE SUBCUT (22:18)
[2023-05-22] VITALS (7 sets, daily range): BP systolic 112–138; BP diastolic 61–69; PULSE 87–141; RESP 16–20; TEMP 36.9–37.2; O2SAT 90–124
--- NOTE | 2023-05-22 05:50 | ECG_ITS ---
Test Reason : Tachycardia Blood Pressure : / mmHG Vent. Rate : 156 BPM Atrial Rate : 000 BPM P-R Int : 000 ms QRS Dur : 070 ms QT Int : 276 ms P-R-T Axes : 000 080 257 degrees QTc Int : 444 ms Atrial fibrillation with rapid ventricular response Marked ST abnormality, possible inferior subendocardial injury Abnormal ECG When compared with ECG of 18-MAY-2023 19:58, Atrial fibrillation has replaced Sinus rhythm Vent. rate has increased BY [address] more depressed Anterolateral leads Inferior leads Referred By: Shanel Tran Electronically Signed By:DAVID BLANDON MD
[2023-05-22 05:59] LABS: Anion Gap 12 (12-20); Blood Urea Nitrogen 6 mg/dL (9-16); Calcium 7.8 mg/dL (8.4-10.2); Carbon Dioxide 31 mmol/L (22-29); Chloride 92 mmol/L (96-108); Creatinine Clr Calc Pharmacy 53.6; Estimated Glomerular Filt Rate > 60; Glucose Random 143 mg/dL (60-115); Potassium 2.8 mmol/L (3.3-5.1); Sodium 132 mmol/L (135-145)
--- NOTE | 2023-05-22 06:03 | PM.EVENT ---
Event Note Date of Service: 05/22/23 Event Note: Was notified by the nurse that patient is tachycardic. EKG with AFib with RVR. Will administer IV diltiazem. Obtaining TSH, cardiology, echo Time Spent With Patient Time: Total time managing care of this patient today ____ minutes.
--- NOTE | 2023-05-22 06:07 | PC.NURSE ---
Pt HR 140's-170's pt asymtomatic stat EKG done At [facility] with RVR.BP-138/69. notified ordered cardizem 15mg iv now,echo, cardiology consult.
[2023-05-22] MEDS: dilTIAZem HCL 50 MG/10 ML VIAL 15 MG IVPUSH (06:12)
[2023-05-22] MEDS: dilTIAZem HCL 50 MG/10 ML VIAL 20 MG IVPUSH (06:26)
--- NOTE | 2023-05-22 06:34 | PC.NURSE ---
Pt's HR still elevated 130's-150's notified ordered second dose iv cardizem 20mg.
[2023-05-22 06:45] LABS: Thyroid Stimulating Hormone 1.31 uIU/mL (0.32-4.0)
[2023-05-22 07:48] LABS: Magnesium 1.5 mg/dL (1.6-2.6)
[2023-05-22] MEDS: LORazepam 0.5 MG TABLET PO (07:54)
[2023-05-22] MEDS: Potassium Chloride Packet 20 MEQ PACKET 40 MEQ PO ×3 (07:54→13:33)
[2023-05-22] MEDS: Fidaxomicin 200 MG TABLET PO (07:54)
[2023-05-22] MEDS: Metoprolol Tartrate 5 MG/5 ML VIAL IVPUSH ×2 (07:54→09:23)
[2023-05-22] MEDS: Sodium,Potassium Phosphates POWD.PACK 1 PACKET PO ×4 (07:54→20:56)
[2023-05-22] MEDS: 0.9 % Sodium Chloride Flush 3 ML SYRINGE IVFLUSH ×2 (07:55→16:42)
[2023-05-22] MEDS: Fluticasone/Vilanterol 100/25 BLST.W.DEV 1 PUFF INHALE (08:19)
[2023-05-22] MEDS: Metoprolol Tartrate 25 MG TABLET PO ×3 (09:23→20:57)
[2023-05-22] MEDS: Potassium Chloride/H20 10 MEQ/100 ML PIGGYBACK 100 MEQ IV ×4 (09:24→16:41)
[2023-05-22] MEDS: Magnesium Sulfate/D5W 1 GM/100 ML PIGGYBACK IV ×2 (10:19→18:04)
--- NOTE | 2023-05-22 10:23 | PM.CNCAR ---
History of Present Illness History of Present Illness Date of Service: 05/22/23 Requesting physician: Giuliana Campbell Consult reason: atrial fibrillation Chief complaint: Hypokalemia, Hypomagnesemia, Hyponatremia, Cdiff Narrative: I was consulted to see 2 and in cardiology consultation today for new onset atrial fibrillation flutter. Patient admitted few days ago with profound diarrhea with marked electrolyte abnormality with hyponatremia, significant hypokalemia as well as hypomagnesemia. She continues to have significant diarrhea and continues to have significant hypokalemia hypomagnesemia despite oral replacement. Patient overnight developed rapid heart rate with findings consistent with atrial fibrillation rapid ventricular response. Patient has no symptoms related to it. Denies any shortness of breath or rapid heart rate. When I received some IV Cardizem and this morning received some metoprolol with partial response. Patient continues to have no symptoms. No orthopnea, PND. Her main complaint currently is significant diarrhea. She denies any abdominal pain. Denies any chest pain. Denies any lightheadedness. Patient does not recall ever having prior history of atrial fibrillation or flutter. Review of Systems Constitutional: Constitutional: Reports lethargy and Reports weakness Eyes: Eyes: Reports no additional eye complaints Cardiovascular: Cardiovascular: Reports no additional cardiovascular complaints Respiratory: Respiratory: Reports no additional respiratory complaints Gastrointestinal: Gastrointestinal: Reports diarrhea and Reports loose stools Genitourinary: Genitourinary: Reports no additional female genitourinary complaints Integumentary/Breasts: Skin/Breast: Reports system reviewed and no additional complaints, except as docu Neurologic: Reports weakness Psychiatric: Psychiatric: Reports no additional psychiatric complaints Endocrine: Endocrine: Reports no additional endocrine complaints Hematologic/Lymphatic: Hematologic/Lymphatic: Reports no additional hematologic/lymphatic complaints Allergic/Immunologic: Allergic/Immunologic: Reports no additional allergic/immunologic complaints [facility] Past Medical History Medical History Raspy voice Mammogram declined Hyperlipidemia Liver cirrhosis, alcoholic Hyponatremia Peripheral vascular disease Nodule on liver Colonoscopy refused COPD (chronic obstructive pulmonary disease) Annual physical exam Family History Family History Father Heart problem Substance use disorder Mother Hypertension Diabetes Substance use disorder Sister Substance use disorder Paternal Grandmother Colostomy in place Surgical History Surgical History History of esophagogastroduodenoscopy (EGD) Hx of tooth extraction History of tonsillectomy Social History Social History Household Members: Family Housing: House Are you a primary career and guidance counselor to a significant other at home: Yes Do you presently have visiting nurse or other home services: No Alcohol intake: former Patient Tobacco Use Status: Former Tobacco user Quit Date: 2016 Tobacco use type: Cigarette e-Cigarette/Vaping Use: Former Use Second Hand Smoke Exposure: No Substance Use Type: Marijuana Advance Directives Date on File: 05/04/23 service: No Current occupational status: employed Cognitive needs: No Hearing needs: No Vision needs: No Meds Allergies Allergy/AdvReac Type Severity Reaction Status Date / Time No Known Allergies Allergy Verified 05/18/23 13:18 [No Known Allergies*] Active Medications: Current Medications Acetaminophen (Acetaminophen 325 Mg Tablet) 650 mg PO Q6H PRN PRN Reason: Pain, Mild (Pain Scale 1-3) Last Admin: 05/19/23 17:01 Dose: 650 mg Albuterol Sulfate (Albuterol Sulfate 90 Mcg 8 Gm Inhaler) 1 puff INHALE Q6H PRN PRN Reason: wheezing Enoxaparin Sodium (Enoxaparin Sodium 60 Mg/0.6 Ml Syringe) 50 mg SUBCUT Q12H [place] Fidaxomicin (Fidaxomicin 200 Mg Tablet) 200 mg PO Q12H [facility] Last Admin: 05/22/23 07:54 Dose: 200 mg Fluticasone/Vilanterol (Fluticasone/Vilanterol 100/25 Blst.W.Dev) 1 puff INHALE RDAILY [facility] Last Admin: 05/22/23 08:19 Dose: 1 puff Potassium Chloride (Potassium Chloride/H20) 10 meq in 100 mls @ 100 mls/hr IV Q1H [place] Stop: 05/22/23 11:14 Melatonin (Melatonin 3 Mg Tablet) 6 mg PO BEDTIME PRN PRN Reason: Insomnia Metoprolol Tartrate (Metoprolol Tartrate 25 Mg Tablet) 25 mg PO BID [facility]; Protocol Last Admin: 05/22/23 09:23 Dose: 25 mg Morphine Sulfate (Morphine Sulfate 4 Mg/Ml Cartridge) 2 mg IVPUSH Q6H PRN; Protocol PRN Reason: Pain, Severe (Pain Scale 7-10) Ondansetron HCl (Ondansetron Hcl 4 Mg/2 Ml Vial) 4 mg IVPUSH Q8H PRN PRN Reason: Nausea and Vomiting Last Admin: 05/19/23 17:00 Dose: 4 mg Potassium Chloride (Potassium Chloride Packet 20 Meq Packet) 40 meq PO Q4H [facility] Stop: 05/22/23 13:01 Potassium Phos/Sodium Phos (Sodium,Potassium Phosphates Powd.Pack) 1 packet PO QID [facility] Last Admin: 05/22/23 07:54 Dose: 1 packet Psyllium Hydrophilic Mucilloid (Psyllium Seed 3.7 Gm Packet) 3.7 gm PO DAILY [facility] Last Admin: 05/22/23 07:42 Dose: Not Given Sodium Chloride (0.9 % Sodium Chloride Flush 3 Ml Syringe) 3 ml IVFLUSH QSHIFT [facility] Last Admin: 05/22/23 07:55 Dose: 3 ml Home Medications Medication Instructions Recorded Confirmed Last Taken Type albuterol sulfate 90 mcg/actuation 1 puff inhalation Q6H PRN wheezing 09/23/22 05/18/23 05/02/23 History aerosol inhaler Physical Exam Vital Signs: Vital Signs: Last Vital Signs Temp 98.8 F 05/22/23 07:59 Pulse 87 05/22/23 08:21 Resp 20 05/22/23 08:21 BP 115/61 05/22/23 07:59 Pulse Ox 93 05/22/23 07:59 O2 Del Method Nasal Cannula 05/22/23 07:59 O2 Flow Rate 1 05/22/23 07:59 BMI result Body Mass Index 19.0 Const: General: cooperative, comfortable, alert, awake and ill appearing Nutritional Appearance: cachectic Orientation/consciousness: patient oriented x3 HEENT: Head: Yes normocephalic and Yes atraumatic Neck: Neck: Yes trachea midline, Yes supple and Yes no JVD Resp: Effort & Inspection: normal respiratory effort Auscultation: clear to auscultation bilaterally and diminished lung sounds Cardio: Jugular venous distension: no JVD Rate: tachycardic Rhythm: abnormal rhythm irregularly irregular Heart sounds: S1 normal heart sound present, S2 normal heart sound present, no click, no gallops, no murmurs and no rubs GI: Auscultation: normal bowel sounds Skin: General skin exam: no rashes or lesions noted and ecchymosis Neuro: General: patient oriented x3 and no focal motor deficits Extrem: General: Yes no clubbing, cyanosis or edema Objective Labs and Meds 05/20/23 06:40 05/22/23 05:27 Lab results: Laboratory Results - last 24 hr 05/22/23 05:27 Hold Purple Top SEE NOTE Sodium 132 L Potassium 2.8 L Chloride 92 L Carbon Dioxide 31 H Anion Gap 12 BUN 6 L Creatinine 0.74 Estim Creat Clear Calc 53.6 Estimated GFR > 60 Random Glucose 143 H Calcium 7.8 L Magnesium 1.5 L TSH 1.31 Assessment and Plan (1) Atrial fibrillation with rapid ventricular response: Status: Acute New onset atrial fibrillation rapid ventricular response without any obvious symptoms of cardiac decompensation in this elderly woman admitted with acute C diff colitis with significant diarrhea and marked electrolyte abnormalities. Most likely induced due to her medical condition. She has no prior history of atrial fibrillation. It is less than 24 hours since her onset. Idea would be try to convert her back to sinus rhythm as possible. Given her marked electrolyte abnormality although this needs to be corrected and then use antiarrhythmic drug therapy to avoid throat arrhythmias such as store sats. Would at least want potassium below 3.5 and magnesium above 1.8 prior to starting amiodarone therapy. I would also anticoagulated at this point time fully with either Lovenox or Eliquis. For now continue rate control with metoprolol and/or Cardizem as needed. Continue to treat underlying condition with volume repletion and electrolyte correction. Echocardiogram was heart rate is more stable. Will follow with you Procedures Date of Service Date of Service: 05/22/23
[2023-05-22] MEDS: Enoxaparin Sodium 60 MG/0.6 ML SYRINGE 50 MG SUBCUT ×2 (10:55→20:56)
--- NOTE | 2023-05-22 11:56 | P.PNGI_ITS ---
Subjective Subjective Date of Service: 05/22/23 Interval History: Presented to the hospital on my behest due to severe electrolyte abnormalities in the setting of diarrhea. Found to be C Diff +, on fidaxomicin since 05/19. Today is day 4 of hospital admission. Course c/b AFib with RVR felt to be in the context of aforementioned abnormalities. Cardiology evaluation appreciated. Evaluated at bedside, sitting up in recliner. Reports continued diarrhea - had 10 BMs yest per her report. No N,V, tolerating her diet. Critical Care Time (minutes): 0 Physical Exam 2 Vital Signs: Vital Signs: Last Vital Signs Temp 98.5 F 05/22/23 11:16 Pulse 129 H 05/22/23 11:16 Resp 20 05/22/23 11:16 BP 112/69 05/22/23 11:16 Pulse Ox 92 05/22/23 11:16 O2 Del Method Room Air 05/22/23 11:16 O2 Flow Rate 1 05/22/23 07:59 BMI result Body Mass Index 19.0 Frail appearing Abd soft, nondistended, mildly tender to palpation Objective Data Labs 05/20/23 06:40 05/22/23 12:49 Labs: Laboratory Results - last 24 hr 05/22/23 05:27 Hold Purple Top SEE NOTE Sodium 132 L Potassium 2.8 L Chloride 92 L Carbon Dioxide 31 H Anion Gap 12 BUN 6 L Creatinine 0.74 Estim Creat Clear Calc 53.6 Estimated GFR > 60 Random Glucose 143 H Calcium 7.8 L Magnesium 1.5 L TSH 1.31 Procedures Date of Service Date of Service: 05/22/23 Progress Note: A&P Assessment and plan (1) C. difficile diarrhea: Status: Acute (2) Atrial fibrillation with rapid ventricular response: Status: Acute (3) Hypokalemia: Status: Acute (4) Hypomagnesemia: Status: Acute (5) Acute hyponatremia: Status: Acute (6) Liver cirrhosis: Status: Acute (7) Post-ERCP acute pancreatitis: Status: Acute (8) Peripancreatic fluid collection: Status: Acute Plan 72y.o F with cirrhosis who was seen for ERCP on 05/03 for abnormal CBD lesion with course c/b post-ERCP pancreatitis necessitating a week's hospitalisation here for persistent diarrhea and found to have CDI with multiple electrolyte abnormalities that have subsequently led to cardiac conduction abnormality. Recommendations: - Given minimal improvement in diarrhea related to CDI, consider ID consultation for adjunctive tx such as vanco enemas - Low fat diet - Avoid third spacing in this cirrhotic with recent pancreatitis by limiting continuous isotonic IVF and if needed, supplementing with albumin 25% 100ml QID - Aggressive electrolytes repletion - Has acute peripancreatic collection - future management will be dictated by if fluid collection persists/organizes. Time Spent With Patient Time: Total time managing care of this patient today ____ minutes. Quality Stroke Does the patient have a stroke diagnosis?: No VTE Prior VTE?: No VTE Risk Level:: Medical - moderate - high VTE Device Contraindication: Treatment Not Indicated VTE Drug Contraindication: N/A - Med Ordered
[2023-05-22 13:28] LABS: Magnesium 1.8 mg/dL (1.6-2.6)
--- NOTE | 2023-05-22 15:02 | P.PNIM_ITS ---
Subjective Subjective Date of Service: 05/23/23 Interval History: C diff colitis, AFib with RVR Review of Systems Patient says that abdominal pain is improving, still has diarrhea significant. Able to tolerate p.o., WBC count improving. No fever Denies any chest pain or palpitations or shortness of breath. Physical Exam 2 Vital Signs: Vital Signs: Last Vital Signs Temp 98.5 F 05/22/23 11:16 Pulse 129 H 05/22/23 11:16 Resp 20 05/22/23 11:16 BP 112/69 05/22/23 11:16 Pulse Ox 92 05/22/23 11:16 O2 Del Method Room Air 05/22/23 11:16 O2 Flow Rate 1 05/22/23 07:59 BMI result Body Mass Index 19.0 Appearance: Alert.? Oriented X3.?. cvs: rrr, [id number] , no murmur res: clear to auscultation ,no rhonchii or wheezing abd: no rebound or guarding , abd soarness improving, bs present. ext pulses present , no cyanosis. neuro: axo3 , nonfocal. Objective Data Active Medications Acetaminophen (Acetaminophen 325 Mg Tablet) 650 mg PO Q6H PRN PRN Reason: Pain, Mild (Pain Scale 1-3) Last Admin: 05/19/23 17:01 Dose: 650 mg Documented By: DAVID Albuterol Sulfate (Albuterol Sulfate 90 Mcg 8 Gm Inhaler) 1 puff INHALE Q6H PRN PRN Reason: wheezing Enoxaparin Sodium (Enoxaparin Sodium 60 Mg/0.6 Ml Syringe) 50 mg SUBCUT Q12H [facility] Last Admin: 05/22/23 10:55 Dose: 50 mg Documented By: FOSTEKCleve Fluticasone/Vilanterol (Fluticasone/Vilanterol 100/25 Blst.W.Dev) 1 puff INHALE RDAILY [facility] Last Admin: 05/22/23 08:19 Dose: 1 puff Documented By: COLLINS Metronidazole (Flagyl) 500 mg in 100 mls @ 100 mls/hr IV Q8H [facility] Magnesium Sulfate/Dextrose (Magnesium Sulfate/D5w) 1 gm in 100 mls @ 100 mls/hr IV ONCE ONE Stop: 05/22/23 15:58 Melatonin (Melatonin 3 Mg Tablet) 6 mg PO BEDTIME PRN PRN Reason: Insomnia Metoprolol Tartrate (Metoprolol Tartrate 25 Mg Tablet) 25 mg PO BID [facility]; Protocol Last Admin: 05/22/23 09:23 Dose: 25 mg Documented By: FLAVIO Morphine Sulfate (Morphine Sulfate 4 Mg/Ml Cartridge) 2 mg IVPUSH Q6H PRN; Protocol PRN Reason: Pain, Severe (Pain Scale 7-10) Ondansetron HCl (Ondansetron Hcl 4 Mg/2 Ml Vial) 4 mg IVPUSH Q8H PRN PRN Reason: Nausea and Vomiting Last Admin: 05/19/23 17:00 Dose: 4 mg Documented By: GT-JESSE Potassium Phos/Sodium Phos (Sodium,Potassium Phosphates Powd.Pack) 1 packet PO QID [facility] Last Admin: 05/22/23 13:33 Dose: 1 packet Documented By: FLAVIO Psyllium Hydrophilic Mucilloid (Psyllium Seed 3.7 Gm Packet) 3.7 gm PO DAILY [facility] Last Admin: 05/22/23 07:42 Dose: Not Given Documented By: FLAVIO Non-Admin Reason: Patient Refused Sodium Chloride (0.9 % Sodium Chloride Flush 3 Ml Syringe) 3 ml IVFLUSH QSHIFT [facility] Last Admin: 05/22/23 07:55 Dose: 3 ml Documented By: FLAVIO Vancomycin HCl (Vancomycin Hcl 125 Mg Capsule) 250 mg PO Q6H [facility] Labs 05/23/23 06:47 05/23/23 06:47 Labs: Laboratory Results - last 24 hr 05/22/23 05/22/23 05:27 12:49 Hold Purple Top SEE NOTE Anion Gap 12 Estim Creat Clear Calc 53.6 Estimated GFR > 60 Random Glucose 143 H Calcium 7.8 L Magnesium 1.5 L 1.8 TSH 1.31 Assessment and Plan (1) Atrial fibrillation with rapid ventricular response: Status: Acute (2) C. difficile diarrhea: Status: Acute Plan 72-year-old female with a history of alcohol use disorder complicated by cirrhosis, tobacco use disorder with COPD and now O2 dependent since last hospitalization,?HTN recent hospitalization for Post ERCP pancreatitis, and now here with C dif diarrhea and hypokalemia, hypomagnesemia, hyponatremia.? C Diff diarrhea- still has diarrhae wbc 34.2-33.5 says diarrhae somewhat improving but still has significant diarrhae Started Dificid 05/18 GI eval noted -discussed with infectious disease due to less respond to Dificid- home and I am for switched to vanco/flagyl. Hypokalemia/Hypomagnesemia/Hyponatremia/hypophos-d/t diarrhea. Replacing with IV and PO electrolytes Hyponatremia, hypokalemia is improving Serum osmolality low, urine osmolality and electrolytes added. Hypomagnesemia repleted and resolved. Also added Neutra-Phos for hypophosphatemia. hypovolemic hyponatremia improving with fluid. new onset afib rvr: echo added started on amiodarone drip,continue metoprolol. Also started AC. cardiology consult. Nephro evaluation noted-monitor BMP q.8 hours -sodium slowly improving. O2 Dependent COPD, no acute exacerbation, continue O2 HTN--hold home meds in light of diarrahae , borderline blood pressure and multiple electrolyte abnormalities. DVT prophylaxis: Lovenox Full code Ongoing hospitalization need: management of Cdif diarrhea with severe hypokalemia, Hypomagnesemia--needing IV replacement and frequent monitoring, new onset afib with rvr -made tele monitoring ,IV rate control medications. Quality Stroke Does the patient have a stroke diagnosis?: No VTE Prior VTE?: No VTE Risk Level:: Medical - moderate - high VTE Device Contraindication: Treatment Not Indicated VTE Drug Contraindication: N/A - Med Ordered
[2023-05-22] MEDS: vancomycin HCL 125 MG CAPSULE 250 MG PO ×2 (15:52→20:56)
[2023-05-22] MEDS: metroNIDAZOLE/NS 500 MG/100 ML PIGGYBACK 100 MG IV (15:52)
[2023-05-22] MEDS: Potassium Chloride Packet 20 MEQ PACKET PO (17:43)
[2023-05-22] MEDS: Albumin Human 25 % 100 ML IV (18:15)
--- NOTE | 2023-05-22 20:22 | ECG_ITS ---
Test Reason : Arrythmia Blood Pressure : / mmHG Vent. Rate : 130 BPM Atrial Rate : 260 BPM P-R Int : 000 ms QRS Dur : 106 ms QT Int : 268 ms P-R-T Axes : 090 077 140 degrees QTc Int : 394 ms Atrial flutter with 2:1 A-V conduction ST & T wave abnormality, consider anterior ischemia Abnormal ECG When compared with ECG of 22-MAY-2023 05:45, Atrial flutter has replaced Atrial fibrillation QRS duration has increased ST elevation has replaced ST depression in Anterior leads Referred By: Shanel Tran Electronically Signed By:DAVID BLANDON MD
--- NOTE | 2023-05-22 20:32 | P.PNNP_ITS ---
Subjective Subjective Date of Service: 05/22/23 Interval history: Reports continued diarrhea - had 10 BMs yesterday per her report. No N,V, tolerating her diet. Serum sodium had improved and stable Physical Exam 2 Vital Signs: Vital Signs: Last Vital Signs Temp 98.5 F 05/22/23 19:38 Pulse 124 H 05/22/23 19:38 Resp 20 05/22/23 19:38 BP 124/69 05/22/23 19:38 Pulse Ox 91 L 05/22/23 19:38 O2 Del Method Room Air 05/22/23 19:38 O2 Flow Rate 1 05/22/23 07:59 BMI result Body Mass Index 19.0 Const: General: no acute distress Orientation/consciousness: patient oriented x3 Eyes: EOM: EOMs intact bilaterally Neck: Neck: Yes supple Resp: Auscultation: diminished lung sounds Cardio: Jugular venous distension: no JVD Rate: regular rate GI: Palpation (GI): Soft to palpation Skin: General skin exam: no rashes or lesions noted Neuro: General: patient oriented x3 and moves all extremities Objective Data Labs 05/20/23 06:40 05/22/23 12:49 Labs: Laboratory Results - last 24 hr 05/18/23 05/22/23 05/22/23 20:45 05:27 12:49 Hold Purple Top SEE NOTE Sodium 132 L Potassium 2.8 L 4.0 D Chloride 92 L Carbon Dioxide 31 H Anion Gap 12 BUN 6 L Creatinine 0.74 Estim Creat Clear Calc 53.6 Estimated GFR > 60 Random Glucose 143 H Calcium 7.8 L Magnesium 1.5 L 1.8 TSH 1.31 Stl Isospora & Cyclospora SEE NOTE Procedures Date of Service Date of Service: 05/22/23 Assessment & Plan Assessment and plan (1) Acute hyponatremia: Status: Acute Plan Had Urine sodium was < 20 Had multiple electrolyte abnormalities including low sodium Na got corrected with IV fluids; Need to keep K over 4 Lytes replaced; Renal function had been stable C/W current supportive care for now; Labs AM Progress Note: Quality Stroke Does the patient have a stroke diagnosis?: No
[2023-05-22] MEDS: Amiodarone HCL 900 MG in 0.9 % Sodium Chloride 500 ML 34.53 MG IVCONT (20:50)
--- NOTE | 2023-05-22 22:43 | P.CNID_ITS ---
History of Present Illness Data of Consult Service Date: 05/22/23 Requesting physician: Giuliana Campbell Primary Care Provider: Shirin Phan MD HPI Reason for consult: diarrhea, Cdiff toxin positive She presents because she was told her electrolytes potassium,sodium and phosphorus abnormal. She has diarrhea since 05/05 she says. She had ERCP on 05/03 and had pancreatitis. She has alcohol use disorder with cirrhosis. Review of Systems 2 Review of Systems: Yes all other systems are reviewed and are negative Gastrointestinal: Gastrointestinal: Reports diarrhea PMFSH Past Medical History Medical History Raspy voice Mammogram declined Hyperlipidemia Liver cirrhosis, alcoholic Hyponatremia Peripheral vascular disease Nodule on liver Colonoscopy refused COPD (chronic obstructive pulmonary disease) Annual physical exam Family History Family History Father Heart problem Substance use disorder Mother Hypertension Diabetes Substance use disorder Sister Substance use disorder Paternal Grandmother Colostomy in place Family history: reviewed and not pertinent Surgical History Surgical History History of esophagogastroduodenoscopy (EGD) Hx of tooth extraction History of tonsillectomy Social History Social History Household Members: Family Housing: House 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: Yes Do you presently have visiting nurse or other home services: No Alcohol intake: former Patient Tobacco Use Status: Former Tobacco user Quit Date: 2016 Tobacco use type: Cigarette e-Cigarette/Vaping Use: Former Use Second Hand Smoke Exposure: No Substance Use Type: Marijuana Advance Directives Date on File: 05/04/23 service: No Current occupational status: employed Cognitive needs: No Hearing needs: No Vision needs: No Meds Allergies Allergy/AdvReac Type Severity Reaction Status Date / Time No Known Allergies Allergy Verified 05/18/23 13:18 [No Known Allergies*] Active Medications: Current Medications Acetaminophen (Acetaminophen 325 Mg Tablet) 650 mg PO Q6H PRN PRN Reason: Pain, Mild (Pain Scale 1-3) Last Admin: 05/19/23 17:01 Dose: 650 mg Albuterol Sulfate (Albuterol Sulfate 90 Mcg 8 Gm Inhaler) 1 puff INHALE Q6H PRN PRN Reason: wheezing Enoxaparin Sodium (Enoxaparin Sodium 60 Mg/0.6 Ml Syringe) 50 mg SUBCUT Q12H [facility] Last Admin: 05/22/23 20:56 Dose: 50 mg Fluticasone/Vilanterol (Fluticasone/Vilanterol 100/25 Blst.W.Dev) 1 puff INHALE RDAILY [facility] Last Admin: 05/22/23 08:19 Dose: 1 puff Metronidazole (Flagyl) 500 mg in 100 mls @ 100 mls/hr IV Q8H [facility] Last Infusion: 05/22/23 17:30 Dose: Infused Amiodarone HCl 900 mg/ Sodium (Chloride) 518 mls @ 34.533 mls/hr IVCONT .Q15H1M [facility]; Protocol Last Admin: 05/22/23 20:50 Dose: 1 mg/min, 34.53 mls/hr Melatonin (Melatonin 3 Mg Tablet) 6 mg PO BEDTIME PRN PRN Reason: Insomnia Metoprolol Tartrate (Metoprolol Tartrate 25 Mg Tablet) 25 mg PO BID [facility]; Protocol Last Admin: 05/22/23 20:57 Dose: 25 mg Morphine Sulfate (Morphine Sulfate 4 Mg/Ml Cartridge) 2 mg IVPUSH Q6H PRN; Protocol PRN Reason: Pain, Severe (Pain Scale 7-10) Ondansetron HCl (Ondansetron Hcl 4 Mg/2 Ml Vial) 4 mg IVPUSH Q8H PRN PRN Reason: Nausea and Vomiting Last Admin: 05/19/23 17:00 Dose: 4 mg Potassium Phos/Sodium Phos (Sodium,Potassium Phosphates Powd.Pack) 1 packet PO QID [facility] Last Admin: 05/22/23 20:56 Dose: 1 packet Psyllium Hydrophilic Mucilloid (Psyllium Seed 3.7 Gm Packet) 3.7 gm PO DAILY [facility] Last Admin: 05/22/23 07:42 Dose: Not Given Sodium Chloride (0.9 % Sodium Chloride Flush 3 Ml Syringe) 3 ml IVFLUSH QSHIFT [facility] Last Admin: 05/22/23 16:42 Dose: 3 ml Vancomycin HCl (Vancomycin Hcl 125 Mg Capsule) 250 mg PO Q6H [facility] Last Admin: 05/22/23 20:56 Dose: 250 mg Home Medications Medication Instructions Recorded Confirmed Last Taken Type albuterol sulfate 90 mcg/actuation 1 puff inhalation Q6H PRN wheezing 09/23/22 05/18/23 05/02/23 History aerosol inhaler Physical Exam 2 Vital Signs: Vital Signs: Last Vital Signs Temp 98.5 F 05/22/23 19:38 Pulse 124 H 05/22/23 19:38 Resp 20 05/22/23 19:38 BP 124/69 05/22/23 19:38 Pulse Ox 91 L 05/22/23 19:38 O2 Del Method Room Air 05/22/23 19:38 O2 Flow Rate 1 05/22/23 07:59 BMI result Body Mass Index 19.0 Const: General: cooperative HEENT: Head: Yes normal to inspection Face and sinus: Yes normal facial exam Mouth: Normal oral and palatal mucosa present Teeth and gingiva: d entition normal Eyes: General: appearance normal, both eyes and all related structures P upils: Equal, round and reactive pupils present Resp: Effort & Inspection: normal respiratory effort Cardio: Rate: regular rate Rhythm: regular rhythm GI: Palpation (GI): Soft to palpation and nontender : General: Yes no CVA tenderness Back/Spine/Pelvis: Back: no CVA tenderness Skin: General skin exam: no rashes or lesions noted Neuro: General: moves all extremities Cranial nerves: Yes Equal, round and reactive pupils present Extrem: General: Yes normal to inspection Psych: Appearance: grossly normal Results Labs 05/20/23 06:40 05/22/23 12:49 Labs: BMP 05/22/23 05/22/23 05:27 12:49 Sodium 132 L Potassium 2.8 L 4.0 D Chloride 92 L Carbon Dioxide 31 H BUN 6 L Creatinine 0.74 Calcium 7.8 L Assessment and Plan (1) Peripancreatic fluid collection: Status: Acute (2) Diarrhea: Status: Acute She has Cdiff toxin positive. She has not responded to fidaxomicin Vancomycin enemas would be difficult to retain with so many stools a day. Plan Would switch to po Vancomycin 125 mg qid for 10 days and possible taper. Would add IV Flagyl for now possible 3-5 days.
[2023-05-23] VITALS (8 sets, daily range): BP systolic 119–153; BP diastolic 55–81; PULSE 72–123; RESP 12–20; TEMP 36.4–37.1; O2SAT 92–97
--- NOTE | 2023-05-23 | ECG_ITS ---
Test Reason : afib Blood Pressure : / mmHG Vent. Rate : 086 BPM Atrial Rate : 086 BPM P-R Int : 132 ms QRS Dur : 076 ms QT Int : 486 ms P-R-T Axes : 078 074 084 degrees QTc Int : 581 ms Sinus rhythm with marked sinus arrhythmia Right atrial enlargement Nonspecific ST and T wave abnormality Abnormal ECG When compared with ECG of 22-MAY-2023 20:21, Normal sinus rhythm has replaced Atrial flutter with 2 to [address] and T wave abnormality is new Referred By: Giuliana Campbell Electronically Signed By:DAVID BLANDON MD
[2023-05-23] MEDS: metroNIDAZOLE/NS 500 MG/100 ML PIGGYBACK 100 MG IV ×4 (00:03→23:25)
[2023-05-23] MEDS: vancomycin HCL 125 MG CAPSULE 250 MG PO ×4 (02:50→20:24)
--- NOTE | 2023-05-23 07:00 | CA_ITS ---
Transthoracic Echocardiogram Patient (Last, First, Middle): Katerine Russell, Gender: Female Date of : 1950 Age: 72 Procedure Date: 05/23/2023 Procedure Type: Transthoracic Echocardiogram [place] [facility] [place]: 162.56 cm Weight: 46.27 kg BSA: 1.47 m2 Heart Rate: bpm BP: 138 / 69 mmHg Manager Forms: Referring MD: Joanna Tran MD Site Monitor: Epifanio Andre MD Symptoms: afib Study Quality: Good ECG Rhythm: Sinus Conclusions: - 1. Normal LV ejection fraction of 60-65% with impaired relaxation filling pattern 2. Moderate biatrial enlargement 3. Mild mitral regurgitation 4. Normal RV systolic pressure 5. No gross pericardial effusion Findings Left Ventricle Normal left ventricular size, thickness, and systolic function. The visually estimated ejection fraction is between 60-65%. Spectral Doppler is indicative of an impaired relaxation filling pattern. E/E prime ratio is between 8 and 15 consistent with indeterminate filling pressures. Right Ventricle Mildly increased right ventricular cavity size. There is normal right ventricular systolic function. Atria Moderate biatrial enlargement. There is lipomatous hypertrophy of the interatrial septum. There is no evidence of interatrial shunt. Aortic Valve Normal aortic valve structure and function. There is no aortic valve stenosis. There is no aortic valve regurgitation. Mitral Valve There is mild anterior and posterior mitral leaflet thickening. There is mild mitral valve regurgitation. There is no mitral valve stenosis. Pulmonic Valve The pulmonic valve is likely normal. There is trace pulmonic valve regurgitation. Tricuspid Valve Normal tricuspid valve structure. There is mild tricuspid valve regurgitation. The right ventricular systolic pressure is normal. The right ventricular systolic pressure is 28 mmHg. Normal right atrial pressure. There is no evidence of pulmonary hypertension. Great Vessels The aorta was not well visualized. The pulmonary artery was not well visualized. Venous The inferior vena cava is normal in size and collapses greater than 50% with inspiration. Pericardium/Pleural There is no evidence of pericardial effusion. Prior Study Comparison No prior study available for comparison. Measurements 2D Linear Measurements IVSd: 0.84 0.6-0.9/0.6-1.0 cm LVIDd: 4.92 3.9-5.3/4.2-5.9 cm LVIDd Index: 3.35 2.4-3.2/2.2-3.1 cm/m2 LVIDs: 2.92 2.0-3.6 cm LVPWd: 0.91 0.7-1.1 cm Ao Root: 3.10 2.1-3.5 cm LA Diam: 3.80 2.7-3.8/3.0-4.0 cm LAIDs Index: 2.59 1.5-2.3 cm/m2 LV Mass: 185.03 67-162/88-224 g LV Mass Index: 125.87 43-95/49-115 g/m2 LVOT Diam: 2.00 3.0+(-)1.3 cm Mitral Valve MV Pk E: 0.82 MV PK A: 0.77 MV Decel Time: 185.00 E/A: 1.10 E'Lateral: 10.40 E'Medial: 7.18 E/E' Med: 11.50 E/E' Lat: 7.90 PHT: 54.00 MVA PHT: 4.07 Decel Comal: 4.44 Aortic Valve AoV Pk Hunter: 1.38 AoV Mn Hunter: 0.86 AoV VTI: 0.34 AoV Pk Grad: 8.00 Aov Mn Grad: 4.00 ABIOLA Cont.VTI: 1.87 LVOT LVOT Pk Hunter: 0.84 LVOT Mn Hunter: 0.59 LVOT VTI: 0.20 LVOT Pk Grad: 3.00 LVOT Mn Grad: 2.00 LVOT Diam: 2.00 LVOT Area: 3.14 Diastolic Function MV Pk E: 0.82 MV Pk A: 0.77 E/A: 1.10 E'Medial: 7.18 E/E' Med: 11.50 E' Laterial: 10.40 E/E' Lat: 7.90 Tricuspid Valve TR Pk Hunter: 2.49 TR Pk Grad: 25.00 RA Press: 3.00 RVSP: 28.00 Great Vessels Aorta Ao Root-2D: 3.10 2.0-3.7 cm Pulmonary Valve PV Pk Hunter: 0.92 Peak PV Grad: 3.00 Updated in Other Vendor System with Status of Final Epifanio Andre MD electronically signed on 05/23/2023 3:09:24 PM with status of Final
[2023-05-23 07:32] LABS: Hematocrit 28.5 % (37.0-47.0); Hemoglobin 9.5 g/dl (12.0-16.0); Mean Corpuscular HGB Conc 33.3 g/dl (31.0-35.0); Mean Corpuscular Hemoglobin 28.5 pg (27.0-33.0); Mean Corpuscular Volume 85.6 fL (80.0-98.0); Mean Platelet Volume 9.1 fL (9.4-12.3); Platelet Count 499 X10*3/uL (160-400); Red Blood Count 3.33 X10*6/uL (4.20-5.50); Red Cell Distribution Width 13.4 % (11.0-16.0); White Blood Count 16.3 X10*3/uL (4.8-10.8)
[2023-05-23 07:39] LABS: Anion Gap 16 (12-20); Blood Urea Nitrogen 7 mg/dL (9-16); Calcium 8.4 mg/dL (8.4-10.2); Carbon Dioxide 26 mmol/L (22-29); Chloride 97 mmol/L (96-108); Creatinine Clr Calc Pharmacy 48.9; Estimated Glomerular Filt Rate > 60; Glucose Random 113 mg/dL (60-115); Magnesium 1.8 mg/dL (1.6-2.6); Potassium 3.5 mmol/L (3.3-5.1); Sodium 135 mmol/L (135-145)
[2023-05-23] MEDS: Fluticasone/Vilanterol 100/25 BLST.W.DEV 1 PUFF INHALE (07:57)
[2023-05-23 08:37] LABS: Phosphorus 3.2 mg/dL (2.7-4.5)
[2023-05-23] MEDS: Magnesium Sulfate/D5W 1 GM/100 ML PIGGYBACK IV (09:11)
[2023-05-23] MEDS: Metoprolol Tartrate 25 MG TABLET PO ×2 (09:12→20:24)
[2023-05-23] MEDS: 0.9 % Sodium Chloride Flush 3 ML SYRINGE IVFLUSH ×2 (09:13→16:59)
[2023-05-23] MEDS: Amiodarone HCL 200 MG TABLET 400 MG PO ×2 (10:15→20:23)
[2023-05-23] MEDS: Potassium Chloride ER 20 MEQ TAB.ER.PRT PO ×2 (10:15)
[2023-05-23] MEDS: Enoxaparin Sodium 60 MG/0.6 ML SYRINGE 50 MG SUBCUT ×2 (10:16→20:24)
--- NOTE | 2023-05-23 10:31 | PM.PNCARD ---
Subjective Subjective Date of Service: 05/23/23 Principal diagnosis: Paroxysmal atrial flutter. Interval history: Patient converted to sinus rhythm on amiodarone drip. Doing well. No cardiac symptoms to report. Her diarrhea is also improving. Potassium and magnesium have improved. She denies any shortness of breath, orthopnea, PND. Review of Systems Constitutional: Reports no additional constitutional complaints Physical Exam Vital Signs: Last Vital Signs Temp 98.1 F 05/23/23 07:27 Pulse 86 05/23/23 07:57 Resp 16 05/23/23 07:57 BP 152/73 H 05/23/23 07:27 Pulse Ox 95 05/23/23 07:27 O2 Del Method Room Air 05/23/23 07:27 O2 Flow Rate 1 05/22/23 07:59 BMI result Body Mass Index 19.0 Const General: cooperative, comfortable, alert, awake and ill appearing Nutritional Appearance: cachectic Orientation/consciousness: patient oriented x3 HEENT Head: Yes normocephalic and Yes atraumatic Neck Neck: Yes trachea midline, Yes supple and Yes no JVD Resp Effort & Inspection: normal respiratory effort Auscultation: clear to auscultation bilaterally and diminished lung sounds Cardio Jugular venous distension: no JVD Rate: regular rate Rhythm: regular rhythm Heart sounds: S1 normal heart sound present, S2 normal heart sound present, no click, no gallops, no murmurs and no rubs GI Auscultation: normal bowel sounds Skin General skin exam: no rashes or lesions noted and ecchymosis Neuro General: patient oriented x3 and no focal motor deficits Extrem General: Yes no clubbing, cyanosis or edema Objective Labs and Meds 05/23/23 06:47 05/23/23 06:47 Lab results: Laboratory Results - last 24 hr 05/18/23 05/22/23 05/23/23 20:45 12:49 06:47 WBC 16.3 H RBC 3.33 L Hgb 9.5 L Hct 28.5 L MCV 85.6 MCH 28.5 MCHC 33.3 RDW 13.4 Plt Count 499 H MPV 9.1 L Absolute Nucleated RBC 0.000 Nucleated RBC % (auto) 0.0 Sodium 135 Potassium 4.0 D 3.5 Chloride 97 Carbon Dioxide 26 Anion Gap 16 BUN 7 L Creatinine 0.81 Estim Creat Clear Calc 48.9 Estimated GFR > 60 Random Glucose 113 Calcium 8.4 D Phosphorus 3.2 Magnesium 1.8 1.8 Stl Isospora & Cyclospora SEE NOTE Imaging Radiologist's impression: Impressions Abdomen/Pelvis CT 05/18/23 19:49 IMPRESSION: Nodular cirrhotic liver with coarsened calcifications more so in the atrophic right lobe of the liver. This is similar to the prior study. There is peripancreatic fluid seen extending inferiorly into the posterior retroperitoneum and presacral space. This also extends into the mesentery increased central mesenteric vessels. This fluid was less well demarcated on the prior study. Overall the appearance is more suggestive of pancreatic pseudocyst formation. Loculated ascites would be considered less likely especially with the retroperitoneal course of some of this fluid. There is likely free ascites seen as well. KUB X-Ray 05/22/23 12:42 IMPRESSION: 1. No definite dilated loops of bowel visualized. 2. Air and stool noted within the colon greatest along its transverse and descending segments. Progress Note: A&P Assessment and plan (1) Atrial fibrillation with rapid ventricular response: Status: Acute Assessment and Plan: Atrial fibrillation rapid ventricular response related to acute medical illness. She has risk factors with underlying hypertension and age. Will require echocardiogram to further assess biatrial chamber size and LV function. His converted to sinus rhythm. Switch to p.o. amiodarone 400 mg b.i.d. loading for 2 weeks followed by 200 mg daily. Probably we short-term therapy for 4-6 weeks. Will set up for outpatient follow up with Holter monitor. Eliquis 5 mg b.i.d. if can be tolerated with also short course hopefully as this is a medical illness induced atrial fibrillation. EKG today and echocardiogram today. Will sign of the case at this point time. Will follow-up as outpatient Time Spent With Patient Time: Total time managing care of this patient today ____ minutes. Progress Note: Quality Stroke Does the patient have a stroke diagnosis?: No Procedures Date of Service Date of Service: 05/23/23
--- NOTE | 2023-05-23 12:42 | MHC.CM.PN ---
EMR reviewed. Per MD rounds patient is not medically cleared for dc. PT eval today, recommending home with services. [facility] is 1st choice and they are following, updates sent. This CM updated daughter, Mey, per patient request. Mey also requested home health aid services. Referral to [facility] placed. This CM will continue to follow.
--- NOTE | 2023-05-23 13:14 | MHC.CLN ---
F/U PO VARIABLE RANGING FROM 25-75% SEE FULL CLINICAL NUTRITION ASSESSMENT DATED 05/21/23 DIET RX: REGULAR LACTOSE FREE-APPROPRIATE PT RECEIVING ENSURE CLEAR TID TO PROVIDE 720KCALS, 24G PROTEIN MONITOR PO INTAKE, LYTES AND SUPPLEMENT ACCEPTANCE
--- NOTE | 2023-05-23 14:02 | P.PNIM_ITS ---
Subjective Subjective Date of Service: 05/23/23 Interval History: C diff colitis, AFib with RVR Review of Systems Diarrhea and abdominal pain seems to be improving Heart rate is also improved significantlly, in fact now she is in sinus rhythm. No fever or chills. Physical Exam 2 Vital Signs: Vital Signs: Last Vital Signs Temp 97.6 F 05/23/23 11:19 Pulse 72 05/23/23 11:19 Resp 20 05/23/23 11:19 BP 121/64 05/23/23 11:19 Pulse Ox 97 05/23/23 11:19 O2 Del Method Room Air 05/23/23 11:19 O2 Flow Rate 1 05/22/23 07:59 BMI result Body Mass Index 19.0 Appearance: Alert.? Oriented X3.?. cvs: rrr, [id number] , no murmur res: clear to auscultation ,no rhonchii or wheezing abd: no rebound or guarding , abd soarness improved, bs present. ext pulses present , no cyanosis. neuro: axo3 , nonfocal. Objective Data Active Medications Acetaminophen (Acetaminophen 325 Mg Tablet) 650 mg PO Q6H PRN PRN Reason: Pain, Mild (Pain Scale 1-3) Last Admin: 05/19/23 17:01 Dose: 650 mg Documented By: DAVID Albuterol Sulfate (Albuterol Sulfate 90 Mcg 8 Gm Inhaler) 1 puff INHALE Q6H PRN PRN Reason: wheezing Amiodarone HCl (Amiodarone Hcl 200 Mg Tablet) 400 mg PO BID [facility] Last Admin: 05/23/23 10:15 Dose: 400 mg Documented By: FLAVIO Enoxaparin Sodium (Enoxaparin Sodium 60 Mg/0.6 Ml Syringe) 50 mg SUBCUT Q12H [facility] Last Admin: 05/23/23 10:16 Dose: 50 mg Documented By: FLAVIO Fluticasone/Vilanterol (Fluticasone/Vilanterol 100/25 Blst.W.Dev) 1 puff INHALE RDAILY [facility] Last Admin: 05/23/23 07:57 Dose: 1 puff Documented By: DANNIELLE Metronidazole (Flagyl) 500 mg in 100 mls @ 100 mls/hr IV Q8H [facility] Last Infusion: 05/23/23 07:47 Dose: Infused Documented By: FLAVIO Melatonin (Melatonin 3 Mg Tablet) 6 mg PO BEDTIME PRN PRN Reason: Insomnia Metoprolol Tartrate (Metoprolol Tartrate 25 Mg Tablet) 25 mg PO BID [facility]; Protocol Last Admin: 05/23/23 09:12 Dose: 25 mg Documented By: FLAVIO Ondansetron HCl (Ondansetron Hcl 4 Mg/2 Ml Vial) 4 mg IVPUSH Q8H PRN PRN Reason: Nausea and Vomiting Last Admin: 05/19/23 17:00 Dose: 4 mg Documented By: DAVID Potassium Chloride (Potassium Chloride Packet 20 Meq Packet) 20 meq PO BID [facility] Potassium Phos/Sodium Phos (Sodium,Potassium Phosphates Powd.Pack) 1 packet PO QID [facility] Last Admin: 05/23/23 10:10 Dose: Not Given Documented By: FLAVIO Non-Admin Reason: Patient Refused Psyllium Hydrophilic Mucilloid (Psyllium Seed 3.7 Gm Packet) 3.7 gm PO DAILY [facility] Last Admin: 05/23/23 09:13 Dose: Not Given Documented By: FLAVIO Non-Admin Reason: Patient Refused Sodium Chloride (0.9 % Sodium Chloride Flush 3 Ml Syringe) 3 ml IVFLUSH QSHIFT [facility] Last Admin: 05/23/23 09:13 Dose: 3 ml Documented By: FLAVIO Vancomycin HCl (Vancomycin Hcl 125 Mg Capsule) 250 mg PO Q6H [facility] Last Admin: 05/23/23 09:12 Dose: 250 mg Documented By: FLAVIO Labs 05/23/23 06:47 05/23/23 06:47 Labs: Laboratory Results - last 24 hr 05/18/23 05/23/23 20:45 06:47 MCV 85.6 MCH 28.5 MCHC 33.3 RDW 13.4 Plt Count 499 H MPV 9.1 L Absolute Nucleated RBC 0.000 Nucleated RBC % (auto) 0.0 Anion Gap 16 Estim Creat Clear Calc 48.9 Estimated GFR > 60 Random Glucose 113 Calcium 8.4 D Phosphorus 3.2 Magnesium 1.8 Stl Isospora & Cyclospora SEE NOTE Assessment and Plan (1) Atrial fibrillation with rapid ventricular response: Status: Acute (2) C. difficile diarrhea: Status: Acute Plan 72-year-old female with a history of alcohol use disorder complicated by cirrhosis, tobacco use disorder with COPD and now O2 dependent since last hospitalization,?HTN recent hospitalization for Post ERCP pancreatitis, and now here with C dif diarrhea and hypokalemia, hypomagnesemia, hyponatremia.? C Diff diarrhea-still has diarrhae wbc 34.2-33.5-16.3 says diarrhae somewhat improving but still has significant diarrhae Started Dificid 05/18 to 05/21 GI eval noted -discussed with infectious disease due to less respond to Dificid- home and switched to vanco/flagyl(05/23/23). Hypokalemia/Hypomagnesemia/Hyponatremia/hypophos-d/t diarrhea. Replacing with IV and PO electrolytes Hyponatremia, hypokalemia is improved. Hypomagnesemia repleted and resolved. Also added Neutra-Phos for hypophosphatemia. hypovolemic hyponatremia improved with fluid. new onset afib rvr: echo done -results pending started on amiodarone drip,continue metoprolol-improved now to sinus , amio drip stopped ,started on po amio,continue AC. cardiology following Nephro evaluation noted-monitor BMP q.8 hours -sodium slowly improving. O2 Dependent COPD, no acute exacerbation, continue O2 HTN--hold home meds in light of diarrahae , borderline blood pressure and multiple electrolyte abnormalities. DVT prophylaxis: Lovenox Full code Ongoing hospitalization need: management of Cdif diarrhea with severe hypokalemia, Hypomagnesemia--needing IV replacement and frequent monitoring, new onset afib with rvr -made tele monitoring ,IV rate control medications. Quality Stroke Does the patient have a stroke diagnosis?: No VTE Prior VTE?: No VTE Risk Level:: Medical - moderate - high VTE Device Contraindication: Treatment Not Indicated VTE Drug Contraindication: N/A - Med Ordered
[2023-05-23] MEDS: Potassium Chloride Packet 20 MEQ PACKET PO (20:25)
[2023-05-23] MEDS: Sodium,Potassium Phosphates POWD.PACK 1 PACKET PO (20:26)
[2023-05-24] MEDS: vancomycin HCL 125 MG CAPSULE 250 MG PO ×4 (03:00→20:01)
[2023-05-24 03:53] VITALS: BP 127/60; PULSE 76; RESP 18; TEMP 36.3; O2SAT 92
[2023-05-24] MEDS: metroNIDAZOLE/NS 500 MG/100 ML PIGGYBACK 100 MG IV ×3 (06:33→22:01)
[2023-05-24 07:13] LABS: Hematocrit 28.4 % (37.0-47.0); Hemoglobin 9.6 g/dl (12.0-16.0); Mean Corpuscular HGB Conc 33.8 g/dl (31.0-35.0); Mean Corpuscular Hemoglobin 29.6 pg (27.0-33.0); Mean Corpuscular Volume 87.7 fL (80.0-98.0); Mean Platelet Volume 9.3 fL (9.4-12.3); Platelet Count 473 X10*3/uL (160-400); Red Blood Count 3.24 X10*6/uL (4.20-5.50); Red Cell Distribution Width 13.5 % (11.0-16.0); White Blood Count 16.2 X10*3/uL (4.8-10.8)
[2023-05-24 07:34] LABS: Anion Gap 12 (12-20); Blood Urea Nitrogen 7 mg/dL (9-16); Calcium 8.5 mg/dL (8.4-10.2); Carbon Dioxide 25 mmol/L (22-29); Chloride 100 mmol/L (96-108); Creatinine Clr Calc Pharmacy 50.7; Estimated Glomerular Filt Rate > 60; Glucose Random 98 mg/dL (60-115); Potassium 3.3 mmol/L (3.3-5.1); Sodium 134 mmol/L (135-145)
[2023-05-24] MEDS: Fluticasone/Vilanterol 100/25 BLST.W.DEV 1 PUFF INHALE (07:45)
[2023-05-24 07:47] VITALS: BP 135/64; PULSE 78; RESP 16; RESP 18; TEMP 37.1; O2SAT 96
[2023-05-24] MEDS: 0.9 % Sodium Chloride Flush 3 ML SYRINGE IVFLUSH ×3 (08:22→22:03)
[2023-05-24] MEDS: Potassium Chloride Packet 20 MEQ PACKET PO (08:22)
[2023-05-24] MEDS: Sodium,Potassium Phosphates POWD.PACK 1 PACKET PO ×2 (08:22→17:15)
[2023-05-24] MEDS: Amiodarone HCL 200 MG TABLET 400 MG PO ×2 (08:23→20:02)
[2023-05-24] MEDS: Psyllium seed 3.7 GM PACKET PO (08:23)
[2023-05-24] MEDS: Metoprolol Tartrate 25 MG TABLET PO ×2 (08:23→20:02)
[2023-05-24] MEDS: Enoxaparin Sodium 60 MG/0.6 ML SYRINGE 50 MG SUBCUT ×2 (08:24→22:01)
--- NOTE | 2023-05-24 08:42 | ECG_ITS ---
Test Reason : chest pain Blood Pressure : / mmHG Vent. Rate : 069 BPM Atrial Rate : 069 BPM P-R Int : 136 ms QRS Dur : 072 ms QT Int : 422 ms P-R-T Axes : 070 073 073 degrees QTc Int : 452 ms Normal sinus rhythm Left ventricular hypertrophy with repolarization abnormality ( Sokolow-Bettencourt ) Nonspecific ST abnormality Abnormal ECG When compared with ECG of 23-MAY-2023 09:27, ST more depressed Lateral leads QT has shortened Referred By: Emile Irwin Electronically Signed By:DAVID BLANDON MD
[2023-05-24 10:54] VITALS: BP 142/71; PULSE 65; RESP 20; TEMP 36.8; O2SAT 98
--- NOTE | 2023-05-24 11:36 | P.PNGI_ITS ---
Subjective Subjective Date of Service: 05/24/23 Interval History: Therapy switched from dificid to Vanc PO + IV flagyl on 05/22. Had a better day yest but overnight had more BMs. Clinically looks much better and alert compared to my last assessment on 05/22. HAs been tolerating solid diet Critical Care Time (minutes): 0 Physical Exam 2 Vital Signs: Vital Signs: Last Vital Signs Temp 98.3 F 05/24/23 10:54 Pulse 65 05/24/23 10:54 Resp 20 05/24/23 10:54 BP 142/71 H 05/24/23 10:54 Pulse Ox 98 05/24/23 10:54 O2 Del Method Room Air 05/24/23 10:54 O2 Flow Rate 1 05/22/23 07:59 BMI result Body Mass Index 19.0 Nontoxic appearing Abd soft, diffusely tender, nondistended Objective Data Labs 05/24/23 06:53 05/24/23 06:53 Labs: Laboratory Results - last 24 hr 05/24/23 06:53 WBC 16.2 H RBC 3.24 L Hgb 9.6 L Hct 28.4 L MCV 87.7 MCH 29.6 MCHC 33.8 RDW 13.5 Plt Count 473 H MPV 9.3 L Absolute Nucleated RBC 0.000 Nucleated RBC % (auto) 0.0 Sodium 134 L Potassium 3.3 Chloride 100 Carbon Dioxide 25 Anion Gap 12 BUN 7 L Creatinine 0.78 Estim Creat Clear Calc 50.7 Estimated GFR > 60 Random Glucose 98 Calcium 8.5 Procedures Date of Service Date of Service: 05/24/23 Progress Note: A&P Assessment and plan (1) C. difficile diarrhea: Status: Acute (2) Atrial fibrillation with rapid ventricular response: Status: Acute (3) Hypokalemia: Status: Acute (4) Hypomagnesemia: Status: Acute (5) Acute hyponatremia: Status: Acute (6) Liver cirrhosis: Status: Acute (7) Post-ERCP acute pancreatitis: Status: Acute (8) Peripancreatic fluid collection: Status: Acute Plan 72y.o F with cirrhosis who was seen for ERCP on 05/03 for abnormal CBD lesion with course c/b post-ERCP pancreatitis necessitating a week's hospitalisation here for persistent diarrhea and found to have CDI with multiple electrolyte abnormalities that have subsequently led to cardiac conduction abnormality. Now on PO vanc and IV flagyl since 05/22 with improvement in sx clinically. Recommendations: - Cont C Diff Abx as per protocol - Low fat diet - Can trial pancreatic enzymes to see if any component of pancreatic insufficiency also contributing to the diarrhea - Would not recommend anti-diarrheal with active infectious colitis - Has acute peripancreatic collection - future management will be dictated by if fluid collection persists/organizes. Will need another contrasted CT Abd/pel in 4 weeks from index event i.e after 06/07 to assess if acute collection has resolved vs evolved to chronic pseudocyst. Time Spent With Patient Time: Total time managing care of this patient today ____ minutes. Quality Stroke Does the patient have a stroke diagnosis?: No VTE Prior VTE?: No VTE Risk Level:: Medical - moderate - high VTE Device Contraindication: Treatment Not Indicated VTE Drug Contraindication: N/A - Med Ordered
--- NOTE | 2023-05-24 11:47 | P.PNIM_ITS ---
Subjective Subjective Date of Service: 05/24/23 Interval History: reporting persistent diarrhea, no abdominal pain Physical Exam 2 Vital Signs: Vital Signs: Last Vital Signs Temp 98.3 F 05/24/23 10:54 Pulse 65 05/24/23 10:54 Resp 20 05/24/23 10:54 BP 142/71 H 05/24/23 10:54 Pulse Ox 98 05/24/23 10:54 O2 Del Method Room Air 05/24/23 10:54 O2 Flow Rate 1 05/22/23 07:59 BMI result Body Mass Index 19.0 Const: Other: Appearance: Alert.? Oriented X3.?. cvs: rrr, [id number] , no murmur res: clear to auscultation ,no rhonchii or wheezing abd: no rebound or guarding, mild tenderness, bs present. ext pulses present , no cyanosis. neuro: axo3 , nonfocal. Objective Data Active Medications Acetaminophen (Acetaminophen 325 Mg Tablet) 650 mg PO Q6H PRN PRN Reason: Pain, Mild (Pain Scale 1-3) Last Admin: 05/19/23 17:01 Dose: 650 mg Documented By: DAVID Albuterol Sulfate (Albuterol Sulfate 90 Mcg 8 Gm Inhaler) 1 puff INHALE Q6H PRN PRN Reason: wheezing Amiodarone HCl (Amiodarone Hcl 200 Mg Tablet) 400 mg PO BID [facility] Last Admin: 05/24/23 08:23 Dose: 400 mg Documented By: TORO Enoxaparin Sodium (Enoxaparin Sodium 60 Mg/0.6 Ml Syringe) 50 mg SUBCUT Q12H [facility] Last Admin: 05/24/23 08:24 Dose: 50 mg Documented By: TORO Fluticasone/Vilanterol (Fluticasone/Vilanterol 100/25 Blst.W.Dev) 1 puff INHALE RDAILY [facility] Last Admin: 05/24/23 07:45 Dose: 1 puff Documented By: YOLANDA Metronidazole (Flagyl) 500 mg in 100 mls @ 100 mls/hr IV Q8H [facility] Last Admin: 05/24/23 06:33 Dose: 100 mls/hr Documented By: GAVIN Melatonin (Melatonin 3 Mg Tablet) 6 mg PO BEDTIME PRN PRN Reason: Insomnia Metoprolol Tartrate (Metoprolol Tartrate 25 Mg Tablet) 25 mg PO BID [facility]; Protocol Last Admin: 05/24/23 08:23 Dose: 25 mg Documented By: TORO Ondansetron HCl (Ondansetron Hcl 4 Mg/2 Ml Vial) 4 mg IVPUSH Q8H PRN PRN Reason: Nausea and Vomiting Last Admin: 05/19/23 17:00 Dose: 4 mg Documented By: DAVID Potassium Chloride (Potassium Chloride Packet 20 Meq Packet) 20 meq PO BID [facility] Last Admin: 05/24/23 08:22 Dose: 20 meq Documented By: TORO Potassium Phos/Sodium Phos (Sodium,Potassium Phosphates Powd.Pack) 1 packet PO QID [facility] Last Admin: 05/24/23 08:22 Dose: 1 packet Documented By: TORO Psyllium Hydrophilic Mucilloid (Psyllium Seed 3.7 Gm Packet) 3.7 gm PO DAILY [facility] Last Admin: 05/24/23 08:23 Dose: 3.7 gm Documented By: TORO Sodium Chloride (0.9 % Sodium Chloride Flush 3 Ml Syringe) 3 ml IVFLUSH QSHIFT [facility] Last Admin: 05/24/23 08:22 Dose: 3 ml Documented By: TORO Vancomycin HCl (Vancomycin Hcl 125 Mg Capsule) 250 mg PO Q6H [facility] Last Admin: 05/24/23 08:23 Dose: 250 mg Documented By: TORO Labs 05/24/23 06:53 05/24/23 06:53 Labs: Laboratory Results - last 24 hr 05/24/23 06:53 MCV 87.7 MCH 29.6 MCHC 33.8 RDW 13.5 Plt Count 473 H MPV 9.3 L Absolute Nucleated RBC 0.000 Nucleated RBC % (auto) 0.0 Anion Gap 12 Estim Creat Clear Calc 50.7 Estimated GFR > 60 Random Glucose 98 Calcium 8.5 Assessment and Plan (1) Atrial fibrillation with rapid ventricular response: Status: Acute (2) C. difficile diarrhea: Status: Acute Plan 72-year-old female with a history of alcohol use disorder complicated by cirrhosis, tobacco use disorder with COPD and now O2 dependent since last hospitalization,?HTN recent hospitalization for Post ERCP pancreatitis, and now here with C dif diarrhea and hypokalemia, hypomagnesemia, hyponatremia.? C Diff diarrhea--overall improved, WBC down to 16 from 34 says diarrhae somewhat improving but still has significant diarrhae Treated with Dificid 05/18 to 05/21. ID recommended changing to Vanco+ Flagyl 05/23 Hypokalemia/Hypomagnesemia/Hyponatremia/hypophos-d/t diarrhea. Replacing with IV and PO electrolytes Hyponatremia, hypokalemia is improved. Hypomagnesemia repleted and resolved. Also added Neutra-Phos for hypophosphatemia. hypovolemic hyponatremia improved with fluid. Nephrology was following new onset afib rvr: echo done --EF 60 to 65 on amiodarone Lovenox 50 bid O2 Dependent COPD, no acute exacerbation, continue O2 HTN--hold home meds in light of diarrahae , borderline blood pressure and multiple electrolyte abnormalities. DVT prophylaxis: Lovenox Full code Ongoing hospitalization need: management of Cdif diarrhea with severe hypokalemia, Hypomagnesemia--needing IV replacement and frequent monitoring, new onset afib with rvr -made tele monitoring ,IV rate control medications. Pt eval Quality Stroke Does the patient have a stroke diagnosis?: No VTE Prior VTE?: No VTE Risk Level:: Medical - moderate - high VTE Device Contraindication: Treatment Not Indicated VTE Drug Contraindication: N/A - Med Ordered
[2023-05-24 12:44] LABS: Magnesium 1.7 mg/dL (1.6-2.6)
[2023-05-24 15:34] VITALS: BP 143/69; PULSE 76; RESP 16; TEMP 36.9; O2SAT 99
[2023-05-24] MEDS: Lipase/Prot/Amylase 12/38/60K CAPSULE.DR 1 CAP PO (17:16)
[2023-05-24 19:48] VITALS: BP 137/73; PULSE 75; RESP 16; TEMP 36.8; O2SAT 94
[2023-05-25] VITALS (7 sets, daily range): BP systolic 118–149; BP diastolic 61–78; PULSE 73–81; RESP 18–20; TEMP 36.7–37.3; O2SAT 95–98
[2023-05-25] MEDS: vancomycin HCL 125 MG CAPSULE 250 MG PO ×4 (03:41→22:06)
[2023-05-25] MEDS: Acetaminophen 325 MG TABLET 650 MG PO ×2 (06:04→22:05)
[2023-05-25] MEDS: Simethicone 80 MG TAB.CHEW PO (06:29)
[2023-05-25] MEDS: metroNIDAZOLE/NS 500 MG/100 ML PIGGYBACK 100 MG IV ×3 (06:29→22:07)
[2023-05-25] MEDS: Fluticasone/Vilanterol 100/25 BLST.W.DEV 1 PUFF INHALE (08:32)
--- NOTE | 2023-05-25 08:37 | MHC.CM.PN ---
[facility] UPDATED IN [facility] WITH PROGRESS TOWARDS DISCHARGE
[2023-05-25] MEDS: Enoxaparin Sodium 60 MG/0.6 ML SYRINGE 50 MG SUBCUT ×2 (09:18→22:04)
[2023-05-25] MEDS: Amiodarone HCL 200 MG TABLET 400 MG PO ×2 (09:19→22:04)
[2023-05-25] MEDS: Lipase/Prot/Amylase 12/38/60K CAPSULE.DR 1 CAP PO ×3 (09:19→16:41)
[2023-05-25] MEDS: Psyllium seed 3.7 GM PACKET PO (09:19)
[2023-05-25] MEDS: Sodium,Potassium Phosphates POWD.PACK 1 PACKET PO ×4 (09:19→22:03)
[2023-05-25] MEDS: Potassium Chloride Packet 20 MEQ PACKET PO ×2 (09:19→22:04)
[2023-05-25] MEDS: Metoprolol Tartrate 25 MG TABLET PO ×2 (09:20→22:05)
--- NOTE | 2023-05-25 11:44 | HO.PM.IMPN ---
Subjective Subjective Date of Service: 05/25/23 Interval History: Diarrhea is a litte better, abdominal soreness is better Physical Exam Vital Signs: Vital Signs: Last Vital Signs Temp 98.0 F 05/25/23 11:24 Pulse 74 05/25/23 11:24 Resp 20 05/25/23 11:24 BP 142/73 H 05/25/23 11:24 Pulse Ox 96 05/25/23 11:24 O2 Del Method Room Air 05/25/23 11:24 O2 Flow Rate 1 05/22/23 07:59 BMI result Body Mass Index 19.0 Const: Other: Appearance: Alert.? Oriented X3.?. cvs: rrr, [id number] , no murmur res: clear to auscultation ,no rhonchii or wheezing abd: no rebound or guarding, mild tenderness, bs present. ext pulses present , no cyanosis. neuro: axo3 , nonfocal. Objective Data Active Medications Acetaminophen (Acetaminophen 325 Mg Tablet) 650 mg PO Q6H PRN PRN Reason: Pain, Mild (Pain Scale 1-3) Last Admin: 05/25/23 06:04 Dose: 650 mg Documented By: GAVIN Albuterol Sulfate (Albuterol Sulfate 90 Mcg 8 Gm Inhaler) 1 puff INHALE Q6H PRN PRN Reason: wheezing Amiodarone HCl (Amiodarone Hcl 200 Mg Tablet) 400 mg PO BID [facility] Last Admin: 05/25/23 09:19 Dose: 400 mg Documented By: TORO Lipase/Protease/Amylase (Lipase/Prot/Amylase 12/38/60k Capsule.Dr) 1 cap PO TIDWM [facility] Last Admin: 05/25/23 09:19 Dose: 1 cap Documented By: TORO Enoxaparin Sodium (Enoxaparin Sodium 60 Mg/0.6 Ml Syringe) 50 mg SUBCUT Q12H [facility] Last Admin: 05/25/23 09:18 Dose: 50 mg Documented By: TORO Fluticasone/Vilanterol (Fluticasone/Vilanterol 100/25 Blst.W.Dev) 1 puff INHALE RDAILY [facility] Last Admin: 05/25/23 08:32 Dose: 1 puff Documented By: GILA Metronidazole (Flagyl) 500 mg in 100 mls @ 100 mls/hr IV Q8H [facility] Last Infusion: 05/25/23 09:05 Dose: Infused Documented By: TORO Melatonin (Melatonin 3 Mg Tablet) 6 mg PO BEDTIME PRN PRN Reason: Insomnia Metoprolol Tartrate (Metoprolol Tartrate 25 Mg Tablet) 25 mg PO BID [facility]; Protocol Last Admin: 05/25/23 09:20 Dose: 25 mg Documented By: TORO Ondansetron HCl (Ondansetron Hcl 4 Mg/2 Ml Vial) 4 mg IVPUSH Q8H PRN PRN Reason: Nausea and Vomiting Last Admin: 05/19/23 17:00 Dose: 4 mg Documented By: DAVID Potassium Chloride (Potassium Chloride Packet 20 Meq Packet) 20 meq PO BID [facility] Last Admin: 05/25/23 09:19 Dose: 20 meq Documented By: TORO Potassium Phos/Sodium Phos (Sodium,Potassium Phosphates Powd.Pack) 1 packet PO QID [facility] Last Admin: 05/25/23 09:19 Dose: 1 packet Documented By: TORO Psyllium Hydrophilic Mucilloid (Psyllium Seed 3.7 Gm Packet) 3.7 gm PO DAILY [facility] Last Admin: 05/25/23 09:19 Dose: 3.7 gm Documented By: TORO Sodium Chloride (0.9 % Sodium Chloride Flush 3 Ml Syringe) 3 ml IVFLUSH QSHIFT [facility] Last Admin: 05/25/23 09:05 Dose: Not Given Documented By: TORO Non-Admin Reason: IV Running Vancomycin HCl (Vancomycin Hcl 125 Mg Capsule) 250 mg PO Q6H [facility] Last Admin: 05/25/23 09:19 Dose: 250 mg Documented By: TORO Labs 05/24/23 06:53 05/24/23 06:53 Labs: Laboratory Results - last 24 hr 05/24/23 06:53 Magnesium 1.7 Assessment and Plan (1) Atrial fibrillation with rapid ventricular response: Status: Acute (2) C. difficile diarrhea: Status: Acute Plan 72-year-old female with a history of alcohol use disorder complicated by cirrhosis, tobacco use disorder with COPD and now O2 dependent since last hospitalization,?HTN recent hospitalization for Post ERCP pancreatitis, and now here with C dif diarrhea and hypokalemia, hypomagnesemia, hyponatremia.? C Diff diarrhea--overall improved, WBC down to 16 from 34 says diarrhae somewhat improving but still has significant diarrhae Treated with Dificid 05/18 to 05/21. ID recommended changing to Vanco+ Flagyl 05/23 Creon as suggested by GI--may help with diarreha Hypokalemia/Hypomagnesemia/Hyponatremia/hypophos-d/t diarrhea. Hyponatremia, hypokalemia is improved, K is normal, NA 134 Hypomagnesemia repleted and resolved. Hypophosphatemia. treated with Neutra-Phos fos Nephrology was following new onset afib rvr: rate is controlled echo done --EF 60 to 65 on amiodarone Lovenox 50 bid O2 Dependent COPD, no acute exacerbation, continue O2 as needed, presently 96 on room air HTN--hold home meds in light of diarrahae , borderline blood pressure and multiple electrolyte abnormalities. DVT prophylaxis: Lovenox Full code Ongoing hospitalization need: management of Cdif diarrhea with severe hypokalemia, Hypomagnesemia--needing IV replacement and frequent monitoring, new onset afib with rvr -made tele monitoring ,IV rate control medications. Pt eval Quality Stroke Does the patient have a stroke diagnosis?: No VTE Prior VTE?: No VTE Risk Level:: Medical - moderate - high VTE Device Contraindication: Treatment Not Indicated VTE Drug Contraindication: N/A - Med Ordered
--- NOTE | 2023-05-25 11:49 | MHC.CM.PN ---
PATIENT IS REFUSING TO PLAN FOR HOME WITH SERVICES THROUGH [facility] SHE WANTS REHAB REFERRALS PLACED PER DISCUSSION, REFERRALS TO [facility], [facility], [facility] AND [facility] FOLLOWING FOR RESPONSES.
--- NOTE | 2023-05-25 13:07 | MHC.CM.PN ---
PATIENT CHOOSES [facility]. FACILITY IS GOING FOR AUTH.
--- NOTE | 2023-05-25 13:31 | MHC.CLN ---
F/U PO VARIABLE RANGING FROM 25-75% DIET RX: REGULAR LACTOSE FREE-APPROPRIATE PT RECEIVING ENSURE CLEAR TID TO PROVIDE 720KCALS, 24G PROTEIN CONTINUE TO MONITOR PO INTAKE, LYTES AND SUPPLEMENT ACCEPTANCE
[2023-05-25 13:37] LABS: IDNOW Serial# 08D9AD1C; Strep A Nucleic Acid Negative (Negative)
--- NOTE | 2023-05-25 15:51 | P.PNID_ITS ---
Subjective Subjective Date of Service: 05/25/23 Critical Care Time (minutes): 15 Comment: she still has nighttime loose stools,but less during the day Objective Data Labs 05/24/23 06:53 05/24/23 06:53 Labs: Laboratory Results - last 24 hr 05/25/23 12:59 S. pyogenes GrpA STACIA Negative Physical Exam 2 Vital Signs: Vital Signs: Last Vital Signs Temp 99.2 F 05/25/23 15:50 Pulse 74 05/25/23 15:50 Resp 19 05/25/23 15:50 BP 149/74 H 05/25/23 15:50 Pulse Ox 96 05/25/23 15:50 O2 Del Method Room Air 05/25/23 15:50 O2 Flow Rate 1 05/22/23 07:59 BMI result Body Mass Index 19.0 Const: General: cooperative Resp: Effort & Inspection: able to speak in complete sentences Cardio: Rate: regular rate Rhythm: regular rhythm GI: Palpation (GI): nontender Assessment and Plan Assessment and plan (1) C. difficile diarrhea: Problem details: there is less stool per patient Status: Acute Assessment and Plan: diarrhea (2) Post-ERCP acute pancreatitis: Status: Acute Assessment and Plan: po Vancomycin 250 qid for 10 days on discharge and then taper Avoid milk products follow with GI outpatient?taper Vancomycin Time Spent With Patient Time: Total time managing care of this patient today ____ minutes.
[2023-05-25] MEDS: 0.9 % Sodium Chloride Flush 3 ML SYRINGE IVFLUSH (16:44)
[2023-05-26] VITALS (8 sets, daily range): BP systolic 120–149; BP diastolic 54–80; PULSE 69–92; RESP 16–20; TEMP 36.6–37.4; O2SAT 94–97
[2023-05-26] MEDS: vancomycin HCL 125 MG CAPSULE 250 MG PO ×4 (03:45→21:21)
[2023-05-26] MEDS: metroNIDAZOLE/NS 500 MG/100 ML PIGGYBACK 100 MG IV ×3 (06:40→23:17)
[2023-05-26] MEDS: Enoxaparin Sodium 60 MG/0.6 ML SYRINGE 50 MG SUBCUT ×2 (08:22→21:21)
[2023-05-26] MEDS: Lipase/Prot/Amylase 12/38/60K CAPSULE.DR 1 CAP PO ×3 (08:23→16:36)
[2023-05-26] MEDS: Amiodarone HCL 200 MG TABLET 400 MG PO ×2 (08:23→21:22)
[2023-05-26] MEDS: Sodium,Potassium Phosphates POWD.PACK 1 PACKET PO ×4 (08:23→21:22)
[2023-05-26] MEDS: Metoprolol Tartrate 25 MG TABLET PO ×2 (08:23→21:21)
[2023-05-26] MEDS: 0.9 % Sodium Chloride Flush 3 ML SYRINGE IVFLUSH ×2 (08:24→21:22)
[2023-05-26] MEDS: Fluticasone/Vilanterol 100/25 BLST.W.DEV 1 PUFF INHALE (08:37)
--- NOTE | 2023-05-26 11:49 | P.PNIM_ITS ---
Subjective Subjective Date of Service: 05/26/23 Interval History: Persistent diarrhea, but improving pain is better Physical Exam 2 Vital Signs: Vital Signs: Last Vital Signs Temp 98.5 F 05/26/23 07:54 Pulse 72 05/26/23 08:39 Resp 18 05/26/23 08:39 BP 135/65 05/26/23 07:54 Pulse Ox 94 05/26/23 07:54 O2 Del Method Room Air 05/26/23 07:54 O2 Flow Rate 1 05/22/23 07:59 BMI result Body Mass Index 19.0 Const: General: cooperative Resp: Effort & Inspection: able to speak in complete sentences Cardio: Rate: regular rate Rhythm: regular rhythm GI: Palpation (GI): nontender Objective Data Active Medications Acetaminophen (Acetaminophen 325 Mg Tablet) 650 mg PO Q6H PRN PRN Reason: Pain, Mild (Pain Scale 1-3) Last Admin: 05/25/23 22:05 Dose: 650 mg Documented By: STERLING Albuterol Sulfate (Albuterol Sulfate 90 Mcg 8 Gm Inhaler) 1 puff INHALE Q6H PRN PRN Reason: wheezing Amiodarone HCl (Amiodarone Hcl 200 Mg Tablet) 400 mg PO BID [facility] Last Admin: 05/26/23 08:23 Dose: 400 mg Documented By: MOUNIKA Lipase/Protease/Amylase (Lipase/Prot/Amylase 12/38/60k Capsule.Dr) 1 cap PO TIDWM [facility] Last Admin: 05/26/23 08:23 Dose: 1 cap Documented By: MOUNIKA Enoxaparin Sodium (Enoxaparin Sodium 60 Mg/0.6 Ml Syringe) 50 mg SUBCUT Q12H [facility] Last Admin: 05/26/23 08:22 Dose: 50 mg Documented By: MOUNIKA Fluticasone/Vilanterol (Fluticasone/Vilanterol 100/25 Blst.W.Dev) 1 puff INHALE RDAILY [facility] Last Admin: 05/26/23 08:37 Dose: 1 puff Documented By: YOLANDA Metronidazole (Flagyl) 500 mg in 100 mls @ 100 mls/hr IV Q8H [facility] Last Infusion: 05/26/23 07:58 Dose: Infused Documented By: MOUNIKA Melatonin (Melatonin 3 Mg Tablet) 6 mg PO BEDTIME PRN PRN Reason: Insomnia Metoprolol Tartrate (Metoprolol Tartrate 25 Mg Tablet) 25 mg PO BID [facility]; Protocol Last Admin: 05/26/23 08:23 Dose: 25 mg Documented By: MOUNIKA Ondansetron HCl (Ondansetron Hcl 4 Mg/2 Ml Vial) 4 mg IVPUSH Q8H PRN PRN Reason: Nausea and Vomiting Last Admin: 05/19/23 17:00 Dose: 4 mg Documented By: DAVID Potassium Phos/Sodium Phos (Sodium,Potassium Phosphates Powd.Pack) 1 packet PO QID [facility] Last Admin: 05/26/23 08:23 Dose: 1 packet Documented By: MOUNIKA Psyllium Hydrophilic Mucilloid (Psyllium Seed 3.7 Gm Packet) 3.7 gm PO DAILY [facility] Last Admin: 05/26/23 08:22 Dose: Not Given Documented By: MOUNIKA Non-Admin Reason: Patient Refused Sodium Chloride (0.9 % Sodium Chloride Flush 3 Ml Syringe) 3 ml IVFLUSH QSHIFT [facility] Last Admin: 05/26/23 08:24 Dose: 3 ml Documented By: MOUNIKA Vancomycin HCl (Vancomycin Hcl 125 Mg Capsule) 250 mg PO Q6H [facility] Last Admin: 05/26/23 08:23 Dose: 250 mg Documented By: MOUNIKA Labs 05/24/23 06:53 05/24/23 06:53 Labs: Laboratory Results - last 24 hr 05/25/23 12:59 S. pyogenes GrpA STACIA Negative Assessment and Plan (1) Atrial fibrillation with rapid ventricular response: Status: Acute (2) C. difficile diarrhea: Status: Acute Plan 72-year-old female with a history of alcohol use disorder complicated by cirrhosis, tobacco use disorder with COPD and now O2 dependent since last hospitalization,?HTN recent hospitalization for Post ERCP pancreatitis, and now here with C dif diarrhea and hypokalemia, hypomagnesemia, hyponatremia.? C Diff diarrhea--overall improved, WBC down to 16 from 34 says diarrhae somewhat improving but still has significant diarrhae Treated with Dificid 05/18 to 05/21. ID recommended changing to Vanco+ Flagyl 05/23 Creon as suggested by GI--may help with diarreha Hypokalemia/Hypomagnesemia/Hyponatremia/hypophos-d/t diarrhea. Hyponatremia, hypokalemia is improved, K is normal, NA 134 Hypomagnesemia repleted and resolved. Hypophosphatemia. treated with Neutra-Phos fos Nephrology was following new onset afib rvr: rate is controlled echo done --EF 60 to 65 on amiodarone Lovenox 50 bid O2 Dependent COPD, no acute exacerbation, continue O2 as needed, presently 96 on room air HTN--hold home meds in light of diarrahae , borderline blood pressure and multiple electrolyte abnormalities. DVT prophylaxis: Lovenox Full code Ongoing hospitalization need: management of Cdif diarrhea with severe hypokalemia, Hypomagnesemia--needing IV replacement and frequent monitoring, new onset afib with rvr -made tele monitoring ,IV rate control medications. Pt eval Quality Stroke Does the patient have a stroke diagnosis?: No VTE Prior VTE?: No VTE Risk Level:: Medical - moderate - high VTE Device Contraindication: Treatment Not Indicated VTE Drug Contraindication: N/A - Med Ordered
[2023-05-26 12:18] LABS: Hemoglobin 10.6 g/dl (12.0-16.0); Mean Corpuscular HGB Conc 33.1 g/dl (31.0-35.0); Mean Corpuscular Hemoglobin 29.2 pg (27.0-33.0); Mean Corpuscular Volume 88.2 fL (80.0-98.0); Mean Platelet Volume 9.2 fL (9.4-12.3); Platelet Count 465 X10*3/uL (160-400); Red Blood Count 3.63 X10*6/uL (4.20-5.50); Red Cell Distribution Width 13.6 % (11.0-16.0); White Blood Count 20.3 X10*3/uL (4.8-10.8)
[2023-05-26 12:28] LABS: Anion Gap 15 (12-20); Blood Urea Nitrogen 10 mg/dL (9-16); Calcium 8.3 mg/dL (8.4-10.2); Carbon Dioxide 25 mmol/L (22-29); Chloride 96 mmol/L (96-108); Creatinine Clr Calc Pharmacy 48.3; Estimated Glomerular Filt Rate > 60; Glucose Random 122 mg/dL (60-115); Potassium 2.6 mmol/L (3.3-5.1); Sodium 133 mmol/L (135-145)
[2023-05-26] MEDS: Potassium Chloride ER 20 MEQ TAB.ER.PRT 40 MEQ PO (12:44)
[2023-05-26 14:17] LABS: Magnesium 1.2 mg/dL (1.6-2.6)
[2023-05-26] MEDS: Potassium Chloride/H20 10 MEQ/100 ML PIGGYBACK 100 MEQ IV ×2 (15:20→16:35)
[2023-05-26] MEDS: Magnesium Sulfate/H2O 2 GM/50 ML PIGGYBACK IV (21:31)
[2023-05-27] VITALS (7 sets, daily range): BP systolic 131–156; BP diastolic 65–72; PULSE 71–89; RESP 16–20; TEMP 36.2–37.1; O2SAT 95–98
[2023-05-27] MEDS: Magnesium Sulfate/H2O 2 GM/50 ML PIGGYBACK IV (00:21)
[2023-05-27] MEDS: vancomycin HCL 125 MG CAPSULE 250 MG PO ×4 (02:12→21:01)
[2023-05-27 06:17] LABS: Hematocrit 27.9 % (37.0-47.0); Hemoglobin 9.5 g/dl (12.0-16.0); Mean Corpuscular HGB Conc 34.1 g/dl (31.0-35.0); Mean Corpuscular Hemoglobin 29.1 pg (27.0-33.0); Mean Corpuscular Volume 85.3 fL (80.0-98.0); Mean Platelet Volume 9.4 fL (9.4-12.3); Platelet Count 429 X10*3/uL (160-400); Red Blood Count 3.27 X10*6/uL (4.20-5.50); Red Cell Distribution Width 13.6 % (11.0-16.0); White Blood Count 19.1 X10*3/uL (4.8-10.8)
[2023-05-27] MEDS: metroNIDAZOLE/NS 500 MG/100 ML PIGGYBACK 100 MG IV ×3 (06:23→23:08)
[2023-05-27 06:31] LABS: Anion Gap 12 (12-20); Blood Urea Nitrogen 8 mg/dL (9-16); Calcium 7.9 mg/dL (8.4-10.2); Carbon Dioxide 22 mmol/L (22-29); Chloride 100 mmol/L (96-108); Estimated Glomerular Filt Rate > 60; Glucose Random 106 mg/dL (60-115); Potassium 2.8 mmol/L (3.3-5.1); Sodium 131 mmol/L (135-145)
[2023-05-27] MEDS: Fluticasone/Vilanterol 100/25 BLST.W.DEV 1 PUFF INHALE (07:28)
[2023-05-27 08:10] LABS: Magnesium 2.1 mg/dL (1.6-2.6)
[2023-05-27] MEDS: Potassium Chloride/H20 10 MEQ/100 ML PIGGYBACK 100 MEQ IV (09:50)
[2023-05-27] MEDS: Potassium Chloride ER 20 MEQ TAB.ER.PRT 40 MEQ PO ×3 (09:51→21:00)
[2023-05-27] MEDS: Enoxaparin Sodium 60 MG/0.6 ML SYRINGE 50 MG SUBCUT ×2 (09:51→23:06)
[2023-05-27] MEDS: Amiodarone HCL 200 MG TABLET 400 MG PO ×2 (09:52→21:00)
[2023-05-27] MEDS: Lipase/Prot/Amylase 12/38/60K CAPSULE.DR 1 CAP PO ×3 (09:52→16:14)
[2023-05-27] MEDS: Metoprolol Tartrate 25 MG TABLET PO ×2 (09:52→21:01)
[2023-05-27] MEDS: Sodium,Potassium Phosphates POWD.PACK 1 PACKET PO ×4 (09:52→21:00)
[2023-05-27] MEDS: 0.9 % Sodium Chloride Flush 3 ML SYRINGE IVFLUSH ×4 (10:30→23:16)
--- NOTE | 2023-05-27 11:10 | HO.PM.IMPN ---
Subjective Subjective Date of Service: 05/27/23 Interval History: Overall feels better, less diarreha, no abd pain Physical Exam Vital Signs: Vital Signs: Last Vital Signs Temp 97.5 F 05/27/23 07:55 Pulse 89 05/27/23 07:55 Resp 18 05/27/23 07:55 BP 143/67 H 05/27/23 07:55 Pulse Ox 97 05/27/23 07:55 O2 Del Method Room Air 05/27/23 07:55 O2 Flow Rate 1 05/22/23 07:59 BMI result Body Mass Index 19.0 Objective Data Active Medications Acetaminophen (Acetaminophen 325 Mg Tablet) 650 mg PO Q6H PRN PRN Reason: Pain, Mild (Pain Scale 1-3) Last Admin: 05/25/23 22:05 Dose: 650 mg Documented By: STERLING Albuterol Sulfate (Albuterol Sulfate 90 Mcg 8 Gm Inhaler) 1 puff INHALE Q6H PRN PRN Reason: wheezing Amiodarone HCl (Amiodarone Hcl 200 Mg Tablet) 400 mg PO BID [facility] Last Admin: 05/27/23 09:52 Dose: 400 mg Documented By: PAUL Lipase/Protease/Amylase (Lipase/Prot/Amylase 12/38/60k Capsule.Dr) 1 cap PO TIDWM [facility] Last Admin: 05/27/23 09:52 Dose: 1 cap Documented By: PAUL Enoxaparin Sodium (Enoxaparin Sodium 60 Mg/0.6 Ml Syringe) 50 mg SUBCUT Q12H [facility] Last Admin: 05/27/23 09:51 Dose: 50 mg Documented By: PAUL Fluticasone/Vilanterol (Fluticasone/Vilanterol 100/25 Blst.W.Dev) 1 puff INHALE RDAILY [facility] Last Admin: 05/27/23 07:28 Dose: 1 puff Documented By: YOLANDA Metronidazole (Flagyl) 500 mg in 100 mls @ 100 mls/hr IV Q8H [facility] Last Infusion: 05/27/23 07:55 Dose: Infused Documented By: PAUL Melatonin (Melatonin 3 Mg Tablet) 6 mg PO BEDTIME PRN PRN Reason: Insomnia Metoprolol Tartrate (Metoprolol Tartrate 25 Mg Tablet) 25 mg PO BID [facility]; Protocol Last Admin: 05/27/23 09:52 Dose: 25 mg Documented By: PAUL Ondansetron HCl (Ondansetron Hcl 4 Mg/2 Ml Vial) 4 mg IVPUSH Q8H PRN PRN Reason: Nausea and Vomiting Last Admin: 05/19/23 17:00 Dose: 4 mg Documented By: DAVID Potassium Chloride (Potassium Chloride Er 20 Meq Tab.Er.Prt) 40 meq PO Q6H [facility] Stop: 05/27/23 20:01 Last Admin: 05/27/23 09:51 Dose: 40 meq Documented By: PAUL Potassium Phos/Sodium Phos (Sodium,Potassium Phosphates Powd.Pack) 1 packet PO QID [facility] Last Admin: 05/27/23 09:52 Dose: 1 packet Documented By: PAUL Psyllium Hydrophilic Mucilloid (Psyllium Seed 3.7 Gm Packet) 3.7 gm PO DAILY [facility] Last Admin: 05/27/23 10:30 Dose: Not Given Documented By: PAUL Non-Admin Reason: Patient Refused Sodium Chloride (0.9 % Sodium Chloride Flush 3 Ml Syringe) 3 ml IVFLUSH QSHIFT [facility] Last Admin: 05/27/23 10:30 Dose: 3 ml Documented By: PAUL Vancomycin HCl (Vancomycin Hcl 125 Mg Capsule) 250 mg PO Q6H [facility] Last Admin: 05/27/23 09:52 Dose: 250 mg Documented By: PAUL Labs 05/27/23 05:44 05/27/23 05:44 Labs: Laboratory Results - last 24 hr 05/26/23 05/27/23 12:08 05:44 MCV 88.2 85.3 MCH 29.2 29.1 MCHC 33.1 34.1 RDW 13.6 13.6 Plt Count 465 H 429 H MPV 9.2 L 9.4 Absolute Nucleated RBC 0.000 0.000 Nucleated RBC % (auto) 0.0 0.0 Anion Gap 15 12 Estim Creat Clear Calc 48.3 55.0 Estimated GFR > 60 > 60 Random Glucose 122 H 106 Calcium 8.3 L 7.9 L Magnesium 1.2 L* 2.1 Assessment and Plan (1) Atrial fibrillation with rapid ventricular response: Status: Acute (2) C. difficile diarrhea: Status: Acute Plan 72-year-old female with a history of alcohol use disorder complicated by cirrhosis, tobacco use disorder with COPD and now O2 dependent since last hospitalization,?HTN recent hospitalization for Post ERCP pancreatitis, and now here with C dif diarrhea and hypokalemia, hypomagnesemia, hyponatremia.? C Diff diarrhea--overall improved, WBC down to 20 from 34 stool appear formed now Treated with Dificid 05/18 to 05/21. Then ID recommended changing to Vanco+ Flagyl on 05/23 Creon as suggested by GI--may help with diarreha repeat CT 05/26, result pending Leukocytosis--likely residual from cdif, trending down Hypokalemia d/t diarrhea, K 2. 8, IV and PO supplement and continue checking Hypomagnesemia repleted and resolved, 2.1 as of 05/27 Hyponatremia, chronic and stable at 131 to 134 Hypophosphatemia. treated with Neutra-Phos, check level Nephrology was following new onset afib rvr: rate is controlled echo done --EF 60 to 65 on amiodarone Lovenox 50 bid, will transition to eliquis before dc O2 Dependent COPD, no acute exacerbation, continue O2 as needed, presently 96 on room air HTN--hold home meds in light of diarrahae , borderline blood pressure and multiple electrolyte abnormalities. DVT prophylaxis: Lovenox Full code Ongoing hospitalization need: management of Cdif diarrhea with severe hypokalemia, Hypomagnesemia--needing IV replacement and frequent monitoring, new onset afib with rvr -made tele monitoring ,IV rate control medications. Pt eval Quality Stroke Does the patient have a stroke diagnosis?: No VTE Prior VTE?: No VTE Risk Level:: Medical - moderate - high VTE Device Contraindication: Treatment Not Indicated VTE Drug Contraindication: N/A - Med Ordered
[2023-05-27 11:52] LABS: Phosphorus 2.6 mg/dL (2.7-4.5)
[2023-05-28] MEDS: vancomycin HCL 125 MG CAPSULE 250 MG PO ×4 (02:20→22:56)
[2023-05-28 03:12] VITALS: BP 142/62; PULSE 73; RESP 20; TEMP 36.6; O2SAT 96
[2023-05-28 07:16] VITALS: BP 136/70; PULSE 79; RESP 20; TEMP 36.4; O2SAT 96
[2023-05-28] MEDS: Lipase/Prot/Amylase 12/38/60K CAPSULE.DR 1 CAP PO ×3 (07:57→17:01)
[2023-05-28] MEDS: Sodium,Potassium Phosphates POWD.PACK 1 PACKET PO (07:57)
[2023-05-28] MEDS: Metoprolol Tartrate 25 MG TABLET PO ×2 (07:57→22:56)
[2023-05-28] MEDS: Fluticasone/Vilanterol 100/25 BLST.W.DEV 1 PUFF INHALE (07:57)
[2023-05-28] MEDS: Amiodarone HCL 200 MG TABLET 400 MG PO ×2 (07:57→22:56)
[2023-05-28] MEDS: metroNIDAZOLE/NS 500 MG/100 ML PIGGYBACK 100 MG IV ×3 (07:58→22:58)
[2023-05-28 07:59] VITALS: PULSE 70; RESP 16; O2SAT 94
[2023-05-28 08:35] LABS: Hematocrit 30.6 % (37.0-47.0); Hemoglobin 10.2 g/dl (12.0-16.0); Mean Corpuscular HGB Conc 33.3 g/dl (31.0-35.0); Mean Corpuscular Hemoglobin 29.1 pg (27.0-33.0); Mean Corpuscular Volume 87.2 fL (80.0-98.0); Mean Platelet Volume 9.3 fL (9.4-12.3); Platelet Count 479 X10*3/uL (160-400); Red Blood Count 3.51 X10*6/uL (4.20-5.50); White Blood Count 19.8 X10*3/uL (4.8-10.8)
[2023-05-28 08:54] LABS: Anion Gap 12 (12-20); Blood Urea Nitrogen 7 mg/dL (9-16); Calcium 8.5 mg/dL (8.4-10.2); Carbon Dioxide 23 mmol/L (22-29); Chloride 102 mmol/L (96-108); Creatinine Clr Calc Pharmacy 49.5; Estimated Glomerular Filt Rate > 60; Glucose Random 102 mg/dL (60-115); Magnesium 1.6 mg/dL (1.6-2.6); Potassium 4.5 mmol/L (3.3-5.1); Sodium 132 mmol/L (135-145)
--- NOTE | 2023-05-28 09:00 | P.PNNP_ITS ---
Subjective Subjective Date of Service: 05/29/23 Principal diagnosis: Paroxysmal atrial flutter. Interval history: Events noted. Still has diarrhea. She has been documenting almost every hour. Physical Exam 2 Vital Signs: Vital Signs: Last Vital Signs Temp 97.6 F 05/28/23 07:16 Pulse 70 05/28/23 07:59 Resp 16 05/28/23 07:59 BP 136/70 05/28/23 07:16 Pulse Ox 96 05/28/23 07:16 O2 Del Method Room Air 05/28/23 07:16 O2 Flow Rate 1 05/22/23 07:59 BMI result Body Mass Index 19.0 Const: General: comfortable Orientation/consciousness: patient oriented x3 HEENT: Head: No normal to inspection Mouth: moist mucous membranes Neck: Neck: Yes supple and Yes no JVD Resp: Auscultation: clear to auscultation bilaterally, no rales and rub present Cardio: Jugular venous distension: no JVD Palpation: no palpable S3 and no palpable S4 Heart sounds: no rubs GI: Palpation (GI): Soft to palpation and nontender Percussion: No Fluid wave present : General: Yes no CVA tenderness Back/Spine/Pelvis: Back: no CVA tenderness Skin: General skin exam: no rashes or lesions noted Neuro: General: patient oriented x3 Extrem: General: Yes no pedal edema and No clubbing Objective Data Labs 05/28/23 08:19 05/29/23 06:54 Labs: Laboratory Results - last 24 hr 05/27/23 05/28/23 05:44 08:19 WBC 19.8 H RBC 3.51 L Hgb 10.2 L Hct 30.6 L MCV 87.2 MCH 29.1 MCHC 33.3 RDW 14.0 Plt Count 479 H MPV 9.3 L Absolute Nucleated RBC 0.000 Nucleated RBC % (auto) 0.0 Sodium 132 L Potassium 4.5 D Chloride 102 Carbon Dioxide 23 Anion Gap 12 BUN 7 L Creatinine 0.80 Estim Creat Clear Calc 49.5 Estimated GFR > 60 Random Glucose 102 Calcium 8.5 D Phosphorus 2.6 L Magnesium 1.6 Procedures Date of Service Date of Service: 05/29/23 Assessment & Plan Assessment and plan (1) Hyponatremia: Status: Acute Plan Hyponatremia primarily in setting of C diff in use diarrhea. low urine sodium suggest to hypoperfusion. She probably also has a component of non osmotic ADH release. Serum sodium has improved. Recommendations Restrict hypotonic fluids/ free water intake. Can use Gatorade. No indication for urea powder at this time. Concur with current management for C diff. Renal function is stable. Hypokalemia due to GI loss has been replaced. Watch potassium periodically. Will follow along as needed Time Spent With Patient Time: Total time managing care of this patient today ____ minutes. Progress Note: Quality Stroke Does the patient have a stroke diagnosis?: No
[2023-05-28 12:00] VITALS: BP 148/75; PULSE 75; RESP 18; TEMP 36.6; O2SAT 99
--- NOTE | 2023-05-28 12:07 | HO.PM.IMPN ---
Subjective Subjective Date of Service: 05/28/23 Interval History: She is still reporting lots of diarrhea more than in just about 16 hours, Physical Exam Vital Signs: Vital Signs: Last Vital Signs Temp 97.6 F 05/28/23 07:16 Pulse 70 05/28/23 07:59 Resp 16 05/28/23 07:59 BP 136/70 05/28/23 07:16 Pulse Ox 96 05/28/23 07:16 O2 Del Method Room Air 05/28/23 07:16 O2 Flow Rate 1 05/22/23 07:59 BMI result Body Mass Index 19.0 Const: Other: General: AO X 3, no acute distress Resp: CTA bilateral CVS: S1,S2,RRR GI: +BS, NT, no distention, overall much better Skin: No rash Neuro: motor grossly intact Psych: appropriate affect Objective Data Active Medications Acetaminophen (Acetaminophen 325 Mg Tablet) 650 mg PO Q6H PRN PRN Reason: Pain, Mild (Pain Scale 1-3) Last Admin: 05/25/23 22:05 Dose: 650 mg Documented By: STERLING Albuterol Sulfate (Albuterol Sulfate 90 Mcg 8 Gm Inhaler) 1 puff INHALE Q6H PRN PRN Reason: wheezing Amiodarone HCl (Amiodarone Hcl 200 Mg Tablet) 400 mg PO BID [facility] Last Admin: 05/28/23 07:57 Dose: 400 mg Documented By: MARIXA Lipase/Protease/Amylase (Lipase/Prot/Amylase 12/38/60k Capsule.Dr) 1 cap PO TIDWM [facility] Last Admin: 05/28/23 07:57 Dose: 1 cap Documented By: MARIXA Enoxaparin Sodium (Enoxaparin Sodium 60 Mg/0.6 Ml Syringe) 50 mg SUBCUT Q12H [facility] Last Admin: 05/27/23 23:06 Dose: 50 mg Documented By: SERGIO Fluticasone/Vilanterol (Fluticasone/Vilanterol 100/25 Blst.W.Dev) 1 puff INHALE RDAILY [facility] Last Admin: 05/28/23 07:57 Dose: 1 puff Documented By: DANNIELLE Metronidazole (Flagyl) 500 mg in 100 mls @ 100 mls/hr IV Q8H [facility] Last Infusion: 05/28/23 10:11 Dose: Infused Documented By: MARXIA Melatonin (Melatonin 3 Mg Tablet) 6 mg PO BEDTIME PRN PRN Reason: Insomnia Metoprolol Tartrate (Metoprolol Tartrate 25 Mg Tablet) 25 mg PO BID [facility]; Protocol Last Admin: 05/28/23 07:57 Dose: 25 mg Documented By: MARIXA Ondansetron HCl (Ondansetron Hcl 4 Mg/2 Ml Vial) 4 mg IVPUSH Q8H PRN PRN Reason: Nausea and Vomiting Last Admin: 05/19/23 17:00 Dose: 4 mg Documented By: DAVID Potassium Phos/Sodium Phos (Sodium,Potassium Phosphates Powd.Pack) 1 packet PO QID [facility] Last Admin: 05/28/23 07:57 Dose: 1 packet Documented By: MARIXA Psyllium Hydrophilic Mucilloid (Psyllium Seed 3.7 Gm Packet) 3.7 gm PO DAILY [facility] Last Admin: 05/28/23 08:02 Dose: Not Given Documented By: MARIXA Non-Admin Reason: Patient Refused Sodium Chloride (0.9 % Sodium Chloride Flush 3 Ml Syringe) 3 ml IVFLUSH QSHIFT [facility] Last Admin: 05/27/23 23:16 Dose: 3 ml Documented By: SERGIO Vancomycin HCl (Vancomycin Hcl 125 Mg Capsule) 250 mg PO Q6H [facility] Last Admin: 05/28/23 07:57 Dose: 250 mg Documented By: MARIXA Labs 05/28/23 08:19 05/28/23 08:19 Labs: Laboratory Results - last 24 hr 05/28/23 08:19 MCV 87.2 MCH 29.1 MCHC 33.3 RDW 14.0 Plt Count 479 H MPV 9.3 L Absolute Nucleated RBC 0.000 Nucleated RBC % (auto) 0.0 Anion Gap 12 Estim Creat Clear Calc 49.5 Estimated GFR > 60 Random Glucose 102 Calcium 8.5 D Magnesium 1.6 Assessment and Plan (1) Atrial fibrillation with rapid ventricular response: Status: Acute (2) C. difficile diarrhea: Status: Acute Plan 72-year-old female with a history of alcohol use disorder complicated by cirrhosis, tobacco use disorder with COPD and now O2 dependent since last hospitalization,?HTN recent hospitalization for Post ERCP pancreatitis, and now here with C dif diarrhea and hypokalemia, hypomagnesemia, hyponatremia.? C Diff diarrhea--overall improved but persistent, WBC down to 19 from 34 stool is starting to form now Treated with Dificid 05/18 to 05/21. Then ID recommended changing to Vanco+ Flagyl on 05/23 Creon as suggested by GI--may help with diarreha, repeat CT 05/26, no megacolon, sub cut air likely from lovenox injection, abdominal skin is otherwise intact gi and id to revisit Leukocytosis--likely residual from cdif, trending down Hypokalemia d/t diarrhea, K 4.5, IV and PO supplement and continue checking Hypomagnesemia repleted and resolved, 1.6 today as of 05/27, will give another dose Hyponatremia, chronic and stable at 131 to 134 Hypophosphatemia. treated with Neutra-Phos, check level Nephrology was following new onset afib rvr: rate is controlled echo done --EF 60 to 65 on amiodarone Lovenox 50 bid, will transition to eliquis before dc O2 Dependent COPD, no acute exacerbation, continue O2 as needed, presently 96 on room air HTN--hold home meds in light of diarrahae , borderline blood pressure and multiple electrolyte abnormalities. DVT prophylaxis: Lovenox Full code Ongoing hospitalization need: management of Cdif diarrhea with severe hypokalemia, Hypomagnesemia--needing IV replacement and frequent monitoring, new onset afib with rvr -made tele monitoring ,IV rate control medications. Quality Stroke Does the patient have a stroke diagnosis?: No VTE Prior VTE?: No VTE Risk Level:: Medical - moderate - high VTE Device Contraindication: Treatment Not Indicated VTE Drug Contraindication: N/A - Med Ordered
--- NOTE | 2023-05-28 13:23 | MHC.CLN ---
Addendum entered by Virginia Henry, RD 05/28/23 14:30: PT REQUESTED NUTRITION EDUCATION FOR C-DIFF/CHRONIC DIARRHEA PT DISSATISFIED WITH LACTOSE FREE DIET RESTRICTION PT REPORTED IT IS MAKING HER PO INTAKE POOR AND THE CURRENT DIET ORDER IS MAKING HER NOT WANT TO EAT EDUCATED PT ON NUTRITION THERAPY WITH DIARRHEA-GAVE HANDOUT EXPLAINED POSSIBLE RISK WITH ADDING LACTOSE INTO DIET ORDER I.E. INCREASING DIARRHEA PT UNDERSTOOD BUT ADAMANTLY REQUESTING REGULAR DIET TRIAL TO INCREASE PO INTAKE PT REPORTS KEEPING A LOG OF NUMBER OF BMS PER DAY PT DISLIKES ENSURE CLEAR SUPPLEMENT-WILL D/C WILL TRIAL REGULAR DIET PT RECEPTIVE TO TRIAL OF GELATEIN SUPPLEMENT-WILL ADD TID TO PROVIDE 480KCALS, 60G PROTEIN MONITOR PO INTAKE Original Note: F/U PO INTAKE FAIR TO GOOD RANGING FROM FROM 50-100% DIET RX: REGULAR LACTOSE FREE-APPROPRIATE PT RECEIVING ENSURE CLEAR TID TO PROVIDE 720KCALS, 24G PROTEIN CONTINUE TO MONITOR PO INTAKE, LYTES AND SUPPLEMENT ACCEPTANCE
--- NOTE | 2023-05-28 14:55 | MHC.CM.PN ---
EMR reviewed and per MD rounds, pt is not medically cleared for D/C today due to continued management of C. Diff. CM will continue to follow.
--- NOTE | 2023-05-28 15:02 | MHC.CM.PN ---
Insurance auth received for [place] for STR. Hospitalist updated, and pt may be cleared for D/C tomorrow.
[2023-05-28 16:00] VITALS: BP 140/67; PULSE 87; RESP 20; TEMP 37.1; O2SAT 98
[2023-05-28] MEDS: 0.9 % Sodium Chloride Flush 3 ML SYRINGE IVFLUSH (17:05)
[2023-05-28 19:38] VITALS: BP 159/85; PULSE 95; RESP 20; TEMP 36.9; O2SAT 97
[2023-05-28] MEDS: Enoxaparin Sodium 60 MG/0.6 ML SYRINGE 50 MG SUBCUT (22:57)
[2023-05-29] VITALS (8 sets, daily range): BP systolic 122–144; BP diastolic 63–79; PULSE 73–102; RESP 16–20; TEMP 36.1–37.3; O2SAT 93–98
[2023-05-29] MEDS: Sodium,Potassium Phosphates POWD.PACK 1 PACKET PO ×5 (00:58→20:35)
[2023-05-29] MEDS: Magnesium Sulfate/H2O 2 GM/50 ML PIGGYBACK IV (00:58)
[2023-05-29] MEDS: 0.9 % Sodium Chloride Flush 3 ML SYRINGE IVFLUSH ×3 (01:13→17:29)
[2023-05-29] MEDS: vancomycin HCL 125 MG CAPSULE 250 MG PO ×4 (04:53→20:34)
[2023-05-29] MEDS: metroNIDAZOLE/NS 500 MG/100 ML PIGGYBACK 100 MG IV (06:22)
[2023-05-29] MEDS: Fluticasone/Vilanterol 100/25 BLST.W.DEV 1 PUFF INHALE (08:02)
[2023-05-29 08:08] LABS: Anion Gap 11 (12-20); Blood Urea Nitrogen 8 mg/dL (9-16); Calcium 7.9 mg/dL (8.4-10.2); Carbon Dioxide 21 mmol/L (22-29); Chloride 101 mmol/L (96-108); Creatinine Clr Calc Pharmacy 56.6; Estimated Glomerular Filt Rate > 60; Glucose Random 99 mg/dL (60-115); Potassium 3.5 mmol/L (3.3-5.1); Sodium 129 mmol/L (135-145)
[2023-05-29] MEDS: Metoprolol Tartrate 25 MG TABLET PO ×2 (09:13→20:34)
[2023-05-29] MEDS: Lipase/Prot/Amylase 12/38/60K CAPSULE.DR 1 CAP PO ×3 (09:13→17:28)
[2023-05-29] MEDS: Amiodarone HCL 200 MG TABLET 400 MG PO ×2 (09:13→20:35)
--- NOTE | 2023-05-29 10:14 | P.PNNP_ITS ---
Subjective Subjective Date of Service: 05/30/23 Principal diagnosis: Paroxysmal atrial flutter. Interval history: Events noted. Next Physical Exam 2 Vital Signs: Vital Signs: Last Vital Signs Temp 97.4 F 05/29/23 07:38 Pulse 82 05/29/23 08:02 Resp 19 05/29/23 08:02 BP 132/71 05/29/23 07:38 Pulse Ox 93 05/29/23 03:36 O2 Del Method Room Air 05/29/23 07:38 O2 Flow Rate 1 05/22/23 07:59 FiO2 95 05/29/23 07:38 BMI result Body Mass Index 19.0 Const: Other: General: AO X 3, no acute distress Resp: CTA bilateral CVS: S1,S2,RRR GI: +BS, NT, no distention, overall much better Skin: No rash Neuro: motor grossly intact Psych: appropriate affect General: cooperative, comfortable, no acute distress, alert, awake, anxious and ill appearing Nutritional Appearance: cachectic and underweight O rientation/consciousness: oriented to person, oriented to place, oriented to time and patient oriented x3 HEENT: Head: No normal to inspection, Yes normocephalic and Yes atraumatic Ears: hearing grossly normal bilaterally Face and sinus: Yes normal facial exam Mouth: Normal oral and palatal mucosa present and moist mucous membranes Teeth and gingiva: dentition normal Eyes: General: appearance normal, both eyes and all related structures S clerae: sclerae normal Pupils: Equal, round and reactive pupils present E OM: EOMs intact bilaterally Neck: Neck: Yes normal visual inspection, Yes trachea midline, Yes supple and Yes no JVD Chest: Chest palpation & inspection: normal inspection of the chest and normal palpation of entire chest wall Resp: Effort & Inspection: normal respiratory effort, able to speak in complete sentences, no cough, not labored and no respiratory distress A uscultation: clear to auscultation bilaterally, no rales, diminished lung sounds and rub present Cardio: Jugular venous distension: no JVD Palpation: normal PMI, no palpable S3 and no palpable S4 Rate: regular rate and tachycardic Rhythm: regular rhythm and abnormal rhythm irregularly irregular Heart sounds: S1 normal heart sound present, S2 normal heart sound present, no click, no gallops, no murmurs and no rubs Peripheral pulses: Peripheral pulses 2+ throughout GI: Other: Abdomen is distended, soft, tender in epigastric and LLQ. Palpation (GI): Soft to palpation, nontender, no guarding, not rigid and No hepatosplenomegaly present Percussion: No Fluid wave present Auscultation: normal bowel sounds Rectal Exam - Female: deferred : General: Yes no CVA tenderness Back/Spine/Pelvis: Back: no CVA tenderness Skin: General skin exam: no rashes or lesions noted and ecchymosis Neuro: General: oriented to person, oriented to place, oriented to time, patient oriented x3, gait normal, moves all extremities, Normal light touch and pain sensation, no focal motor deficits and CN's II-XI intact bilaterally C ranial nerves: Yes Equal, round and reactive pupils present Extrem: General: Yes normal to inspection, Yes no clubbing, cyanosis or edema, Yes no pedal edema and No clubbing Psych: Appearance: grossly normal Mental Status: mental status grossly normal Objective Data Labs 05/30/23 08:40 05/30/23 08:40 Labs: Laboratory Results - last 24 hr 05/29/23 05/29/23 06:54 07:41 Hold Purple Top SEE NOTE Sodium 129 L Potassium 3.5 D Chloride 101 Carbon Dioxide 21 L Anion Gap 11 L BUN 8 L Creatinine 0.70 Estim Creat Clear Calc 56.6 Estimated GFR > 60 Random Glucose 99 Calcium 7.9 L D Procedures Date of Service Date of Service: 05/30/23 Assessment & Plan Assessment and plan (1) Hyponatremia: Status: Acute Plan Hyponatremia primarily in setting of C diff in use diarrhea. low urine sodium suggest to hypoperfusion. She probably also has a component of non osmotic ADH release. Serum sodium has is better today. Recommendations Restrict hypotonic fluids/ free water intake. Can use Gatorade. No indication for urea powder at this time. Concur with current management for C diff. Renal function is stable. Hypokalemia due to GI loss . Watch potassium periodically and replace as indicated Will follow along as needed Time Spent With Patient Time: Total time managing care of this patient today ____ minutes. Progress Note: Quality Stroke Does the patient have a stroke diagnosis?: No
--- NOTE | 2023-05-29 17:10 | P.PNIM_ITS ---
Subjective Subjective Date of Service: 05/30/23 Interval History: c diff diarrhae Review of Systems No abdominal pain or fever Still complain of significant diarrhea. Physical Exam 2 Vital Signs: Vital Signs: Last Vital Signs Temp 97.6 F 05/29/23 15:07 Pulse 81 05/29/23 15:07 Resp 18 05/29/23 15:07 BP 144/73 H 05/29/23 15:07 Pulse Ox 96 05/29/23 15:07 O2 Del Method Room Air 05/29/23 15:07 O2 Flow Rate 1 05/22/23 07:59 FiO2 95 05/29/23 07:38 BMI result Body Mass Index 19.0 Appearance: Alert.? Oriented X3.? cvs: rrr, [id number] , no murmur res: clear to auscultation ,no rhonchii or wheezing abd: no rebound or guarding ,nt, bs present. ext pulses present , no cyanosis. neuro: axo3 , nonfocal. Objective Data Active Medications Acetaminophen (Acetaminophen 325 Mg Tablet) 650 mg PO Q6H PRN PRN Reason: Pain, Mild (Pain Scale 1-3) Last Admin: 05/25/23 22:05 Dose: 650 mg Documented By: STERLING Albuterol Sulfate (Albuterol Sulfate 90 Mcg 8 Gm Inhaler) 1 puff INHALE Q6H PRN PRN Reason: wheezing Amiodarone HCl (Amiodarone Hcl 200 Mg Tablet) 400 mg PO BID [facility] Last Admin: 05/29/23 09:13 Dose: 400 mg Documented By: MARIXA Lipase/Protease/Amylase (Lipase/Prot/Amylase 12/38/60k Capsule.Dr) 1 cap PO TIDWM [facility] Last Admin: 05/29/23 13:36 Dose: 1 cap Documented By: MARIXA Enoxaparin Sodium (Enoxaparin Sodium 60 Mg/0.6 Ml Syringe) 50 mg SUBCUT Q12H [facility] Last Admin: 05/29/23 09:16 Dose: Not Given Documented By: MARIXA Non-Admin Reason: Patient Refused Fluticasone/Vilanterol (Fluticasone/Vilanterol 100/25 Blst.W.Dev) 1 puff INHALE RDAILY [facility] Last Admin: 05/29/23 08:02 Dose: 1 puff Documented By: AMADEO Melatonin (Melatonin 3 Mg Tablet) 6 mg PO BEDTIME PRN PRN Reason: Insomnia Metoprolol Tartrate (Metoprolol Tartrate 25 Mg Tablet) 25 mg PO BID [facility]; Protocol Last Admin: 05/29/23 09:13 Dose: 25 mg Documented By: MARIXA Ondansetron HCl (Ondansetron Hcl 4 Mg/2 Ml Vial) 4 mg IVPUSH Q8H PRN PRN Reason: Nausea and Vomiting Last Admin: 05/19/23 17:00 Dose: 4 mg Documented By: DAVID Potassium Phos/Sodium Phos (Sodium,Potassium Phosphates Powd.Pack) 1 packet PO QID [facility] Last Admin: 05/29/23 13:36 Dose: 1 packet Documented By: MARIXA Psyllium Hydrophilic Mucilloid (Psyllium Seed 3.7 Gm Packet) 3.7 gm PO DAILY [facility] Last Admin: 05/29/23 09:16 Dose: Not Given Documented By: MARIXA Non-Admin Reason: Patient Refused Sodium Chloride (0.9 % Sodium Chloride Flush 3 Ml Syringe) 3 ml IVFLUSH QSHIFT [facility] Last Admin: 05/29/23 09:13 Dose: 3 ml Documented By: MARIXA Vancomycin HCl (Vancomycin Hcl 125 Mg Capsule) 250 mg PO Q6H [facility] Last Admin: 05/29/23 09:12 Dose: 250 mg Documented By: MARIXA Labs 05/30/23 08:40 05/30/23 08:40 Labs: Laboratory Results - last 24 hr 05/29/23 05/29/23 06:54 07:41 Hold Purple Top SEE NOTE Anion Gap 11 L Estim Creat Clear Calc 56.6 Estimated GFR > 60 Random Glucose 99 Calcium 7.9 L D Assessment and Plan (1) Atrial fibrillation with rapid ventricular response: Status: Acute (2) C. difficile diarrhea: Status: Acute Plan 72-year-old female with a history of alcohol use disorder complicated by cirrhosis, tobacco use disorder with COPD and now O2 dependent since last hospitalization,?HTN recent hospitalization for Post ERCP pancreatitis, and now here with C dif diarrhea and hypokalemia, hypomagnesemia, hyponatremia.? C Diff diarrhea--overall improved but persistent, WBC down to 19 from 34 stool is starting to form now Treated with Dificid 05/18 to 05/21. Then ID recommended changing to Vanco+ Flagyl on 05/23 Creon as suggested by GI--may help with diarreha, repeat CT 05/26, no megacolon, sub cut air likely from lovenox injection, abdominal skin is otherwise intact d/w id -recomednded for Gi follow up. nursing staff is also aware to moniter for diarrhae Leukocytosis--likely residual from cdif, trending down Hypokalemia d/t diarrhea, K 4.5, IV and PO supplement and continue checking Hypomagnesemia repleted and resolved, 1.6 today as of 05/27, will give another dose Hyponatremia, chronic and stable at 131 to 134 Hypophosphatemia. treated with Neutra-Phos, check level Nephrology was following new onset afib rvr: rate is controlled echo done --EF 60 to 65 on amiodarone Lovenox 50 bid, will transition to eliquis before dc O2 Dependent COPD, no acute exacerbation, continue O2 as needed, presently 96 on room air HTN--hold home meds in light of diarrahae , borderline blood pressure and multiple electrolyte abnormalities. DVT prophylaxis: Lovenox Full code Ongoing hospitalization need: management of Cdif diarrhea with severe hypokalemia, Hypomagnesemia--needing replacement and frequent monitoring. Quality Stroke Does the patient have a stroke diagnosis?: No VTE Prior VTE?: No VTE Risk Level:: Medical - moderate - high VTE Device Contraindication: Treatment Not Indicated VTE Drug Contraindication: N/A - Med Ordered
[2023-05-29] MEDS: Melatonin 3 MG TABLET 6 MG PO (20:35)
[2023-05-30] VITALS (7 sets, daily range): BP systolic 122–147; BP diastolic 60–70; PULSE 77–95; RESP 18–20; TEMP 36.2–37.1; O2SAT 93–98
[2023-05-30] MEDS: vancomycin HCL 125 MG CAPSULE 250 MG PO ×4 (04:07→19:48)
[2023-05-30] MEDS: Fluticasone/Vilanterol 100/25 BLST.W.DEV 1 PUFF INHALE (08:01)
[2023-05-30] MEDS: Metoprolol Tartrate 25 MG TABLET PO ×2 (08:30→19:48)
[2023-05-30] MEDS: Amiodarone HCL 200 MG TABLET 400 MG PO ×2 (08:31→19:48)
[2023-05-30] MEDS: Sodium,Potassium Phosphates POWD.PACK 1 PACKET PO ×4 (08:31→19:48)
[2023-05-30] MEDS: Lipase/Prot/Amylase 12/38/60K CAPSULE.DR 1 CAP PO ×3 (08:31→17:04)
[2023-05-30] MEDS: 0.9 % Sodium Chloride Flush 3 ML SYRINGE IVFLUSH ×3 (08:37→19:48)
[2023-05-30 09:08] LABS: Hematocrit 30.4 % (37.0-47.0); Hemoglobin 10.3 g/dl (12.0-16.0); Mean Corpuscular HGB Conc 33.9 g/dl (31.0-35.0); Mean Corpuscular Hemoglobin 29.1 pg (27.0-33.0); Mean Corpuscular Volume 85.9 fL (80.0-98.0); Mean Platelet Volume 9.4 fL (9.4-12.3); Platelet Count 540 X10*3/uL (160-400); Red Blood Count 3.54 X10*6/uL (4.20-5.50); Red Cell Distribution Width 14.2 % (11.0-16.0); White Blood Count 24.4 X10*3/uL (4.8-10.8)
[2023-05-30 09:28] LABS: Anion Gap 12 (12-20); Blood Urea Nitrogen 8 mg/dL (9-16); Calcium 8.3 mg/dL (8.4-10.2); Carbon Dioxide 22 mmol/L (22-29); Chloride 102 mmol/L (96-108); Creatinine Clr Calc Pharmacy 52.8; Estimated Glomerular Filt Rate > 60; Glucose Random 98 mg/dL (60-115); Potassium 3.6 mmol/L (3.3-5.1); Sodium 132 mmol/L (135-145)
--- NOTE | 2023-05-30 10:37 | MHC.CM.PN ---
EMR reviewed and per MD rounds, pt is not medically cleared for D/C today with frequent diarrhea requiring further management of C.Diff. CM will continue to follow.
--- NOTE | 2023-05-30 11:55 | MHC.CLN ---
F/U PO INTAKE FAIR BUT IMPROVED PER PT DIET RX: REGULAR-APPROPRIATE PT REPORTS SHE IS EATING MORE AND HAS MORE CHOICES ON REGULAR DIET PT DISLIKED GELATEIN SUPPLEMENT-WILL REMOVE PT REQUESTING PEAS AND VITAMIN WATER (DRAGONFRUIT FLAVOR)-APPROVED BY [employer] CONTINUE TO MONITOR PO INTAKE
--- NOTE | 2023-05-30 12:13 | P.PNGI_ITS ---
Subjective Subjective Date of Service: 05/30/23 Interval History: Therapy switched from dificid to Vanc PO + IV flagyl on 05/22. Clinically feels better than she did a week ago at home, but per stool charting cont to have >10 stools per day still with persistent electrolyte abnormalities. White count also back up today. Critical Care Time (minutes): 0 Physical Exam 2 Vital Signs: Vital Signs: Last Vital Signs Temp 97.8 F 05/30/23 11:17 Pulse 77 05/30/23 11:17 Resp 18 05/30/23 11:17 BP 132/64 05/30/23 11:17 Pulse Ox 98 05/30/23 11:17 O2 Del Method Room Air 05/30/23 11:17 O2 Flow Rate 1 05/22/23 07:59 FiO2 95 05/29/23 07:38 BMI result Body Mass Index 19.0 Frail, elderly female abd mildly distended today Objective Data Labs 05/30/23 08:40 05/30/23 08:40 Labs: Laboratory Results - last 24 hr 05/30/23 08:40 WBC 24.4 H RBC 3.54 L Hgb 10.3 L Hct 30.4 L MCV 85.9 MCH 29.1 MCHC 33.9 RDW 14.2 Plt Count 540 H MPV 9.4 Absolute Nucleated RBC 0.000 Nucleated RBC % (auto) 0.0 Sodium 132 L Potassium 3.6 Chloride 102 Carbon Dioxide 22 Anion Gap 12 BUN 8 L Creatinine 0.75 Estim Creat Clear Calc 52.8 Estimated GFR > 60 Random Glucose 98 Calcium 8.3 L Procedures Date of Service Date of Service: 05/30/23 Progress Note: A&P Assessment and plan (1) C. difficile diarrhea: Status: Acute (2) Acute hyponatremia: Status: Acute (3) Liver cirrhosis: Status: Acute (4) Post-ERCP acute pancreatitis: Status: Acute (5) Peripancreatic fluid collection: Status: Acute Plan 72y.o F with cirrhosis who was seen for ERCP on 05/03 for abnormal CBD lesion with course c/b post-ERCP pancreatitis necessitating a week's hospitalisation here for persistent diarrhea and found to have CDI with multiple electrolyte abnormalities that have subsequently led to cardiac conduction abnormality now in NSR with amiodarone. On PO vanc and IV flagyl since 05/22 - showed clinical improvement initially but now has worsening diarrhea again. Recommendations: - Cont C Diff Abx as per protocol. Will favor 14 day course given severity followed by taper of 125 mg BID x 7 days, then 125 mg daily x 7 days, then 125 mg every 2 days for 2 weeks - Repeat GI panel to r/o superimposed infection whilst in the hospital. - Check KUB to r/o colonic dilation given abd distention on exam. (ordered) - If no colonic dilation --> add cholestyramine 4g once daily - TO BE SPACED OUT BY 4H FROM VANCOMYCIN since its a binder. This can be increased to BID if needed - Cont stool charting - If colonic dilation --> would recommend increasing Vanc to 500mg PO with IV flagyl. Would also recommend surgical consultation in that case. - Low fat diet - Cont PERT - Future management of peripancreatic collection will be dictated by if fluid collection persists/organizes. Will need another contrasted CT Abd/pel in 4 weeks from index event i.e after 06/07 to assess if acute collection has resolved vs evolved to chronic pseudocyst (can be done as outpt) Time Spent With Patient Time: Total time managing care of this patient today ____ minutes. Quality Stroke Does the patient have a stroke diagnosis?: No VTE Prior VTE?: No VTE Risk Level:: Medical - moderate - high VTE Device Contraindication: Treatment Not Indicated VTE Drug Contraindication: N/A - Med Ordered
--- NOTE | 2023-05-30 16:24 | HO.PM.IMPN ---
Subjective Subjective Date of Service: 05/30/23 Interval History: diarrhae Review of Systems seems somewhat improving no fever or abd pain Physical Exam Vital Signs: Vital Signs: Last Vital Signs Temp 98.0 F 05/30/23 15:20 Pulse 88 05/30/23 15:20 Resp 20 05/30/23 15:20 BP 147/68 H 05/30/23 15:20 Pulse Ox 97 05/30/23 15:20 O2 Del Method Room Air 05/30/23 15:20 O2 Flow Rate 1 05/22/23 07:59 FiO2 95 05/29/23 07:38 BMI result Body Mass Index 19.0 Appearance: Alert.? Oriented X3.? cvs: rrr, [id number] , no murmur res: clear to auscultation ,no rhonchii or wheezing abd: no rebound or guarding ,nt, bs present. ext pulses present , no cyanosis. neuro: axo3 , nonfocal. Objective Data Active Medications Acetaminophen (Acetaminophen 325 Mg Tablet) 650 mg PO Q6H PRN PRN Reason: Pain, Mild (Pain Scale 1-3) Last Admin: 05/25/23 22:05 Dose: 650 mg Documented By: STERLING Albuterol Sulfate (Albuterol Sulfate 90 Mcg 8 Gm Inhaler) 1 puff INHALE Q6H PRN PRN Reason: wheezing Amiodarone HCl (Amiodarone Hcl 200 Mg Tablet) 400 mg PO BID [facility] Last Admin: 05/30/23 08:31 Dose: 400 mg Documented By: ESEQUIEL Lipase/Protease/Amylase (Lipase/Prot/Amylase 12/38/60k Capsule.Dr) 1 cap PO TIDWM [facility] Last Admin: 05/30/23 12:43 Dose: 1 cap Documented By: ESEQUIEL Enoxaparin Sodium (Enoxaparin Sodium 60 Mg/0.6 Ml Syringe) 50 mg SUBCUT Q12H [facility] Last Admin: 05/30/23 08:37 Dose: Not Given Documented By: ESEQUIEL Non-Admin Reason: Patient Refused Fluticasone/Vilanterol (Fluticasone/Vilanterol 100/25 Blst.W.Dev) 1 puff INHALE RDAILY [facility] Last Admin: 05/30/23 08:01 Dose: 1 puff Documented By: HELEN Melatonin (Melatonin 3 Mg Tablet) 6 mg PO BEDTIME PRN PRN Reason: Insomnia Last Admin: 05/29/23 20:35 Dose: 6 mg Documented By: MED Metoprolol Tartrate (Metoprolol Tartrate 25 Mg Tablet) 25 mg PO BID [facility]; Protocol Last Admin: 05/30/23 08:30 Dose: 25 mg Documented By: ESEQUIEL Ondansetron HCl (Ondansetron Hcl 4 Mg/2 Ml Vial) 4 mg IVPUSH Q8H PRN PRN Reason: Nausea and Vomiting Last Admin: 05/19/23 17:00 Dose: 4 mg Documented By: DAVID Potassium Phos/Sodium Phos (Sodium,Potassium Phosphates Powd.Pack) 1 packet PO QID [facility] Last Admin: 05/30/23 12:43 Dose: 1 packet Documented By: ESEQUIEL Psyllium Hydrophilic Mucilloid (Psyllium Seed 3.7 Gm Packet) 3.7 gm PO DAILY [facility] Last Admin: 05/30/23 08:31 Dose: Not Given Documented By: ESEQUIEL Non-Admin Reason: Patient Refused Sodium Chloride (0.9 % Sodium Chloride Flush 3 Ml Syringe) 3 ml IVFLUSH QSHIFT [facility] Last Admin: 05/30/23 08:37 Dose: 3 ml Documented By: ESEQUIEL Vancomycin HCl (Vancomycin Hcl 125 Mg Capsule) 250 mg PO Q6H [facility] Last Admin: 05/30/23 14:42 Dose: 250 mg Documented By: ESEQUIEL Labs 05/30/23 08:40 05/30/23 08:40 Labs: Laboratory Results - last 24 hr 05/30/23 08:40 MCV 85.9 MCH 29.1 MCHC 33.9 RDW 14.2 Plt Count 540 H MPV 9.4 Absolute Nucleated RBC 0.000 Nucleated RBC % (auto) 0.0 Anion Gap 12 Estim Creat Clear Calc 52.8 Estimated GFR > 60 Random Glucose 98 Calcium 8.3 L Assessment and Plan (1) Atrial fibrillation with rapid ventricular response: Status: Acute (2) C. difficile diarrhea: Status: Acute Plan 72-year-old female with a history of alcohol use disorder complicated by cirrhosis, tobacco use disorder with COPD and now O2 dependent since last hospitalization,?HTN recent hospitalization for Post ERCP pancreatitis, and now here with C dif diarrhea and hypokalemia, hypomagnesemia, hyponatremia.? C Diff diarrhea--overall improved but persistent, WBC down to 24 from 34 stool is starting to form now Treated with Dificid 05/18 to 05/21. Then ID recommended changing to Vanco+ Flagyl on 05/23 Creon as suggested by GI--may help with diarreha, repeat CT 05/26, no megacolon, sub cut air likely from lovenox injection, abdominal skin is otherwise intact d/w id -recomednded for Gi follow up-kub done and reviewed will add cholestarmine, continue pancreatic enzymes ,dc flagy ,continue vanco. nursing staff is also aware to moniter for diarrhae Leukocytosis--likely residual from cdif, trending down Hypokalemia d/t diarrhea, K 4.5, IV and PO supplement and continue checking Hypomagnesemia repleted and resolved, 1.6 today as of 05/27, will give another dose Hyponatremia, chronic and stable at 131 to 134 Hypophosphatemia. treated with Neutra-Phos, check level Nephrology was following new onset afib rvr: rate is controlled echo done --EF 60 to 65 on amiodarone Lovenox 50 bid, will transition to eliquis before dc O2 Dependent COPD, no acute exacerbation, continue O2 as needed, presently 96 on room air HTN--hold home meds in light of diarrahae , borderline blood pressure and multiple electrolyte abnormalities. DVT prophylaxis: Lovenox Full code Ongoing hospitalization need: management of Cdif diarrhea with severe hypokalemia, Hypomagnesemia--needing replacement and frequent monitoring. Quality Stroke Does the patient have a stroke diagnosis?: No VTE Prior VTE?: No VTE Risk Level:: Medical - moderate - high VTE Device Contraindication: Treatment Not Indicated VTE Drug Contraindication: N/A - Med Ordered
[2023-05-30] MEDS: Cholestyramine (With Sugar) 4 GM POWD.PACK 2 GM PO (17:04)
[2023-05-30] MEDS: Melatonin 3 MG TABLET 6 MG PO (19:48)
[2023-05-31] MEDS: vancomycin HCL 125 MG CAPSULE 250 MG PO ×4 (03:20→23:27)
[2023-05-31 07:47] VITALS: BP 154/86; PULSE 85; RESP 18; TEMP 36.7; O2SAT 95
[2023-05-31] MEDS: Fluticasone/Vilanterol 100/25 BLST.W.DEV 1 PUFF INHALE (08:42)
[2023-05-31 08:44] VITALS: PULSE 85; RESP 18; O2SAT 95
[2023-05-31] MEDS: Metoprolol Tartrate 25 MG TABLET PO ×2 (09:03→23:28)
[2023-05-31] MEDS: Lipase/Prot/Amylase 12/38/60K CAPSULE.DR 1 CAP PO ×3 (09:03→16:10)
[2023-05-31] MEDS: Sodium,Potassium Phosphates POWD.PACK 1 PACKET PO ×3 (09:03→16:09)
[2023-05-31] MEDS: Amiodarone HCL 200 MG TABLET 400 MG PO ×2 (09:03→23:28)
[2023-05-31] MEDS: 0.9 % Sodium Chloride Flush 3 ML SYRINGE IVFLUSH ×2 (09:03→23:32)
[2023-05-31] MEDS: Cholestyramine (With Sugar) 4 GM POWD.PACK 2 GM PO ×2 (09:04→16:09)
[2023-05-31 09:45] LABS: Adenovirus F 40/41 Not Detected (Not Detect.); Astrovirus Not Detected (Not Detect.); Campylobacter Not Detected (Not Detect.); Cryptosporidium Not Detected (Not Detect.); Cyclospora cayetanensis Not Detected (Not Detect.); E. coli EAEC Not Detected (Not Detect.); E. coli EPEC Not Detected (Not Detect.); E. coli ETEC Not Detected (Not Detect.); E. coli STEC Not Detected (Not Detect.); Entamoeba histolytica Not Detected (Not Detect.); Giardia lamblia Not Detected (Not Detect.); Norovirus GI/GII Not Detected (Not Detect.); Plesiomonas shigelloides Not Detected (Not Detect.); Rotavirus A Not Detected (Not Detect.); Salmonella Not Detected (Not Detect.); Sapovirus Not Detected (Not Detect.); Shigella sp./EIEC Not Detected (Not Detect.); Vibrio Not Detected (Not Detect.); Vibrio Cholerae Not Detected (Not Detect.); Yersinia enterocolitica Not Detected (Not Detect.)
--- NOTE | 2023-05-31 10:36 | MHC.CM.PN ---
EMR reviewed and per MD rounds, pt is medically cleared for D/C today. Auth for [facility] has , they have applied for auth again today. D/C pending insurance auth.
[2023-05-31 11:42] VITALS: BP 146/74; PULSE 73; RESP 18; TEMP 37.1; O2SAT 97
[2023-05-31 15:19] VITALS: BP 119/59; PULSE 83; RESP 16; TEMP 37.6; O2SAT 96
--- NOTE | 2023-05-31 16:13 | P.PNIM_ITS ---
Subjective Subjective Date of Service: 05/31/23 Interval History: cdiff colitis Review of Systems no fever or abdominal pain Diarrhea also improving. Physical Exam 2 Vital Signs: Vital Signs: Last Vital Signs Temp 99.7 F 05/31/23 15:19 Pulse 83 05/31/23 15:19 Resp 16 05/31/23 15:19 BP 119/59 L 05/31/23 15:19 Pulse Ox 96 05/31/23 15:19 O2 Del Method Room Air 05/31/23 15:19 O2 Flow Rate 1 05/22/23 07:59 FiO2 95 05/29/23 07:38 BMI result Body Mass Index 19.0 Appearance: Alert.? Oriented X3.? cvs: rrr, [id number] , no murmur res: clear to auscultation ,no rhonchii or wheezing abd: no rebound or guarding ,nt, bs present. ext pulses present , no cyanosis. neuro: axo3 , nonfocal. Objective Data Active Medications Acetaminophen (Acetaminophen 325 Mg Tablet) 650 mg PO Q6H PRN PRN Reason: Pain, Mild (Pain Scale 1-3) Last Admin: 05/25/23 22:05 Dose: 650 mg Documented By: STERLING Albuterol Sulfate (Albuterol Sulfate 90 Mcg 8 Gm Inhaler) 1 puff INHALE Q6H PRN PRN Reason: wheezing Amiodarone HCl (Amiodarone Hcl 200 Mg Tablet) 400 mg PO BID [facility] Last Admin: 05/31/23 09:03 Dose: 400 mg Documented By: ESEQUIEL Lipase/Protease/Amylase (Lipase/Prot/Amylase 12/38/60k Capsule.Dr) 1 cap PO TIDWM [facility] Last Admin: 05/31/23 16:10 Dose: 1 cap Documented By: ESEQUIEL Cholestyramine Resin (Cholestyramine (With Sugar) 4 Gm Powd.Pack) 2 gm PO BIDWM [facility] Last Admin: 05/31/23 16:09 Dose: 2 gm Documented By: ESEQUIEL Enoxaparin Sodium (Enoxaparin Sodium 60 Mg/0.6 Ml Syringe) 50 mg SUBCUT Q12H [facility] Last Admin: 05/31/23 09:04 Dose: Not Given Documented By: ESEQUIEL Non-Admin Reason: Patient Refused Fluticasone/Vilanterol (Fluticasone/Vilanterol 100/25 Blst.W.Dev) 1 puff INHALE RDAILY [facility] Last Admin: 05/31/23 08:42 Dose: 1 puff Documented By: COLLINS Melatonin (Melatonin 3 Mg Tablet) 6 mg PO BEDTIME PRN PRN Reason: Insomnia Last Admin: 05/30/23 19:48 Dose: 6 mg Documented By: EMELINA Metoprolol Tartrate (Metoprolol Tartrate 25 Mg Tablet) 25 mg PO BID [facility]; Protocol Last Admin: 05/31/23 09:03 Dose: 25 mg Documented By: ESEQUIEL Ondansetron HCl (Ondansetron Hcl 4 Mg/2 Ml Vial) 4 mg IVPUSH Q8H PRN PRN Reason: Nausea and Vomiting Last Admin: 05/19/23 17:00 Dose: 4 mg Documented By: DAVID Potassium Phos/Sodium Phos (Sodium,Potassium Phosphates Powd.Pack) 1 packet PO QID [facility] Last Admin: 05/31/23 16:09 Dose: 1 packet Documented By: ESEQUIEL Psyllium Hydrophilic Mucilloid (Psyllium Seed 3.7 Gm Packet) 3.7 gm PO DAILY [facility] Last Admin: 05/31/23 09:04 Dose: Not Given Documented By: ESEQUIEL Non-Admin Reason: Patient Refused Sodium Chloride (0.9 % Sodium Chloride Flush 3 Ml Syringe) 3 ml IVFLUSH QSHIFT [facility] Last Admin: 05/31/23 16:11 Dose: Not Given Documented By: ESEQUIEL Non-Admin Reason: Previously Administered Vancomycin HCl (Vancomycin Hcl 125 Mg Capsule) 250 mg PO Q6H [facility] Last Admin: 05/31/23 16:10 Dose: 250 mg Documented By: ESEQUIEL Labs 05/30/23 08:40 05/30/23 08:40 Labs: Laboratory Results - last 24 hr 05/30/23 18:00 Stl C. cayetanensis PCR Not Detected Stool Rotavirus A PCR Not Detected Stl Adenov F PCR Not Detected Stool Astrovirus (PCR) Not Detected Stool Campylobacter PCR Not Detected Stool Cryptosporidium PCR Not Detected Stl Sh Tox Pr E STEC PCR Not Detected Stool E coli O157 PCR Not applicable Stl Enterotoxigenic E PCR Not Detected Stool EPEC (PCR) Not Detected Stool EAEC (PCR) Not Detected Stl E. histolytica PCR Not Detected Stool Giardia Lamblia PCR Not Detected Stl P. shigelloides PCR Not Detected Stool Salmonella PCR Not Detected Stool Sapovirus (PCR) Not Detected Stl Shigella/EIEC PCR Not Detected St Y.enterocolitica PCR Not Detected Stool Vibrio (PCR) Not Detected Stl Vibrio cholerae PCR Not Detected Stl Norovirus GI/GII PCR Not Detected Assessment and Plan (1) Atrial fibrillation with rapid ventricular response: Status: Acute (2) C. difficile diarrhea: Status: Acute Plan 72-year-old female with a history of alcohol use disorder complicated by cirrhosis, tobacco use disorder with COPD and now O2 dependent since last hospitalization,?HTN recent hospitalization for Post ERCP pancreatitis, and now here with C dif diarrhea and hypokalemia, hypomagnesemia, hyponatremia.? C Diff diarrhea--overall improved but persistent, WBC down to 24 from 34 stool is starting to formin Treated with Dificid 05/18 to 05/21. Then ID recommended changing to Vanco+ Flagyl on 05/23 Creon as suggested by GI--may help with diarreha, repeat CT 05/26, no megacolon, sub cut air likely from lovenox injection, abdominal skin is otherwise intact d/w id -recomednded for Gi follow up-kub done and reviewed will add cholestarmine, continue pancreatic enzymes ,dc flagy ,continue vanco. nursing staff is also aware to moniter for diarrhae will checb cbc Gi follow up Leukocytosis--likely residual from cdif, trending down Hypokalemia d/t diarrhea, K 4.5, IV and PO supplement and continue checking Hypomagnesemia repleted and resolved, 1.6 today as of 05/27, will give another dose Hyponatremia, chronic and stable at 131 to 134 Hypophosphatemia. treated with Neutra-Phos, check level Nephrology was following new onset afib rvr: rate is controlled echo done --EF 60 to 65 on amiodarone Lovenox 50 bid, will transition to eliquis before dc O2 Dependent COPD, no acute exacerbation, continue O2 as needed, presently 96 on room air HTN--hold home meds in light of diarrahae , borderline blood pressure and multiple electrolyte abnormalities. DVT prophylaxis: Lovenox Full code Ongoing hospitalization need: management of Cdif diarrhea with severe hypokalemia, Hypomagnesemia--needing replacement and frequent monitoring. Quality Stroke Does the patient have a stroke diagnosis?: No VTE Prior VTE?: No VTE Risk Level:: Medical - moderate - high VTE Device Contraindication: Treatment Not Indicated VTE Drug Contraindication: N/A - Med Ordered
--- NOTE | 2023-05-31 16:15 | MHC.CM.PN ---
[facility] has received auth, plan is for pt to discharge tomorrow 06/01, [facility] set up for 11:30am.
[2023-05-31 17:27] LABS: Hematocrit 28.4 % (37.0-47.0); Hemoglobin 9.6 g/dl (12.0-16.0); Mean Corpuscular HGB Conc 33.8 g/dl (31.0-35.0); Mean Corpuscular Volume 85.8 fL (80.0-98.0); Mean Platelet Volume 9.2 fL (9.4-12.3); Platelet Count 530 X10*3/uL (160-400); Red Blood Count 3.31 X10*6/uL (4.20-5.50); Red Cell Distribution Width 14.5 % (11.0-16.0); White Blood Count 24.4 X10*3/uL (4.8-10.8)
[2023-05-31 19:36] VITALS: BP 125/60; PULSE 92; RESP 20; TEMP 36.7; O2SAT 97
[2023-05-31] MEDS: Melatonin 3 MG TABLET 6 MG PO (23:30)
[2023-05-31 23:40] VITALS: BP 126/63; PULSE 91; RESP 18; TEMP 36.6; O2SAT 96
[2023-06-01] MEDS: vancomycin HCL 125 MG CAPSULE 250 MG PO ×3 (03:08→15:36)
[2023-06-01 03:37] VITALS: BP 132/60; PULSE 80; RESP 16; TEMP 37.2; O2SAT 94
[2023-06-01 07:10] VITALS: BP 145/69; PULSE 76; RESP 18; TEMP 36.7; O2SAT 95
[2023-06-01] MEDS: Fluticasone/Vilanterol 100/25 BLST.W.DEV 1 PUFF INHALE (07:42)
[2023-06-01 07:44] VITALS: PULSE 76; RESP 18; O2SAT 95
[2023-06-01] MEDS: 0.9 % Sodium Chloride Flush 3 ML SYRINGE IVFLUSH (08:07)
[2023-06-01] MEDS: Cholestyramine (With Sugar) 4 GM POWD.PACK 2 GM PO (08:08)
[2023-06-01] MEDS: Amiodarone HCL 200 MG TABLET 400 MG PO (08:09)
[2023-06-01] MEDS: Lipase/Prot/Amylase 12/38/60K CAPSULE.DR 1 CAP PO ×2 (08:09→11:02)
[2023-06-01] MEDS: Metoprolol Tartrate 25 MG TABLET PO (08:09)
[2023-06-01] MEDS: Cholestyramine (With Sugar) 4 GM POWD.PACK PO (09:10)
[2023-06-01 09:54] LABS: Hematocrit 29.2 % (37.0-47.0); Hemoglobin 9.9 g/dl (12.0-16.0); Mean Corpuscular HGB Conc 33.9 g/dl (31.0-35.0); Mean Corpuscular Hemoglobin 29.2 pg (27.0-33.0); Mean Corpuscular Volume 86.1 fL (80.0-98.0); Mean Platelet Volume 9.3 fL (9.4-12.3); Platelet Count 531 X10*3/uL (160-400); Red Blood Count 3.39 X10*6/uL (4.20-5.50); Red Cell Distribution Width 14.6 % (11.0-16.0)
[2023-06-01 10:10] LABS: Anion Gap 10 (12-20); Blood Urea Nitrogen 8 mg/dL (9-16); Calcium 8.1 mg/dL (8.4-10.2); Carbon Dioxide 27 mmol/L (22-29); Chloride 99 mmol/L (96-108); Creatinine Clr Calc Pharmacy 56.6; Estimated Glomerular Filt Rate > 60; Glucose Random 142 mg/dL (60-115); Sodium 133 mmol/L (135-145)
[2023-06-01 10:59] VITALS: BP 160/74; PULSE 78; RESP 18; TEMP 36.8; O2SAT 97
[2023-06-01] MEDS: Potassium Chloride ER 20 MEQ TAB.ER.PRT PO ×3 (11:02→15:36)
[2023-06-01] MEDS: Apixaban 2.5 MG TABLET PO (11:06)
--- NOTE | 2023-06-01 11:17 | MHC.CM.PN ---
Second IMM given 06/01. Pt is medically cleared for D/C to [facility] at [place]. Transport set up for 2pm via [facility].
--- NOTE | 2023-06-01 11:43 | MHC.CLN ---
F/U PO INTAKE [facility]; IMPROVED PER PT DIET RX: REGULAR-APPROPRIATE CONTINUE TO MONITOR PO INTAKE PT PENDING D/C
[2023-06-01 13:23] LABS: Potassium 3.2 mmol/L (3.3-5.1)
--- NOTE | 2023-06-01 13:36 | PM.DS ---
DS: Providers Provider Date of Service: 06/01/23 Date of admission: 05/18/23 22:23 Date of discharge: 06/01/23 Primary care physician: Shirin Phan MD Consults: 05/19/23 06:36 Consult to Nephrology Routine Consulting Provider: [facility] Reason for consultation: electrolytes abnormalities Has provider been notified: No 05/20/23 09:25 Consult to Gastroenterology Routine Consulting Provider: [facility] Reason for consultation: C diff colitis 05/22/23 06:05 Consult to Cardiology Routine Consulting Provider: [facility] Reason for consultation: afib with rvr Has provider been notified: Yes 05/22/23 14:10 Consult to Infectious Diseases Routine Consulting Provider: [facility] Reason for consultation: cdiff colitis -less responsive to fidomycin Has provider been notified: No Attending physician on discharge: Giuliana Campbell Discharging clinician: Giuliana Campbell DS: Diagnosis Discharge Diagnosis (1) Atrial fibrillation with rapid ventricular response: Status: Acute (2) C. difficile diarrhea: Status: Acute DS: Summary Hospital Course Hospital Course: 72-year-old female with a history of alcohol use disorder complicated by cirrhosis, tobacco use disorder with COPD, and now O2 dependent since last hospitalization,?HTN.?In February, the patient had an abnormal abdominal MRI of the abdomen, and on 05/03/23, she underwent ERCP; unfortunately, the next day, she was admitted for post-ERCP pancreatitis and remained in the hospital for nearly a week and was discharged on 05/11/23. During the hospitalization, she developed anasarca, fluid overload, and exacerbation. She was noted to be hypoxic, likely stemming from COPD?with years of smoking and was discharged with home O2. She was recovering well until several days ago when she started having diarrhea and abdominal cramps. She was seen in the GI clinic today for follow-up, and routine labs were done; she was noted to have low potassium, and she was subsequently sent to the ED, where further workup has established a diagnosis of C dif. Additionally, she has low magnesium, low sodium,?and a high WBC of 34k, which is c/w C dif.??She is being treated with IVF, K, mag replacement, and Dificid is started for c diff. Hospital course: Patient was admitted for C diff diarrhea, multiple electrolytic abnormalities: Patient was started on fidaxomicin-but diarrhea was not improving so switched to p.o. vanco and Flagyl: Seen by GI, workup reviewed: CT abdomen shows possible pancreatic pseudocyst formation , she is also positive for C diff,GI P panel checked to time during this admission negative, Subsequently patient diarrhea slowly seems to be improving, able to sleep at night from last 2 days, also diarrhea and the days also bowel improving with some intermittent diarrhea episodes, otherwise diarrhea is improving and has more formed stool. Leukocytosis improving, no fever no abdominal pain, blood cultures negative ,patient tolerating diet well. Discussed with GI and infectious disease: Patient with need p.o. vanco 250 q.6 hour for 7 more days given severity followed by taper of 125 mg BID x 7 days, then 125 mg daily x 7 days, then 125 mg every 2 days for 2 weeks .added cholectyramine for diarrahae also. multiple electrolytic abnormalities: Hypomagnesemia, hypokalemia, hyponatremia: Repleted hypomagnesemia improved, hyponatremia is also improving significantly. Hypokalemia improivng . Will send patient with p.o. potassium supplements. Patient also had new onset AFib: Treated with metoprolol, amiodarone- 400mg po bid ( loading until 06/05 ) ,then on 06/06 -switch to 200 mg po daily. also on eliquis (AC ) for stroke prevention. Htn : Continue metoprolol, losartan and amlodipine on hold-due to fluctuating blood pressure which can be introduced slowly if blood pressure and if persistently above 140/90 mmHg. Lasix can also be introduced back once diarrhea improves. Monitor CBC and BMP,magnesium levels . plan: c diff vanco 250 q.6 hour for 7 days given severity followed by taper of 125 mg BID x 7 days, then 125 mg daily x 7 days, then 125 mg every 2 days for 2 weeks .added cholectyramine for diarrahae . Hypomagnesemia, hypokalemia, hyponatremia: Repleted hypomagnesemia improved, hyponatremia is also improving significantly. Hypokalemia also repleted. Will send patient with p.o. potassium supplements. new onset AFib: Treated with metoprolol, amiodarone- 400mg po bid ( loading until 06/05 ) ,then on 06/06 -switch to 200 mg po daily. also on eliquis (AC ) for stroke prevention. htn: losartan and amlodipine on hold-due to fluctuating blood pressure which can be introduced slowly if blood pressure and if persistently above 140/90 mmHg Lasix can also be introduced back once diarrhea improves. Monitor CBC and BMP,magnesium levels . Patient is to also follow up with GI out patiently for pseudocyst on ct abd, cardiology may arrange their own appointment. Assessment and plan coordination time spent 50 minute. Discussed with the patient in detail length she understand and in agreement with above plan. Time Attestation Discharge coordination time: Greater than 30 minutes Quality: Safe Use of Opioids Does Pt have an Active Cancer Diagnosis on the Problem List?: No Quality: Stroke Does the patient have a stroke diagnosis?: No Physical Exam Vital Signs: Vital Signs: Last Vital Signs Temp 98.2 F 06/01/23 10:59 Pulse 78 06/01/23 10:59 Resp 18 06/01/23 10:59 BP 160/74 H 06/01/23 10:59 Pulse Ox 97 06/01/23 10:59 O2 Del Method Room Air 06/01/23 10:59 O2 Flow Rate 1 05/22/23 07:59 FiO2 95 05/29/23 07:38 BMI result Body Mass Index 19.0 Appearance: Alert.? Oriented X3.? cvs: rrr, [id number] , no murmur res: clear to auscultation ,no rhonchii or wheezing abd: no rebound or guarding ,nt, bs present. ext pulses present , no cyanosis. neuro: axo3 , nonfocal. DS: Data Data Completed and Pending Labs on day of discharge: Laboratory Results - last 24 hr 05/31/23 06/01/23 06/01/23 17:19 09:42 12:45 WBC 24.4 H 24.0 H RBC 3.31 L 3.39 L Hgb 9.6 L 9.9 L Hct 28.4 L 29.2 L MCV 85.8 86.1 MCH 29.0 29.2 MCHC 33.8 33.9 RDW 14.5 14.6 Plt Count 530 H 531 H MPV 9.2 L 9.3 L Absolute Nucleated RBC 0.000 0.000 Nucleated RBC % (auto) 0.0 0.0 Sodium 133 L Potassium 3.0 L 3.2 L Chloride 99 Carbon Dioxide 27 Anion Gap 10 L BUN 8 L Creatinine 0.70 Estim Creat Clear Calc 56.6 Estimated GFR > 60 Random Glucose 142 H Calcium 8.1 L Imaging Chest x-ray: Radiologist's impression: ITS Impressions Abdomen/Pelvis CT 05/18/23 19:49 IMPRESSION: Nodular cirrhotic liver with coarsened calcifications more so in the atrophic right lobe of the liver. This is similar to the prior study. There is peripancreatic fluid seen extending inferiorly into the posterior retroperitoneum and presacral space. This also extends into the mesentery increased central mesenteric vessels. This fluid was less well demarcated on the prior study. Overall the appearance is more suggestive of pancreatic pseudocyst formation. Loculated ascites would be considered less likely especially with the retroperitoneal course of some of this fluid. There is likely free ascites seen as well. KUB X-Ray 05/22/23 12:42 IMPRESSION: 1. No definite dilated loops of bowel visualized. 2. Air and stool noted within the colon greatest along its transverse and descending segments. Discharge Plan Discharge Anticipated Discharge Date/Time: 06/01/23 10:37 Patient Disposition: er [facility] Discharge Diagnosis: hyponatremia ,hypokaelmia , c diff diarrhrae. Referrals: Shirin Phan MD [Primary Care Provider] - 1 Week Discharge Medications: New amiodarone 200 mg Tablet 400 mg PO BID Qty: 50 0RF Rx Instructions: amiodarone 400 mg( 2 tabs) po by mouth twice daily until 06/05/23,then switch to amiodarone 200 mg( 1 tab) po daily Creon 12,000-38,000 -60,000 unit Capsule,Delayed Release(Dr/Ec) 1 cap PO TIDWM Qty: 30 0RF potassium chloride 20 mEq packet 20 meq PO DAILY Qty: 7 0RF Eliquis 2.5 mg Tablet 2.5 mg PO BID Qty: 60 0RF cholestyramine (with sugar) 4 gram powder 4 g PO DAILY Qty: 80 0RF Rx Instructions: administer w/meal; avoid other meds within 1hr before or 4-6hr after dose vancomycin 125 mg Capsule 250 mg PO Q6H Qty: 56 0RF Rx Instructions: give vancomycin 250 mg q.6 hour until 06/07/23. followed by taper of 125 mg BID x 7 days, then 125 mg daily x 7 days, then 125 mg every 2 days for 2 weeks vancomycin 125 mg capsule See Rx Instructions .ROUTE .COMPLEX Qty: 28 0RF Rx Instructions: first patient will complete vancomycin 250 mg po q6hr ( until 06/07/23)then start this vancomycin taper (starting 06/08/23) vancomycin po 125 mg BID x 7 days, then 125 mg daily x 7 days, then 125 mg every 2 days for 2 weeks Continued Ensure Clear Liquid 1 ea PO BID 30 Days Qty: 29028 0RF albuterol sulfate 90 mcg/actuation HFA aerosol inhaler 1 puff inhalation Q6H PRN (Reason: wheezing) fluticasone furoate-vilanterol [Breo Ellipta] 100-25 mcg/dose blister with device 1 inh inhalation DAILY Qty: 3 3RF metoprolol tartrate 25 mg tablet 25 mg PO BID Qty: 180 3RF Held furosemide 20 mg Tablet 20 mg PO DAILY Qty: 30 0RF Hold Instructions: Resume on 06/06/23. hold until diarrahe resolves. Protocol: Hold for SBP< HOLD for SBP < : 90 amlodipine 10 mg tablet 10 mg PO DAILY Qty: 90 3RF Hold Instructions: Resume on 06/12/23. can add low dose amlodipine if bp persistently above 140/90 mmhg Discontinued losartan 25 mg tablet 25 mg PO DAILY Qty: 90 3RF Discharge Orders: Discharge Order (Routine); Ordered 06/01/23 Ordered By: Giuliana Campbell Diet: Advance to usual diet Activity on Discharge: As tolerated Stand Alone Forms: Patient Portal Discharge page Care Plan Goals: Patient was admitted for C diff diarrhea, multiple electrolytic abnormalities: Patient was started on fidaxomicin-but diarrhea was not improving so switched to p.o. vanco and Flagyl: Subsequently patient diarrhea slowly seems to be improving, able to sleep at night from last 2 days, also diarrhea and the days also bowel improving with some intermittent diarrhea episodes. Leukocytosis improving, no fever no abdominal pain, GI P panel checked to time during this admission negative, blood cultures negative ,patient tolerating diet well. Discussed with GI and infectious disease: Patient with need p.o. vanco 250 q.6 hour for 14 days given severity followed by taper of 125 mg BID x 7 days, then 125 mg daily x 7 days, then 125 mg every 2 days for 2 weeks .added cholectyramine for diarrahae also. multiple electrolytic abnormalities: Hypomagnesemia, hypokalemia, hyponatremia: Repleted hypomagnesemia improved, hyponatremia is also improving significantly. Hypokalemia also repleted. Will send patient with p.o. potassium supplements. Patient also had new onset AFib: Treated with metoprolol, amiodarone- 40o mg po bid ( loading until 06/05 ) ,then on 06/06 -switch to 200 mg po daily. also on eliquis (AC ) for stroke prevention. Htn : Continue metoprolol, losartan and amlodipine on hold-due to fluctuating blood pressure which can be introduced slowly if blood pressure and if persistently above 140/90 mmHg. Lasix can also be introduced back once diarrhea improves. Monitor CBC and BMP,magnesium levels . Patient is to also follow up with GI out patiently, cardiology may arrange their own appointment. Health Concerns: as above . Plan of Treatment: as above. Assessment: as above .
[2023-06-01 15:40] VITALS: BP 169/80; PULSE 87; RESP 16; TEMP 37.2; O2SAT 98
== END 2023-06-01 16:27 | disposition skilled nursing facility (03) | DRG 372 ==
LOC: HO.ED 20:53 → HO.EDOVER 22:33 → HO.IMC 23:52
PROVIDERS: Student in an Organized Health Care Education/Training Program; Admitting Provider Internal Medicine; Emergency Provider Emergency Medicine; PCP Internal Medicine; Visit Provider Internal Medicine
DX: A04.72 Enterocolitis due to Clostridium difficile, not specified as recurrent (principal); E87.1 Hypo-osmolality and hyponatremia; K86.3 Pseudocyst of pancreas; J96.10 Chronic respiratory failure, unspecified whether with hypoxia or hypercapnia; E87.6 Hypokalemia; I10 Essential (primary) hypertension; E83.42 Hypomagnesemia; I48.91 Unspecified atrial fibrillation; E86.1 Hypovolemia; K70.30 Alcoholic cirrhosis of liver without ascites; J44.9 Chronic obstructive pulmonary disease, unspecified; F10.91 Alcohol use, unspecified, in remission; Z22.1 Carrier of other intestinal infectious diseases; Z99.81 Dependence on supplemental oxygen; Z79.51 Long term (current) use of inhaled steroids; Z87.891 Personal history of nicotine dependence; Z79.899 Other long term (current) drug therapy
CPT/HCPCS: 36415; 74018; 74176; 74177; 80048; 80051; 80053; 82436; 83605; 83690; 83735; 83930; 83935; 84100; 84132; 84133; 84300; 84443; 85007; 85025; 85027; 87015; 87207; 87324; 87493; 87507; 87651; 89055; 90686; 92950; 93005; 93306; 94640; 97116; 97161; 99285; J0282; J1650; J1836; J2405; J3475; J3480; P9047; Q9967

== ENCOUNTER 2023-05-18 22:23 | Outpatient (BNV) | payer MEDICARE, SELFPAY | END 2023-05-23 07:00 | PROVIDERS: Admitting Provider Internal Medicine; Emergency Provider Emergency Medicine; PCP Internal Medicine; Visit Provider Internal Medicine Cardiovascular Disease | DX: I34.0 Nonrheumatic mitral (valve) insufficiency (principal) | CPT/HCPCS: 93306 ==

== ENCOUNTER → 2023-05-18 22:23 | Outpatient (BNV) | payer MEDICARE, SELFPAY | PROVIDERS: Admitting Provider Internal Medicine; Emergency Provider Emergency Medicine; Visit Provider Internal Medicine Hypertension Specialist | DX: E87.1 Hypo-osmolality and hyponatremia (principal) | CPT/HCPCS: 99222; 99231; 99232; 99499 ==

== ENCOUNTER → 2023-05-18 22:23 | Outpatient (BNV) | payer MEDICARE, SELFPAY | PROVIDERS: Admitting Provider Internal Medicine; Emergency Provider Emergency Medicine; Visit Provider Internal Medicine | DX: I48.91 Unspecified atrial fibrillation (principal); A04.72 Enterocolitis due to Clostridium difficile, not specified as recurrent | CPT/HCPCS: 99223; 99231; 99232; 99233; 99239 ==

== ENCOUNTER → 2023-05-18 22:23 | Outpatient (BNV) | payer MEDICARE, SELFPAY | PROVIDERS: Admitting Provider Internal Medicine; Emergency Provider Emergency Medicine; PCP Internal Medicine; Visit Provider Internal Medicine | DX: A04.72 Enterocolitis due to Clostridium difficile, not specified as recurrent (principal); E87.1 Hypo-osmolality and hyponatremia; K74.60 Unspecified cirrhosis of liver; K91.89 Other postprocedural complications and disorders of digestive system; K85.90 Acute pancreatitis without necrosis or infection, unspecified; K86.89 Other specified diseases of pancreas | CPT/HCPCS: 99232; 99233 ==

== ENCOUNTER → 2023-05-18 22:23 | Outpatient (BNV) | payer MEDICARE, SELFPAY | PROVIDERS: Admitting Provider Internal Medicine; Emergency Provider Emergency Medicine; PCP Internal Medicine; Visit Provider Internal Medicine | DX: A04.72 Enterocolitis due to Clostridium difficile, not specified as recurrent (principal); K91.89 Other postprocedural complications and disorders of digestive system; K85.90 Acute pancreatitis without necrosis or infection, unspecified | CPT/HCPCS: 99222; 99232 ==

== ENCOUNTER → 2023-05-18 22:23 | Outpatient (BNV) | payer MEDICARE, SELFPAY | PROVIDERS: Admitting Provider Internal Medicine; Emergency Provider Emergency Medicine; PCP Internal Medicine; Visit Provider Internal Medicine Cardiovascular Disease | DX: I48.91 Unspecified atrial fibrillation (principal) | CPT/HCPCS: 99222; 99233 ==

== ENCOUNTER → 2023-05-18 22:23 | Outpatient (BNV) | payer MEDICARE, SELFPAY | PROVIDERS: Admitting Provider Internal Medicine; Emergency Provider Emergency Medicine; PCP Internal Medicine; Visit Provider Internal Medicine Gastroenterology | DX: A04.72 Enterocolitis due to Clostridium difficile, not specified as recurrent (principal); K86.3 Pseudocyst of pancreas; R19.7 Diarrhea, unspecified; K70.30 Alcoholic cirrhosis of liver without ascites | CPT/HCPCS: 99499 ==

== ENCOUNTER 2023-08-03 13:20 | Outpatient (AMB) | payer MEDICARE, SELFPAY ==
[2023-08-03 13:40] VITALS: BP 96/64; PULSE 102; O2SAT 95; BMI 17.6
--- NOTE | 2023-08-03 13:40 | A.OFFPC_ITS ---
Vital Signs 08/03/23 13:40 Height 5 ft 4.5 in Weight 104 lb BMI 17.6 BP 96/64 Blood Pressure Location Lt brachial Position Sitting Pulse 102 H Pulse Source Pulse Oximeter Pulse Oximetry (%) 95 Oxygen Delivery Method Room Air Intake Visit Reasons: 07/19/23 [facility] UTI Allergies No Known Allergies [No Known Allergies*] Allergy (Verified 05/18/23 13:18) Medication List - Last Reconciled 08/03/23 by Shirin Phan MD albuterol sulfate 90 mcg/actuation 1 puff inhalation Q6H PRN amiodarone 200 mg PO DAILY amlodipine 10 mg PO DAILY apixaban (Eliquis) 2.5 mg PO BID cholestyramine (with sugar) 4 gram 4 grams PO DAILY fluticasone furoate-vilanterol 100-25 mcg/dose (Breo Ellipta) 1 inh inhalation DAILY food supplemt, lactose-reduced (Ensure Clear oral liquid) 1 ea PO BID 30 days furosemide 20 mg See Protocol PO DAILY levofloxacin 500 mg PO DAILY tintgi-yvyvlpok-oufbnev 12,000-38,000 -60,000 unit (Creon) 1 cap PO TIDWM metoprolol tartrate 25 mg PO BID potassium chloride 20 mEq PO DAILY sod phos di, mono-K phos mono 250 mg (Phosphorous) 1 tab PO DAILY vancomycin 250 mg (2 x 125 mg) PO Q6H vancomycin first patient will complete vancomycin 250 mg po q6hr ( until )then start this vancomycin taper (starting 06/08/23) vancomycin po 125 mg BID x 7 days, then 125 mg daily x 7 days, then 125 mg every 2 days for 2 weeks Tobacco use date assessed: 08/03/23 Fall risk assessment: No Falls in past year Last assessed Fall Risk: 08/03/23 Dental Screening Dental Screen Date: 08/03/23 Did you have a dental visit in the last 12 months?: Yes Did you have a dental problem in the last 6 months where you did not have access to dental care?: No Was dental information given to patient?: Patient has dentist HPI 07/19/23 [facility] UTI HPI Details Pt presents for f/u of multiple admissions to [facility] and [facility] for intra abdominal absesses after ERCP in May, status post to stent placement for CBD and pancreatic abscess/fistula and treatment for sepsis. Pt was discharged home 2 weeks ago and complains of generalized fatigue but reports good appetite and normal bowel movements. She will follow-up with Dr. Ryan at [facility] for repeat abdominal CT next week. Patient denies fever chills palpitations chest pain. She developed episode of AFib in May while in the hospital and was started on amiodarone and Eliquis. Echocardiogram showed normal ejection fraction moderate biatrial enlargement and mild MR. Patient denies any recurrent symptoms of palpitations or chest pains. [facility] Medical History (Updated 08/03/23 @ 15:47 by Shirin Phan MD) Atrial fibrillation with rapid ventricular response Peripancreatic fluid collection Post-ERCP acute pancreatitis Pancreatic pseudocyst Liver cirrhosis Raspy voice Mammogram declined Hyperlipidemia Liver cirrhosis, alcoholic Hyponatremia Peripheral vascular disease Nodule on liver Colonoscopy refused COPD (chronic obstructive pulmonary disease) Annual physical exam Surgical History History of esophagogastroduodenoscopy (EGD) Hx of tooth extraction History of tonsillectomy Family History Father Heart problem Substance use disorder Mother Hypertension Diabetes Substance use disorder Sister Substance use disorder Paternal Grandmother Colostomy in place Social History Household Members: Family Housing: House Are you a primary healthcare specialist to a significant other at home: Yes Do you presently have visiting nurse or other home services: No Alcohol intake: former Comment: PT DECLINES BEDALARM. COMMODE BY BEDSIDE. Patient Tobacco Use Status: Former Tobacco user Quit Date: 2016 Tobacco use type: Cigarette e-Cigarette/Vaping Use: Former Use Second Hand Smoke Exposure: No Substance Use Type: Marijuana Advance Directives Date on File: 05/04/23 service: No Current occupational status: retired Cognitive needs: No Hearing needs: No Vision needs: No Questionnaire PHQ-9 Over the last 2 weeks, how often have you been bothered by any of the following problems? 1. Little interest or pleasure in doing things: not at all 2. Feeling down, depressed, or hopeless: not at all 3. Trouble falling or staying asleep, or sleeping too much: several days 4. Feeling tired or having little energy: nearly every day 5. Poor appetite or overeating: not at all 6. Feeling bad about yourself - or that you are a failure or have let yourself or your family down: several days 7. Trouble concentrating on things, such as reading the newspaper or watching television: several days 8. Moving or speaking so slowly that other people could have noticed. Or the opposite - being so fidgety or restless that you have been moving around a lot more than usual: not at all 9. Thoughts that you would be better off or of hurting yourself in some way: not at all Total score: 6 Depression Screening Interpretation: Negative Depression Screening Done: Yes Source: Developed by Drs. Jm Clemente, Yanni Terrell, Ángel Larios and colleagues, with an educational serenity from [employer]. Thrive Questionnaire Date Thrive assessed: 08/03/23 I am a: Patient What is your living situation today?: I choose not to answer this question Within the past 12 months, did the food you bought not last and you didn't have the money to get more?: I choose not to answer this question Within the past 12 months, did you worry whether your food would run out before you got money to buy more?: I choose not to answer this question Do you have trouble paying for medicines?: I choose not to answer this question Do you have trouble getting transportation to medical appointments?: I choose not to answer this question Do you have trouble paying your heating and electricity bill?: I choose not to answer this question Do you have trouble taking care of your child, family member or friend?: I choose not to answer this question Do you have trouble with day-to-day activities such as bathing, preparing meals, shopping, managing finances, etc.?: I choose not to answer this question Are you currently unemployed and looking for a job?: I choose not to answer this question Are you interested in more education?: I choose not to answer this question Currently or been in a relationship where the following occur: I choose not to answer this question THRIVE Score: 0 AUDIT C Alcohol Use Questionnaire (AUDIT-C) 1. How often do you have a drink containing alcohol?: Never 3. How often do you have six or more drinks on one occasion?: Never Total Score: 0 IBRAHIMA-7 AMB Questionnaire IBRAHIMA-7 Date IBRAHIMA - 7 assessed: 08/03/23 Feeling nervous, anxious, or on edge: 2 = More than half the days Not being able to stop or control worryin = Several days Worrying too much about different things: 1 = Several days Trouble relaxin = Not at all Being so restless that it is hard to sit still: 0 = Not at all Becoming easily annoyed or irritable: 1 = Several days Feeling afraid as if something awful might happen: 1 = Several days Total IBRAHIMA-7 score (0-4 normal; 5-9 mild; 10-14 moderate; 15-21 severe): 6 Source: Developed by Drs. Jm Clemente, Yanni Terrell, Ángel Larios and colleagues, with an educational serenity from [employer]. Review of Systems Const All systems reviewed & are unremarkable except as noted in HPI and below Reports no additional complaints Eyes Reports no additional complaints ENT Reports no additional complaints Card Reports no additional complaints Resp Reports no additional complaints GI Reports no additional complaints Reports no additional complaints Physical exam (Primary Care) Vital Signs: Last Vital Signs Pulse 102 H 08/03/23 13:40 BP 96/64 08/03/23 13:40 Pulse Ox 95 08/03/23 13:40 Oxygen Delivery Method Room Air 08/03/23 13:40 BMI result Body Mass Index 17.6 Tobacco/Smoking Status: Tobacco use Status Tobacco use date assessed 08/03/23 08/03/23 13:52 Patient Tobacco Use Status Former Tobacco user 08/03/23 13:43 Tobacco use type Cigarette 08/03/23 13:43 e-Cigarette/Vaping Use Former Use 08/03/23 13:43 PHQ-9: PHQ-9 Score PHQ-9: Total score 6 08/03/23 14:43 Depression Screening Interpretation: Negative Thrive Assessment: Date of Thrive Assessment Date Thrive assessed 08/03/23 08/03/23 14:43 Currently or been in a relationship where the following occur: I choose not to answer this question Const General: no acute distress HENMT Head: Yes normal to inspection Mouth: Normal oral and palatal mucosa present Resp Effort & Inspection: normal respiratory effort Auscultation: diminished lung sounds Cardio Rhythm: regular rhythm Heart sounds: S1 normal heart sound present and S2 normal heart sound present GI Inspection: Yes normal to inspection Palpation (GI): Soft to palpation Percussion: Yes normal to percussion Auscultation: normal bowel sounds Assessment and Plan Assessment & Plan (1) Essential hypertension: Code(s): I10 - Essential (primary) hypertension Plan: Blood pressure is low and patient will decrease amlodipine to 5 mg a day. She will have a nurse monitor her blood pressure at home for the next week, (2) COPD (chronic obstructive pulmonary disease): Code(s): J44.9 - Chronic obstructive pulmonary disease, unspecified Plan: Continue Anoro (3) Intra-abdominal abscess post-procedure: Comment: after ERCP 06/07, 2 drains/stents placement [facility] 07/07, f/u Dr. Ryan GI [facility] Code(s): T81.43XA - Infection following a procedure, organ and space surgical site, initial encounter Plan: Follow-up with surgeons at [facility] and GI at [facility] for a repeat CT of the abdomen pelvis (4) Atrial fibrillation with rapid ventricular response: Comment: 06/07, Echo nl EF, mild MR, started on amiodarone and Eliquis Code(s): I48.91 - Unspecified atrial fibrillation Plan: Continue amiodarone Eliquis and metoprolol, Orders: Orders Comprehensive Met. Panel Today I10 - Essential (primary) hypertension, J44.9 - Chronic obstructive pulmonary disease, unspecified TSH reflex Free T4 Today I10 - Essential (primary) hypertension, J44.9 - Chronic obstructive pulmonary disease, unspecified B Type Natriuretic Peptide Today I50.9 - Heart failure, unspecified Complete Blood Count Auto Diff Today I10 - Essential (primary) hypertension, J44.9 - Chronic obstructive pulmonary disease, unspecified IRON PROFILE Today I10 - Essential (primary) hypertension, J44.9 - Chronic obstructive pulmonary disease, unspecified Medications: Changed From amiodarone amiodarone 400 mg( 2 tabs) po by mouth twice daily until 06/05/23,then switch to amiodarone 200 mg( 1 tab) po daily 400 mg (2 x 200 mg) PO BID 50 tabs 0RF To amiodarone amiodarone 400 mg( 2 tabs) po by mouth twice daily until 06/05/23,then switch to amiodarone 200 mg( 1 tab) po daily 200 mg PO DAILY Discontinued furosemide Discontinued Reason: Doctor's Order 20 mg See Protocol PO DAILY 30 tabs 0RF Coding Level of Care Code Est Pt Level 4 (69752) Diagnoses Essential hypertension I10 COPD (chronic obstructive pulmonary disease) J44.9 Intra-abdominal abscess post-procedure T81.43XA Atrial fibrillation with rapid ventricular response I48.91
== END 2023-08-03 15:48 | disposition home or self-care (01) ==
PROVIDERS: PCP Internal Medicine; Visit Provider Internal Medicine
DX: I10 Essential (primary) hypertension (principal); J44.9 Chronic obstructive pulmonary disease, unspecified; T81.43XA Infection following a procedure, organ and space surgical site, initial encounter; I48.91 Unspecified atrial fibrillation
CPT/HCPCS: 99214

== ENCOUNTER 2023-08-03 14:45 | Outpatient (REF) | payer MEDICARE, SELFPAY ==
[2023-08-03 16:09] LABS: MANUAL DIFF FLAG NO
[2023-08-03 16:24] LABS: Basophils Absolute Auto 0.1 X10*3/uL (0.0-0.2); Eosinophils Absolute Auto 0.3 X10*3/uL (0.0-0.4); Eosinophils Percent Auto 3.7 % (0-4); Hematocrit 30.2 % (37.0-47.0); Hemoglobin 9.4 g/dl (12.0-16.0); Imm Gran Abs Auto 0.03 X10*3/uL (0.00-0.03); Imm Gran Pct Auto 0.4 % (0.0-0.4); Lymphocytes Absolute Auto 1.3 X10*3/uL (1.2-4.9); Lymphocytes Percent Auto 17.7 % (20-40); Mean Corpuscular HGB Conc 31.1 g/dl (31.0-35.0); Mean Corpuscular Hemoglobin 28.2 pg (27.0-33.0); Mean Corpuscular Volume 90.7 fL (80.0-98.0); Mean Platelet Volume 9.3 fL (9.4-12.3); Monocytes Absolute Auto 0.4 X10*3/uL (0.1-1.2); Neutrophils Percent Auto 71.2 % (45-73); Platelet Count 683 X10*3/uL (160-400); Red Blood Count 3.33 X10*6/uL (4.20-5.50); Red Cell Distribution Width 19.8 % (11.0-16.0); White Blood Count 7.1 X10*3/uL (4.8-10.8)
[2023-08-03 16:45] LABS: Alanine Aminotransferase 60 U/L (0-31); Albumin Level 3.9 g/dL (3.5-5.0); Alkaline Phosphatase 980 U/L (39-117); Anion Gap 14 (12-20); Aspartate Amino Transferase 47 U/L (5-31); Bilirubin Total 0.3 mg/dL (0.0-1.0); Blood Urea Nitrogen 32 mg/dL (9-16); Calcium 9.8 mg/dL (8.4-10.2); Carbon Dioxide 22 mmol/L (22-29); Chloride 100 mmol/L (96-108); Estimated Glomerular Filt Rate 53; Glucose Random 89 mg/dL (60-115); Iron 56 mcg/dL (30-160); Percent Iron Saturation 20 % (15-50); Potassium 4.7 mmol/L (3.3-5.1); Sodium 131 mmol/L (135-145); Total Iron Binding Capacity 281 mcg/dL (228-428); Total Protein 8.4 g/dL (6.5-8.0); Unsaturated Iron Binding 225 ug/dL
[2023-08-03 16:53] LABS: TSH reflex Free T4 3.16 uIU/mL (0.32-4.0)
[2023-08-03 17:05] LABS: B Type Natriuretic Peptide 253 pg/mL (<100)
[2023-08-06 13:37] LABS: Alpha Fetoprotein 4.3 ng/mL
== END 2023-08-03 14:46 | disposition home or self-care (01) ==
LOC: HO.HMGCLDS 14:45
PROVIDERS: PCP Internal Medicine; Visit Provider Internal Medicine
DX: I10 Essential (primary) hypertension (principal); J44.9 Chronic obstructive pulmonary disease, unspecified; I50.9 Heart failure, unspecified; K83.8 Other specified diseases of biliary tract; K74.60 Unspecified cirrhosis of liver; R77.2 Abnormality of alphafetoprotein; R73.9 Hyperglycemia, unspecified
CPT/HCPCS: 36415; 80053; 82105; 83540; 83880; 84443; 85025

== ENCOUNTER 2023-08-30 10:56 | Outpatient (AMB) | payer MEDICARE, SELFPAY ==
[2023-08-30 10:57] VITALS: BP 112/64; PULSE 105; O2SAT 96; BMI 18.8
--- NOTE | 2023-08-30 10:57 | MHC.PC.OV ---
Vital Signs 08/30/23 10:57 Height 5 ft 4.5 in Weight 111 lb BMI 18.8 BP 112/64 Blood Pressure Location Lt brachial Position Sitting Pulse 105 H Pulse Source Pulse Oximeter Pulse Oximetry (%) 96 Oxygen Delivery Method Room Air Intake Visit Reasons: 1 month follow up Intake Note: Pt is here today for 1 month follow up visit. Allergies No Known Allergies [No Known Allergies*] Allergy (Verified 08/30/23 11:00) Medication List - Last Reconciled 08/30/23 by Shirin Phan MD albuterol sulfate 90 mcg/actuation 1 puff inhalation Q6H PRN amiodarone 200 mg PO DAILY amlodipine 5 mg (1/2 x 10 mg) PO DAILY apixaban (Eliquis) 2.5 mg PO BID fluticasone furoate-vilanterol 100-25 mcg/dose (Breo Ellipta) 1 inh inhalation DAILY food supplemt, lactose-reduced (Ensure Clear oral liquid) 1 ea PO BID 30 days tlsqoz-wrydkpmi-jkbzdhs 12,000-38,000 -60,000 unit (Creon) 1 cap PO TIDWM metoprolol tartrate 25 mg PO BID Tobacco use date assessed: 08/03/23 HPI 1 month follow up HPI Details Pt presents for f/u. She had biliary stent removal 1 week ago at [facility]. She tolerated procedure well. Patient reports good appetite, no nausea vomiting normal bowel movements and gain some weight. She denies any recurrent episodes of palpitations chest pain shortness of breath. She has been taking Eliquis and amiodarone for episode of AFib and follows up with Cardiology.. Blood pressure has been controlled on amlodipine. COPD stable on Breo. PFSH Medical History Atrial fibrillation with rapid ventricular response Peripancreatic fluid collection Post-ERCP acute pancreatitis Pancreatic pseudocyst Liver cirrhosis Raspy voice Mammogram declined Hyperlipidemia Liver cirrhosis, alcoholic Hyponatremia Peripheral vascular disease Nodule on liver Colonoscopy refused COPD (chronic obstructive pulmonary disease) Annual physical exam Surgical History History of esophagogastroduodenoscopy (EGD) Hx of tooth extraction History of tonsillectomy Family History Father Heart problem Substance use disorder Mother Hypertension Diabetes Substance use disorder Sister Substance use disorder Paternal Grandmother Colostomy in place Social History Household Members: Family Housing: House 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 COMMODE BY BEDSIDE. Patient Tobacco Use Status: Former Tobacco user Quit Date: 2016 Tobacco use type: Cigarette e-Cigarette/Vaping Use: Former Use Second Hand Smoke Exposure: No Substance Use Type: Marijuana Advance Directives Date on File: 05/04/23 service: No Current occupational status: retired Cognitive needs: No Hearing needs: No Vision needs: No Questionnaire Thrive Questionnaire Date Thrive assessed: 08/03/23 IBRAHIMA-7 AMB Questionnaire IBRAHIMA-7 Date IBRAHIMA - 7 assessed: 08/03/23 Source: Developed by Drs. Jm Clemente, Yanni Terrell, Ángel Larios and colleagues, with an educational serenity from [employer]. Review of Systems Const All systems reviewed & are unremarkable except as noted in HPI and below Reports no additional complaints Eyes Reports no additional complaints ENT Reports no additional complaints Card Reports no additional complaints Resp Reports no additional complaints GI Reports no additional complaints Physical exam (Primary Care) Vital Signs: Last Vital Signs Pulse 105 H 08/30/23 10:57 BP 112/64 08/30/23 10:57 Pulse Ox 96 08/30/23 10:57 Oxygen Delivery Method Room Air 08/30/23 10:57 BMI result Body Mass Index 18.8 Tobacco/Smoking Status: Tobacco use Status Tobacco use date assessed 08/03/23 08/30/23 11:02 Patient Tobacco Use Status Former Tobacco user 08/30/23 11:02 Tobacco use type Cigarette 08/30/23 11:02 e-Cigarette/Vaping Use Former Use 08/30/23 11:02 Thrive Assessment: Date of Thrive Assessment Date Thrive assessed 08/03/23 08/30/23 11:02 Const General: no acute distress HENMT Face and sinus: Yes normal facial exam Throat: Yes posterior oropharynx normal Eyes General: appearance normal, both eyes and all related structures Neck Neck: Yes supple Resp Effort & Inspection: normal respiratory effort Auscultation: clear to auscultation bilaterally Cardio Rhythm: regular rhythm Heart sounds: S1 normal heart sound present and S2 normal heart sound present GI Inspection: Yes distended Palpation (GI): Soft to palpation, Tenderness to palpation present (GI) in the epigastrum and in the RUQ and No Rebound tenderness present Auscultation: normal bowel sounds Assessment and Plan Assessment & Plan (1) Atrial fibrillation with rapid ventricular response: Comment: 06/07, Echo nl EF, mild MR, started on amiodarone and Eliquis Code(s): I48.91 - Unspecified atrial fibrillation Plan: Continue amiodarone and Eliquis and follow-up with the Cardiology at [facility] (2) Common bile duct dilatation: Comment: 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 Ryan at [facility] (3) COPD (chronic obstructive pulmonary disease): Code(s): J44.9 - Chronic obstructive pulmonary disease, unspecified Plan: Continue Trelegy (4) Hyponatremia: Code(s): E87.1 - Hypo-osmolality and hyponatremia Plan: Check comprehensive panel today. Follow-up in 2-3 months or as needed Orders: Orders Complete Blood Count Auto Diff Today E87.1 - Hypo-osmolality and hyponatremia, I48.91 - Unspecified atrial fibrillation, J44.9 - Chronic obstructive pulmonary disease, unspecified, K83.8 - Other specified diseases of biliary tract Gamma Glutamyl Transpeptidase Today E87.1 - Hypo-osmolality and hyponatremia, I48.91 - Unspecified atrial fibrillation, J44.9 - Chronic obstructive pulmonary disease, unspecified, K83.8 - Other specified diseases of biliary tract TSH reflex Free T4 Today E87.1 - Hypo-osmolality and hyponatremia, I48.91 - Unspecified atrial fibrillation, J44.9 - Chronic obstructive pulmonary disease, unspecified, K83.8 - Other specified diseases of biliary tract Comprehensive Met. Panel Today E87.1 - Hypo-osmolality and hyponatremia, I48.91 - Unspecified atrial fibrillation, J44.9 - Chronic obstructive pulmonary disease, unspecified, K83.8 - Other specified diseases of biliary tract Medications: New amiodarone 200 mg PO DAILY 90 tabs 1RF Refilled apixaban (Eliquis) 2.5 mg PO BID 180 tabs 1RF qiqxez-qajqcfbu-sfmuxqs 12,000-38,000 -60,000 unit (Creon) 1 cap PO TIDWM 90 caps 1RF metoprolol tartrate 25 mg PO BID 180 tabs 3RF Resumed amlodipine 5 mg (1/2 x 10 mg) PO DAILY 90 tabs 3RF I10 - Essential (primary) hypertension amlodipine 10 mg PO DAILY 90 tabs 3RF I10 - Essential (primary) hypertension Coding Level of Care Code Est Pt Level 4 (96063) Diagnoses Atrial fibrillation with rapid ventricular response I48.91 Common bile duct dilatation K83.8 COPD (chronic obstructive pulmonary disease) J44.9 Hyponatremia E87.1
== END 2023-08-30 11:56 | disposition home or self-care (01) ==
PROVIDERS: PCP Internal Medicine; Visit Provider Internal Medicine
DX: I48.91 Unspecified atrial fibrillation (principal); K83.8 Other specified diseases of biliary tract; J44.9 Chronic obstructive pulmonary disease, unspecified; E87.1 Hypo-osmolality and hyponatremia
CPT/HCPCS: 99214

== ENCOUNTER 2023-08-30 11:48 | Outpatient (REF) | payer MEDICARE, SELFPAY ==
[2023-08-30 13:04] LABS: MANUAL DIFF FLAG NO
[2023-08-30 13:24] LABS: Basophils Absolute Auto 0.1 X10*3/uL (0.0-0.2); Basophils Percent Auto 0.8 % (0-2); Eosinophils Absolute Auto 0.3 X10*3/uL (0.0-0.4); Eosinophils Percent Auto 3.2 % (0-4); Hematocrit 40.7 % (37.0-47.0); Hemoglobin 12.8 g/dl (12.0-16.0); Imm Gran Abs Auto 0.04 X10*3/uL (0.00-0.03); Imm Gran Pct Auto 0.4 % (0.0-0.4); Lymphocytes Absolute Auto 1.9 X10*3/uL (1.2-4.9); Lymphocytes Percent Auto 17.9 % (20-40); Mean Corpuscular HGB Conc 31.4 g/dl (31.0-35.0); Mean Corpuscular Hemoglobin 29.1 pg (27.0-33.0); Mean Corpuscular Volume 92.5 fL (80.0-98.0); Mean Platelet Volume 10.3 fL (9.4-12.3); Monocytes Absolute Auto 0.6 X10*3/uL (0.1-1.2); Monocytes Percent Auto 5.6 % (2-11); Neutrophils Absolute Auto 7.5 x10*3/uL (2.0-8.3); Neutrophils Percent Auto 72.1 % (45-73); Platelet Count 309 X10*3/uL (160-400); Red Cell Distribution Width 17.3 % (11.0-16.0); White Blood Count 10.4 X10*3/uL (4.8-10.8)
== END 2023-08-30 11:49 | disposition home or self-care (01) ==
LOC: HO.HMGCLDS 11:48
PROVIDERS: PCP Internal Medicine; Visit Provider Internal Medicine
DX: I48.91 Unspecified atrial fibrillation (principal); K83.8 Other specified diseases of biliary tract; J44.9 Chronic obstructive pulmonary disease, unspecified; E87.1 Hypo-osmolality and hyponatremia
CPT/HCPCS: 36415; 80053; 82977; 84443; 85025